=== PATIENT | female | born 1955 | race Caucasian/White ===

== ENCOUNTER 2023-07-03 07:17 | Outpatient (OUT) | payer MEDICARE, SELFPAY ==
--- NOTE | 2023-07-03 07:19 | MM_ITS ---
Patient: FIGUEROA VILLANUEVA Exam Date: 07/03/2023 : 1955 Gender:F Ordering : DR Mariana Mayfield M.D. Admission #: [id number] Family : Order #: [id number] CLICK HERE TO VIEW EXAM RADIOLOGY REPORT PROCEDURE: MM TOMOSYNTHESIS SCREENING BI COMPARISON: MG MAMM SCREEN 3D SAVANNAH CAD, 07/02/2022. MG MAMM SCREEN 3D SAVANNAH CAD, 06/26/2021. MG MAMM SCREEN SAVANNAH W CAD, 06/23/2020. MG MAMM SAVANNAH SCRN W CAD DIG, 09/23/2013. INDICATIONS: Screening Calculator Name NCI Breast Cancer Risk Assessment Tool 5 Year Breast Cancer Risk 1.50% Lifetime Breast Cancer Risk 5.00% Personal Breast Cancer No Personal Ovarian Cancer No Treatments None Family Cancers Mother with skin cancer at age 79. LOCATION: [facility] BREAST COMPOSITION: Scattered areas fibroglandular density. FINDINGS: DIAGNOSTIC CATEGORY 2--BENIGN FINDING: RIGHT BREAST: No significant suspicious finding. No significant change has occurred. LEFT BREAST: No significant suspicious finding. Scattered benign-appearing nodules are present. No significant change has occurred. RECOMMENDATIONS: ROUTINE MAMMOGRAM AND CLINICAL EVALUATION IN 12 MONTHS. PLEASE NOTE: A NORMAL MAMMOGRAM DOES NOT EXCLUDE THE POSSIBILITY OF BREAST CANCER. A CLINICALLY SUSPICIOUS PALPABLE LUMP SHOULD BE BIOPSIED. Dictated by: Wil Garcia M.D. on 07/03/2023 at 14:57 Approved by: Wil Garcia M.D. on 07/03/2023 at 15:03
--- NOTE | 2023-07-03 07:30 | XR_ITS ---
The [address] [address] Patient Name: FIGUEROA VILLANUEVA MRN: [id number] date: 1955 Sex: F Assigned Patient Location: [facility] Current Patient Location: [facility] Accession/Order Number: [id number] Exam Date: 07/03/2023 07:41 Report Date: 07/03/2023 10:12 At the request of: MIKAELA ZAYAS Procedure: XR cervical spine 5V EXAMINATION: XR cervical spine 5V HISTORY: Paresthesia OF Skin R20.2 ; left arm and hand numbness for one month; no known injury COMPARISON: No relevant comparison available. FINDINGS: BONES: No significant spondylosis, scoliosis, fracture, or visible bony lesion. DISC SPACES: Mild narrowing C5-6. PARASPINOUS: Negative. No paraspinous abnormality is seen. OTHER: Negative. XR/XR cervical spine 5V IMPRESSION: 1. C5-6 mild disc space narrowing and small posterior disc-osteophyte complex. Consider MRI of cervical spine if symptoms persist. Electronically authenticated by: BANDAR STONE Date: 07/03/2023 10:12
[2023-07-03 08:19] LABS: Basophils Percent Auto 0.5 % (0.2-2.0); Eosinophils Absolute Auto 0.3 10^3/uL (0.0-0.7); Eosinophils Percent Auto 3.6 % (0.9-7.0); Hematocrit 44.7 % (36.0-48.0); Hemoglobin 14.5 g/dL (12.0-16.0); Immature Granulocytes Abs Auto 0.02 10^3/uL (0.00-0.03); Immature Granulocytes Pct Auto 0.3 % (0.0-0.5); Lymphocytes Absolute Auto 1.6 10^3/uL (1.2-3.8); Lymphocytes Percent Auto 21.8 % (20.5-60.0); Mean Corpuscular HGB Conc 32.4 g/dL (29.9-35.2); Mean Corpuscular Hemoglobin 30.1 pg (26.7-34.0); Mean Corpuscular Volume 92.9 fL (81.0-99.0); Mean Platelet Volume 10.6 fL (9.5-13.5); Monocytes Absolute Auto 0.6 10^3/uL (0.3-0.8); Monocytes Percent Auto 7.5 % (1.7-12.0); Neutrophils Absolute Auto 4.8 10^3/uL (1.4-6.5); Neutrophils Percent Auto 66.3 % (43.0-75.0); Platelet Count 259 10^3/uL (150-450); Red Blood Count 4.81 10^6/uL (4.20-5.40); Red Cell Distribution Width 13.2 % (11.0-15.0); White Blood Count 7.3 10^3/uL (4.0-11.0)
[2023-07-03 08:51] LABS: Alanine Aminotransferase 46 U/L (14-59); Albumin Globulin Ratio 1.3; Albumin Level 4.3 g/dL (3.4-5.0); Alkaline Phosphatase 55 U/L (46-116); Anion Gap 12.2; Aspartate Amino Transferase 26 U/L (15-37); BUN Creatinine Ratio 24.3; Bilirubin Total 0.6 mg/dL (0.2-1.0); Calcium 9.7 mg/dL (8.5-10.1); Carbon Dioxide 27.7 mmol/L (21.0-32.0); Chloride 103 mmol/L (98-107); Chol HDL Ratio 5.4; Cholesterol 271 mg/dL (<=200); Estimated GFR (African America >60 (>=60); Estimated GFR (Non-African Ame >60 (>=60); Globulin 3.4 g/dL; Glucose 96 mg/dL (74-106); HDL Cholesterol 50 mg/dL (40-60); Potassium 3.9 mmol/L (3.5-5.1); Sodium 139 mmol/L (136-145); Thyroid Stimulating Hormone 3.838 uIU/mL (0.358-3.740); Total Protein 7.7 g/dL (6.4-8.2); Triglycerides 276 mg/dL (<=150); VLDL CHOLESTEROL 55.2 mg/dL
[2023-07-03 09:03] LABS: Free T4 1.17 ng/dL (0.76-1.46)
== END 2023-07-03 07:18 | disposition home or self-care (01) ==
LOC: MAMMO 07:17
PROVIDERS: PCP Family Medicine; Visit Provider Family Medicine
DX: Z12.31 Encounter for screening mammogram for malignant neoplasm of breast (principal); R20.2 Paresthesia of skin; I10 Essential (primary) hypertension; E78.2 Mixed hyperlipidemia; E03.8 Other specified hypothyroidism
CPT/HCPCS: 36415; 72050; 77063; 77067; 80053; 80061; 84439; 84443; 85025

== ENCOUNTER 2023-08-20 09:44 | Outpatient (RCR) | payer MEDICARE, SELFPAY | END 2023-09-11 17:11 | disposition home or self-care (01) | LOC: PT 09:44 | PROVIDERS: PCP Family Medicine; Visit Provider Anesthesiology | DX: M54.2 Cervicalgia (principal) | CPT/HCPCS: 97014; 97110; 97161 ==

== ENCOUNTER 2023-10-16 12:51 | Outpatient (OUT) | payer MEDICARE, SELFPAY ==
--- NOTE | 2023-10-16 12:53 | VEIN_ITS ---
Patient Name: FIGUEROA VILLANUEVA MR#: [id number] : 1955 Exam Date: 10/16/2023 Ordering Doctor: DR MIKAELA ZAYAS M.D. RADIOLOGY REPORT PROCEDURE: VC EXT VENOUS REFLUX SAVANNAH LMTD COMPARISON: None. INDICATIONS: Phlebitis of superficial vein of bilateral lower extremity I TECHNIQUE: Duplex imaging of the lower extremity to assess the deep and superficial venous system for the presence of deep or superficial venous incompetence and to document the location and severity of disease. The study includes evaluation of the great saphenous vein (GSV), anterior accessory saphenous vein (AASV) and small saphenous vein (SSV). Patient scanned in reverse Trendelenburg and standing. FINDINGS: RIGHT LOWER EXTREMITY: Saphenofemoral Junction Reflux: Yes 10.5mm 2.8 sec GSV: Diam (mm) Reflux/ Time (sec) Proximal Thigh N/A Mid Thigh N/A Distal Thigh N/A Prox Calf N/A Mid Calf N/A Saphenopopliteal Junction Reflux: 1.5mm No SSV: Proximal Calf N/A Mid Calf N/A AASV: Proximal Thigh 7.6 Yes 2.0 Mid Thigh Distal Thigh Thrombi: No acute or chronic thrombus visualized Compressibility: Normal Flow: Normal Preforator: Dist/med calf 3.5mm with 0s reflux. Tech Note: GSV and SSV were previously treated. AASV is tortuous off of SFJ. Patent varicose vein mid/med calf 5.3mm with 1.8s reflux. Patent varicose vein medial knee 4.8mm with 2.1s reflux. Patent varicose vein mid/med thigh 8.0mm with 0.9s reflux. Patent varicose vein dist/med thigh 5.9mm with 2.0s reflux. Patent varicose vein prox/med thigh 6.4mm with 1.7s reflux. LEFT LOWER EXTREMITY: Saphenofemoral Junction Reflux: Yes 7.7 mm 2.3 sec GSV: Diam (mm) Reflux/Time (sec) Proximal Thigh 6.8 Yes 2.3 Mid Thigh 3.8 Yes 0.8 Distal Thigh 4.3 Yes 1.3 Prox Calf 4.7 Yes 1.0 Mid Calf 3.1 Yes 0.8 Saphenopopliteal Junction Relux: 4.2 mm Yes 1.0 SSV: Proximal Calf 3.2 No Mid Calf 3.4 No AASV: Proximal Thigh 5.1 Yes 0.9 Mid Thigh 4.2 Yes 1.0 Distal Thigh Thrombi: No acute or chronic thrombus visualized Compressibility: Normal Flow: Normal Gun Perforator: No patent perforators visualized Tech Note: Incompetent GSV. Patent varicose vein medial knee 5.8mm with 1.0s reflux. Patent varicose vein prox/post calf 4.7mm with 1.6s reflux. Patent varicose vein mid/med thigh 6.2mm with 1.1s reflux. CONCLUSION: 1. Moderate reflux proximal right anterior accessory saphenous vein with dilatation 2. Moderate venous insufficiency left great saphenous vein with dilatation and saphenofemoral junction reflux 3. Mild reflux with borderline dilatation left anterior accessory saphenous vein 4. Bilateral incompetent varicose veins Dictated by: Gutierrez Kirk MD on 10/16/2023 at 13:56 Approved by: Gutierrez Kirk MD on 10/16/2023 at 13:59
--- NOTE | 2023-10-16 12:54 | VEIN_ITS ---
Patient Name: FIGUEROA VILLANUEVA MR#: [id number] : 1955 Exam Date: 10/16/2023 Ordering Doctor: DR MIKAELA ZAYAS M.D. RADIOLOGY REPORT PROCEDURE: [facility] - OFFICE VISIT INITIAL COMPARISON: None. PROGRESS NOTES: 67-year-old female who presents with a 15 year history of lower extremity pain swelling and varicose veins. The patient's left is significantly worse than the right. The patient describes the pain as aching burning and dull rating the pain as a 4 on a scale of 1-10. The patient's symptoms are significantly exacerbated by prolonged sitting and standing and are partially relieved by rest, leg elevation, exercise, support stockings which she has worn for many years and over the counter Tylenol. The patient exercises 3 to 4 times a week which does give her some relief. The patient previously was treated by Dr. Janet wood with intravenous laser ablation and stab phlebectomy. The patient denies any signs and symptoms to suggest arterial ischemia. The patient describes a family history significant for hypertension and diabetes in her father. Heart problems and hypertension in her mother. Varicose veins in a maternal grandmother and mother. . Five grandchildren. The patient does not drink alcohol. No illicit drug use. The patient has never smoked. Past medical history significant for hypothyroidism, hypertension, hyperlipidemia, hypercholesterolemia. No history of deep venous thrombus or pulmonary embolus. See separate history and physical for medication list. Nursing notes were reviewed. After history and physical exam I discussed at length the pathophysiology of venous hypertension and possible treatments, therapies and strategies available. We discussed at length the importance of elevating the lower extremities above the level of the heart, increased physical activity and compression stocking use. We discussed surgical interventions including ligation and stripping and phlebectomy. We discussed at length intravenous laser ablation, micro foam chemical ablation and injection sclerotherapy. Risks benefits and alternatives were discussed. Ultrasound venous reflux study performed the same day was discussed at length with the patient. The report demonstrates mild to moderate bilateral anterior accessory saphenous vein venous insufficiency. Moderate left great saphenous vein venous insufficiency with saphenofemoral junction reflux. Bilateral incompetent varicose veins. PHYSICAL EXAM: The right leg demonstrates moderate diffuse varicose reticular and spider veins. No active ulceration. Mild subcutaneous edema distally. No skin discoloration. The left leg demonstrates moderate diffuse varicose reticular and spider veins. No active ulceration. Mild subcutaneous edema distally. No skin discoloration. Both thighs, legs and feet were symmetrically warm to the touch. Good posterior tibial and dorsalis pedis pulses were present bilaterally. VEIN/VC Facility EST Comprehensive IMPRESSION: 1. Bilateral anterior accessory saphenous vein and left great saphenous vein venous insufficiency with dilatation and saphenofemoral junction reflux 2. Moderate bilateral lower extremity incompetent varicose veins 3. Mild bilateral lower extremity subcutaneous edema 4. No definite flow significant arterial disease 5. CEAP: C3, Ep, As, Pr PLAN: 1. Endovenous laser ablation left great saphenous vein followed by left anterior accessory saphenous vein 2. Micro foam chemical ablation right anterior accessory saphenous vein and bilateral incompetent varicose veins 3. Injection sclerotherapy of reticular and spider veins 4. Long-term use of 20-30 mm thigh or knee high compression stockings 5. Leg elevation and increased physical activity for symptomatic relief Nurse notes, history and physical were reviewed and confirmed, see attached forms. The nurse was present throughout the physical exam and consultation Dictated by: Gutierrez Kirk MD on 10/16/2023 at 15:11 Approved by: Gutierrez Kirk MD on 10/16/2023 at 15:42
--- OUTSIDE RECORDS SUMMARY | 2023-10-16 12:54 | XMS_ITS | CCD ---
Author Name Unknown Address [facility] [address] [place] [address] Organization [facility] Care Team Providers Care Household Chores Name Role Phone DR MARIANA MAYFIELD Admitting Unavailable CHANA, DR MARIANA Glover Primary Care Unavailable CHANA, DR MARIANA Glover Attending Unavailable CHASE, DR WIL Edmondson Consulting Unavailable CHANA, DR MARIANA Glover Consulting Unavailable Mariana Mayfield Unavailable MD Mariana Mayfield Attending Provider [phone] Lima Villatoro Unavailable SESAR Villatoro Attending Provider [phone] Lima Villatoro Admitting Unavailable Lima Villatoro Attending Unavailable Mariana Mayfield Primary Care Unavailable Mariana Mayfield Attending Unavailable Mariana Mayfield Admitting Unavailable Lukasz Quispe Unavailable Allergies Allergy Classification Reported Allergen(s) Allergy Type Date of Onset Reaction(s) Facility (1 source) Codeine Drug Allergy [facility] [place] [facility] Repository (2 sources) Codeine Drug Allergy Unknown [employer] Other (6 sources) Codeine Drug Allergy Unknown [employer] Other (6 sources) Anesthesia S/I-40A Drug allergy Comment:Patient had a reaction to the anesthetic her last surgery and had to have a spinal [employer] Other (6 sources) Medicinal cephalosporin and acting as antibacterial agent (FN) Drug allergy Unknown [employer] Other Medications Current Medications Medication Drug Class(es) Dates Sig (Normalized) Sig (Original) ALPRAZolam 0.25 mg oral tablet (6 sources) Benzodiazepine Start: 06-27-2023 take 1 tablet by mouth every twelve hours ALPRAZolam 0.25 MG 1 tablet Orally Twice a day for 30 days Jun, Active Start: 06-19-2023 take 1 tablet by charlotte th every twelve hours ALPRAZolam 0.25 MG 1 tablet Orally Twice a day Jun, Active amLODIPine 10 mg oral tablet (8 sources) Dihydropyridine Calcium Channel Tammy amLODIPine Besylate 10 MG 2 tablets at HS Active take 1 tablet by mouth once khadra y amLODIPine Besylate 10 MG 1 tablet Orally Once a day for 90 days Active amLODIPine Besyl ate Active amoxicillin 875 mg / clavulanate 125 mg oral tablet (3 sources) Penicillin-class Antibacterial Start: 01-08-2023 take 1 tablet by mouth every twelve hours Amoxicillin-Pot Clavulanate 875-125 MG 1 tablet Orally every 12 hrs for 7 Dec, Active ascorbic acid 1000 mg oral tablet (1 source) Vitamin C take 1 tablet by mouth every twenty-fou r hours Vitamin C 1000 MG 1 tablet Orally Once a day Active ascorbic acid 113 mg / copper gluconate 0.4 mg / docosahexaenoic acid 87.5 mg / eicosapentaenoic acid 163 mg / lutein 2.5 mg / tocopherol acetate 100 unt / zeaxanthin 0.5 mg / zinc oxide 17.4 mg oral capsule (8 sources) Vitamin C take 1 tablet by mouth twice daily PreserVision AREDS 2 - 1 tab Orally twice a day Active Aspir-81 81 MG (8 sources) take 1 tablet by mouth once daily Aspir-81 81 MG 1 tablet Orally Once a day Active betamethasone 0.5 mg/ml / clotrimazole 10 mg/ml topical cream (8 sources) Azole Antifungal, Corticosteroid Start: 12-25-2022 Clotrimazole-Betame thasone 1-0.05 % 1 application Externally Twice a day for 7 days Dec, Active calcium carbonate 1500 mg oral tablet (8 sources) take 1 tablet by mouth every twelve hours Calcium 600 MG 1 tablet with meals Orally Twice a day Active take 1 tablet by mouth every twe lve hours Calcium 600 MG 1 tablet with meals Orally Twice a day Active carvedilol 6.25 mg oral tablet (1 source) alpha-Adrenergic Tammy, beta-Adrenergic Tammy Start: 09-24-2023 take 1 tablet by mouth every twelve hours Carvedilol 6.25 MG 1 tablet with food Orally Twice a day for 30 day(s) Sep, Active erythromycin 0.02 mg/mg topical gel (6 sources) Macrolide, Macrolide Antimicrobial Start: 01-08-2023 Erythromycin 2 % 1 application Externally Twice a day for 14 days Dec, Active Famotidine (8 sources) Histamine-2 Receptor Antagonist Famotidine Active ferrous sulfate 325 mg oral tablet (8 sources) take 1 tablet by mouth every twenty-four hours Iron 325 (65 Fe) MG 1 tablet Orally Once a day Active Fish Oils (8 sources) take 1 capsule by mouth once daily Fish Oil 1000 MG 1 capsule Orally Once a day Active folic acid 0.8 mg oral tablet (8 sources) take 1 tablet by mouth every twenty-four hours Folic Acid 800 MCG 1 tablet Orally Once a day Active take 1 tablet by charlotte th every twenty-four hours Folic Acid 800 MCG 1 tablet Orally Once a day Active hydroCHLOROthiazide 25 mg oral tablet (8 sources) Thiazide Diuretic take 1 tablet by mouth once daily hydroCHLOROthiazide 25 MG Take 1 tablet by mouth once daily Active hydroCHLOROthiaz amina Active levothyroxine sodium 0.075 mg oral tablet (8 sources) l-Thyroxine take 1 tablet by mouth once daily in the morning Levothyroxine Sodium 75 MCG 1 tablet in the morning on an empty stomach Orally Once a day for 90 days Active take 1 tablet by charlotte th once daily in the morning Levothyroxine Sodium 75 MCG 1 tablet in the morning on an empty stomach Orally Once a day for 90 days Active take 1 tablet by mouth once khadra y Levothyroxine Sodium 50 MCG Take 1 tablet by mouth once daily for 90 Active lisinopril 40 mg oral tablet (8 sources) Angiotensin Converting Enzyme Inhibitor take 1 tablet by mouth once daily Lisinopril 40 MG Take 1 tablet by mouth once daily Active Magnesium (1 source) Magnesium Active One Daily For Women 50+ Adv - (8 sources) One Daily For Wo men 50+ Adv - Orally Active Potassium (8 sources) Potassium 1 tab Oral Active rosuvastatin calcium 20 mg oral tablet (4 sources) HMG-CoA Reductase Inhibitor take 1 tablet by mouth every twenty-four hours Rosuvastatin Calcium 20 MG 1 tablet Orally Once a day for 90 days Active turmeric extract 500 mg oral capsule (8 sources) take 1 tablet by mouth twice daily Turmeric 500 MG 1 tab Orally twice a day Active Vitamin C 1000 MG (7 sources) take 1 tablet by mouth once daily Vitamin C 1000 MG 1 tablet Orally Once a day Active Vitamin D3 2000 UNIT (8 sources) take 1 capsule by mouth once daily Vitamin D3 2000 UNIT 1 capsule Orally Once a day Active vitamin e 450 mg oral capsule (1 source) Vitamin E 1000 U NIT Orally Active Vitamin E 1000 UNIT (7 sources) Vitamin E 1000 U NIT Orally Active Zinc (1 source) take 1 tablet by mouth once daily Zinc 50 MG 1 tablet Orally Once a day Active zinc gluconate 50 mg oral tablet (7 sources) take 1 tablet by mouth every twenty-four hours Zinc 50 MG 1 tablet Orally Once a day Active Completed/Discontinued Medications Medication Drug Class(es) Dates Sig (Normalized) Sig (Original) nitrofurantoin, macrocrystals 25 mg / nitrofurantoin, monohydrate 75 mg oral capsule (4 sources) Nitrofuran Antibacterial Start: 07-28-2023 take 1 capsule by mouth every twelve hours Macrobid 100 MG 1 cap(s) Orally bid for 5 day(s) Jul, Not-Taking/PRN phenazopyridine hydrochloride 200 mg oral tablet (4 sources) Start: 07-28-2023 take 1 tablet by mouth every eight hours Pyridium 200 MG 1 tablet after meals Orally Three times a day for 2 day(s) Jul, Not-Taking/PRN Problems Problem Classification Problem Date Documented Da te Episodic/Chronic Abdominal pain (8 sources) Epigastric discomfort; Translations: [Epigastric pain] Episodic Administrative/social admission (1 source) Other specified counseling Episodic Anxiety disorders (8 sources) Anxiety; Translations: [Other specified anxiety disorders] Chronic Disorders of lipid metabolism (8 sources) Hyperlipidemia, unspecified; Translations: [Mixed hyperlipidemia] Onset: 07-03-2022 Chronic Diverticulosis and diverticulitis (8 sources) Diverticular disease of colon; Translations: [Diverticulosis of intestine, part unspecified, without perforation or abscess without bleeding] Chronic Essential hypertension (8 sources) Essential hypertension; Translations: [Essential (primary) hypertension] Chronic Genitourinary symptoms and ill-defined conditions (3 sources) Dysuria; Translations: [Dysuria] Onset: 07-28-2023 Episodic Other connective tissue disease (1 source) Pain in right leg Episodic Other gastrointestinal disorders (8 sources) Abnormal feces; Translations: [Other fecal abnormalities] Episodic Other liver diseases (8 sources) Large liver; Translations: [Hepatomegaly, not elsewhere classified] Episodic Other nervous system disorders (2 sources) Chronic pain; Translations: [Other chronic pain] Chronic Other nervous system disorders (1 source) Other chronic pain Chronic Other nervous system disorders (6 sources) Paresthesia of left upper limb; Translations: [Paresthesia of skin] Episodic Other nervous system disorders (1 source) Paresthesia of skin Episodic Other screening for suspected conditions (not mental disorders or infectious disease) (5 sources) Encounter for screening mammogram for malignant neoplasm of breast; Translations: [ENC SCR MAMMO MALIG NEOPLASM BREAST] Onset: 07-02-2022 Episodic Residual codes; unclassified (1 source) Family history of malignant neoplasm of other organs or systems; Translations: [FAM HX MALIG NEOPLASM OTH ORGN/SYS] Onset: 07-03-2022 Episodic Skin and subcutaneous tissue infections (3 sources) Erythrasma Episodic Spondylosis; intervertebral disc disorders; other back problems (1 source) Radiculopathy, cervical region Episodic Thyroid disorders (8 sources) Hypothyroidism, unspecified; Translations: [Hypothyroidism] Onset: 07-03-2022 Chronic Unclassified (1 source) Encounter for screening for malignant neoplasm of cervix; Translations: [Encounter for screening for malignant neoplasm of cervix] Onset: 06-19-2023 Urinary tract infections (2 sources) Acute cystitis with hematuria Episodic Varicose veins of lower extremity (18 sources) Pain due to varicose veins of lower extremity; Translations: [Varicose veins of right lower extremity with pain] Episodic Results Test Name Value Interpretation Reference Range Facility Urinalysis - AUTOMATED Appearance (U) cloudy [employer] Other Bilirubin Ql (U) Negative [employer] Other Color (U) dark yellow [employer] Other Glucose Ql (U) Negative [employer] Other Hemoglobin Ql (U) large [employer] Other Ketones Ql (U) Negative [employer] Other Leukocyte esterase Test strip Ql (U) moderate [employer] Other Nitrite Ql (U) Negative [employer] Other pH (U) 5.5 [pH] [employer] Other Protein Ql (U) 30 [employer] Other Specific gravity (U) [Rel density] 1.025 [employer] Other Urobilinogen (U) [Mass/Vol] 0.2 mg/dL [employer] Other Urinalysis - AUTOMATED No rt [employer] Other Urine Cultureon 07-28-2023 Urine Culture 20,000 [employer] Other Urine Culture <16 Susceptible [employer] Other Urine Culture >16/8 Resistant [employer] Other Urine Culture >16 Resistant [employer] Other Urine Culture <4 Susceptible [employer] Other Urine Culture 4 Susceptible [employer] Other Urine Culture <2 Susceptible [employer] Other Urine Culture <1 Susceptible [employer] Other Urine Culture 8 Susceptible [employer] Other Urine Culture <0.25 Susceptible [employer] Other Urine Culture <0.5 Susceptible [employer] Other Urine Culture <32 Susceptible [employer] Other Urine Culture <0.5/9.5 Susceptible [employer] Other Bacteria identified Cx Nom (U) Reason for Exam Dysuria Urine Reason for Exam: Dysuria : Urine ORGANISM: Escherichia coli (O:ESCCOL) [place] Count 20,000 Aerobic ANNA Charge ([id number]) ----- SUSCEPTIBILITY ---- ORGANISM: O:ESCCOL ANTIBIOTIC INTERPRETATION ANNA Amikacin S <16 Amoxacillin/K Clavulanate R >16 Ampicillin R >16 Ampicillin/Sulbactam S 88/4 Aztreonam S <4 Cefazolin S 4 Cefepime S <2 Ceftazidime S <1 Ceftazidime/Avibacta m S <4 Ceftolozane/Tazobact am S <2 Ceftriaxone S <1 Cefuroxime S 8 Ciprofloxacin S <0.25 Ertapenem S <0.5 Gentamicin S <2 Levofloxacin S <0.5 Meropenem S <1 Meropenem/Vaborbacta m S <2 Nitrofurantoin S <32 Piperacillin/Tazobac cook S <8 Tetracycline S <4 Tigecycline S <2 Tobramycin S <2 Trimethoprim/Sulfame thoxazole S <0.5 S = SUSCEPTIBLE I = INTERMEDIATE R = RESISTANT BLANK = DATA NOT AVAILABLE, OR DRUG NOT ADVISABLE OR TESTED R* = RESISTANCE DUE TO EXTENDED SPECTRUM BETA-LACTAMASES ESBL = EXTENDED SPECTRUM BETA-LACTAMASE TFG = THYMIDINE-DEPENDENT STRAIN ROBERTO = BETA-LACTAMASE POSITIVE IB = INDUCIBLE BETA-LACTAMASE. APPEARS IN PLACE OF 'S' WITH SPECIES KNOWN TO POSSESS INDUCIBLE BETA-LACTAMASES. POTENTIALLY THEY MAY BECOME RESISTANT TO ALL B-LACTAM DRUGS. PERFORMED BY: [place] [address] PATHOLOGIST MANAGER VOICE TRAVIS RADFORD M.D. Normal [facility] Comment on above: Performed By: #### C UU #### [address] Human papilloma virus 16+18+ 31+33+35+39+45+51+52+56+58+59+66+68 DNA [Presence] in CerOrdered By: Mariana Mayfield on 06-19-2023 HPV 16+18+31+33+35+39+45+5 1+52+56+58+59+66+68 DNA Probe+sig amp Ql (Cvx) Negative Negative [facility] Comment on above: This nucleic acid am plification test detects fourteen high- risk HPV types (16,18,31,33,35,39,45,51,52,56,58,59,66,68)without differentiation.Performed at: [address] [id number] Director: Jackelyn Ayala MD, Phone: [phone] at: =[address] [id number] Director: Jackelyn Ayala MD, Phone: [phone] IGP, Aptima HPV, rfx 16/18,4 5on 06-19-2023 PAP HPV Aptima Negative Normal Negative [facility] Comment on above: Result Comment: This nucleic acid amplification test detects fourteen high- risk HPV types (16,18,31,33,35,39,45,51,52,56,58,59,66,68) without differentiation. Performed at: [address] [id number] Seismic Observer: Jackelyn Ayala MD, Phone: [phone] Performed at: =[address] [id number] Seismic Observer: Jackelny Ayala MD, Phone: [phone] PERFORMED BY: [address] [place] [address] PATHOLOGIST MANAGER VOICE TRAVIS RADFORD M.D. Performed By: #### P AP [id number] #### [facility] , Pap Image Guided Note Normal . [facility] Comment on above: Result Comment: TEST S RESULT FLAG UNITS REF RANGE LAB Clinician Provided Cytology Information No. of containers..01 ThinPrep Vial DIAGNOSIS: 01 NEGATIVE FOR INTRAEPITHELIAL LESION OR MALIGNANCY. CELLULAR CHANGES ASSOCIATED WITH ATROPHY ARE PRESENT. Specimen adequacy: 01 Satisfactory for evaluation. Endocervical component may not be distinguished in cases of atrophy. Performed by: 01 Kwan Lundberg, Sales Training Coordinator ([facility]) . 01 Note: Note 01 The Pap smear is a screening test designed to aid in the detection of premalignant and malignant conditions of the uterine cervix. It is not a diagnostic procedure and should not be used as the sole means of detecting cervical cancer. Both false-positive and false-negative reports do occur. Test Methodology: Note 01 This liquid based ThinPrep(R) pap test was screened with the use of an image guided system. HPV Genotype Reflex Note 01 Criteria not met, HPV Genotype not performed. FLAG LEGEND: L-Low Normal,H-High Normal,LL-Alert Low,HH-Alert High <-Panic Low,>-Panic High,A-Abnormal,AA-Critical Abnormal Performed at: 01 [address] [facility] [address] [id number] Jackelyn Ayala MD, Performed By: #### P AP [id number] #### [facility] , No Panel InformationOrdered By: Mariana Mayfield on 06-19-2023 IG Pap w/Ct-Ng & HPV Rflx (Off-Site Note . [facility] Comment on above: TESTS RESULT FLAG UN ITS REF RANGE LAB Clinician Provided Cytology Information No. of containers..01 ThinPrep VialDIAGNOSIS: 01 NEGATIVE FOR INTRAEPITHELIAL LESION OR MALIGNANCY. CELLULAR CHANGES ASSOCIATED WITH ATROPHY ARE PRESENT.Specimen adequacy: 01 Satisfactory for evaluation. Endocervical component may not be distinguished in cases of atrophy.Performed by: 01 Kwan Lundberg, Sales Training Coordinator ([facility]). 01Note: Note 01 The Pap smear is a screening test designed to aid in the detection of premalignant and malignant conditions of the uterine cervix. It is not a diagnostic procedure and should not be used as the sole means of detecting cervical cancer. Both false-positive and false-negative reports do occur.Test Methodology: Note 01 This liquid based ThinPrep(R) pap test was screened with the use of an image guided system.HPV Genotype Reflex Note 01 Criteria not met, HPV Genotype not performed. ------- FLAG LEGEND: L-Low Normal,H-High Normal,LL-Alert Low,HH-Alert High <-Panic Low,>-Panic High,A-Abnormal,AA-Critical Abnormal -----Performed at:01 [address] [facility] [address] [address] Jackelyn Ayala MD, FREE T4on 07-02-2022 Free T4 [Mass/Vol] 1.15 ng/dL Normal 0.76-1.46 [facility] Comment on above: Performed By: #### F T4 #### [facility] [place] [facility] [address] [place] [address] Dr. Gilma Rojas LIPID PROFILEon 07-02-2022 CHOL-HDL RATIO NORM SEE BELOW Normal [facility] Comment on above: Result Comment: 3.3 - 4.4 LOW RISK 4.4 - 7.1 AVERAGE RISK 7.1 - 11.0 MODERATE RISK >11.0 HIGH RISK Performed By: #### C MP, TSH, LIPID #### [facility] [place] [facility] [address] [address] [address] Gilma Rojas Cholesterol [Mass/Vol] 191 mg/dL Normal <=200 [facility] Comment on above: Performed By: #### C MP, TSH, LIPID #### [facility] [place] [facility] [address] [address] [address] Gilma Rojas Cholesterol in HDL [Mass/Vol] 59 mg/dL Normal 40-60 [facility] Comment on above: Performed By: #### C MP, TSH, LIPID #### [facility] [place] [facility] [address] [address] [address] Gilma Rojas Cholesterol in LDL [Mass/Vol] 112.4 mg/dL Normal [facility] Comment on above: Performed By: #### C MP, TSH, LIPID #### [facility] [place] [facility] [address] [address] [address] Gilma Rojas Cholesterol.total/Chol esterol in HDL [Mass ratio] 3.2 {ratio} Normal [facility] Comment on above: Performed By: #### C MP, TSH, LIPID #### [facility] [place] [facility] [address] [address] [address] Gilma Rojas HDL NORMAL > or = 60 mg/dl - LOW CARDIOVASCULAR RISK <40 mg/dl - HIGH CARDIOVASCULAR RISK Normal [facility] Comment on above: Performed By: #### C MP, TSH, LIPID #### [facility] [place] [facility] [address] [address] [address] Gilma Rojas LDL CALC NORMAL SEE BELOW Normal [facility] Comment on above: Result Comment: <100 mg/dl OPTIMAL 100 - 129 mg/dl NEAR OR ABOVE OPTIMAL 130 - 159 mg/dl BORDERLINE HIGH 160 - 189 mg/dl HIGH >190 mg/dl VERY HIGH Performed By: #### C MP, TSH, LIPID #### [facility] [place] [facility] [address] [address] [address] Gilma Rojas Triglyceride [Mass/Vol] 98 mg/dL Normal <=150 [facility] Comment on above: Performed By: #### C MP, TSH, LIPID #### [facility] [place] [facility] [address] [address] [address] Gilma Rojas VLDL CALC 19.6 mg/dL Normal [facility] Comment on above: Performed By: #### C MP, TSH, LIPID #### [facility] [place] [facility] [address] [address] [address] Gilma Rojas MG MAMM SCREEN 3D SAVANNAH CADon 07-02-2022 MG MAMM SCREEN 3D SAVANNAH CAD Patient: GABBY VILLANUEVA Exam Date: 07/02/2022 : 1955 Gender:F Ordering : DR MARIANA MAYFIELD M.D. Admission #: [id number] Family : Order #: [id number] CLICK HERE TO VIEW EXAM RADIOLOGY REPORT PROCEDURE: MAMMOGRAM SCREENING 3D BILATERAL CAD COMPARISON: MG MAMM SCREEN 3D SAVANNAH CAD, 06/26/2021. MG MAMM SCREEN SAVANNAH W CAD, 06/23/2020. INDICATIONS: Screening mammography Calculator Name NCI Breast Cancer Risk Assessment Tool 5 Year Breast Cancer Risk 1.50% Lifetime Breast Cancer Risk 5.20% Personal Breast Cancer No Personal Ovarian Cancer No Treatments None Family Cancers Mother with skin cancer at age 79. LOCATION: [facility] [place] [facility] BREAST COMPOSITION: Scattered areas fibroglandular density. FINDINGS: DIAGNOSTIC CATEGORY 2--BENIGN FINDING: RIGHT BREAST: No significant suspicious finding. No significant change has occurred. LEFT BREAST: No significant suspicious finding. Scattered benign-appearing nodules are present. No significant change has occurred. RECOMMENDATIONS: ROUTINE MAMMOGRAM AND CLINICAL EVALUATION IN 12 MONTHS. PLEASE NOTE: A NORMAL MAMMOGRAM DOES NOT EXCLUDE THE POSSIBILITY OF BREAST CANCER. A CLINICALLY SUSPICIOUS PALPABLE LUMP SHOULD BE BIOPSIED. Dictated by: Wil Garcia M.D. on 07/02/2022 at 12:26 Approved by: Wil Garcia M.D. on 07/02/2022 at 12:31 Normal [facility] [place] [facility] PROF 14(COMP METB)on 022 Albumin [Mass/Vol] 4.3 g/dL Normal 3.4-5.0 [facility] Comment on above: Performed By: #### C MP, TSH, LIPID #### [facility] [place] [facility] [address] [place], [place] [address] Dr. Gilma Rojas Albumin/Globulin [Mass ratio] 1.4 {ratio} Normal [facility] Comment on above: Performed By: #### C MP, TSH, LIPID #### [facility] [place] [facility] [address] [address] [address] Gilma Rojas ALP [Catalytic activity/Vol] 44 U/L Critically low 46-116 [facility] Comment on above: Performed By: #### C MP, TSH, LIPID #### [facility] [place] [facility] [address] [address] [address] Gilma Rojas ALT [Catalytic activity/Vol] 36 U/L Normal 14-59 [facility] Comment on above: Performed By: #### C MP, TSH, LIPID #### [facility] [place] [facility] [address] [address] [address] Gilma Rojas Anion gap [Moles/Vol] 10.4 mmol/L Normal [facility] Comment on above: Performed By: #### C MP, TSH, LIPID #### [facility] [place] [facility] [address] [address] [address] Gilma Rojas AST [Catalytic activity/Vol] 25 U/L Normal 15-37 [facility] Comment on above: Performed By: #### C MP, TSH, LIPID #### [facility] [place] [facility] [address] [address] [address] Gilma Rojas Bilirubin [Mass/Vol] 0.6 mg/dL Normal 0.2-1.0 [facility] Comment on above: Performed By: #### C MP, TSH, LIPID #### [facility] [place] [facility] [address] [address] [address] Gilma Rojas Calcium [Mass/Vol] 9.6 mg/dL Normal 8.5-10.1 [facility] Comment on above: Performed By: #### C MP, TSH, LIPID #### [facility] [place] [facility] [address] [address] [address] Gilma Rojas Chloride [Moles/Vol] 106 mmol/L Normal 98-107 [facility] Comment on above: Performed By: #### C MP, TSH, LIPID #### [facility] [place] [facility] [address] [address] [address] Gilma Rojas CO2 [Moles/Vol] 30.1 mmol/L Normal 21.0-32.0 [facility] Comment on above: Performed By: #### C MP, TSH, LIPID #### [facility] [place] [facility] [address] [address] [address] Gilma Rojas Creatinine [Mass/Vol] 0.78 mg/dL Normal 0.55-1.02 [facility] Comment on above: Performed By: #### C MP, TSH, LIPID #### [facility] [place] [facility] [address] [address] [address] Gilma Rojas EGFR-AF IRISH >60 Normal >=60 [facility] Comment on above: Performed By: #### C MP, TSH, LIPID #### [facility] [place] [facility] [address] [place] [address] Dr. Gilma Rojas EGFR-NON AF IRISH >60 Normal >=60 [facility] Comment on above: Performed By: #### C MP, TSH, LIPID #### [facility] [place] [facility] [address] [address] [address] Gilma Rojas Globulin (S) [Mass/Vol] 3.1 g/dL Normal [facility] Comment on above: Performed By: #### C MP, TSH, LIPID #### [facility] [place] [facility] [address] [place] [address] Dr. Gilma Rojas Glucose [Mass/Vol] 99 mg/dL Normal 74-106 [facility] Comment on above: Performed By: #### C MP, TSH, LIPID #### [facility] [place] [facility] [address] [address] [address] Gilma Rojas Potassium [Moles/Vol] 3.5 mmol/L Normal 3.5-5.1 [facility] Comment on above: Performed By: #### C MP, TSH, LIPID #### [facility] [place] [facility] [address] [address] [address] Gilma Rojas Protein [Mass/Vol] 7.4 g/dL Normal 6.4-8.2 [facility] Comment on above: Performed By: #### C MP, TSH, LIPID #### [facility] [place] [facility] [address] [place] [address] Dr. Gilma Rojas Sodium [Moles/Vol] 143 mmol/L Normal 136-145 [facility] Comment on above: Performed By: #### C MP, TSH, LIPID #### [facility] [place] [facility] [address] [place] [address] Dr. Gilma Rojas Urea nitrogen [Mass/Vol] 18.0 mg/dL Normal 7.0-18.0 [facility] Comment on above: Performed By: #### C MP, TSH, LIPID #### [facility] [place] [facility] Laboratory [address] [address] [address] Gilma Rojas Urea nitrogen/Creatinine [Mass ratio] 23.1 mg/mg Normal [facility] Comment on above: Performed By: #### C MP, TSH, LIPID #### [facility] [address] [place] [address] Dr. Gilma Rojas TSHon 07-02-2022 TSH 3.135 uIU/mL Normal 0.358-3.740 [facility] Comment on above: Performed By: #### C MP, TSH, LIPID #### [facility] [address] [place] [address] Dr. Gilma Rojas Vital Signs Date Time Vital Sign Value Performing Clinician Facility 09-24-2023 09:00-0500 Body height 153.67 cm Mariana Mayfield Other [facility] Other 09-24-2023 09:00-0500 Body mass index (BMI) [Ratio] 33.61 kg/m2 Mariana Mayfield Other [facility] Other 09-24-2023 09:00-0500 Body weight 79.38 kg Mariana Mayfield Other [facility] Other 09-24-2023 09:00-0500 Diastolic blood pressure 80 mm[Hg] Mariana Mayfield Other [facility] Other 09-24-2023 09:00-0500 Systolic blood pressure 126 mm[Hg] Mariana Mayfield Other [facility] Other 08-13-2023 09:30-0400 Body height 153.67 cm Lukasz Quispe Other [facility] Other 08-13-2023 09:30-0400 Body mass index (BMI) [Ratio] 33.42 kg/m2 Lukasz Quispe Other [facility] Other 08-13-2023 09:30-0400 Body weight 78.93 kg Lukasz Quispe Other [facility] Other 08-13-2023 09:30-0400 SaO2% (BldA) [Mass fraction] 96 % Lukasz Quispe Other [facility] Other 07-28-2023 09:25-0400 Body height 153.67 cm Lima Sanchezmond Other [facility] Other 07-28-2023 09:25-0400 Body mass index (BMI) [Ratio] 32.84 kg/m2 Lima Sanchezmond Other [facility] Other 07-28-2023 09:25-0400 Body temperature 98.3 [degF] Lima Shauna Other [facility] Other 07-28-2023 09:25-0400 Body weight 77.57 kg Lima Sanchezmond Other [facility] Other 07-28-2023 09:25-0400 Diastolic blood pressure 82 mm[Hg] Lima Shauna Other [facility] Other 07-28-2023 09:25-0400 Respiratory rate 16 /min Lima Shauna Other [facility] Other 07-28-2023 09:25-0400 SaO2% (BldA) [Mass fraction] 98 % Lima Villatoro Other [facility] Other 07-28-2023 09:25-0400 Systolic blood pressure 144 mm[Hg] Lima Sanchezmond Other [facility] Other 06-19-2023 09:30-0400 Body height 153.67 cm Mariana Mayfield Other [facility] Other 06-19-2023 09:30-0400 Body mass index (BMI) [Ratio] 32.8 kg/m2 Mariana Mayfield Other [facility] Other 06-19-2023 09:30-0400 Body weight 77.47 kg Mariana Mayfield Other [facility] Other 06-19-2023 09:30-0400 Diastolic blood pressure 77 mm[Hg] Mariana Mayfield Other [facility] Other 06-19-2023 09:30-0400 Respiratory rate 12 /min Mariana Mayfield Other [facility] Other 06-19-2023 09:30-0400 Systolic blood pressure 160 mm[Hg] Mariana Mayfield Other [facility] Other 12-25-2022 15:45-0400 Body height 153.67 cm Mariana Mayfield Other [facility] Other 12-25-2022 15:45-0400 Body mass index (BMI) [Ratio] 34.57 kg/m2 Mariana Mayfield Other [facility] Other 12-25-2022 15:45-0400 Body weight 81.65 kg Mariana Mayfield Other [facility] Other 12-25-2022 15:45-0400 Diastolic blood pressure 72 mm[Hg] Mariana Mayfield Other [facility] Other 12-25-2022 15:45-0400 SaO2% (BldA) [Mass fraction] 97 % Mariana Mayfield Other [facility] Other 12-25-2022 15:45-0400 Systolic blood pressure 132 mm[Hg] Mariana Mayfield Other [facility] Other Encounters Encounter Date Encounter Type Care Provider Facility Start: 09-24-2023 End: 09-24-2023 ambulatory Mariana Mayfield Other [facility] Other Start: 09-24-2023 Office outpatient vi sit 15 minutes Mariana Mayfield [facility] Start: 08-13-2023 End: 08-13-2023 ambulatory Lukasz Quispe Other [facility] Other Start: 08-13-2023 Office outpatient vi sit 25 minutes Lukasz Quispe [facility] Start: 07-28-2023 Office outpatient vi sit 15 minutes Lima Villatoro [facility] Start: 07-28-2023 End: 07-28-2023 ambulatory Lima Villatoro [facility] Other Start: 07-28-2023 End: 07-28-2023 Departed Referred MD Mariana Mayfield Work Phone: [facility] [place] Work Phone: Start: 06-26-2023 End: 06-26-2023 ambulatory Mariana Mayfield Other [facility] Other Start: 06-26-2023 Telephone encounter Mariana Mayfield [facility] Start: 06-19-2023 Patient encounter procedure Mariana Mayfield [facility] Start: 06-19-2023 End: 06-19-2023 ambulatory Mariana Mayfield [facility] Work Phone: Start: 06-19-2023 End: 06-19-2023 Departed Referred MD Mariana Mayfield Work Phone: [facility] [place] Work Phone: Start: 01-08-2023 End: 01-08-2023 ambulatory Mariana Mayfield Other [facility] Other Start: 01-08-2023 Telephone encounter Mariana Mayfield [facility] Start: 12-25-2022 End: 12-25-2022 ambulatory Mariana Mayfield Other [facility] Other Start: 12-25-2022 Office outpatient vi sit 15 minutes Mariana Mayfield [facility] Start: 07-02-2022 End: 07-03-[address] MARIANA MAYFIELD Facility:[facility]1 Procedures Date Procedure Procedure Detail Performing Clinician Start: 07-28-2023 Piperacillin/tazobactam Lima Villatoro Other Plan of Treatment Date Care Activity Detail Author Start: 07-28-2023 Bacteria identified in Urine by Culture [facility] Start: 06-19-2023 [facility] Human papilloma viru s 16+18+31+33+35+39+45+51+52+56+58 +59+66+68 DNA [Presence] in Cervix by Probe with signal amplification [facility] Immunizations Immunization Date Immunization Notes Care Provider Fa devendra 07-29-2022 COVID-19 Pfizer (Pediatric) Mariana Mayfield Other [facility] Other 07-29-2022 influenza virus vaccine, split virus (incl. purified surface antigen) Mariana Mayfield Other [facility] Other 06-12-2022 Prevnar 20 Mariana Mayfield Other [facility] Other 01-19-2022 COVID-19 Vaccine Moderna - Documentation Purposes Only Mariana Mayfield Other [facility] Other 09-13-2015 influenza virus vaccine, split virus (incl. purified surface antigen) Mariana Mayfield Other [facility] Other 07-29-2013 tetanus and diphther ia toxoids, adsorbed, preservative free, for adult use (5 Lf of tetanus toxoid and 2 Lf of diphtheria toxoid) Mariana Mayfield Other [facility] Other Payers Date Payer Category Payer Medicare [id number] 2023 Self-pay [id number] 1960 Unknown [id number] 1955 Unknown [id number] Unknown [id number] Unknown [id number] Social History Date Type Detail Facility Unknown if ever smoked [facility] Other Sex Assigned At Sex Assigned At Bir th [facility] Other Start: 1955 Sex Assigned At Female F [facility] Evaluation note 09-24-2023 Note Date & Type Note Facility 09-24-2023 Evaluation note Encounter Date Diagnosis Assessment Notes Sep, Essential (primary) hypertension (ICD-10 - I10) add carvediolol - home bps 138-155/74-83 Call if symptoms of hypotension occur. Sep, Symptomatic varicose veins, right (ICD-10 - I83.891) Pt previously saw Dr. Cantor and would like to see an office closer to her home. Sep, Erythrasma (ICD-10 - L08.1) chronic problem in groin area - requests refill. [facility] Other Evaluation note 08-13-2023 Note Date & Type Note Facility 08-13-2023 Evaluation note Encounter Date Diagnosis Assessment Notes Jul, Cervical radiculopathy (ICD-10 - M54.12) 67 year old female presents with complaints of numbness and tingling down the left arm to the fingertips. She denies neck pain. She notes symptoms have been present for approximately 4 months, she cannot recall any inciting trauma to the neck. She feels this can negatively impact her daily activities. She also voices complaints of pain in the right calf. She notes this pain started after a vein stripping procedure many years ago. She wears a compression sock for relief. She feels this pain negatively impacts her daily activities and sleeping pattern. Prior to examining the patient, I reviewed progress notes from her referring provider Mariana Mayfield. I also independently reviewed recent imaging of the cervical spine which is suggestive of narrowing at the C5-6 level. Different treatment options were discussed in detail with the patient, and I will refer her to physical therpay at this time for ROM exercises. Jul, Chronic pain (ICD-10 - G89.29) Follow up after physical therapy Jul, Lower extremity pain, right (ICD-10 - M79.604) I recommend she follow up with vascular regarding her calf pain Jul, Other Medical decision making shows a new problem to me with further workup planned or suggested with the potential for extensive treatment options that were considered with the most applicable given this patient's situation as noted above. Treatment options considered include a combination of physical therapy approaches, pharmacologic management, and interventional procedures. Those most applicable to the patient were discussed at this time. Risk of complications and/or morbidity and mortality is high given that acute and chronic pain poses a threat to life and bodily function if undertreated, poorly treated or with failure to maintain adequate treatment and timely followup. Given the serious and fluctuating nature of pain with extensive consideration for whenever pain changes, there always remains the possibility of prolonged functional impairment requiring constant patient reassessment and high-level medical decision making. The amount and complexity of data reviewed is high given that patient labs, radiology reports, and other test were obtained, reviewed and summarized as applicable from the physician portal and/or outside medical records. Pertinent positive and negative findings were considered in medical decision-making. [facility] Other Evaluation note 07-28-2023 Note Date & Type Note Facility 07-28-2023 Evaluation note Encounter Date Diagnosis Assessment Notes Jul, Dysuria (ICD-10 - R30.0) Jul, Acute cystitis with hematuria (ICD-10 - N30.01) Drink plenty fluids, get plenty of rest. Take the Macrobid and Pyridium as prescribed until gone. Take Tylenol or Motrin as needed for aches pains or fevers. Follow-up with your family physician if no improvement in 2 to 3 days [facility] Other Evaluation note 06-26-2023 Note Date & Type Note Facility 06-26-2023 Evaluation note Encounter Date Diagnosis Assessment Notes Jun, Situational anxiety (ICD-10 - F41.8) [facility] Other Evaluation note 06-19-2023 Note Date & Type Note Facility 06-19-2023 Evaluation note Encounter Date Diagnosis Assessment Notes Jun, Medicare annual wellness visit, subsequent (ICD-10 - Z00.00) Personalized health advice was given to the beneficiary including a written plan for screenings discussed and provided. Advanced care planning reviewed and/or information given as requested. Additional counseling was provided here today in regards to, [ ]. The above visit was performed by [ ], under direct supervision of [ ]. Document reviewed and amended by provider signed below. Jun, Essential (primary) hypertension (ICD-10 - I10) Blood pressure remains well controlled at this time. Denies cardiac symptoms. Shows no signs or symptoms or poor control. Patient to continue with above medication and we will continue to monitor. Advised to pay attention to body and symptoms. Any developing patterns. Stay well hydrated. Jun, Situational anxiety (ICD-10 - F41.8) Uses very sparingly. Has used 30 tabs in 10 years. Requests refill. OARRS reviewed. Jun, Mixed hyperlipidemia (ICD-10 - E78.2) Patient to continue to watch diet and increase exercise routine. Remain active as tolerated and we will continue to monitor with routine blood work. Patient is to continue with above medication as directed. Jun, Other specified hypothyroidism (ICD-10 - E03.8) Asymptomatic at this time, Denies any unexplained weight change, hair loss or fatigue. Patient to continue with above medication and we will continue to monitor through routine blood work Jun, Screening mammogram for breast cancer (ICD-10 - Z12.31) Jun, Arm paresthesia, left (ICD-10 - R20.2) Agrees to cervical xray for paresthesias. Jun, Other Clinical impressions discussed. Monthly SBE advised along with yearly mammograms. Colon and osteoporosis screening reviewed and ordered if indicated (see preventative tab below). I will contact pt. with the results of her pap testing and arrange follow up based on the results. All questions answered to her satisfaction and patient sent home stable [facility] Other Evaluation note 01-08-2023 Note Date & Type Note Facility 01-08-2023 Evaluation note Encounter Date Diagnosis Assessment Notes Dec, Erythrasma (ICD-10 - L08.1) [facility] Other Evaluation note 12-25-2022 Note Date & Type Note Facility 12-25-2022 Evaluation note Encounter Date Diagnosis Assessment Notes Dec, Erythrasma (ICD-10 - L08.1) Rx sent, use as directed. Practice good hygiene, wash area with mild cleanser and warm water. Pat or blow dry (cool setting) effectively. Instructed patient to keep affected areas clean and dry. Use absorbent material or clothing such as cotton. F/u in 1 week or sooner if s/s persists or worsens. Patient verbalized understanding and agreement of tx plan. Dec, Grief counseling (ICD-10 - Z71.89) Discussed at length. Gabby has a good support system and appears that she is doing well. >15 min discussion [facility] Other Evaluation note Note Date & Type Note Facility Evaluation note No assessment information availa ble [facility] Work Phone: History general Narrative - Reported Note Date & Type Note Facility History general Narrative - Reported Type Medical History HTN Medical History VV's Medical History Hypercholesterolemia Surgical History bladder suspension Surgical History cardiac catheterization 2007 Surgical History EVLT/Microphlebectomy Right LE- -12 Stabs 05/2011 Surgical History Microphlebectomy Left LE--18 St abs 06/2011 Surgical History Sclerotherapy Bilat LE 08/2011 Surgical History Sclerotherapy Bilat LE 09/2011 Surgical History Sclerotherapy Left LE 03/2012 Surgical History Sclerotherapy Right LE 09/2012 Surgical History Sclerotherapy Bilat LE 10/2012 Surgical History C SECTION X2 Surgical History TUBAL LIGATION [facility] Other History general Narrative - Reported Note Date & Type Note Facility History general Narrative - Reported Type Medical History HTN Medical History VV's Medical History Hypercholesterolemia Surgical History bladder suspension Surgical History cardiac catheterization 2007 Surgical History EVLT/Microphlebectom y Right LE--12 Stabs 05/2011 Surgical History Microphlebectomy Left LE--18 St abs 06/2011 Surgical History Sclerotherapy Bilat LE 08/2011 Surgical History Sclerotherapy Bilat LE 09/2011 Surgical History Sclerotherapy Left LE 03/2012 Surgical History Sclerotherapy Right LE 09/2012 Surgical History Sclerotherapy Bilat LE 10/2012 Surgical History C SECTION X2 Surgical History TUBAL LIGATION Hospitalization History SEE SURGICAL HX [facility] Other Summary Purpose Family History No Family History Records FoundNo Family History Records Found Advance Directives Advance Directive Response Recorded Date/ Time Advance Directives No June 3:08pm Chief Complaint and Reason for Visit Chief Complaint Z12.4 Reason for Referral Reason [facility] [place] Diagnosis 1 Symptomatic varicose veins, right (I83.891) Referral Organization [facility] giovanna Referring Provider First Name Mariana Referring Provider Last Name Chana Referring Provider Specialty Family [facility] Referred Organization [facility] Referred Address [address], [place],[address] Referred Provider Specialty Vascular and Interventional Radiology Referral Priority Routine Additional Source Comments INFORMATION SOURCE (unrecogn ized section and content) DATE CREATED AUTHOR 07/14/2022 [facility] DATE CREATED AUTHOR AUTHOR'S ORGANIZ ATION 07/31/2023 [facility] REASON FOR VISIT (unrecogniz ed section and content) rash in groin and stomachRas h-Not [employer]/Possible PAP ExamrefillPOSSIBLE UTIPOSSIBLE UTIREFF BY ALINA HOPKINS FOR NECK PAINhigh BP Care Teams (unrecognized sec tion and content) Team Status: Inactive Member Role Status Dates SESAR Elizabeth Attending Provider Active Team Status: Inactive Member Role Status Dates Mariana Mayfield MD Attending Provider Active Goals (unrecognized section and content) Goals may be documented in a n alternate section FOR RECORDS PERTAINING TO PATIENTS WHO ARE OR HAVE BEEN ENROLLED IN A CHEMICAL DEPENDENCY/SUBSTANCEABUSE PROGRAM, SOME INFORMATION MAY BE OMITTED. This clinical summary was aggregated from multiple sources. Caution should be exercised in using it in the provision of clinical care. This summary normalizes information from multiple sources, and as a consequence, information in this document may materially change the coding, format and clinical context of patient data. In addition, data may be omitted in some cases. CLINICAL DECISIONS SHOULD BE BASED ON THE PRIMARY CLINICAL RECORDS. [employer] provides no warranty or guarantee of the accuracy or completeness of information in this document.
== END 2023-10-16 12:52 | disposition home or self-care (01) ==
PROVIDERS: PCP Family Medicine; Visit Provider Family Medicine
DX: I83.891 Varicose veins of right lower extremity with other complications (principal)
CPT/HCPCS: 93970; G0463

== ENCOUNTER 2023-11-11 10:20 | Outpatient (OUT) | payer MEDICARE, SELFPAY ==
[2023-11-11] MEDS: 0.9 % SODIUM CHLORIDE 500 ML, LIDOCAINE HCL 20 ML, SODIUM BICARBONATE 10 MEQ INJ (10:19)
[2023-11-11] MEDS: LIDOCAINE HCL 1% 100 MG/10 ML MDV INJ (10:19)
--- NOTE | 2023-11-11 10:21 | VEIN_ITS ---
[address] [address] Patient Name: FIGUEROA VILLANUEVA MRN: [id number] date: 1955 Sex: F Assigned Patient Location: Current Patient Location: Accession/Order Number: [id number] Exam Date: 11/11/2023 10:22 Report Date: 11/11/2023 11:51 At the request of: NUSRAT ONEIL Procedure: VC Endovenous Ablation 1VeinLT EXAMINATION: VC Endovenous Ablation 1Vein, left great saphenous vein HISTORY: Pain due to varicose veins of bilateral legs I83.813 COMPARISON: No relevant comparison available. TECHNIQUE: The risks and benefits of the procedure had been previously discussed, and were rediscussed at length. Informed written consent was obtained. iKm Smith and Oniel Wilson assisted. Time out procedure was performed. The left lower extremity was prepared and draped in the usual sterile fashion to allow knee flexion in the sterile field. Duplex ultrasound probe was draped in a sterile cover, sterile transmission gel was used. Venous mapping was performed with the areas of dilation and large tributaries marked. The total length was 53 cm from the entry 6 cm above the medial malleolus to 3 cm below the saphenofemoral junction. The diameter of the greater saphenous vein ranged from 5-7 mm. A 30 gauge needle and 1% buffered lidocaine was used to anesthetize the entry site. A 4 mm incision was made with a scalpel and the saphenous vein was entered percutaneously under direct ultrasound guidance with a micropuncture set, a single stick was successful in gaining access. A micro-guide wire was inserted and the needle removed. A micro-set including a dilator was inserted over the microwire and the needle and dilator were removed. A 0.018 guide wire was inserted through the micro-set and threaded through the saphenous vein to the saphenofemoral junction. The dilator was removed and an introducer sheath was inserted over the wire until the end of the sheath entered the saphenofemoral junction. The dilator and wire were removed and the 600 micron fiber was introduced and placed and positioned so that it extended beyond the sheath and was 3 cm peripheral to the saphenofemoral femoral junction. Final position of the fiber was determined by ultrasound guidance and duplex imaging. Tumescent anesthetic was delivered by ultrasound guidance. 325 cc of fluid was delivered along the entire course of the saphenous vein. The solution consisted of 1000 cc of normal saline with 40 mL of 1% lidocaine and 20 mL of sodium bicarbonate. A final positioning check was made. The energy source was turned on by means of the foot pedal and the fiber and sheath were withdrawn. The total number of Joules delivered was 2586. The laser was active for 323 seconds under continuous pulse, average laser use of 8 J. Laser start time 11:27 AM 11/11/23 . Laser stop time 11:33 AM 11/11/23 . A duplex ultrasound revealed compressibility and flow at the saphenofemoral junction immediately after the procedure. Hemostasis at the access site was achieved. The skin incision of the saphenous vein was closed with a 4 x 4. A compression stocking was applied. Postop instructions were given. A follow up appointment was recommended and scheduled. The patient tolerated the procedure well and was discharged in good condition . VEIN/VC Endovenous Ablation 1VeinLT IMPRESSION: Technically successful endovenous laser ablation of the left great saphenous vein Electronically authenticated by: NUSRAT ONEIL Date: 11/11/2023 11:51
--- OUTSIDE RECORDS SUMMARY | 2023-11-11 10:22 | XMS_ITS | CCD ---
Author Name Unknown Address [facility] [address] [place] [address] Organization [facility] Care Team Providers Care Application Consultant Name Role Phone DR MARIANA MAYFIELD Admitting Unavailable CHANA, DR MARIANA Glover Primary Care Unavailable CHANA, DR MARIANA Glover Attending Unavailable CHASE, DR WIL Edmondson Consulting Unavailable CHANA, DR MARIANA Glover Consulting Unavailable Mariana Mayfield Unavailable MD Mariana Mayfield Attending Provider Lima Villatoro Unavailable SESAR Villatoro Attending Provider Lima Villatoro Admitting Unavailable Lima Villatoro Attending Unavailable Mariana Mayfield Primary Care Unavailable Mariana Mayfield Attending Unavailable Mariana Mayfield Admitting Unavailable Lukasz Quispe Unavailable Allergies Allergy Classification Reported Allergen(s) Allergy Type Date of Onset Reaction(s) Facility (1 source) Codeine Drug Allergy [facility] Repository (2 sources) Codeine Drug Allergy Unknown [facility] Other (6 sources) Codeine Drug Allergy Unknown [facility] Other (6 sources) Anesthesia S/I-40A Drug allergy Comment:Patient had a reaction to the anesthetic her last surgery and had to have a spinal [facility] Other (6 sources) Medicinal cephalosporin and acting as antibacterial agent (FN) Drug allergy Unknown [facility] Other Medications Current Medications Medication Drug Class(es) [...] Facility Urinalysis - AUTOMATED Appearance (U) cloudy [facility] Other Bilirubin Ql (U) Negative [employer] Other Color (U) dark yellow [facility] Other Glucose Ql (U) Negative [facility] Other Hemoglobin Ql (U) large [employer] Other Ketones Ql (U) Negative [facility] Other Leukocyte esterase Test strip Ql (U) moderate [facility] Other Nitrite Ql (U) Negative [facility] Other pH (U) 5.5 [pH] [facility] Other Protein Ql (U) 30 [facility] Other Specific gravity (U) [Rel density] 1.025 [facility] Other Urobilinogen (U) [Mass/Vol] 0.2 mg/dL [facility] Other Urinalysis - AUTOMATED No rt [employer] Other Urine Cultureon 07-28-2023 Urine Culture 20,000 [facility] Other Urine Culture <16 Susceptible [facility] Other Urine Culture >16/8 Resistant [facility] Other Urine Culture >16 Resistant [facility] Other Urine Culture <4 Susceptible [facility] Other Urine Culture 4 Susceptible [facility] Other Urine Culture <2 Susceptible [facility] Other Urine Culture <1 Susceptible [facility] Other Urine Culture 8 Susceptible [facility] Other Urine Culture <0.25 Susceptible [facility] Other Urine Culture <0.5 Susceptible [facility] Other Urine Culture <32 Susceptible [facility] Other Urine Culture <0.5/9.5 Susceptible [facility] Other Bacteria identified Cx Nom (U) Reason for Exam Dysuria Urine Reason for Exam: Dysuria : Urine ORGANISM: Escherichia coli (O:ESCCOL) [place] Count 20,000 Aerobic ANNA Charge ([id number]) ----- [...] RESISTANT TO ALL B-LACTAM DRUGS. PERFORMED BY: [place] [address] PATHOLOGIST HORSE RANCHER TRAVIS RADFORD M.D. Normal [facility] Comment on above: Performed By: #### C UU #### [address] Human papilloma virus 16+18+ 31+33+35+39+45+51+52+56+58+59+66+68 DNA [Presence] in CerOrdered By: Mariana Mayfield on 06-19-2023 HPV 16+18+31+33+35+39+45+5 1+52+56+58+59+66+68 DNA Probe+sig amp Ql (Cvx) Negative Negative [facility] Comment on above: This nucleic acid am plification test detects fourteen high- risk HPV types (16,18,31,33,35,39,45,51,52,56,58,59,66,68)without differentiation.Performed at: [address] [id number] Director: Jackelyn Ayala MD, Phone: [phone] at: =[address] [id number] Director: Jackelyn Ayala MD, Phone: [phone] IGP, Aptima HPV, rfx 16/18,4 5on 06-19-2023 PAP HPV Aptima Negative Normal Negative [facility] Comment on above: Result Comment: This nucleic acid amplification test detects fourteen high- risk HPV types (16,18,31,33,35,39,45,51,52,56,58,59,66,68) without differentiation. Performed at: [address] [id number] Lift Electrician: Jackelyn Ayala MD, Phone: [phone] Performed at: =[address] [id number] L[employer] Electrician: Jackelyn Ayala MD, Phone: [phone] PERFORMED BY: [address] [id number] PATHOLOGIST HORSE RANCHER TRAVIS RADFORD M.D. Performed By: #### P AP [id number] #### [facility] , Pap Image Guided Note Normal . [facility] Comment on above: Result Comment: TEST S RESULT FLAG UNITS REF RANGE LAB Clinician Provided Cytology Information No. of containers..01 ThinPrep Vial DIAGNOSIS: 01 NEGATIVE FOR INTRAEPITHELIAL LESION OR MALIGNANCY. CELLULAR CHANGES ASSOCIATED WITH ATROPHY ARE PRESENT. Specimen adequacy: 01 Satisfactory for evaluation. Endocervical component may not be distinguished in cases of atrophy. Performed by: 01 Kwan Lundberg, Edge [employer] ([facility]) . 01 Note: Note 01 The Pap [...] High,A-Abnormal,AA-Critical Abnormal Performed at: 01 WB [facility] [address] [address] Jackelyn Ayala MD, Performed By: #### P AP [id number] #### [facility] , No Panel InformationOrdered By: Mariana Mayfield on 06-19-2023 IG Pap w/Ct-Ng & HPV Rflx (Off-Site Note . [facility] Comment on above: TESTS RESULT FLAG UN ITS REF RANGE LAB Clinician Provided Cytology Information No. of containers..01 ThinPrep VialDIAGNOSIS: 01 NEGATIVE FOR INTRAEPITHELIAL LESION OR MALIGNANCY. CELLULAR CHANGES ASSOCIATED WITH ATROPHY ARE PRESENT.Specimen adequacy: 01 Satisfactory for evaluation. Endocervical component may not be distinguished in cases of atrophy.Performed by: 01 Kwan Lundberg, [employer] ([facility]). 01Note: Note 01 The Pap smear is [...] Low,>-Panic High,A-Abnormal,AA-Critical Abnormal -----Performed at:01 WB [facility] [address] [address] Jackelyn Ayala MD, FREE T4on 07-02-2022 Free T4 [Mass/Vol] 1.15 ng/dL Normal 0.76-1.46 [facility] Comment on above: Performed By: #### F T4 #### [facility] [address] [place] [address] Dr. Gilma Rojas LIPID PROFILEon 07-02-2022 CHOL-HDL RATIO NORM SEE BELOW Normal [facility] Comment on above: Result Comment: 3.3 - 4.4 LOW RISK 4.4 - 7.1 AVERAGE RISK 7.1 - 11.0 MODERATE RISK >11.0 HIGH RISK Performed By: #### C MP, TSH, LIPID #### [facility] [address] [address] [address] Gilma Rojas Cholesterol [Mass/Vol] 191 mg/dL Normal <=200 [facility] Comment on above: Performed By: #### C MP, TSH, LIPID #### [facility] [address] [address] [address] Gilma Rojas Cholesterol in HDL [Mass/Vol] 59 mg/dL Normal 40-60 [facility] Comment on above: Performed By: #### C MP, TSH, LIPID #### [facility] [address] [address] [address] Gilma Rojas Cholesterol in LDL [Mass/Vol] 112.4 mg/dL Normal [facility] Comment on above: Performed By: #### C MP, TSH, LIPID #### [facility] [address] [address] [address] Gilma Rojas Cholesterol.total/Chol esterol in HDL [Mass ratio] 3.2 {ratio} Normal [facility] Comment on above: Performed By: #### C MP, TSH, LIPID #### [facility] [address] [address] [address] Gilma Rojas HDL NORMAL > or = 60 mg/dl - LOW CARDIOVASCULAR RISK <40 mg/dl - HIGH CARDIOVASCULAR RISK Normal [facility] Comment on above: Performed By: #### C MP, TSH, LIPID #### [facility] [address] [address] [address] Gilma Rojas LDL CALC NORMAL SEE BELOW Normal [facility] Comment on above: Result Comment: <100 mg/dl OPTIMAL 100 - 129 mg/dl NEAR OR ABOVE OPTIMAL 130 - 159 mg/dl BORDERLINE HIGH 160 - 189 mg/dl HIGH >190 mg/dl VERY HIGH Performed By: #### C MP, TSH, LIPID #### [facility] [address] [address] [address] Gilma Rojas Triglyceride [Mass/Vol] 98 mg/dL Normal <=150 [facility] Comment on above: Performed By: #### C MP, TSH, LIPID #### [facility] [address] [address] [address] Gilma Rojas VLDL CALC 19.6 mg/dL Normal [facility] Comment on above: Performed By: #### C MP, TSH, LIPID #### [facility] [address] [address] [address] Glima Rojas MG MAMM SCREEN 3D SAVANNAH CADon 07-02-2022 MG MAMM SCREEN 3D SAVANNAH CAD Patient: GABBY VILLANUEVA Exam Date: 07/02/2022 : 1955 Gender:F Ordering : DR MARIANA MAYFIELD M.D. Admission #: [id number] Family : Order #: [id number] CLICK HERE TO VIEW EXAM RADIOLOGY REPORT [...] skin cancer at age 78. LOCATION: [facility] BREAST COMPOSITION: Scattered areas fibroglandular density. FINDINGS: [...] M.D. on 07/02/2022 at 12:31 Normal [facility] PROF 14(COMP METB)on 022 Albumin [Mass/Vol] 4.3 g/dL Normal 3.4-5.0 [facility] Comment on above: Performed By: #### C MP, TSH, LIPID #### [facility] [address] [address] [address] Gilma Rojas Albumin/Globulin [Mass ratio] 1.4 {ratio} Normal [facility] Comment on above: Performed By: #### C MP, TSH, LIPID #### [facility] [address] [address] [address] Gilma Rojas ALP [Catalytic activity/Vol] 44 U/L Critically low 46-116 [facility] Comment on above: Performed By: #### C MP, TSH, LIPID #### [facility] [address] [address] [address] Gilma Rojas ALT [Catalytic activity/Vol] 36 U/L Normal 14-59 [facility] Comment on above: Performed By: #### C MP, TSH, LIPID #### [facility] [address] [address] [address] Gilma Rojas Anion gap [Moles/Vol] 10.4 mmol/L Normal [facility] Comment on above: Performed By: #### C MP, TSH, LIPID #### [facility] [address] [address] [address] Gilma Rojas AST [Catalytic activity/Vol] 25 U/L Normal 15-37 [facility] Comment on above: Performed By: #### C MP, TSH, LIPID #### [facility] [address] [address] [address] Gilma Rojas Bilirubin [Mass/Vol] 0.6 mg/dL Normal 0.2-1.0 [facility] Comment on above: Performed By: #### C MP, TSH, LIPID #### [facility] [address] [address] [address] Gilma Rojas Calcium [Mass/Vol] 9.6 mg/dL Normal 8.5-10.1 [facility] Comment on above: Performed By: #### C MP, TSH, LIPID #### [facility] [address] [address] [address] Gilma Rojas Chloride [Moles/Vol] 106 mmol/L Normal 98-107 [facility] Comment on above: Performed By: #### C MP, TSH, LIPID #### [facility] [address] [address] [address] Gilma Rojas CO2 [Moles/Vol] 30.1 mmol/L Normal 21.0-32.0 [facility] Comment on above: Performed By: #### C MP, TSH, LIPID #### [facility] [address] [place] [address] Dr. Gilma Rojas Creatinine [Mass/Vol] 0.78 mg/dL Normal 0.55-1.02 [facility] Comment on above: Performed By: #### C MP, TSH, LIPID #### [facility] [address] [address] [address] Gilma Rojas EGFR-AF BAHAMIAN >60 Normal >=60 [facility] Comment on above: Performed By: #### C MP, TSH, LIPID #### [facility] [address] [place] [address] Dr. Gilma Rojas EGFR-NON AF BAHAMIAN >60 Normal >=60 [facility] Comment on above: Performed By: #### C MP, TSH, LIPID #### [facility] [address] [place] [address] Dr. Gilma Rojas Globulin (S) [Mass/Vol] 3.1 g/dL Normal [facility] Comment on above: Performed By: #### C MP, TSH, LIPID #### [facility] [address] [place] [address] Dr. Gilma Rojas Glucose [Mass/Vol] 99 mg/dL Normal 74-106 [facility] Comment on above: Performed By: #### C MP, TSH, LIPID #### [facility] [address] [place] [address] Dr. Gilma Rojas Potassium [Moles/Vol] 3.5 mmol/L Normal 3.5-5.1 [facility] Comment on above: Performed By: #### C MP, TSH, LIPID #### [facility] [address] [place] [address] Dr. Gimla Rojas Protein [Mass/Vol] 7.4 g/dL Normal 6.4-8.2 [facility] Comment on above: Performed By: #### C MP, TSH, LIPID #### [facility] [address] [place] [address] Dr. Gilma Rojas Sodium [Moles/Vol] 143 mmol/L Normal 136-145 [facility] Comment on above: Performed By: #### C MP, TSH, LIPID #### [facility] [address] [place] [address] Dr. Gilma Rojas Urea nitrogen [Mass/Vol] 18.0 mg/dL Normal 7.0-18.0 [facility] Comment on above: Performed By: #### C MP, TSH, LIPID #### [facility] [address] [address] [address] Gilma Rojas Urea nitrogen/Creatinine [Mass ratio] 23.1 mg/mg Normal [facility] Comment on above: Performed By: #### C MP, TSH, LIPID #### [facility] [address] [place] [address] Dr. Gilma Rojas TSHon 07-02-2022 TSH 3.135 uIU/mL Normal 0.358-3.740 [facility] Comment on above: Performed By: #### C MP, TSH, LIPID #### [facility] [address] [place] [address] Dr. Gilma Rojas Vital Signs Date Time Vital Sign Value Performing Clinician Facility 09-24-2023 09:00-0500 Body height 153.67 cm Mariana Mayfield Other [facility] Other 09-24-2023 09:00-0500 Body mass index (BMI) [Ratio] 33.61 kg/m2 Mariana Mayfield Other [facility] Other 09-24-2023 09:00-0500 Body weight 79.38 kg Mariana Mayfield Other [facility] Other 09-24-2023 09:00-0500 Diastolic blood pressure 80 mm[Hg] Mariana Mayfield Other [facility] Other 09-24-2023 09:00-0500 Systolic blood pressure 126 mm[Hg] Mariana Mayfield Other [facility] Other 08-13-2023 09:30-0400 Body height 153.67 cm Lukasz Quispe Other [facility] Other 08-13-2023 09:30-0400 Body mass index (BMI) [Ratio] 33.42 kg/m2 Lukasz Quispe Other [facility] Other 08-13-2023 09:30-0400 Body weight 78.93 kg Lukazs Quispe Other [facility] Other 08-13-2023 09:30-0400 SaO2% (BldA) [Mass fraction] 96 % Lukasz Quispe Other [facility] Other 07-28-2023 09:25-0400 Body height 153.67 cm Lima Sanchezmond Other [facility] Other 07-28-2023 09:25-0400 Body mass index (BMI) [Ratio] 32.84 kg/m2 Lima Shauna Other [facility] Other 07-28-2023 09:25-0400 Body temperature 98.3 [degF] Lima Shauna Other [facility] Other 07-28-2023 09:25-0400 Body weight 77.57 kg Lima Sanchezmond Other [facility] Other 07-28-2023 09:25-0400 Diastolic blood pressure 82 mm[Hg] Lima Shauna Other [facility] Other 07-28-2023 09:25-0400 Respiratory rate 16 /min Lima Shauna Other [facility] Other 07-28-2023 09:25-0400 SaO2% (BldA) [Mass fraction] 98 % Lima Villatoro Other [facility] Other 07-28-2023 09:25-0400 Systolic blood pressure 144 mm[Hg] Lima Sanchezmond Other [facility] Other 06-19-2023 09:30-0400 Body height 153.67 cm Mariana Mayfield Other [facility] Other 06-19-2023 09:30-0400 Body mass index (BMI) [Ratio] 32.8 kg/m2 Mariana Mayfield Other [facility] Other 06-19-2023 09:30-0400 Body weight 77.47 kg Mariana Mayfield Other [facility] Other 06-19-2023 09:30-0400 Diastolic blood pressure 77 mm[Hg] Mariana Mayfield Other [facility] Other 06-19-2023 09:30-0400 Respiratory rate 12 /min Mariana Mayfield Other [facility] Other 06-19-2023 09:30-0400 Systolic blood pressure 160 mm[Hg] Mariana Mayfield Other [facility] Other 12-25-2022 15:45-0400 Body height 153.67 cm Mariana Mayfield Other [facility] Other 12-25-2022 15:45-0400 Body mass index (BMI) [Ratio] 34.57 kg/m2 Mariana Mayfield Other [facility] Other 12-25-2022 15:45-0400 Body weight 81.65 kg Mariana Mayfield Other [facility] Other 12-25-2022 15:45-0400 Diastolic blood pressure 72 mm[Hg] Mariana Mayfield Other [facility] Other 12-25-2022 15:45-0400 SaO2% (BldA) [Mass fraction] 97 % Mariana Mayfield Other [facility] Other 12-25-2022 15:45-0400 Systolic blood pressure 132 mm[Hg] Mariana Mayfield Other [facility] Other Encounters Encounter Date Encounter Type Care Provider Facility Start: 09-24-2023 End: 09-24-2023 ambulatory Mariana Mayfield Other [facility] Other Start: 09-24-2023 Office outpatient vi sit 15 minutes Mariana Mayfield [facility] Start: 08-13-2023 End: 08-13-2023 ambulatory Lukasz Quispe Other [facility] Other Start: 08-13-2023 Office outpatient vi sit 25 minutes Lukasz Quispe [facility] Start: 07-28-2023 Office outpatient vi sit 15 minutes Lima Villatoro [facility] Start: 07-28-2023 End: 07-28-2023 ambulatory Lima Villatoro [facility] Other Start: 07-28-2023 End: 07-28-2023 Departed Referred MD Mariana Mayfield Work Phone: [facility] [place] Work Phone: Start: 06-26-2023 End: 06-26-2023 ambulatory Mariana Mayfield Other [facility] Other Start: 06-26-2023 Telephone encounter Mariana Mayfield [facility] Start: 06-19-2023 Patient encounter procedure Mariana Mayfield [facility] Start: 06-19-2023 End: 06-19-2023 ambulatory Mariana Mayfield [facility] Work Phone: Start: 06-19-2023 End: 06-19-2023 Departed Referred MD Mariana Mayfield Work Phone: [facility] [place] Work Phone: Start: 01-08-2023 End: 01-08-2023 ambulatory Mariana Mayfield Other [facility] Other Start: 01-08-2023 Telephone encounter Mariana Mayfield [facility] Start: 12-25-2022 End: 12-25-2022 ambulatory Mariana Mayfield Other [facility] Other Start: 12-25-2022 Office outpatient vi sit 15 minutes Mariana Mayfield [facility] Start: 07-02-2022 End: 07-03-[address] MARIANA MAYFIELD Facility:[facility]1 Procedures Date Procedure Procedure Detail Performing Clinician Start: 07-28-2023 Piperacillin/tazobactam Lima Villatoro Other Plan of Treatment Date Care Activity Detail Author Start: 07-28-2023 Bacteria identified in Urine by Culture [facility] Start: 06-19-2023 [facility] Human papilloma viru s 16+18+31+33+35+39+45+51+52+56+58 +59+66+68 DNA [Presence] in Cervix by Probe with signal amplification [facility] Immunizations Immunization Date Immunization Notes Care Provider Fa cility 07-29-2022 COVID-19 Pfizer (Pediatric) Mariana Mayfield Other [facility] Other 07-29-2022 influenza virus vaccine, split virus (incl. purified surface antigen) Mariana Mayfield Other [facility] Other 06-12-2022 Prevnar 20 Mariana Mayfield Other [facility] Other 01-19-2022 COVID-19 Vaccine Moderna - Documentation Purposes Only Mariana Mayfield Other [facility] Other 09-13-2015 influenza virus vaccine, split virus (incl. purified surface antigen) Mariana Mayfield Other [facility] Other 07-29-2013 tetanus and diphther ia toxoids, adsorbed, preservative free, for adult use (5 Lf of tetanus toxoid and 2 Lf of diphtheria toxoid) Mariana Mayfield Other [facility] Other Payers Date Payer Category Payer Medicare [id number] 2.1 [id number] 2023 Self-pay [id number] 1960 Unknown [id number] 1955 Unknown [id number] Unknown [id number] [id number] [id number] Unknown [id number] [id number] [id number] Social History Date Type Detail Facility Unknown if ever smoked [facility] Other Sex Assigned At Sex Assigned At Bir th [facility] Other Start: 1955 Sex Assigned At Female F [facility] Evaluation note 09-24-2023 Note Date & [...] problem in groin area - requests refill. [facility] Other Evaluation note 08-13-2023 Note Date & [...] negative findings were considered in medical decision-making. 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 >15 min discussion [facility] Other Evaluation note Note Date & Type Note Facility Evaluation note No assessment information availa ble [facility] Work Phone: History general Narrative [...] C SECTION X2 Surgical History TUBAL LIGATION [facility] Other History general Narrative - Reported Note [...] TUBAL LIGATION Hospitalization History SEE SURGICAL HX [facility] Other Summary Purpose Family History No Family History Records FoundNo Family History Records Found Advance Directives Advance Directive Response Recorded Date/ Time Advance Directives No June 3:08pm Chief Complaint and Reason for Visit Chief Complaint Z12.4 Reason for Referral Reason [facility] Diagnosis 1 Symptomatic varicose veins, right (I83.891) Referral Organization [facility] giovanna Referring Provider First Name Mariana Referring Provider Last Name Chana Referring Provider Specialty [facility] Referred Organization [facility] Referred Address [address] [place], [place] Referred Provider Specialty Vascular and Interventional Radiology Referral Priority Routine Additional Source Comments INFORMATION SOURCE (unrecogn ized section and content) DATE CREATED AUTHOR 07/14/2022 [facility] DATE CREATED AUTHOR AUTHOR'S ORGANIZ ATION 07/31/2023 [facility] REASON FOR VISIT (unrecogniz ed section and [...] BE BASED ON THE PRIMARY CLINICAL RECORDS. [employer] provides no warranty or guarantee of the accuracy or completeness of information in this document.
== END 2023-11-11 10:21 | disposition home or self-care (01) ==
LOC: VC 10:20
PROVIDERS: PCP Radiology Diagnostic Radiology; Visit Provider Radiology Diagnostic Radiology
DX: I83.813 Varicose veins of bilateral lower extremities with pain (principal)
CPT/HCPCS: 36478

== ENCOUNTER 2023-11-18 10:20 | Outpatient (OUT) | payer MEDICARE, SELFPAY ==
--- NOTE | 2023-11-18 10:20 | VEIN_ITS ---
Patient Name: FIGUEROA VILLANUEVA MR#: [id number] : 1955 Exam Date: 11/18/2023 Ordering Doctor: DR GUTIERREZ KIRK M.D. RADIOLOGY REPORT PROCEDURE: FACILITY EST [facility] - OFFICE VISIT FOLLOW UP COMPARISON: None. PROGRESS NOTES: The patient reports no significant problems following intravenous laser ablation of the left great saphenous vein. The patient has worn a compression stocking. The patient has tried exercise Physical exam demonstrates 2 areas of bruising along the left mid medial and left distal medial thigh likely related to tumescence injection. The thrombosed left great saphenous vein can be partially palpated. No active ulceration. No erythema or warmth to suggest cellulitis or thrombophlebitis Review of the ultrasound performed the same day demonstrates occlusive thrombus extending throughout the treated left great saphenous vein with heat induced thrombus 2.6 cm from the saphenofemoral junction. No deep vein thrombus. The patient expressed a desire to proceed with treatment of incompetent left anterior accessory saphenous vein with intravenous laser ablation. VEIN/ Facility EST LMTD IMPRESSION: 1. Successful ablation of the left great saphenous vein 2. 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 PLAN: Intravenous laser ablation left anterior accessory saphenous vein Nurse notes, history and physical were reviewed and confirmed, see attached forms. The nurse was present throughout the physical exam and consultation Dictated by: Gutierrez Kirk MD on 11/18/2023 at 11:27 Approved by: Gutierrez Kirk MD on 11/18/2023 at 11:30
--- NOTE | 2023-11-18 10:20 | VEIN_ITS ---
Patient Name: FIGUEROA VILLANUEVA MR#: [id number] : 1955 Exam Date: 11/18/2023 Ordering Doctor: DR GUTIERREZ KIRK M.D. RADIOLOGY REPORT PROCEDURE: VC EXT VENOUS LT LIMITED COMPARISON: None. INDICATIONS: I80.02 Phlebitis of superficial veins of left lower extremity TECHNIQUE: Lower extremity pavon scale and Duplex Doppler evaluation of the deep venous system from the inguinal ligament through the calf veins. FINDINGS: REGION: Left lower extremity. THROMBI: Negative for DVT. Heat induced thrombus in left GSV 2.6 cm from SFJ and extends to distal lower leg. 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 COMPRESSIBILITY: Non-compressible segments corresponding to thrombus FLOW: Areas of no flow corresponding to thrombus CONCLUSION: Post ablation occlusion of the left great saphenous vein with heat induced thrombus 2.6 cm from the saphenofemoral junction Dictated by: Gutierrez Kirk MD on 11/18/2023 at 10:49 Approved by: Gutierrez Kirk MD on 11/18/2023 at 10:51
--- OUTSIDE RECORDS SUMMARY | 2023-11-18 10:23 | XMS_ITS | CCD ---
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 Name Role Phone DR MARIANA MAYFIELD Admitting Unavailable CHANA, DR MARIANA Glover Primary Care Unavailable CHANA, DR MARIANA Glover Attending Unavailable CHASE, DR WIL Edmondson Consulting Unavailable CHANA, DR MARIANA Glover Consulting Unavailable Mariana Mayfield Unavailable MD Mariana Mayfield Attending Provider Lima Villatoro Unavailable SESAR Villatoro Attending Provider [phone] Lima Villatoro Admitting Unavailable Lima Villatoro Attending Unavailable Mariana Mayfield Primary Care Unavailable Mariana Mayfield Attending Unavailable Mariana Mayfield Admitting Unavailable Lukasz Quispe Unavailable Allergies Allergy Classification Reported Allergen(s) Allergy Type Date of Onset Reaction(s) Facility (1 source) Codeine Drug Allergy [facility] Repository (2 sources) Codeine Drug Allergy Unknown [facility] Other (6 sources) Codeine Drug Allergy Unknown [facility] Other (6 sources) Anesthesia S/I-40A Drug allergy Comment:Patient had a reaction to the anesthetic her last surgery and had to have a spinal [facility] Other (6 sources) Medicinal cephalosporin and acting as antibacterial agent (FN) Drug allergy Unknown [facility] Other Medications Current Medications Medication Drug Class(es) [...] Facility Urinalysis - AUTOMATED Appearance (U) cloudy [facility] Other Bilirubin Ql (U) Negative [email or web address] Other Color (U) dark yellow [facility] Other Glucose Ql (U) Negative [facility] Other Hemoglobin Ql (U) large [employer] Other Ketones Ql (U) Negative [facility] Other Leukocyte esterase Test strip Ql (U) moderate [facility] Other Nitrite Ql (U) Negative [facility] Other pH (U) 5.5 [pH] [facility] Other Protein Ql (U) 30 [facility] Other Specific gravity (U) [Rel density] 1.025 [facility] Other Urobilinogen (U) [Mass/Vol] 0.2 mg/dL [facility] Other Urinalysis - AUTOMATED No rt [employer] Other Urine Cultureon 07-28-2023 Urine Culture 20,000 [facility] Other Urine Culture <16 Susceptible [facility] Other Urine Culture >16/8 Resistant [facility] Other Urine Culture >16 Resistant [facility] Other Urine Culture <4 Susceptible [facility] Other Urine Culture 4 Susceptible [facility] Other Urine Culture <2 Susceptible [facility] Other Urine Culture <1 Susceptible [facility] Other Urine Culture 8 Susceptible [facility] Other Urine Culture <0.25 Susceptible [facility] Other Urine Culture <0.5 Susceptible [facility] Other Urine Culture <32 Susceptible [facility] Other Urine Culture <0.5/9.5 Susceptible [facility] Other Bacteria identified Cx Nom (U) Reason for Exam Dysuria Urine Reason for Exam: Dysuria : Urine ORGANISM: Escherichia coli (O:ESCCOL) [facility] Count 20,000 Aerobic ANNA Charge ([id number]) ----- [...] RESISTANT TO ALL B-LACTAM DRUGS. PERFORMED BY: [place] [address] PATHOLOGIST OUTCOMES ANALYST TRAVIS RADFORD M.D. Normal [facility] Comment on above: Performed By: #### C UU #### [address] Human papilloma virus 16+18+ 31+33+35+39+45+51+52+56+58+59+66+68 DNA [Presence] in CerOrdered By: Mariana Mayfield on 06-19-2023 HPV 16+18+31+33+35+39+45+5 1+52+56+58+59+66+68 DNA Probe+sig amp Ql (Cvx) Negative Negative [facility] Comment on above: This nucleic acid am plification test detects fourteen high- risk HPV types (16,18,31,33,35,39,45,51,52,56,58,59,66,68)without differentiation.Performed at: [address] [id number] Director: Jackelyn Ayala MD, Phone: [phone] at: =[address] [id number] Director: Jackelyn Ayala MD, Phone: [phone] IGP, Aptima HPV, rfx 16/18,4 5on 06-19-2023 PAP HPV Aptima Negative Normal Negative [facility] Comment on above: Result Comment: This nucleic acid amplification test detects fourteen high- risk HPV types (16,18,31,33,35,39,45,51,52,56,58,59,66,68) without differentiation. Performed at: [address] [id number] Brand Protection Manager: Jackelyn Ayala MD, Phone: [phone] Performed at: =[address] [id number] Brand Protection Manager: Jackelyn Ayala MD, Phone: [phone] PERFORMED BY: [address] [id number] PATHOLOGIST OUTCOMES ANALYST TRAVIS RADFORD M.D. Performed By: #### P AP [id number] #### [facility] , Pap Image Guided Note Normal . [facility] Comment on above: Result Comment: TEST S RESULT FLAG UNITS REF RANGE LAB Clinician Provided Cytology Information No. of containers..01 ThinPrep Vial DIAGNOSIS: 01 NEGATIVE FOR INTRAEPITHELIAL LESION OR MALIGNANCY. CELLULAR CHANGES ASSOCIATED WITH ATROPHY ARE PRESENT. Specimen adequacy: 01 Satisfactory for evaluation. Endocervical component may not be distinguished in cases of atrophy. Performed by: 01 Kwan Lundberg, Signal Timer ([facility]) . 01 Note: Note 01 The [...] High,A-Abnormal,AA-Critical Abnormal Performed at: 01 WB [facility] [address] [address] Jackelyn Ayala MD, Performed By: #### P AP [id number] #### [facility] , No Panel InformationOrdered By: Mariana Mayfield on 06-19-2023 IG Pap w/Ct-Ng & HPV Rflx (Off-Site Note . [facility] Comment on above: TESTS RESULT FLAG UN ITS REF RANGE LAB Clinician Provided Cytology Information No. of containers..01 ThinPrep VialDIAGNOSIS: 01 NEGATIVE FOR INTRAEPITHELIAL LESION OR MALIGNANCY. CELLULAR CHANGES ASSOCIATED WITH ATROPHY ARE PRESENT.Specimen adequacy: 01 Satisfactory for evaluation. Endocervical component may not be distinguished in cases of atrophy.Performed by: 01 Kwan Lundberg, Signal Timer ([facility]). 01Note: Note 01 The Pap smear [...] Low,>-Panic High,A-Abnormal,AA-Critical Abnormal -----Performed at:01 WB [facility] [address] [address] Jackelyn Ayala MD, FREE T4on 07-02-2022 Free T4 [Mass/Vol] 1.15 ng/dL Normal 0.76-1.46 [facility] Comment on above: Performed By: #### F T4 #### [facility] [address] [place] [address] Dr. Gilma Rojas LIPID PROFILEon 07-02-2022 CHOL-HDL RATIO NORM SEE BELOW Normal [facility] Comment on above: Result Comment: 3.3 - 4.4 LOW RISK 4.4 - 7.1 AVERAGE RISK 7.1 - 11.0 MODERATE RISK >11.0 HIGH RISK Performed By: #### C MP, TSH, LIPID #### [facility] [address] [address] [address] Gilma Rojas Cholesterol [Mass/Vol] 191 mg/dL Normal <=200 [facility] Comment on above: Performed By: #### C MP, TSH, LIPID #### [facility] [address] [address] [address] Gilma Rojas Cholesterol in HDL [Mass/Vol] 59 mg/dL Normal 40-60 [facility] Comment on above: Performed By: #### C MP, TSH, LIPID #### [facility] [address] [address] [address] Gilma Rojas Cholesterol in LDL [Mass/Vol] 112.4 mg/dL Normal [facility] Comment on above: Performed By: #### C MP, TSH, LIPID #### [facility] [address] [address] [address] Gilma Rojas Cholesterol.total/Chol esterol in HDL [Mass ratio] 3.2 {ratio} Normal [facility] Comment on above: Performed By: #### C MP, TSH, LIPID #### [facility] [address] [address] [address] Gilma Rojas HDL NORMAL > or = 60 mg/dl - LOW CARDIOVASCULAR RISK <40 mg/dl - HIGH CARDIOVASCULAR RISK Normal [facility] Comment on above: Performed By: #### C MP, TSH, LIPID #### [facility] [address] [address] [address] Gilma Rojas LDL CALC NORMAL SEE BELOW Normal [facility] Comment on above: Result Comment: <100 mg/dl OPTIMAL 100 - 129 mg/dl NEAR OR ABOVE OPTIMAL 130 - 159 mg/dl BORDERLINE HIGH 160 - 189 mg/dl HIGH >190 mg/dl VERY HIGH Performed By: #### C MP, TSH, LIPID #### [facility] [address] [address] [address] Gilma Rojas Triglyceride [Mass/Vol] 98 mg/dL Normal <=150 [facility] Comment on above: Performed By: #### C MP, TSH, LIPID #### [facility] [address] [address] [address] Gilma Rojas VLDL CALC 19.6 mg/dL Normal [facility] Comment on above: Performed By: #### C MP, TSH, LIPID #### [facility] [address] [address] [address] Gilma Rojas MG MAMM SCREEN 3D SAVANNAH CADon 07-02-2022 MG MAMM SCREEN 3D SAVANNAH CAD Patient: GABBY VILLANUEVA Exam Date: 07/02/2022 : 1955 Gender:F Ordering : DR MARIANA MAYFIELD M.D. Admission #: [id number] Family : Order #: [id number] CLICK HERE TO VIEW EXAM RADIOLOGY REPORT [...] at age 78. LOCATION: [facility] BREAST COMPOSITION: Scattered areas fibroglandular density. FINDINGS: [...] 07/02/2022 at 12:31 Normal [facility] PROF 14(COMP METB)on 022 Albumin [Mass/Vol] 4.3 g/dL Normal 3.4-5.0 [facility] Comment on above: Performed By: #### C MP, TSH, LIPID #### [facility] [address] [address] [address] Gilma Rojas Albumin/Globulin [Mass ratio] 1.4 {ratio} Normal [facility] Comment on above: Performed By: #### C MP, TSH, LIPID #### [facility] [address] [address] [address] Gilma Rojas ALP [Catalytic activity/Vol] 44 U/L Critically low 46-116 [facility] Comment on above: Performed By: #### C MP, TSH, LIPID #### [facility] [address] [address] [address] Gilma Rojas ALT [Catalytic activity/Vol] 36 U/L Normal 14-59 [facility] Comment on above: Performed By: #### C MP, TSH, LIPID #### [facility] [address] [address] [address] Gilma Rojas Anion gap [Moles/Vol] 10.4 mmol/L Normal [facility] Comment on above: Performed By: #### C MP, TSH, LIPID #### [facility] [address] [address] [address] Gilma Rojas AST [Catalytic activity/Vol] 25 U/L Normal 15-37 [facility] Comment on above: Performed By: #### C MP, TSH, LIPID #### [facility] [address] [address] [address] Gilma Rojas Bilirubin [Mass/Vol] 0.6 mg/dL Normal 0.2-1.0 [facility] Comment on above: Performed By: #### C MP, TSH, LIPID #### [facility] [address] [address] [address] Gilma Rojas Calcium [Mass/Vol] 9.6 mg/dL Normal 8.5-10.1 [facility] Comment on above: Performed By: #### C MP, TSH, LIPID #### [facility] [address] [address] [address] Gilma Rojas Chloride [Moles/Vol] 106 mmol/L Normal 98-107 [facility] Comment on above: Performed By: #### C MP, TSH, LIPID #### [facility] [address] [address] [address] Gilma Rojas CO2 [Moles/Vol] 30.1 mmol/L Normal 21.0-32.0 [facility] Comment on above: Performed By: #### C MP, TSH, LIPID #### [facility] [address] [place] [address] Dr. Gilma Rojas Creatinine [Mass/Vol] 0.78 mg/dL Normal 0.55-1.02 [facility] Comment on above: Performed By: #### C MP, TSH, LIPID #### [facility] [address] [address] [address] Gilma Rojas EGFR-AF GEORGIAN >60 Normal >=60 [facility] Comment on above: Performed By: #### C MP, TSH, LIPID #### [facility] [address] [place] [address] Dr. Gilma Rojas EGFR-NON AF GEORGIAN >60 Normal >=60 [facility] Comment on above: Performed By: #### C MP, TSH, LIPID #### [facility] [address] [place] [address] Dr. Gilma Rojas Globulin (S) [Mass/Vol] 3.1 g/dL Normal [facility] Comment on above: Performed By: #### C MP, TSH, LIPID #### [facility] [address] [place] [address] Dr. Gilma Rojas Glucose [Mass/Vol] 99 mg/dL Normal 74-106 [facility] Comment on above: Performed By: #### C MP, TSH, LIPID #### [facility] [address] [place] [address] Dr. Gilma Rojas Potassium [Moles/Vol] 3.5 mmol/L Normal 3.5-5.1 [facility] Comment on above: Performed By: #### C MP, TSH, LIPID #### [facility] [address] [place] [address] Dr. Gilma Rojas Protein [Mass/Vol] 7.4 g/dL Normal 6.4-8.2 [facility] Comment on above: Performed By: #### C MP, TSH, LIPID #### [facility] [address] [place] [address] Dr. Gilma Rojas Sodium [Moles/Vol] 143 mmol/L Normal 136-145 [facility] Comment on above: Performed By: #### C MP, TSH, LIPID #### [facility] [address] [place] [address] Dr. Gilma Rojas Urea nitrogen [Mass/Vol] 18.0 mg/dL Normal 7.0-18.0 [facility] Comment on above: Performed By: #### C MP, TSH, LIPID #### [facility] [address] [address] [address] Gilma Rojas Urea nitrogen/Creatinine [Mass ratio] 23.1 mg/mg Normal [facility] Comment on above: Performed By: #### C MP, TSH, LIPID #### [facility] [address] [place] [address] Dr. Gilma Rojas TSHon 07-02-2022 TSH 3.135 uIU/mL Normal 0.358-3.740 [facility] Comment on above: Performed By: #### C MP, TSH, LIPID #### [facility] [address] [place] [address] Dr. Gilma Rojas Vital Signs Date Time Vital Sign Value Performing Clinician Facility 09-24-2023 09:00-0500 Body height 153.67 cm Mariana Mayfield Other [facility] Other 09-24-2023 09:00-0500 Body mass index (BMI) [Ratio] 33.61 kg/m2 Mariana Mayfield Other [facility] Other 09-24-2023 09:00-0500 Body weight 79.38 kg Mariana Mayfield Other [facility] Other 09-24-2023 09:00-0500 Diastolic blood pressure 80 mm[Hg] Mariana Mayfield Other [facility] Other 09-24-2023 09:00-0500 Systolic blood pressure 126 mm[Hg] Mariana Mayfield Other [facility] Other 08-13-2023 09:30-0400 Body height 153.67 cm Lukasz Quispe Other [facility] Other 08-13-2023 09:30-0400 Body mass index (BMI) [Ratio] 33.42 kg/m2 Lukasz Quispe Other [facility] Other 08-13-2023 09:30-0400 Body weight 78.93 kg Lukasz Quispe Other [facility] Other 08-13-2023 09:30-0400 SaO2% (BldA) [Mass fraction] 96 % Lukasz Quispe Other [facility] Other 07-28-2023 09:25-0400 Body height 153.67 cm Lima Sanchezmond Other [facility] Other 07-28-2023 09:25-0400 Body mass index (BMI) [Ratio] 32.84 kg/m2 Lima Shauna Other [facility] Other 07-28-2023 09:25-0400 Body temperature 98.3 [degF] Lima Shauna Other [facility] Other 07-28-2023 09:25-0400 Body weight 77.57 kg Lima Sanchezmond Other [facility] Other 07-28-2023 09:25-0400 Diastolic blood pressure 82 mm[Hg] Lima Shauna Other [facility] Other 07-28-2023 09:25-0400 Respiratory rate 16 /min Lima Shauna Other [facility] Other 07-28-2023 09:25-0400 SaO2% (BldA) [Mass fraction] 98 % Lima Villatoro Other [facility] Other 07-28-2023 09:25-0400 Systolic blood pressure 144 mm[Hg] Lima Sanchezmond Other [facility] Other 06-19-2023 09:30-0400 Body height 153.67 cm Mariana Mayfield Other [facility] Other 06-19-2023 09:30-0400 Body mass index (BMI) [Ratio] 32.8 kg/m2 Mariana Mayfield Other [facility] Other 06-19-2023 09:30-0400 Body weight 77.47 kg Mariana Mayfield Other [facility] Other 06-19-2023 09:30-0400 Diastolic blood pressure 77 mm[Hg] Mariana Mayfield Other [facility] Other 06-19-2023 09:30-0400 Respiratory rate 12 /min Mariana Mayfield Other [facility] Other 06-19-2023 09:30-0400 Systolic blood pressure 160 mm[Hg] Mariana Mayfield Other [facility] Other 12-25-2022 15:45-0400 Body height 153.67 cm Mariana Mayfield Other [facility] Other 12-25-2022 15:45-0400 Body mass index (BMI) [Ratio] 34.57 kg/m2 Mariana Mayfield Other [facility] Other 12-25-2022 15:45-0400 Body weight 81.65 kg Mariana Mayfield Other [facility] Other 12-25-2022 15:45-0400 Diastolic blood pressure 72 mm[Hg] Mariana Mayfield Other [facility] Other 12-25-2022 15:45-0400 SaO2% (BldA) [Mass fraction] 97 % Mariana Mayfield Other [facility] Other 12-25-2022 15:45-0400 Systolic blood pressure 132 mm[Hg] Mariana Mayfield Other [facility] Other Encounters Encounter Date Encounter Type Care Provider Facility Start: 09-24-2023 End: 09-24-2023 ambulatory Mariana Mayfield Other [facility] Other Start: 09-24-2023 Office outpatient vi sit 15 minutes Mariana Mayfield [facility] Start: 08-13-2023 End: 08-13-2023 ambulatory Lukasz Quispe Other [facility] Other Start: 08-13-2023 Office outpatient vi sit 25 minutes Lukasz Quispe [facility] Start: 07-28-2023 Office outpatient vi sit 15 minutes Lima Villatoro [facility] Start: 07-28-2023 End: 07-28-2023 ambulatory Lima Villatoro [facility] [employer] Other Start: 07-28-2023 End: 07-28-2023 Departed Referred MD Mariana Mayfield Work Phone: [facility] [place] Work Phone: Start: 06-26-2023 End: 06-26-2023 ambulatory Mariana Mayfield Other [facility] Other Start: 06-26-2023 Telephone encounter Mariana Mayfield [facility] Start: 06-19-2023 Patient encounter procedure aMriana Mayfield [facility] Start: 06-19-2023 End: 06-19-2023 ambulatory Mariana Mayfield [facility] Work Phone: Start: 06-19-2023 End: 06-19-2023 Departed Referred MD Mariana Mayfield Work Phone: [facility] [place] Work Phone: Start: 01-08-2023 End: 01-08-2023 ambulatory Mariana Mayfield Other [facility] Other Start: 01-08-2023 Telephone encounter Mariana Mayfield [facility] Start: 12-25-2022 End: 12-25-2022 ambulatory Mariana Mayfield Other [facility] Other Start: 12-25-2022 Office outpatient vi sit 15 minutes Mariana Mayfield [facility] Start: 07-02-2022 End: 07-03-[address] MARIANA MAYFIELD Facility:[facility]1 Procedures Date Procedure Procedure Detail Performing Clinician Start: 07-28-2023 Piperacillin/tazobactam Lima Villatoro Other Plan of Treatment Date Care Activity Detail Author Start: 07-28-2023 Bacteria identified in Urine by Culture [facility] Start: 06-19-2023 [facility] Human papilloma viru s 16+18+31+33+35+39+45+51+52+56+58 +59+66+68 DNA [Presence] in Cervix by Probe with signal amplification [facility] Immunizations Immunization Date Immunization Notes Care Provider Fa cility 07-29-2022 COVID-19 Pfizer (Pediatric) Mariana Mayfield Other [facility] Other 07-29-2022 influenza virus vaccine, split virus (incl. purified surface antigen) Mariana Mayfield Other [facility] Other 06-12-2022 Prevnar 20 Mariana Mayfield Other [facility] Other 01-19-2022 COVID-19 Vaccine Moderna - Documentation Purposes Only Mariana Mayfield Other [facility] Other 09-13-2015 influenza virus vaccine, split virus (incl. purified surface antigen) Mariana Mayfield Other [facility] Other 07-29-2013 tetanus and diphther ia toxoids, adsorbed, preservative free, for adult use (5 Lf of tetanus toxoid and 2 Lf of diphtheria toxoid) Mariana Mayfield Other [facility] Other Payers Date Payer Category Payer Medicare [id number] 2.1 [id number] 2023 Self-pay [id number] 1960 Unknown [id number] 1955 Unknown [id number] Unknown [id number] Unknown [id number] Social History Date Type Detail Facility Unknown if ever smoked [facility] Other Sex Assigned At Sex Assigned At Bir th [facility] Other Start: 1955 Sex Assigned At Female [facility] Evaluation note 09-24-2023 Note Date & [...] problem in groin area - requests refill. [facility] Other Evaluation note 08-13-2023 Note Date & [...] negative findings were considered in medical decision-making. [facility] Other Evaluation note 07-28-2023 Note Date & [...] no improvement in 2 to 3 days [facility] Other Evaluation note 06-26-2023 Note Date & Type Note Facility 06-26-2023 Evaluation note Encounter Date Diagnosis Assessment Notes Jun, Situational anxiety (ICD-10 - F41.8) [facility] Other Evaluation note 06-19-2023 Note Date & [...] her satisfaction and patient sent home stable [facility] Other Evaluation note 01-08-2023 Note Date & Type Note Facility 01-08-2023 Evaluation note Encounter Date Diagnosis Assessment Notes Dec, Erythrasma (ICD-10 - L08.1) [facility] Other Evaluation note 12-25-2022 Note Date & [...] she is doing well. >15 min discussion [facility] Other Evaluation note Note Date & Type Note Facility Evaluation note No assessment information availa ble [facility] Work Phone: History general Narrative [...] C SECTION X2 Surgical History TUBAL LIGATION [facility] Other History general Narrative - Reported Note [...] TUBAL LIGATION Hospitalization History SEE SURGICAL HX [facility] Other Summary Purpose Family History No Family History Records FoundNo Family History Records Found Advance Directives Advance Directive Response Recorded Date/ Time Advance Directives No June 3:08pm Chief Complaint and Reason for Visit Chief Complaint Z12.4 Reason for Referral Reason [facility] [place] Diagnosis 1 Symptomatic varicose veins, right (I83.891) Referral Organization [facility] giovanna Referring Provider First Name Mariana Referring Provider Last Name Chana Referring Provider Specialty [facility] Referred Organization [facility] Referred Address [address], [place],[address] Referred Provider Specialty Vascular and Interventional Radiology Referral Priority Routine Additional Source Comments INFORMATION SOURCE (unrecogn ized section and content) DATE CREATED AUTHOR 07/14/2022 [facility] pitin DATE CREATED AUTHOR AUTHOR'S ORGANIZ ATION 07/31/2023 [facility] REASON FOR VISIT (unrecogniz ed section and [...] BE BASED ON THE PRIMARY CLINICAL RECORDS. [employer] provides no warranty or guarantee of the accuracy or completeness of information in this document.
== END 2023-11-18 10:21 | disposition home or self-care (01) ==
LOC: VC 10:20
PROVIDERS: PCP Radiology Diagnostic Radiology; Visit Provider Radiology Diagnostic Radiology
DX: I80.02 Phlebitis and thrombophlebitis of superficial vessels of left lower extremity (principal)
CPT/HCPCS: 93971; G0463

== ENCOUNTER 2023-11-27 07:48 | Outpatient (OUT) | payer MEDICARE, SELFPAY ==
--- NOTE | 2023-11-27 | VEIN_ITS ---
[address] [address] Patient Name: FIGUEROA VILLANUEVA MRN: [id number] date: 1955 Sex: F Assigned Patient Location: Current Patient Location: Accession/Order Number: [id number] Exam Date: 11/27/2023 07:55 Report Date: 11/27/2023 08:58 At the request of: NUSRAT ONEIL Procedure: VC Endovenous Ablation 1VeinLT EXAMINATION: VC Endovenous Ablation 1VeinLT HISTORY: I83.813 Bilateral painful varicose veins The risks and benefits of the procedure had been previously discussed, and were rediscussed at length. Informed written consent was obtained. Oniel Wilson RN and Kim Suh RDMS assisted. Time out procedure was performed. The left lower extremity was prepared and draped in the usual sterile fashion to allow knee flexion in the sterile field. Duplex ultrasound probe was draped in a sterile cover, sterile transmission gel was used. Venous mapping was performed with the areas of dilation and large tributaries marked. The total length was 9 cm from the entry upper thigh to 3 cm below the Saphenofemoral junction. The diameter of the left great saphenous vein ranged from 5.1 mm. A 30 gauge needle and 1% buffered lidocaine was used to anesthetize the entry site. A 4 mm incision was made with a scalpel and the saphenous vein was entered percutaneously under direct ultrasound guidance with a micropuncture set, a single stick was successful in gaining access. A micro-guide wire was inserted and the needle removed. A micro-set including a dilator was inserted over the microwire and the needle and dilator were removed. A guide wire was inserted through the micro-set and guided through the saphenous vein to the saphenofemoral junction. The dilator was removed and an introducer sheath was inserted over the wire until the end of the sheath entered the saphenofemoral junction. The dilator and wire were removed and the 600 micron fiber was introduced and placed and positioned so that it extended beyond the sheath and was 3 cm distal to the saphenofemoral or saphenopopliteal junction. Final position of the fiber was determined by ultrasound guidance and duplex imaging. Tumescent anesthetic was delivered by ultrasound guidance. 100 cc of fluid was delivered along the entire course of the saphenous vein. The solution consisted of 1000 cc of normal saline with 40 mL of 1% lidocaine and 20 mL of sodium bicarbonate. A final positioning check was made. The energy source was turned on by means of the foot pedal and the fiber and sheath were withdrawn. The total number of Joules delivered was 389. The laser was active for 49 seconds under continuous pulse, average laser use of 8 J. Laser start time 8:52 AM, 11/27/2023. Laser stop time 8:53 AM, 11/27/2023. A duplex ultrasound revealed compressibility and flow at the saphenofemoral junction immediately after the procedure. Hemostasis at the access site was achieved. The skin incision of the saphenous vein was closed with a 4 x 4. A compression stocking was applied. Postop instructions were given. A follow up appointment was recommended and scheduled. The patient tolerated the procedure well. Electronically authenticated by: BANDAR STONE Date: 11/27/2023 08:58
[2023-11-27] MEDS: LIDOCAINE HCL 1% 100 MG/10 ML MDV INJ (07:50)
[2023-11-27] MEDS: 0.9 % SODIUM CHLORIDE 500 ML, LIDOCAINE HCL 20 ML, SODIUM BICARBONATE 10 MEQ INJ (07:50)
--- OUTSIDE RECORDS SUMMARY | 2023-11-27 07:51 | XMS_ITS | CCD ---
Author Name Unknown Address Formerly [facility] [id number] [place] [address] Organization [facility] Care Team Providers Care Nurse Case Management Name Role Phone DR MARIANA MAYFIELD Admitting [...] Facility (1 source) Codeine Drug Allergy [facility] Repository (2 sources) Codeine Drug Allergy Unknown [facility] Other (6 sources) Codeine Drug Allergy Unknown [facility] Other (6 sources) Anesthesia S/I-40A Drug allergy Comment:Patient had a reaction to the anesthetic her last surgery and had to have a spinal [facility] Other (6 sources) Medicinal cephalosporin and acting as antibacterial agent (FN) Drug allergy Unknown [facility] Other Medications Current Medications Medication Drug Class(es) [...] Facility Urinalysis - AUTOMATED Appearance (U) cloudy [email or web address] Other Bilirubin Ql (U) Negative [employer] Other Color (U) dark yellow [facility] Other Glucose Ql (U) Negative [email or web address] Other Hemoglobin Ql (U) large [employer] Other Ketones Ql (U) Negative [email or web address] Other Leukocyte esterase Test strip Ql (U) moderate [facility] Other Nitrite Ql (U) Negative [email or web address] Other pH (U) 5.5 [pH] [facility] Other Protein Ql (U) 30 [email or web address] Other Specific gravity (U) [Rel density] 1.025 [facility] Other Urobilinogen (U) [Mass/Vol] 0.2 mg/dL [facility] Other Urinalysis - AUTOMATED No rt Aceris 3D [employer] Other Urine Cultureon 07-28-2023 Urine Culture 20,000 [facility] Other Urine Culture <16 Susceptible [email or web address] Other Urine Culture >16/8 Resistant [facility] Other Urine Culture >16 Resistant [facility] Other Urine Culture <4 Susceptible [email or web address] Other Urine Culture 4 Susceptible [email or web address] Other Urine Culture <2 Susceptible [email or web address] Other Urine Culture <1 Susceptible [email or web address] Other Urine Culture 8 Susceptible [email or web address] Other Urine Culture <0.25 Susceptible [email or web address] Other Urine Culture <0.5 Susceptible [email or web address] Other Urine Culture <32 Susceptible [email or web address] Other Urine Culture <0.5/9.5 Susceptible [email or web address] Other Bacteria identified Cx Nom (U) Reason for Exam Dysuria Urine Reason for Exam: Dysuria : Urine ORGANISM: Escherichia coli (O:ESCCOL) [place] Count 20,000 Aerobic ANNA Charge ([id number]) ----- [...] RESISTANT TO ALL B-LACTAM DRUGS. PERFORMED BY: [place] [address] PATHOLOGIST LAY BROTHER TRAVIS RADFORD M.D. Normal [facility] Comment on above: Performed By: #### C UU #### [address] Human papilloma virus 16+18+ 31+33+35+39+45+51+52+56+58+59+66+68 DNA [Presence] in CerOrdered By: Mariana Mayfield on 06-19-2023 HPV 16+18+31+33+35+39+45+5 1+52+56+58+59+66+68 DNA Probe+sig amp Ql (Cvx) Negative Negative [facility] Comment on above: This nucleic acid am plification test detects fourteen high- risk HPV types (16,18,31,33,35,39,45,51,52,56,58,59,66,68)without differentiation.Performed at: [address] [id number] Director: Jackelyn Ayala MD, Phone: [phone] at: =[address] [id number] Director: Jackelyn Ayala MD, Phone: [phone] IGP, Aptima HPV, rfx 16/18,4 5on 06-19-2023 PAP HPV Aptima Negative Normal Negative [facility] Comment on above: Result Comment: This nucleic acid amplification test detects fourteen high- risk HPV types (16,18,31,33,35,39,45,51,52,56,58,59,66,68) without differentiation. Performed at: [address] [id number] Public Policy Manager: Jackelyn Ayala MD, Phone: [phone] Performed at: =[address] [id number] Public Policy Manager: Jackelyn Ayala MD, Phone: [phone] PERFORMED BY: [address] [address] PATHOLOGIST LAY BROTHER TRAVIS RADFORD M.D. Performed By: #### P AP [id number] #### [facility] , Pap Image Guided Note Normal . [facility] Comment on above: Result Comment: TEST S RESULT FLAG UNITS REF RANGE LAB Clinician Provided Cytology Information No. of containers..01 ThinPrep Vial DIAGNOSIS: 01 NEGATIVE FOR INTRAEPITHELIAL LESION OR MALIGNANCY. CELLULAR CHANGES ASSOCIATED WITH ATROPHY ARE PRESENT. Specimen adequacy: 01 Satisfactory for evaluation. Endocervical component may not be distinguished in cases of atrophy. Performed by: 01 Kwan Lundberg, Manager Office Services ([facility]) . 01 Note: Note 01 The [...] High,A-Abnormal,AA-Critical Abnormal Performed at: 01 [facility] [address] [address] Jackelyn Ayala MD, Performed By: #### P AP [id number] #### [facility] , No Panel InformationOrdered By: Mariana Mayfield on 06-19-2023 IG Pap w/Ct-Ng & HPV Rflx (Off-Site Note . [facility] Comment on above: TESTS RESULT FLAG UN ITS REF RANGE LAB Clinician Provided Cytology Information No. of containers..01 ThinPrep VialDIAGNOSIS: 01 NEGATIVE FOR INTRAEPITHELIAL LESION OR MALIGNANCY. CELLULAR CHANGES ASSOCIATED WITH ATROPHY ARE PRESENT.Specimen adequacy: 01 Satisfactory for evaluation. Endocervical component may not be distinguished in cases of atrophy.Performed by: 01 Kwan Lundberg, Manager Office Services ([facility]). 01Note: Note 01 The Pap smear [...] Low,>-Panic High,A-Abnormal,AA-Critical Abnormal -----Performed at:01 [facility] [address] [address] Jackelyn Ayala MD, FREE T4on 07-02-2022 Free T4 [Mass/Vol] 1.15 ng/dL Normal 0.76-1.46 [facility] Comment on above: Performed By: #### F T4 #### [facility] [address] [place] [address] Dr. Gilma Rojas LIPID PROFILEon 07-02-2022 CHOL-HDL RATIO NORM SEE BELOW Normal [facility] Comment on above: Result Comment: 3.3 - 4.4 LOW RISK 4.4 - 7.1 AVERAGE RISK 7.1 - 11.0 MODERATE RISK >11.0 HIGH RISK Performed By: #### C MP, TSH, LIPID #### [facility] [address] [address] [address] Gilma Rojas Cholesterol [Mass/Vol] 191 mg/dL Normal <=200 [facility] Comment on above: Performed By: #### C MP, TSH, LIPID #### [facility] [address] [address] [address] Gilma Rojas Cholesterol in HDL [Mass/Vol] 59 mg/dL Normal 40-60 [facility] Comment on above: Performed By: #### C MP, TSH, LIPID #### [facility] [address] [address] [address] Gilma Rojas Cholesterol in LDL [Mass/Vol] 112.4 mg/dL Normal [facility] Comment on above: Performed By: #### C MP, TSH, LIPID #### [facility] [address] [address] [address] Gilma Rojas Cholesterol.total/Chol esterol in HDL [Mass ratio] 3.2 {ratio} Normal [facility] Comment on above: Performed By: #### C MP, TSH, LIPID #### [facility] [address] [address] [address] Gilma Rojas HDL NORMAL > or = 60 mg/dl - LOW CARDIOVASCULAR RISK <40 mg/dl - HIGH CARDIOVASCULAR RISK Normal [facility] Comment on above: Performed By: #### C MP, TSH, LIPID #### [facility] [address] [address] [address] Gilma Rojas LDL CALC NORMAL SEE BELOW Normal [facility] Comment on above: Result Comment: <100 mg/dl OPTIMAL 100 - 129 mg/dl NEAR OR ABOVE OPTIMAL 130 - 159 mg/dl BORDERLINE HIGH 160 - 189 mg/dl HIGH >190 mg/dl VERY HIGH Performed By: #### C MP, TSH, LIPID #### [facility] [address] [address] [address] Gilma Rojas Triglyceride [Mass/Vol] 98 mg/dL Normal <=150 [facility] Comment on above: Performed By: #### C MP, TSH, LIPID #### [facility] [address] [address] [address] Gilma Rojas VLDL CALC 19.6 mg/dL Normal [facility] Comment on above: Performed By: #### C MP, TSH, LIPID #### [facility] [address] [address] [address] Gilma Rojas MG MAMM SCREEN 3D SAVANNAH CADon 07-02-2022 MG MAMM SCREEN 3D SAVANNAH CAD Patient: GABBY VILLANUEVA Exam Date: 07/02/2022 : 1955 Gender:F Ordering : DR MARIANA MAYFIELD M.D. Admission #: [id number] Family : Order #: [id number] CLICK HERE TO VIEW EXAM RADIOLOGY REPORT [...] skin cancer at age 78. LOCATION: [facility] BREAST COMPOSITION: Scattered areas fibroglandular density. [...] M.D. on 07/02/2022 at 12:31 Normal [facility] PROF 14(COMP METB)on 022 Albumin [Mass/Vol] 4.3 g/dL Normal 3.4-5.0 [facility] Comment on above: Performed By: #### C MP, TSH, LIPID #### [facility] [address] [address] [address] Gilma Rojas Albumin/Globulin [Mass ratio] 1.4 {ratio} Normal [facility] Comment on above: Performed By: #### C MP, TSH, LIPID #### [facility] [address] [address] [address] Gilma Rojas ALP [Catalytic activity/Vol] 44 U/L Critically low 46-116 [facility] Comment on above: Performed By: #### C MP, TSH, LIPID #### [facility] [address] [address] [address] Gilma Rojas ALT [Catalytic activity/Vol] 36 U/L Normal 14-59 [facility] Comment on above: Performed By: #### C MP, TSH, LIPID #### [facility] [address] [address] [address] Gilma Rojas Anion gap [Moles/Vol] 10.4 mmol/L Normal [facility] Comment on above: Performed By: #### C MP, TSH, LIPID #### [facility] [address] [address] [address] Gilma Rojas AST [Catalytic activity/Vol] 25 U/L Normal 15-37 [facility] Comment on above: Performed By: #### C MP, TSH, LIPID #### [facility] [address] [address] [address] Gilma Rojas Bilirubin [Mass/Vol] 0.6 mg/dL Normal 0.2-1.0 [facility] Comment on above: Performed By: #### C MP, TSH, LIPID #### [facility] [address] [address] [address] Gilma Rojas Calcium [Mass/Vol] 9.6 mg/dL Normal 8.5-10.1 [facility] Comment on above: Performed By: #### C MP, TSH, LIPID #### [facility] [address] [address] [address] Gilma Rojas Chloride [Moles/Vol] 106 mmol/L Normal 98-107 [facility] Comment on above: Performed By: #### C MP, TSH, LIPID #### [facility] [address] [address] [address] Gilma Rojas CO2 [Moles/Vol] 30.1 mmol/L Normal 21.0-32.0 [facility] Comment on above: Performed By: #### C MP, TSH, LIPID #### [facility] [address] [place] [address] Dr. Gilma Rojas Creatinine [Mass/Vol] 0.78 mg/dL Normal 0.55-1.02 [facility] Comment on above: Performed By: #### C MP, TSH, LIPID #### [facility] [address] [address] [address] Gilma Rojas EGFR-AF ESTONIAN >60 Normal >=60 [facility] Comment on above: Performed By: #### C MP, TSH, LIPID #### [facility] [address] [place] [address] Dr. Gilma Rojas EGFR-NON AF ESTONIAN >60 Normal >=60 [facility] Comment on above: Performed By: #### C MP, TSH, LIPID #### [facility] [address] [place] [address] Dr. Gilma Rojas Globulin (S) [Mass/Vol] 3.1 g/dL Normal [facility] Comment on above: Performed By: #### C MP, TSH, LIPID #### [facility] [address] [place] [address] Dr. Gilma Rojas Glucose [Mass/Vol] 99 mg/dL Normal 74-106 [facility] Comment on above: Performed By: #### C MP, TSH, LIPID #### [facility] [address] [place] [address] Dr. Gilma Rojas Potassium [Moles/Vol] 3.5 mmol/L Normal 3.5-5.1 [facility] Comment on above: Performed By: #### C MP, TSH, LIPID #### [facility] [address] [place] [address] Dr. Gilma Rojas Protein [Mass/Vol] 7.4 g/dL Normal 6.4-8.2 [facility] Comment on above: Performed By: #### C MP, TSH, LIPID #### [facility] [address] [place] [address] Dr. Gilma Rojas Sodium [Moles/Vol] 143 mmol/L Normal 136-145 [facility] Comment on above: Performed By: #### C MP, TSH, LIPID #### [facility] [address] [place] [address] Dr. Gilma Rojas Urea nitrogen [Mass/Vol] 18.0 mg/dL Normal 7.0-18.0 [facility] Comment on above: Performed By: #### C MP, TSH, LIPID #### [facility] [address] [address] [address] Gilma Rojas Urea nitrogen/Creatinine [Mass ratio] 23.1 mg/mg Normal [facility] Comment on above: Performed By: #### C MP, TSH, LIPID #### [facility] [address] [place] [address] Dr. Gilma Rojas TSHon 07-02-2022 TSH 3.135 uIU/mL Normal 0.358-3.740 [facility] Comment on above: Performed By: #### C MP, TSH, LIPID #### [facility] [address] [place] [address] Dr. Gilma Rojas Vital Signs Date Time Vital Sign Value Performing Clinician Facility 09-24-2023 09:00-0500 Body height 153.67 cm Mariana Mayfield Other [facility] Other 09-24-2023 09:00-0500 Body mass index (BMI) [Ratio] 33.61 kg/m2 Mariana Mayfield Other [facility] Other 09-24-2023 09:00-0500 Body weight 79.38 kg Mariana Mayfield Other [facility] Other 09-24-2023 09:00-0500 Diastolic blood pressure 80 mm[Hg] Mariana Mayfield Other [facility] Other 09-24-2023 09:00-0500 Systolic blood pressure 126 mm[Hg] Mariana Mayfield Other [facility] Other 08-13-2023 09:30-0400 Body height 153.67 cm Lukasz Quispe Other [facility] Other 08-13-2023 09:30-0400 Body mass index (BMI) [Ratio] 33.42 kg/m2 Lukasz Quispe Other [facility] Other 08-13-2023 09:30-0400 Body weight 78.93 kg Lukasz Quispe Other [facility] Other 08-13-2023 09:30-0400 SaO2% (BldA) [Mass fraction] 96 % Lukasz Quispe Other [facility] Other 07-28-2023 09:25-0400 Body height 153.67 cm Lima Sanchezmond Other [facility] Other 07-28-2023 09:25-0400 Body mass index (BMI) [Ratio] 32.84 kg/m2 Lima Shauna Other [facility] Other 07-28-2023 09:25-0400 Body temperature 98.3 [degF] Lima Shauna Other [facility] Other 07-28-2023 09:25-0400 Body weight 77.57 kg Lima Sanchezmond Other [facility] Other 07-28-2023 09:25-0400 Diastolic blood pressure 82 mm[Hg] Lima Shauna Other [facility] Other 07-28-2023 09:25-0400 Respiratory rate 16 /min Lima Shauna Other [facility] Other 07-28-2023 09:25-0400 SaO2% (BldA) [Mass fraction] 98 % Lima Villatoro Other [facility] Other 07-28-2023 09:25-0400 Systolic blood pressure 144 mm[Hg] Lima Sanchezmond Other [facility] Other 06-19-2023 09:30-0400 Body height 153.67 cm Mariana Mayfield Other [facility] Other 06-19-2023 09:30-0400 Body mass index (BMI) [Ratio] 32.8 kg/m2 Mariana Mayfield Other [facility] Other 06-19-2023 09:30-0400 Body weight 77.47 kg Mariana Mayfield Other [facility] Other 06-19-2023 09:30-0400 Diastolic blood pressure 77 mm[Hg] Mariana Mayfield Other [facility] Other 06-19-2023 09:30-0400 Respiratory rate 12 /min Mariana Mayfield Other [facility] Other 06-19-2023 09:30-0400 Systolic blood pressure 160 mm[Hg] Mariana Mayfield Other [facility] Other 12-25-2022 15:45-0400 Body height 153.67 cm Mariana Mayfield Other [facility] Other 12-25-2022 15:45-0400 Body mass index (BMI) [Ratio] 34.57 kg/m2 Mariana Mayfield Other [facility] Other 12-25-2022 15:45-0400 Body weight 81.65 kg Mariana Mayfield Other [facility] Other 12-25-2022 15:45-0400 Diastolic blood pressure 72 mm[Hg] Mariana Mayfield Other [facility] Other 12-25-2022 15:45-0400 SaO2% (BldA) [Mass fraction] 97 % Mariana Mayfield Other [facility] Other 12-25-2022 15:45-0400 Systolic blood pressure 132 mm[Hg] Mariana Mayfield Other [facility] Other Encounters Encounter Date Encounter Type Care Provider Facility Start: 09-24-2023 End: 09-24-2023 ambulatory Mariana Mayfield Other [facility] Other Start: 09-24-2023 Office outpatient vi sit 15 minutes Mariana Mayfield [facility] Start: 08-13-2023 End: 08-13-2023 ambulatory Lukasz Quispe Other [facility] Other Start: 08-13-2023 Office outpatient vi sit 25 minutes Lukasz Quispe [facility] Start: 07-28-2023 Office outpatient vi sit 15 minutes Lima Villatoro [facility] Start: 07-28-2023 End: 07-28-2023 ambulatory Lima Villatoro [facility] [employer] Other Start: 07-28-2023 End: 07-28-2023 Departed Referred MD Mariana Mayfield Work Phone: [facility] Work Phone: Start: 06-26-2023 End: 06-26-2023 ambulatory Mariana Mayfield Other [facility] Other Start: 06-26-2023 Telephone encounter Mariana Mayfield [facility] Start: 06-19-2023 Patient encounter procedure Mariana Mayfield [facility] Start: 06-19-2023 End: 06-19-2023 ambulatory Mariana Mayfield [facility] Work Phone: Start: 06-19-2023 End: 06-19-2023 Departed Referred MD Mariana Mayfield Work Phone: [facility] Work Phone: Start: 01-08-2023 End: 01-08-2023 ambulatory Mariana Mayfield Other [facility] Other Start: 01-08-2023 Telephone encounter Mariana Mayfield [facility] Start: 12-25-2022 End: 12-25-2022 ambulatory Mariana Mayfield Other [facility] Other Start: 12-25-2022 Office outpatient vi sit 15 minutes Mariana Mayfield [facility] Start: 07-02-2022 End: 07-03-[address] MARIANA MAYFIELD Facility:[facility]1 Procedures Date Procedure Procedure Detail Performing Clinician Start: 07-28-2023 Piperacillin/tazobactam Lima Villatoro Other Plan of Treatment Date Care Activity Detail Author Start: 07-28-2023 Bacteria identified in Urine by Culture [facility] Start: 06-19-2023 [facility] Human papilloma viru s 16+18+31+33+35+39+45+51+52+56+58 +59+66+68 DNA [Presence] in Cervix by Probe with signal amplification [facility] Immunizations Immunization Date Immunization Notes Care Provider Fa cility 07-29-2022 COVID-19 Pfizer (Pediatric) Mariana Mayfield Other [facility] Other 07-29-2022 influenza virus vaccine, split virus (incl. purified surface antigen) Mariana Mayfield Other [facility] Other 06-12-2022 Prevnar 20 Mariana Mayfield Other [facility] Other 01-19-2022 COVID-19 Vaccine Moderna - Documentation Purposes Only Mariana Mayfield Other [facility] Other 09-13-2015 influenza virus vaccine, split virus (incl. purified surface antigen) Mariana Mayfield Other [facility] Other 07-29-2013 tetanus and diphther ia toxoids, adsorbed, preservative free, for adult use (5 Lf of tetanus toxoid and 2 Lf of diphtheria toxoid) Mariana Mayfield Other [facility] Other Payers Date Payer Category Payer Medicare [id number] 2.1 [id number] 2023 Self-pay [id number] 1960 Unknown [id number] 1955 Unknown [id number] Unknown [id number] Unknown [id number] Social History Date Type Detail Facility Unknown if ever smoked [facility] Other Sex Assigned At Sex Assigned At Bir th [facility] Other Start: 1955 Sex Assigned At Female F [facility] Evaluation note 09-24-2023 Note Date & [...] problem in groin area - requests refill. [facility] Other Evaluation note 08-13-2023 Note Date & [...] negative findings were considered in medical decision-making. [facility] Other Evaluation note 07-28-2023 Note Date & [...] no improvement in 2 to 3 days [facility] Other Evaluation note 06-26-2023 Note Date & Type Note Facility 06-26-2023 Evaluation note Encounter Date Diagnosis Assessment Notes Jun, Situational anxiety (ICD-10 - F41.8) [facility] Other Evaluation note 06-19-2023 Note Date & [...] her satisfaction and patient sent home stable [facility] Other Evaluation note 01-08-2023 Note Date & Type Note Facility 01-08-2023 Evaluation note Encounter Date Diagnosis Assessment Notes Dec, Erythrasma (ICD-10 - L08.1) [facility] Other Evaluation note 12-25-2022 Note Date & [...] she is doing well. >15 min discussion [facility] Other Evaluation note Note Date & Type Note Facility Evaluation note No assessment information availa ble [facility] Work Phone: History general [...] C SECTION X2 Surgical History TUBAL LIGATION [facility] Other History general Narrative - Reported Note [...] TUBAL LIGATION Hospitalization History SEE SURGICAL HX [facility] Other Summary Purpose Family History No Family History Records FoundNo Family History Records Found Advance Directives Advance Directive Response Recorded Date/ Time Advance Directives No June 3:08pm Chief Complaint and Reason for Visit Chief Complaint Z12.4 Reason for Referral Reason [facility] Diagnosis 1 Symptomatic varicose veins, right (I83.891) Referral Organization [facility] giovanna Referring Provider First Name Mariana Referring Provider Last Name Chana Referring Provider Specialty Family [facility] Referred Organization [facility] Referred Address [address] [place], [place] Referred Provider Specialty Vascular and Interventional Radiology Referral Priority Routine Additional Source Comments INFORMATION SOURCE (unrecogn ized section and content) DATE CREATED AUTHOR 07/14/2022 [facility] pitwv DATE CREATED AUTHOR AUTHOR'S ORGANIZ ATION 07/31/2023 [facility] REASON FOR VISIT (unrecogniz ed section [...] BE BASED ON THE PRIMARY CLINICAL RECORDS. [employer] provides no warranty or guarantee of the accuracy or completeness of information in this document.
== END 2023-11-27 07:49 | disposition home or self-care (01) ==
LOC: VC 07:48
PROVIDERS: PCP Radiology Diagnostic Radiology; Visit Provider Radiology Diagnostic Radiology
DX: I83.813 Varicose veins of bilateral lower extremities with pain (principal)
CPT/HCPCS: 36478

== ENCOUNTER 2023-12-03 07:50 | Outpatient (OUT) | payer MEDICARE, SELFPAY ==
--- OUTSIDE RECORDS SUMMARY | 2023-12-03 07:54 | XMS_ITS | CCD ---
Author Name Unknown Address [facility] [address] [place] [address] Organization [facility] Care Team Providers Care [place] Tour Guide Name Role Phone DR MARIANA MAYFIELD Admitting [...] Facility (1 source) Codeine Drug Allergy [facility] Repository (2 sources) Codeine Drug Allergy Unknown [facility] Other (6 sources) Codeine Drug Allergy Unknown [facility] Other (6 sources) Anesthesia S/I-40A Drug allergy Comment:Patient had a reaction to the anesthetic her last surgery and had to have a spinal [facility] Other (6 sources) Medicinal cephalosporin and acting as antibacterial agent (FN) Drug allergy Unknown [facility] Other Medications Current Medications Medication Drug Class(es) [...] Facility Urinalysis - AUTOMATED Appearance (U) cloudy [employer] Other Bilirubin Ql (U) Negative [employer] Other Color (U) dark yellow [facility] Other Glucose Ql (U) Negative [employer] Other Hemoglobin Ql (U) large [employer] Other Ketones Ql (U) Negative [employer] Other Leukocyte esterase Test strip Ql (U) moderate [facility] Other Nitrite Ql (U) Negative [employer] Other pH (U) 5.5 [pH] [facility] Other Protein Ql (U) 30 [employer] Other Specific gravity (U) [Rel density] 1.025 [facility] Other Urobilinogen (U) [Mass/Vol] 0.2 mg/dL [facility] Other Urinalysis - AUTOMATED No rt [employer] Other Urine Cultureon 07-28-2023 Urine Culture 20,000 [facility] Other Urine Culture <16 Susceptible [employer] Other Urine Culture >16/8 Resistant [facility] Other Urine Culture >16 Resistant [facility] Other Urine Culture <4 Susceptible [employer] Other Urine Culture 4 Susceptible [employer] Other Urine Culture <2 Susceptible [employer] Other Urine Culture <1 Susceptible [employer] Other Urine Culture 8 Susceptible [employer] Other Urine Culture <0.25 Susceptible [employer] Other Urine Culture <0.5 Susceptible [employer] Other Urine Culture <32 Susceptible [employer] Other Urine Culture <0.5/9.5 Susceptible [employer] Other Bacteria identified Cx Nom (U) Reason for Exam Dysuria Urine Reason for Exam: Dysuria : Urine ORGANISM: Escherichia coli (O:ESCCOL) [place] Count 20,000 Aerobic ANNA Charge ([id number]) ----- [...] EXTENDED SPECTRUM BETA-LACTAMASE TFG = THYMIDINE-DEPENDENT STRAIN ROBETRO = BETA-LACTAMASE POSITIVE IB = INDUCIBLE BETA-LACTAMASE. APPEARS IN PLACE OF 'S' WITH SPECIES KNOWN TO POSSESS INDUCIBLE BETA-LACTAMASES. POTENTIALLY THEY MAY BECOME RESISTANT TO ALL B-LACTAM DRUGS. PERFORMED BY: [place] [address] PATHOLOGIST PLASTIC FIXTURE BUILDER TRAVIS RADFORD M.D. Normal [facility] Comment on above: Performed By: #### C UU #### [address] Human papilloma virus 16+18+ 31+33+35+39+45+51+52+56+58+59+66+68 DNA [Presence] in CerOrdered By: Mariana Mayfield on 06-19-2023 HPV 16+18+31+33+35+39+45+5 1+52+56+58+59+66+68 DNA Probe+sig amp Ql (Cvx) Negative Negative [facility] Comment on above: This nucleic acid am plification test detects fourteen high- risk HPV types (16,18,31,33,35,39,45,51,52,56,58,59,66,68)without differentiation.Performed at: [address] [id number] Director: Jackelyn Ayala MD, Phone: [phone] at: =[address] [id number] Director: Jackelyn Ayala MD, Phone: [phone] IGP, Aptima HPV, rfx 16/18,4 5on 06-19-2023 PAP HPV Aptima Negative Normal Negative [facility] Comment on above: Result Comment: This nucleic acid amplification test detects fourteen high- risk HPV types (16,18,31,33,35,39,45,51,52,56,58,59,66,68) without differentiation. Performed at: [address] [id number] [facility] Nurse: Jackelyn Ayala MD, Phone: [phone] Performed at: =[address] [id number] [facility] Nurse: Jackelyn Ayala MD, Phone: [phone] PERFORMED BY: [address] [id number] PATHOLOGIST PLASTIC FIXTURE BUILDER TRAVIS RADFORD M.D. Performed By: #### P AP [id number] #### [facility] , Pap Image Guided Note Normal . [facility] Comment on above: Result Comment: TEST S RESULT FLAG UNITS REF RANGE LAB Clinician Provided Cytology Information No. of containers..01 ThinPrep Vial DIAGNOSIS: 01 NEGATIVE FOR INTRAEPITHELIAL LESION OR MALIGNANCY. CELLULAR CHANGES ASSOCIATED WITH ATROPHY ARE PRESENT. Specimen adequacy: 01 Satisfactory for evaluation. Endocervical component may not be distinguished in cases of atrophy. Performed by: 01 Kwan Lundberg, Street Superintendent ([facility]) . 01 Note: Note 01 [...] High,A-Abnormal,AA-Critical Abnormal Performed at: 01 [address] [facility] [address] [address] Jackelyn Ayala MD, Performed By: #### P AP [id number] #### [facility] , No Panel InformationOrdered By: Mariana Mayfield on 06-19-2023 IG Pap w/Ct-Ng & HPV Rflx (Off-Site Note . [facility] Comment on above: TESTS RESULT FLAG UN ITS REF RANGE LAB Clinician Provided Cytology Information No. of containers..01 ThinPrep VialDIAGNOSIS: 01 NEGATIVE FOR INTRAEPITHELIAL LESION OR MALIGNANCY. CELLULAR CHANGES ASSOCIATED WITH ATROPHY ARE PRESENT.Specimen adequacy: 01 Satisfactory for evaluation. Endocervical component may not be distinguished in cases of atrophy.Performed by: 01 Kwan Lundberg, Street Superintendent ([facility]). 01Note: Note 01 The Pap [...] Low,>-Panic High,A-Abnormal,AA-Critical Abnormal -----Performed at:01 WB [facility] [address] [address] Jackelyn Ayala MD, FREE T4on 07-02-2022 Free T4 [Mass/Vol] 1.15 ng/dL Normal 0.76-1.46 [facility] Comment on above: Performed By: #### F T4 #### [facility] [address] [place] [address] Dr. Gilma Rojas LIPID PROFILEon 07-02-2022 CHOL-HDL RATIO NORM SEE BELOW Normal [facility] Comment on above: Result Comment: 3.3 - 4.4 LOW RISK 4.4 - 7.1 AVERAGE RISK 7.1 - 11.0 MODERATE RISK >11.0 HIGH RISK Performed By: #### C MP, TSH, LIPID #### [facility] [address] [address] [address] Gilma Rojas Cholesterol [Mass/Vol] 191 mg/dL Normal <=200 [facility] Comment on above: Performed By: #### C MP, TSH, LIPID #### [facility] [address] [address] [address] Gilma Rojas Cholesterol in HDL [Mass/Vol] 59 mg/dL Normal 40-60 [facility] Comment on above: Performed By: #### C MP, TSH, LIPID #### [facility] [address] [address] [address] Gilma Rojas Cholesterol in LDL [Mass/Vol] 112.4 mg/dL Normal [facility] Comment on above: Performed By: #### C MP, TSH, LIPID #### [facility] [address] [address] [address] Gilma Rojas Cholesterol.total/Chol esterol in HDL [Mass ratio] 3.2 {ratio} Normal [facility] Comment on above: Performed By: #### C MP, TSH, LIPID #### [facility] [address] [address] [address] Gilma Rojas HDL NORMAL > or = 60 mg/dl - LOW CARDIOVASCULAR RISK <40 mg/dl - HIGH CARDIOVASCULAR RISK Normal [facility] Comment on above: Performed By: #### C MP, TSH, LIPID #### [facility] [address] [address] [address] Gilma Rojas LDL CALC NORMAL SEE BELOW Normal [facility] Comment on above: Result Comment: <100 mg/dl OPTIMAL 100 - 129 mg/dl NEAR OR ABOVE OPTIMAL 130 - 159 mg/dl BORDERLINE HIGH 160 - 189 mg/dl HIGH >190 mg/dl VERY HIGH Performed By: #### C MP, TSH, LIPID #### [facility] [address] [address] [address] Gilma Rojas Triglyceride [Mass/Vol] 98 mg/dL Normal <=150 [facility] Comment on above: Performed By: #### C MP, TSH, LIPID #### [facility] [address] [address] [address] Gilma Rojas VLDL CALC 19.6 mg/dL Normal [facility] Comment on above: Performed By: #### C MP, TSH, LIPID #### [facility] [address] [address] [address] Gilma Rojas MG MAMM SCREEN 3D SAVANNAH CADon 07-02-2022 MG MAMM SCREEN 3D SAVANNAH CAD Patient: GABBY VILLANUEVA Exam Date: 07/02/2022 : 1955 Gender:F Ordering : DR MARIANA MAYFIELD M.D. Admission #: [id number] Family : Order #: [id number] CLICK HERE TO VIEW EXAM RADIOLOGY REPORT [...] skin cancer at age 78. LOCATION: [facility] BREAST COMPOSITION: Scattered areas fibroglandular [...] M.D. on 07/02/2022 at 12:31 Normal [facility] PROF 14(COMP METB)on 022 Albumin [Mass/Vol] 4.3 g/dL Normal 3.4-5.0 [facility] Comment on above: Performed By: #### C MP, TSH, LIPID #### [facility] [address] [address] [address] Gilma Rojas Albumin/Globulin [Mass ratio] 1.4 {ratio} Normal [facility] Comment on above: Performed By: #### C MP, TSH, LIPID #### [facility] [address] [address] [address] Gilma Rojas ALP [Catalytic activity/Vol] 44 U/L Critically low 46-116 [facility] Comment on above: Performed By: #### C MP, TSH, LIPID #### [facility] [address] [address] [address] Gilma Rojas ALT [Catalytic activity/Vol] 36 U/L Normal 14-59 [facility] Comment on above: Performed By: #### C MP, TSH, LIPID #### [facility] [address] [address] [address] Gilma Rojas Anion gap [Moles/Vol] 10.4 mmol/L Normal [facility] Comment on above: Performed By: #### C MP, TSH, LIPID #### [facility] [address] [address] [address] Gilma Rojas AST [Catalytic activity/Vol] 25 U/L Normal 15-37 [facility] Comment on above: Performed By: #### C MP, TSH, LIPID #### [facility] [address] [address] [address] Gilma Rojas Bilirubin [Mass/Vol] 0.6 mg/dL Normal 0.2-1.0 [facility] Comment on above: Performed By: #### C MP, TSH, LIPID #### [facility] [address] [address] [address] Gilma Rojas Calcium [Mass/Vol] 9.6 mg/dL Normal 8.5-10.1 [facility] Comment on above: Performed By: #### C MP, TSH, LIPID #### [facility] [address] [address] [address] Gilma Rojas Chloride [Moles/Vol] 106 mmol/L Normal 98-107 [facility] Comment on above: Performed By: #### C MP, TSH, LIPID #### [facility] [address] [address] [address] Gilma Rojas CO2 [Moles/Vol] 30.1 mmol/L Normal 21.0-32.0 [facility] Comment on above: Performed By: #### C MP, TSH, LIPID #### [facility] [address] [place] [address] Dr. Gilma Rojas Creatinine [Mass/Vol] 0.78 mg/dL Normal 0.55-1.02 [facility] Comment on above: Performed By: #### C MP, TSH, LIPID #### [facility] [address] [address] [address] Gilma Rojas EGFR-AF CAMBODIAN >60 Normal >=60 [facility] Comment on above: Performed By: #### C MP, TSH, LIPID #### [facility] [address] [place] [address] Dr. Gilma Rojas EGFR-NON AF CAMBODIAN >60 Normal >=60 [facility] Comment on above: Performed By: #### C MP, TSH, LIPID #### [facility] [address] [place] [address] Dr. Gilma Rojas Globulin (S) [Mass/Vol] 3.1 g/dL Normal [facility] Comment on above: Performed By: #### C MP, TSH, LIPID #### [facility] [address] [place] [address] Dr. Gilma Rojas Glucose [Mass/Vol] 99 mg/dL Normal 74-106 [facility] Comment on above: Performed By: #### C MP, TSH, LIPID #### [facility] [address] [place] [address] Dr. Gilma Rojas Potassium [Moles/Vol] 3.5 mmol/L Normal 3.5-5.1 [facility] Comment on above: Performed By: #### C MP, TSH, LIPID #### [facility] [address] [place] [address] Dr. Gilma Rojas Protein [Mass/Vol] 7.4 g/dL Normal 6.4-8.2 [facility] Comment on above: Performed By: #### C MP, TSH, LIPID #### [facility] [address] [place] [address] Dr. Gilma Rojas Sodium [Moles/Vol] 143 mmol/L Normal 136-145 [facility] Comment on above: Performed By: #### C MP, TSH, LIPID #### [facility] [address] [place] [address] Dr. Gilma Rojas Urea nitrogen [Mass/Vol] 18.0 mg/dL Normal 7.0-18.0 [facility] Comment on above: Performed By: #### C MP, TSH, LIPID #### [facility] [address] [address] [address] Gilma Rojas Urea nitrogen/Creatinine [Mass ratio] 23.1 mg/mg Normal [facility] Comment on above: Performed By: #### C MP, TSH, LIPID #### [facility] [address] [place] [address] Dr. Gilma Rojas TSHon 07-02-2022 TSH 3.135 uIU/mL Normal 0.358-3.740 [facility] Comment on above: Performed By: #### C MP, TSH, LIPID #### [facility] [address] [place] [address] Dr. Gilma Rojas Vital Signs Date Time Vital Sign Value Performing Clinician Facility 09-24-2023 09:00-0500 Body height 153.67 cm Mariana Mayfield Other [facility] Other 09-24-2023 09:00-0500 Body mass index (BMI) [Ratio] 33.61 kg/m2 Mariana Mayfield Other [facility] Other 09-24-2023 09:00-0500 Body weight 79.38 kg Mariana Mayfield Other [facility] Other 09-24-2023 09:00-0500 Diastolic blood pressure 80 mm[Hg] Mariana Mayfield Other [facility] Other 09-24-2023 09:00-0500 Systolic blood pressure 126 mm[Hg] Mariana Mayfield Other [facility] Other 08-13-2023 09:30-0400 Body height 153.67 cm Lukasz Quispe Other [facility] Other 08-13-2023 09:30-0400 Body mass index (BMI) [Ratio] 33.42 kg/m2 Lukasz Quispe Other [facility] Other 08-13-2023 09:30-0400 Body weight 78.93 kg Lukasz Quispe Other [facility] Other 08-13-2023 09:30-0400 SaO2% (BldA) [Mass fraction] 96 % Lukasz Quispe Other [facility] Other 07-28-2023 09:25-0400 Body height 153.67 cm Lima Sanchezmond Other [facility] Other 07-28-2023 09:25-0400 Body mass index (BMI) [Ratio] 32.84 kg/m2 Lima Shauna Other [facility] Other 07-28-2023 09:25-0400 Body temperature 98.3 [degF] Lima Shauna Other [facility] Other 07-28-2023 09:25-0400 Body weight 77.57 kg Lima Sanchezmond Other [facility] Other 07-28-2023 09:25-0400 Diastolic blood pressure 82 mm[Hg] Lima Shauna Other [facility] Other 07-28-2023 09:25-0400 Respiratory rate 16 /min Lima Shauna Other [facility] Other 07-28-2023 09:25-0400 SaO2% (BldA) [Mass fraction] 98 % Lima Villatoro Other [facility] Other 07-28-2023 09:25-0400 Systolic blood pressure 144 mm[Hg] Lima Sanchezmond Other [facility] Other 06-19-2023 09:30-0400 Body height 153.67 cm Mariana Mayfield Other [facility] Other 06-19-2023 09:30-0400 Body mass index (BMI) [Ratio] 32.8 kg/m2 Mariana Mayfield Other [facility] Other 06-19-2023 09:30-0400 Body weight 77.47 kg Mariana Mayfield Other [facility] Other 06-19-2023 09:30-0400 Diastolic blood pressure 77 mm[Hg] Mariana Mayfield Other [facility] Other 06-19-2023 09:30-0400 Respiratory rate 12 /min Mariana Mayfield Other [facility] Other 06-19-2023 09:30-0400 Systolic blood pressure 160 mm[Hg] Mariana Mayfield Other [facility] Other 12-25-2022 15:45-0400 Body height 153.67 cm Mariana Mayfield Other [facility] Other 12-25-2022 15:45-0400 Body mass index (BMI) [Ratio] 34.57 kg/m2 Mariana Mayfield Other [facility] Other 12-25-2022 15:45-0400 Body weight 81.65 kg Mariana Mayfield Other [facility] Other 12-25-2022 15:45-0400 Diastolic blood pressure 72 mm[Hg] Mariana Mayfield Other [facility] Other 12-25-2022 15:45-0400 SaO2% (BldA) [Mass fraction] 97 % Mariana Mayfield Other [facility] Other 12-25-2022 15:45-0400 Systolic blood pressure 132 mm[Hg] Mariana Mayfield Other [facility] Other Encounters Encounter Date Encounter Type Care Provider Facility Start: 09-24-2023 End: 09-24-2023 ambulatory Mariana Mayfield Other [facility] Other Start: 09-24-2023 Office outpatient vi sit 15 minutes Mariana Mayfield [facility] Start: 08-13-2023 End: 08-13-2023 ambulatory Lukasz Qiuspe Other [facility] Other Start: 08-13-2023 Office outpatient vi sit 25 minutes Lukasz Quispe [facility] Start: 07-28-2023 Office outpatient vi sit 15 minutes Lima Villatoro [facility] Start: 07-28-2023 End: 07-28-2023 ambulatory Lima Villatoro [facility] Other Start: 07-28-2023 End: 07-28-2023 Departed Referred MD Mariana Mayfield Work Phone: [facility] [place] Work Phone: Start: 06-26-2023 End: 06-26-2023 ambulatory Mariana Mayfield Other [facility] Other Start: 06-26-2023 Telephone encounter Mariana Mayfield [facility] Start: 06-19-2023 Patient encounter procedure Mariana Mayfield [facility] Start: 06-19-2023 End: 06-19-2023 ambulatory Mariana Mayfield [facility] Work Phone: Start: 06-19-2023 End: 06-19-2023 Departed Referred MD Mariana Mayfield Work Phone: [facility] [place] Work Phone: Start: 01-08-2023 End: 01-08-2023 ambulatory Mariana Mayfield Other [facility] Other Start: 01-08-2023 Telephone encounter Mariana Mayfield [facility] Start: 12-25-2022 End: 12-25-2022 ambulatory Mariana Mayfield Other [facility] Other Start: 12-25-2022 Office outpatient vi sit 15 minutes Mariana Mayfield [facility] Start: 07-02-2022 End: 07-03-[address] MARIANA MAYFIELD Facility:[facility]1 Procedures Date Procedure Procedure Detail Performing Clinician Start: 07-28-2023 Piperacillin/tazobactam Lima Villatoro Other Plan of Treatment Date Care Activity Detail Author Start: 07-28-2023 Bacteria identified in Urine by Culture [facility] Start: 06-19-2023 [facility] Human papilloma viru s 16+18+31+33+35+39+45+51+52+56+58 +59+66+68 DNA [Presence] in Cervix by Probe with signal amplification [facility] Immunizations Immunization Date Immunization Notes Care Provider Fa cility 07-29-2022 COVID-19 Pfizer (Pediatric) Mariana Mayfield Other [facility] Other 07-29-2022 influenza virus vaccine, split virus (incl. purified surface antigen) Mariana Mayfield Other [facility] Other 06-12-2022 Prevnar 20 Mariana Mayfield Other [facility] Other 01-19-2022 COVID-19 Vaccine Moderna - Documentation Purposes Only Mariana Mayfield Other [facility] Other 09-13-2015 influenza virus vaccine, split virus (incl. purified surface antigen) Mariana Mayfield Other [facility] Other 07-29-2013 tetanus and diphther ia toxoids, adsorbed, preservative free, for adult use (5 Lf of tetanus toxoid and 2 Lf of diphtheria toxoid) Mariana Mayfield Other [facility] Other Payers Date Payer Category Payer Medicare [id number] 2.1 [id number] 2023 Self-pay [id number] 1960 Unknown [id number] 1955 Unknown [id number] Unknown [id number] Unknown [id number] [id number] Social History Date Type Detail Facility Unknown if ever smoked [facility] Other Sex Assigned At Sex Assigned At Bir th [facility] Other Start: 1955 Sex Assigned At Female F [facility] Evaluation note 09-24-2023 Note Date & Type [...] problem in groin area - requests refill. [facility] Other Evaluation note 08-13-2023 Note Date & [...] negative findings were considered in medical decision-making. 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 >15 min discussion [facility] Other Evaluation note Note Date & Type Note Facility Evaluation note No assessment information availa ble [facility] Work Phone: History general Narrative [...] C SECTION X2 Surgical History TUBAL LIGATION [facility] Other History general Narrative - Reported Note [...] TUBAL LIGATION Hospitalization History SEE SURGICAL HX [facility] Other Summary Purpose Family History No Family History Records FoundNo Family History Records Found Advance Directives Advance Directive Response Recorded Date/ Time Advance Directives No June 3:08pm Chief Complaint and Reason for Visit Chief Complaint Z12.4 Reason for Referral Reason [facility] Diagnosis 1 Symptomatic varicose veins, right (I83.891) Referral Organization [facility] Referring Provider First Name Mariana Referring Provider Last Name Chana Referring Provider Specialty Family [facility] Referred Organization [facility] Referred Address [address] [place], [place],[address] Referred Provider Specialty Vascular and Interventional Radiology Referral Priority Routine Additional Source Comments INFORMATION SOURCE (unrecogn ized section and content) DATE CREATED AUTHOR 07/14/2022 [facility] DATE CREATED AUTHOR AUTHOR'S ORGANIZ ATION 07/31/2023 [facility] REASON FOR VISIT (unrecogniz ed section [...] BE BASED ON THE PRIMARY CLINICAL RECORDS. [employer] provides no warranty or guarantee of the accuracy or completeness of information in this document.
--- NOTE | 2023-12-03 07:58 | VEIN_ITS ---
Patient Name: FIGUEROA VILLANUEVA MR#: [id number] : 1955 Exam Date: 12/03/2023 Ordering Doctor: DR NUSRAT ONEIL M.D. RADIOLOGY REPORT PROCEDURE: VC EXT VENOUS LT LIMITED COMPARISON: VC EXT VENOUS LT LIMITED, 11/18/2023. INDICATIONS: Phlebitis of superficial vein of lt lower extremity I80.02 TECHNIQUE: Lower extremity pavon scale and Duplex Doppler evaluation of the deep venous system from the inguinal ligament through the calf veins. FINDINGS: REGION: Left lower extremity. THROMBI: Negative for DVT. Heat induced thrombus visualized 2.1cm from the SFJ. The heat induced thrombus extends from groin to mid thigh. COMPRESSIBILITY: Non-compressible segments corresponding to thrombus FLOW: Areas of no flow corresponding to thrombus OTHER: CONCLUSION: 1. Successful post ablation occlusion of left anterior accessory saphenous vein. Dictated by: Wil Garcia M.D. on 12/03/2023 at 08:43 Approved by: Wil Garcia M.D. on 12/03/2023 at 08:43
--- NOTE | 2023-12-03 07:59 | VEIN_ITS ---
Patient Name: FIGUEROA VILLANUEVA MR#: [id number] : 1955 Exam Date: 12/03/2023 Ordering Doctor: DR NUSRAT ONEIL M.D. RADIOLOGY REPORT PROCEDURE: [facility] - OFFICE VISIT FOLLOW UP [facility] PROGRESS NOTES: The patient reports improvement in leg symptoms. There has been interval reduction in varicosities. The patient has followed our recommendations to walk 20-30 minutes once or twice per day since the procedure. Physical exam demonstrates decrease in varicosities of the leg. Persistent varicosities are identified along the legs bilaterally. Review of the ultrasound performed the same day demonstrates occlusive thrombus extending throughout the treated vein(s), see separate report, consistent with a successful ablation. No thrombus extending into or beyond the saphenofemoral junction. The patient expressed a desire to proceed with treatment of remaining incompetent varicosities. The patient was informed that treatment was a process and would require several procedures/sessions. VEIN/[facility] EST LMTD IMPRESSION: 1. Successful ablation of the left anterior accessory saphenous vein(s). 2. Persistent varicose veins and lower extremity symptoms. PLAN: Microfoam chemical ablation of bilateral lower extremity branch saphenous varicosities, beginning with right leg. Nurse notes, history and physical were reviewed and confirmed, see attached forms. The nurse was present throughout the physical exam and consultation Dictated by: Wil Garcia M.D. on 12/03/2023 at 08:44 Approved by: Wil Gracia M.D. on 12/03/2023 at 08:44
== END 2023-12-03 07:51 | disposition home or self-care (01) ==
LOC: VC 07:50
PROVIDERS: PCP Radiology Diagnostic Radiology; Visit Provider Radiology Diagnostic Radiology
DX: I80.02 Phlebitis and thrombophlebitis of superficial vessels of left lower extremity (principal)
CPT/HCPCS: 93971; G0463

== ENCOUNTER 2023-12-06 09:18 | Outpatient (OUT) | payer MEDICARE, SELFPAY ==
--- NOTE | 2023-12-06 09:22 | VEIN_ITS ---
The [address] [address] Patient Name: FIGUEROA VILLANUEVA MRN: [id number] date: 1955 Sex: F Assigned Patient Location: Current Patient Location: Accession/Order Number: [id number] Exam Date: 12/06/2023 09:22 Report Date: 12/06/2023 10:43 At the request of: NUSRAT ONEIL Procedure: VC INJ Foam Sclerosant [employer] PROCEDURE: VC INJ Foam Sclerosant [employer] HISTORY: Pain due to varicose veins of bilateral legs I83.813 Pre-operative Diagnosis: CEAP class C3 venous insufficiency with pain, tenderness, edema and incompetent branch saphenous vein(s), chronic venous insufficiency right leg secondary to venous incompetence Post-operative Diagnosis: CEAP class C3 venous insufficiency with pain, tenderness, edema and incompetent branch saphenous vein(s), chronic venous insufficiency right leg secondary to venous incompetence Procedure Performed: 1. Ultrasound-guided microfoam chemical ablation with Varithenaregistered 2. Intraoperative ultrasound guidance Physician: Bandar Garcia M.D. Anesthesia: None Indications for Procedure: 68 year old female. Symptoms including lower extremity throbbing, swelling, dilated bulging veins for many years despite conservative medical therapy including medical compression stockings, exercise and analgesics. Prior procedures include endovenous laser ablation. Multiple incompetent varicosities of the right leg. Duplex scan showed reflux and enlarged diameters up to 5 mm. The patient underwent informed consent including management options where the complications of infection, bleeding, pain, and skin injury were discussed. Particular attention was spent discussing thrombus extension and deep vein thrombosis as well as the possibility of pulmonary embolus and treatment with oral or injectable blood thinners. Procedure: The patient walked to the procedure room. All applicable staff donned appropriate apparel. A procedure timeout was performed to confirm correct patient, correct extremity, correct procedure, and correct room set-up including presence of all applicable supplies, devices, and drugs. A duplex ultrasound, performed by myself confirmed the location and incompetence of branch saphenous varicosities and their course was marked on the skin together with the dilated tributaries. The extent of treatment of the vein and the associated varicosities was determined through ultrasound mapping. The skin was prepped and then punctured with a butterfly needle and advanced under ultrasound guidance. The Varithenaregistered canister was activated and the canister was primed and purged as required in the instructions for use. Varithenaregistered was drawn into a sterile syringe. Varithenaregistered was slowly administered at 0.5-1.0 cc/second with close observation by ultrasound of its course in the vessels. Total volume utilized was: 15 mL (5 mL into a 4 mm varicosity distal anterior lower leg; 10 mL into a 5 mm varicosity mid anterior lower right leg). Following administration of Varithenaregistered the leg was elevated and the patient was asked to repeatedly dorsiflex the ankle to limit flow of Varithenaregistered into perforating veins. Once appropriate spasm had been confirmed in the treated veins, the vascular catheter was removed from the leg and light pressure was applied over the puncture site for hemostasis. The common femoral and deep superficial veins were then evaluated for flow and compressibility prior to dressing placement. The lower extremity was kept elevated at 45 degrees above the horizontal and cording material was applied over the saphenous segments and tributaries to allow for eccentric compression over the target vessels including the targeted saphenous vein(s). A multilayer dressing was applied consisting of foam pads, coban and thigh-high 20-30 mm Hg compression elastic support hose were placed on the patient. The leg was lowered only after compression had been applied and the patient was immediately ambulatory. The patient ambulated 10 minutes under supervision and was without apparent concerns at time of release. Post-care instructions include advising patient to keep post-treatment bandages in place and dry for 48 hours, avoid extended periods of inactivity, avoid heavy exercise for one week, wear compression stockings on the treated leg continuously for two weeks, to walk daily for 10 minutes over the next month. The patient was instructed to take an anti-inflammatory medicine as needed and to follow up for color duplex scan of the Saphenous veins, the treated branch saphenous varicosities, the adjacent deep veins, and additional treatment within 7 days. PERSONNEL: Oniel Wilson RN Electronically authenticated by: BANDAR GARCIA Date: 12/06/2023 10:43
--- OUTSIDE RECORDS SUMMARY | 2023-12-06 09:22 | XMS_ITS | CCD ---
Author Name Unknown Address [facility] [id number] [place] [address] Organization [facility] Care Team Providers Care Box Attacher Name Role Phone DR MARIANA MAYFIELD Admitting Unavailable CHANA, DR MARIANA Glover Primary Care Unavailable CHANA, DR MARIANA Glover Attending Unavailable CHASE, DR WIL Edmondson Consulting Unavailable CHANA, DR MARIANA Glover Consulting Unavailable Mariana Mayfield Unavailable MD Mariana Mayfield Attending Provider [phone] Lima Villatoro Unavailable SESAR Villatoro Attending Provider [phone] Lima Villatoro Admitting Unavailable Lima Villatoro Attending Unavailable Mariana Mayfield Primary Care Unavailable Mariana Mayfield Attending Unavailable Mariana Mayfield Admitting Unavailable Lukasz Quispe Unavailable Allergies Allergy Classification Reported Allergen(s) Allergy Type Date of Onset Reaction(s) Facility (1 source) Codeine Drug Allergy [facility] Repository (2 sources) Codeine Drug Allergy Unknown [facility] Other (6 sources) Codeine Drug Allergy Unknown [facility] Other (6 sources) Anesthesia S/I-40A Drug allergy Comment:Patient had a reaction to the anesthetic her last surgery and had to have a spinal [facility] Other (6 sources) Medicinal cephalosporin and acting as antibacterial agent (FN) Drug allergy Unknown [facility] Other Medications Current Medications Medication Drug Class(es) [...] Facility Urinalysis - AUTOMATED Appearance (U) cloudy [facility] Other Bilirubin Ql (U) Negative Red Lambda Other Color (U) dark yellow [facility] Other Glucose Ql (U) Negative [facility] Other Hemoglobin Ql (U) large [employer] Other Ketones Ql (U) Negative [facility] Other Leukocyte esterase Test strip Ql (U) moderate [facility] Other Nitrite Ql (U) Negative [facility] Other pH (U) 5.5 [pH] [facility] Other Protein Ql (U) 30 [facility] Other Specific gravity (U) [Rel density] 1.025 [facility] Other Urobilinogen (U) [Mass/Vol] 0.2 mg/dL [facility] Other Urinalysis - AUTOMATED No rt [employer] Other Urine Cultureon 07-28-2023 Urine Culture 20,000 [facility] Other Urine Culture <16 Susceptible [facility] Other Urine Culture >16/8 Resistant [facility] Other Urine Culture >16 Resistant [facility] Other Urine Culture <4 Susceptible [facility] Other Urine Culture 4 Susceptible [facility] Other Urine Culture <2 Susceptible [facility] Other Urine Culture <1 Susceptible [facility] Other Urine Culture 8 Susceptible [facility] Other Urine Culture <0.25 Susceptible [facility] Other Urine Culture <0.5 Susceptible [facility] Other Urine Culture <32 Susceptible [facility] Other Urine Culture <0.5/9.5 Susceptible [facility] Other Bacteria identified Cx Nom (U) Reason for Exam Dysuria Urine Reason for Exam: Dysuria : Urine ORGANISM: Escherichia coli (O:ESCCOL) [place] Count 20,000 Aerobic ANNA Charge ([id number]) ----- [...] RESISTANT TO ALL B-LACTAM DRUGS. PERFORMED BY: [place] [address] PATHOLOGIST NATURAL RESOURCE SPECIALIST TRAVIS RADFORD M.D. Normal [facility] Comment on above: Performed By: #### C UU #### [address] Human papilloma virus 16+18+ 31+33+35+39+45+51+52+56+58+59+66+68 DNA [Presence] in CerOrdered By: Mariana Mayfield on 06-19-2023 HPV 16+18+31+33+35+39+45+5 1+52+56+58+59+66+68 DNA Probe+sig amp Ql (Cvx) Negative Negative [facility] Comment on above: This nucleic acid am plification test detects fourteen high- risk HPV types (16,18,31,33,35,39,45,51,52,56,58,59,66,68)without differentiation.Performed at: [address] [id number] Director: Jackelyn Ayala MD, Phone: [phone] at: =[address] [id number] Director: Jackelyn Ayala MD, Phone: [phone] IGP, Aptima HPV, rfx 16/18,4 5on 06-19-2023 PAP HPV Aptima Negative Normal Negative [facility] Comment on above: Result Comment: This nucleic acid amplification test detects fourteen high- risk HPV types (16,18,31,33,35,39,45,51,52,56,58,59,66,68) without differentiation. Performed at: [address] [id number] Quality Assurance Coach: Jackelyn Ayala MD, Phone: [phone] Performed at: =[address] [id number] Quality Assurance Coach: Jackelyn Ayala MD, Phone: [phone] PERFORMED BY: [address] [address] PATHOLOGIST NATURAL RESOURCE SPECIALIST TRAVIS RADFORD M.D. Performed By: #### P AP [id number] #### [facility] , Pap Image Guided Note Normal . [facility] Comment on above: Result Comment: TEST S RESULT FLAG UNITS REF RANGE LAB Clinician Provided Cytology Information No. of containers..01 ThinPrep Vial DIAGNOSIS: 01 NEGATIVE FOR INTRAEPITHELIAL LESION OR MALIGNANCY. CELLULAR CHANGES ASSOCIATED WITH ATROPHY ARE PRESENT. Specimen adequacy: 01 Satisfactory for evaluation. Endocervical component may not be distinguished in cases of atrophy. Performed by: 01 Kwan Lundberg, [employer] Senior Specialist ([facility]) . 01 Note: Note 01 The Pap [...] High,A-Abnormal,AA-Critical Abnormal Performed at: 01 [address] [facility] [address] [address] Jackelyn Ayala MD, Performed By: #### P AP [id number] #### [facility] , No Panel InformationOrdered By: Mariana Mayfield on 06-19-2023 IG Pap w/Ct-Ng & HPV Rflx (Off-Site Note . [facility] Comment on above: TESTS RESULT FLAG UN ITS REF RANGE LAB Clinician Provided Cytology Information No. of containers..01 ThinPrep VialDIAGNOSIS: 01 NEGATIVE FOR INTRAEPITHELIAL LESION OR MALIGNANCY. CELLULAR CHANGES ASSOCIATED WITH ATROPHY ARE PRESENT.Specimen adequacy: 01 Satisfactory for evaluation. Endocervical component may not be distinguished in cases of atrophy.Performed by: 01 Kwan Lundberg, Lean [employer] Senior Specialist ([facility]). 01Note: Note 01 The Pap smear is [...] Low,>-Panic High,A-Abnormal,AA-Critical Abnormal -----Performed at:01 [address] [facility] [address] [address] Jackelyn Ayala MD, FREE T4on 07-02-2022 Free T4 [Mass/Vol] 1.15 ng/dL Normal 0.76-1.46 [facility] Comment on above: Performed By: #### F T4 #### [facility] [address] [place] [address] Dr. Gilma Rojas LIPID PROFILEon 07-02-2022 CHOL-HDL RATIO NORM SEE BELOW Normal [facility] Comment on above: Result Comment: 3.3 - 4.4 LOW RISK 4.4 - 7.1 AVERAGE RISK 7.1 - 11.0 MODERATE RISK >11.0 HIGH RISK Performed By: #### C MP, TSH, LIPID #### [facility] [address] [address] [address] Gilma Rojas Cholesterol [Mass/Vol] 191 mg/dL Normal <=200 [facility] Comment on above: Performed By: #### C MP, TSH, LIPID #### [facility] [address] [address] [address] Gilma Rojas Cholesterol in HDL [Mass/Vol] 59 mg/dL Normal 40-60 [facility] Comment on above: Performed By: #### C MP, TSH, LIPID #### [facility] [address] [address] [address] Gilma Rojas Cholesterol in LDL [Mass/Vol] 112.4 mg/dL Normal [facility] Comment on above: Performed By: #### C MP, TSH, LIPID #### [facility] [address] [address] [address] Gilma Rojas Cholesterol.total/Chol esterol in HDL [Mass ratio] 3.2 {ratio} Normal [facility] Comment on above: Performed By: #### C MP, TSH, LIPID #### [facility] [address] [address] [address] Gilma Rojas HDL NORMAL > or = 60 mg/dl - LOW CARDIOVASCULAR RISK <40 mg/dl - HIGH CARDIOVASCULAR RISK Normal [facility] Comment on above: Performed By: #### C MP, TSH, LIPID #### [facility] [address] [address] [address] Gilma Rojas LDL CALC NORMAL SEE BELOW Normal [facility] Comment on above: Result Comment: <100 mg/dl OPTIMAL 100 - 129 mg/dl NEAR OR ABOVE OPTIMAL 130 - 159 mg/dl BORDERLINE HIGH 160 - 189 mg/dl HIGH >190 mg/dl VERY HIGH Performed By: #### C MP, TSH, LIPID #### [facility] [address] [address] [address] Gilma Rojas Triglyceride [Mass/Vol] 98 mg/dL Normal <=150 [facility] Comment on above: Performed By: #### C MP, TSH, LIPID #### [facility] [address] [address] [address] Gilma Rojas VLDL CALC 19.6 mg/dL Normal [facility] Comment on above: Performed By: #### C MP, TSH, LIPID #### [facility] [address] [address] [address] Gilma Rojas MG MAMM SCREEN 3D SAVANNAH CADon 07-02-2022 MG MAMM SCREEN 3D SAVANNAH CAD Patient: GABBY VILLANUEVA Exam Date: 07/02/2022 : 1955 Gender:F Ordering : DR MARIANA MAYFIELD M.D. Admission #: [id number] Family : Order #: [id number] CLICK HERE TO VIEW EXAM RADIOLOGY REPORT [...] skin cancer at age 78. LOCATION: [facility] BREAST COMPOSITION: Scattered areas fibroglandular density. [...] M.D. on 07/02/2022 at 12:31 Normal [facility] PROF 14(COMP METB)on 022 Albumin [Mass/Vol] 4.3 g/dL Normal 3.4-5.0 [facility] Comment on above: Performed By: #### C MP, TSH, LIPID #### [facility] [address] [address] [address] Gilma Rojas Albumin/Globulin [Mass ratio] 1.4 {ratio} Normal [facility] Comment on above: Performed By: #### C MP, TSH, LIPID #### [facility] [address] [address] [address] Gilma Rojas ALP [Catalytic activity/Vol] 44 U/L Critically low 46-116 [facility] Comment on above: Performed By: #### C MP, TSH, LIPID #### [facility] [address] [address] [address] Gilma Rojas ALT [Catalytic activity/Vol] 36 U/L Normal 14-59 [facility] Comment on above: Performed By: #### C MP, TSH, LIPID #### [facility] [address] [address] [address] Gilma Rojas Anion gap [Moles/Vol] 10.4 mmol/L Normal [facility] Comment on above: Performed By: #### C MP, TSH, LIPID #### [facility] [address] [address] [address] Gilma Rojas AST [Catalytic activity/Vol] 25 U/L Normal 15-37 [facility] Comment on above: Performed By: #### C MP, TSH, LIPID #### [facility] [address] [address] [address] Gilma Rojas Bilirubin [Mass/Vol] 0.6 mg/dL Normal 0.2-1.0 [facility] Comment on above: Performed By: #### C MP, TSH, LIPID #### [facility] [address] [address] [address] Gilma Rojas Calcium [Mass/Vol] 9.6 mg/dL Normal 8.5-10.1 [facility] Comment on above: Performed By: #### C MP, TSH, LIPID #### [facility] [address] [address] [address] Gilma Rojas Chloride [Moles/Vol] 106 mmol/L Normal 98-107 [facility] Comment on above: Performed By: #### C MP, TSH, LIPID #### [facility] [address] [address] [address] Gilma Rojas CO2 [Moles/Vol] 30.1 mmol/L Normal 21.0-32.0 [facility] Comment on above: Performed By: #### C MP, TSH, LIPID #### [facility] [address] [place] [address] Dr. Gilma Rojas Creatinine [Mass/Vol] 0.78 mg/dL Normal 0.55-1.02 [facility] Comment on above: Performed By: #### C MP, TSH, LIPID #### [facility] [address] [address] [address] Gilma Rojas EGFR-AF TURKISH >60 Normal >=60 [facility] Comment on above: Performed By: #### C MP, TSH, LIPID #### [facility] [address] [place] [address] Dr. Gilma Rojas EGFR-NON AF TURKISH >60 Normal >=60 [facility] Comment on above: Performed By: #### C MP, TSH, LIPID #### [facility] [address] [place] [address] Dr. Gilma Rojas Globulin (S) [Mass/Vol] 3.1 g/dL Normal [facility] Comment on above: Performed By: #### C MP, TSH, LIPID #### [facility] [address] [place] [address] Dr. Gilma Rojas Glucose [Mass/Vol] 99 mg/dL Normal 74-106 [facility] Comment on above: Performed By: #### C MP, TSH, LIPID #### [facility] [address] [place] [address] Dr. Gilma Rojas Potassium [Moles/Vol] 3.5 mmol/L Normal 3.5-5.1 [facility] Comment on above: Performed By: #### C MP, TSH, LIPID #### [facility] [address] [place] [address] Dr. Gilma Rojas Protein [Mass/Vol] 7.4 g/dL Normal 6.4-8.2 [facility] Comment on above: Performed By: #### C MP, TSH, LIPID #### [facility] [address] [place] [address] Dr. Gilma Rojas Sodium [Moles/Vol] 143 mmol/L Normal 136-145 [facility] Comment on above: Performed By: #### C MP, TSH, LIPID #### [facility] [address] [place] [address] Dr. Gilma Rojas Urea nitrogen [Mass/Vol] 18.0 mg/dL Normal 7.0-18.0 [facility] Comment on above: Performed By: #### C MP, TSH, LIPID #### [facility] [address] [address] [address] Gilma Rojas Urea nitrogen/Creatinine [Mass ratio] 23.1 mg/mg Normal [facility] Comment on above: Performed By: #### C MP, TSH, LIPID #### [facility] [address] [place] [address] Dr. Gilma Rojas TSHon 07-02-2022 TSH 3.135 uIU/mL Normal 0.358-3.740 [facility] Comment on above: Performed By: #### C MP, TSH, LIPID #### [facility] [address] [place] [address] Dr. Gilma Rojas Vital Signs Date Time Vital Sign Value Performing Clinician Facility 09-24-2023 09:00-0500 Body height 153.67 cm Mariana Mayfield Other [facility] Other 09-24-2023 09:00-0500 Body mass index (BMI) [Ratio] 33.61 kg/m2 Mariana Mayfield Other [facility] Other 09-24-2023 09:00-0500 Body weight 79.38 kg Mariana Mayfield Other [facility] Other 09-24-2023 09:00-0500 Diastolic blood pressure 80 mm[Hg] Mariana Mayfield Other [facility] Other 09-24-2023 09:00-0500 Systolic blood pressure 126 mm[Hg] Mariana Mayfield Other [facility] Other 08-13-2023 09:30-0400 Body height 153.67 cm Lukasz Quispe Other [facility] Other 08-13-2023 09:30-0400 Body mass index (BMI) [Ratio] 33.42 kg/m2 Lukasz Quispe Other [facility] Other 08-13-2023 09:30-0400 Body weight 78.93 kg Lukasz Quispe Other [facility] Other 08-13-2023 09:30-0400 SaO2% (BldA) [Mass fraction] 96 % Lukasz Quispe Other [facility] Other 07-28-2023 09:25-0400 Body height 153.67 cm Lima Sanchezmond Other [facility] Other 07-28-2023 09:25-0400 Body mass index (BMI) [Ratio] 32.84 kg/m2 Lima Shauna Other [facility] Other 07-28-2023 09:25-0400 Body temperature 98.3 [degF] Lima Shauna Other [facility] Other 07-28-2023 09:25-0400 Body weight 77.57 kg Lima Sanchezmond Other [facility] Other 07-28-2023 09:25-0400 Diastolic blood pressure 82 mm[Hg] Lima Shauna Other [facility] Other 07-28-2023 09:25-0400 Respiratory rate 16 /min Lima Shauna Other [facility] Other 07-28-2023 09:25-0400 SaO2% (BldA) [Mass fraction] 98 % Lima Villatoro Other [facility] Other 07-28-2023 09:25-0400 Systolic blood pressure 144 mm[Hg] Lima Sanchezmond Other [facility] Other 06-19-2023 09:30-0400 Body height 153.67 cm Mariana Mayfield Other [facility] Other 06-19-2023 09:30-0400 Body mass index (BMI) [Ratio] 32.8 kg/m2 Mariana Mayfield Other [facility] Other 06-19-2023 09:30-0400 Body weight 77.47 kg Mariana Mayfield Other [facility] Other 06-19-2023 09:30-0400 Diastolic blood pressure 77 mm[Hg] Mariana Mayfield Other [facility] Other 06-19-2023 09:30-0400 Respiratory rate 12 /min Mariana Mayfield Other [facility] Other 06-19-2023 09:30-0400 Systolic blood pressure 160 mm[Hg] Mariana Mayfield Other [facility] Other 12-25-2022 15:45-0400 Body height 153.67 cm Mariana Mayfield Other [facility] Other 12-25-2022 15:45-0400 Body mass index (BMI) [Ratio] 34.57 kg/m2 Mariana Mayfield Other [facility] Other 12-25-2022 15:45-0400 Body weight 81.65 kg Mariana Mayfield Other [facility] Other 12-25-2022 15:45-0400 Diastolic blood pressure 72 mm[Hg] Mariana Mayfield Other [facility] Other 12-25-2022 15:45-0400 SaO2% (BldA) [Mass fraction] 97 % Mariana Mayfield Other [facility] Other 12-25-2022 15:45-0400 Systolic blood pressure 132 mm[Hg] Mariana Mayfield Other [facility] Other Encounters Encounter Date Encounter Type Care Provider Facility Start: 09-24-2023 End: 09-24-2023 ambulatory Mariana Mayfield Other [facility] Other Start: 09-24-2023 Office outpatient vi sit 15 minutes Mariana Mayfield [facility] Start: 08-13-2023 End: 08-13-2023 ambulatory Lukasz Quispe Other [facility] Other Start: 08-13-2023 Office outpatient vi sit 25 minutes Lukasz Quispe [facility] Start: 07-28-2023 Office outpatient vi sit 15 minutes Lima Villatoro [facility] Start: 07-28-2023 End: 07-28-2023 ambulatory Lima Villatoro [facility] Other Start: 07-28-2023 End: 07-28-2023 Departed Referred MD Mariana Mayfield Work Phone: [facility] [place] Work Phone: Start: 06-26-2023 End: 06-26-2023 ambulatory Mariana Mayfield Other [facility] Other Start: 06-26-2023 Telephone encounter Mariana Mayfield [facility] Start: 06-19-2023 Patient encounter procedure Mariana Mayfield [facility] Start: 06-19-2023 End: 06-19-2023 ambulatory Mariana Mayfield [facility] Work Phone: Start: 06-19-2023 End: 06-19-2023 Departed Referred MD Mariana Mayfield Work Phone: [facility] [place] Work Phone: Start: 01-08-2023 End: 01-08-2023 ambulatory Mariana Mayfield Other [facility] Other Start: 01-08-2023 Telephone encounter Mariana Mayfield [facility] Start: 12-25-2022 End: 12-25-2022 ambulatory Mariana Mayfield Other [facility] Other Start: 12-25-2022 Office outpatient vi sit 15 minutes Mariana Mayfield [facility] Start: 07-02-2022 End: 07-03-[address] MARIANA MAYFIELD Facility:[facility]1 Procedures Date Procedure Procedure Detail Performing Clinician Start: 07-28-2023 Piperacillin/tazobactam Lima Villatoro Other Plan of Treatment Date Care Activity Detail Author Start: 07-28-2023 Bacteria identified in Urine by Culture [facility] Start: 06-19-2023 [facility] Human papilloma viru s 16+18+31+33+35+39+45+51+52+56+58 +59+66+68 DNA [Presence] in Cervix by Probe with signal amplification [facility] Immunizations Immunization Date Immunization Notes Care Provider Fa cility 07-29-2022 COVID-19 Pfizer (Pediatric) Mariana Mayfield Other [facility] Other 07-29-2022 influenza virus vaccine, split virus (incl. purified surface antigen) Mariana Mayfield Other [facility] Other 06-12-2022 Prevnar 20 Mariana Mayfield Other [facility] Other 01-19-2022 COVID-19 Vaccine Moderna - Documentation Purposes Only Mariana Mayfield Other [facility] Other 09-13-2015 influenza virus vaccine, split virus (incl. purified surface antigen) Mariana Mayfield Other [facility] Other 07-29-2013 tetanus and diphther ia toxoids, adsorbed, preservative free, for adult use (5 Lf of tetanus toxoid and 2 Lf of diphtheria toxoid) Mariana Mayfield Other [facility] Other Payers Date Payer Category Payer Medicare [id number] 2.1 [id number] 2023 Self-pay [id number] 1960 Unknown [id number] 1955 Unknown [id number] Unknown [id number] Unknown [id number] Social History Date Type Detail Facility Unknown if ever smoked [facility] Other Sex Assigned At Sex Assigned At Bir th [facility] Other Start: 1955 Sex Assigned At Female F [facility] Evaluation note 09-24-2023 Note Date & [...] problem in groin area - requests refill. [facility] Other Evaluation note 08-13-2023 Note Date & [...] negative findings were considered in medical decision-making. [facility] Other Evaluation note 07-28-2023 Note Date & [...] no improvement in 2 to 3 days [facility] Other Evaluation note 06-26-2023 Note Date & Type Note Facility 06-26-2023 Evaluation note Encounter Date Diagnosis Assessment Notes Jun, Situational anxiety (ICD-10 - F41.8) [facility] Other Evaluation note 06-19-2023 Note Date & [...] her satisfaction and patient sent home stable [facility] Other Evaluation note 01-08-2023 Note Date & Type Note Facility 01-08-2023 Evaluation note Encounter Date Diagnosis Assessment Notes Dec, Erythrasma (ICD-10 - 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 >15 min discussion [facility] Other Evaluation note Note Date & Type Note Facility Evaluation note No assessment information availa ble [facility] Work Phone: History general Narrative - [...] C SECTION X2 Surgical History TUBAL LIGATION [facility] Other History general Narrative - Reported Note [...] TUBAL LIGATION Hospitalization History SEE SURGICAL HX [facility] Other Summary Purpose Family History No Family History Records FoundNo Family History Records Found Advance Directives Advance Directive Response Recorded Date/ Time Advance Directives No June 3:08pm Chief Complaint and Reason for Visit Chief Complaint Z12.4 Reason for Referral Reason [facility] Diagnosis 1 Symptomatic varicose veins, right (I83.891) Referral Organization [facility] giovanna Referring Provider First Name Mariana Referring Provider Last Name Chana Referring Provider Specialty Family [facility] Referred Organization [facility] Referred Address [address], [place],[address] Referred Provider Specialty Vascular and Interventional Radiology Referral Priority Routine Additional Source Comments INFORMATION SOURCE (unrecogn ized section and content) DATE CREATED AUTHOR 07/14/2022 [facility] pitde DATE CREATED AUTHOR AUTHOR'S ORGANIZ ATION 07/31/2023 [facility] REASON FOR VISIT (unrecogniz ed [...] BE BASED ON THE PRIMARY CLINICAL RECORDS. [employer] provides no warranty or guarantee of the accuracy or completeness of information in this document.
== END 2023-12-06 09:19 | disposition home or self-care (01) ==
LOC: VC 09:18
PROVIDERS: PCP Radiology Diagnostic Radiology; Visit Provider Radiology Diagnostic Radiology
DX: I83.813 Varicose veins of bilateral lower extremities with pain (principal)
CPT/HCPCS: 36466

== ENCOUNTER 2023-12-12 09:46 | Outpatient (OUT) | payer MEDICARE, SELFPAY ==
--- NOTE | 2023-12-12 09:49 | VEIN_ITS ---
Patient Name: FIGUEROA VILLANUEVA MR#: [id number] : 1955 Exam Date: 12/12/2023 Ordering Doctor: DR GUTIERREZ KIRK M.D. RADIOLOGY REPORT PROCEDURE: [facility] - OFFICE VISIT FOLLOW UP COMPARISON: [facility], 12/03/2023. [facility], 11/18/2023. PROGRESS NOTES: The patient reports no significant problems following micro foam chemical ablation of right leg incompetent varicose veins. The patient does complain the compression stockings hurt at the ankle and requested to move to knee high compression stockings. She was informed that she would where thigh-high compression stockings for minimum of 72 hours following micro foam chemical ablation after each injection . Physical exam demonstrates multiple areas of bruising on the right lower leg. Thrombosed varicose veins are observed. Multiple patent bilateral varicose veins. No erythema or warmth to suggest cellulitis or thrombophlebitis. No active ulceration Review of the ultrasound performed the same day demonstrates occlusive thrombus extending throughout the treated right leg varicose veins. No deep vein thrombus. Residual bilateral incompetent varicose veins measuring up to 4.8 mm on the right. The patient expressed a desire to proceed with treatment of incompetent left leg varicose veins. VEIN/[facility] IMPRESSION: 1. Successful ablation of treated incompetent right leg varicose veins 2. Persistent bilateral incompetent varicose veins. PLAN: Micro foam chemical ablation incompetent left leg varicose veins Nurse notes, history and physical were reviewed and confirmed, see attached forms. The nurse was present throughout the physical exam and consultation Dictated by: Gutierrez Kirk MD on 12/12/2023 at 10:24 Approved by: Gutierrez Kirk MD on 12/12/2023 at 10:27
--- NOTE | 2023-12-12 09:50 | VEIN_ITS ---
Patient Name: FIGUEROA VILLANUEVA MR#: [id number] : 1955 Exam Date: 12/12/2023 Ordering Doctor: DR GUTIERREZ KIRK M.D. RADIOLOGY REPORT PROCEDURE: VC EXT VENOUS RT LMTD COMPARISON: None. INDICATIONS: Phlebitis of superficial veins of rt lower extremity I80.01 TECHNIQUE: Lower extremity pavon scale and Duplex Doppler evaluation of the deep venous system from the inguinal ligament through the calf veins. FINDINGS: REGION: Right lower extremity. THROMBI: Negative for DVT. Varithena induced thrombus visualized at mid/med calf and prox/med calf. COMPRESSIBILITY: Non-compressible segments corresponding to thrombus FLOW: Areas of no flow corresponding to thrombus OTHER: Multiple varicose veins remain. Largest measures 4.8mm with 0.6s reflux. CONCLUSION: Post ablation occlusion of treated right leg varicose veins with residual incompetent varicose veins measuring up to 4.8 mm. No deep vein thrombus Dictated by: Gutierrez Kirk MD on 12/12/2023 at 10:19 Approved by: Gutierrez Kirk MD on 12/12/2023 at 10:20
== END 2023-12-12 09:47 | disposition home or self-care (01) ==
LOC: VC 09:46
PROVIDERS: PCP Radiology Diagnostic Radiology; Visit Provider Radiology Diagnostic Radiology
DX: I80.01 Phlebitis and thrombophlebitis of superficial vessels of right lower extremity (principal)
CPT/HCPCS: 93971; G0463

== ENCOUNTER 2023-12-18 10:43 | Outpatient (OUT) | payer MEDICARE, SELFPAY ==
--- NOTE | 2023-12-18 10:46 | VEIN_ITS ---
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 HISTORY: Pain due to varicose veins of bilateral legs I83.813 Pre-operative Diagnosis: CEAP class C3 venous insufficiency with pain, tenderness, edema and incompetent left saphenous and varicose vein(s), chronic venous insufficiency left leg secondary to venous incompetence Post-operative Diagnosis: CEAP class C3 venous insufficiency with pain, tenderness, edema and incompetent left saphenous and varicose vein(s), chronic venous insufficiency left leg secondary to venous incompetence Procedure Performed: 1. Ultrasound-guided microfoam chemical ablation with Varithenaregistered 2. Intraoperative ultrasound guidance Anesthesia: None Indications for Procedure: 68 year old . Symptoms including pain and swelling for many years despite conservative medical therapy including medical compression stockings, exercise and analgesics. Prior procedures include a venous laser ablation. Multiple incompetent varicosities of the left leg. Duplex scan showed reflux and enlarged diameters up to 4 mm. The patient underwent informed consent including management options where the complications of infection, bleeding, pain, and skin injury were discussed. Particular attention was spent discussing thrombus extension and deep vein thrombosis as well as the possibility of pulmonary embolus and treatment with oral or injectable blood thinners. Procedure: The patient walked to the procedure room. All applicable staff donned appropriate apparel. A procedure timeout was performed to confirm correct patient, correct extremity, correct procedure, and correct room set-up including presence of all applicable supplies, devices, and drugs. A duplex ultrasound, performed by myself confirmed the location and incompetence of branch saphenous varicosities and their course was marked on the skin together with the dilated tributaries. The extent of treatment of the vein and the associated varicosities was determined through ultrasound mapping. The skin was prepped and then punctured with a butterfly needle and advanced under ultrasound guidance. The Varithenaregistered canister was activated and the canister was primed and purged as required in the instructions for use. Varithenaregistered was drawn into a sterile syringe. The following injections were made: 4 cc injected into a 4 mm varicose vein distal left lower medial leg 4 cc injected into a 4 mm varicose vein proximal left medial lower leg 4 cc injected into a 4 mm varicose vein distal left medial thigh 1 cc injected into the thecal varicose vein anterior left mid carranza Varithenaregistered was slowly administered at 0.5-1.0 cc/second with close observation by ultrasound of its course in the vessels. Total volume utilized was: 15cc. Following administration of Varithenaregistered the leg was elevated and the patient was asked to repeatedly dorsiflex the ankle to limit flow of Varithenaregistered into perforating veins. Once appropriate spasm had been confirmed in the treated veins, the vascular catheter was removed from the leg and light pressure was applied over the puncture site for hemostasis. The common femoral and deep superficial veins were then evaluated for flow and compressibility prior to dressing placement. The lower extremity was kept elevated at 45 degrees above the horizontal and cording material was applied over the saphenous segments and tributaries to allow for eccentric compression over the target vessels including the targeted saphenous vein(s). A multilayer dressing was applied consisting of foam pads, coban and thigh-high 20-30 mm Hg compression elastic support hose were placed on the patient. The leg was lowered only after compression had been applied and the patient was immediately ambulatory. The patient ambulated 10 minutes under supervision and was without apparent concerns at time of release. Post-care instructions include advising patient to keep post-treatment bandages in place and dry for 48 hours, avoid extended periods of inactivity, avoid heavy exercise for one week, wear compression stockings on the treated leg continuously for two weeks, to walk daily for 10 minutes over the next month. The patient was instructed to take an anti-inflammatory medicine as needed and to follow up for color duplex scan of the Saphenous veins, the treated branch saphenous varicosities, the adjacent deep veins, and additional treatment within 7 days. PERSONNEL: Oniel Wilson RN Electronically authenticated by: NUSRAT ONEIL Date: 12/18/2023 12:03
--- OUTSIDE RECORDS SUMMARY | 2023-12-18 10:46 | XMS_ITS | CCD ---
Author Name Unknown Address [facility] [address] [place] [address] Organization [facility] Care Team Providers Care Spray Applicator Name Role Phone DR MARIANA MAYFIELD Admitting [...] Facility (1 source) Codeine Drug Allergy [facility] Repository (2 sources) Codeine Drug Allergy Unknown [facility] Other (6 sources) Codeine Drug Allergy Unknown [facility] Other (6 sources) Anesthesia S/I-40A Drug allergy Comment:Patient had a reaction to the anesthetic her last surgery and had to have a spinal [facility] Other (6 sources) Medicinal cephalosporin and acting as antibacterial agent (FN) Drug allergy Unknown [facility] Other Medications Current Medications Medication Drug Class(es) [...] Facility Urinalysis - AUTOMATED Appearance (U) cloudy [facility] Other Bilirubin Ql (U) Negative sambaash Other Color (U) dark yellow [facility] Other Glucose Ql (U) Negative [facility] Other Hemoglobin Ql (U) large [employer] Other Ketones Ql (U) Negative [facility] Other Leukocyte esterase Test strip Ql (U) moderate [facility] Other Nitrite Ql (U) Negative [facility] Other pH (U) 5.5 [pH] [facility] Other Protein Ql (U) 30 [facility] Other Specific gravity (U) [Rel density] 1.025 [facility] Other Urobilinogen (U) [Mass/Vol] 0.2 mg/dL [facility] Other Urinalysis - AUTOMATED No rt [email or web address] Other Urine Cultureon 07-28-2023 Urine Culture 20,000 [facility] Other Urine Culture <16 Susceptible [facility] Other Urine Culture >16/8 Resistant [facility] Other Urine Culture >16 Resistant [facility] Other Urine Culture <4 Susceptible [facility] Other Urine Culture 4 Susceptible [facility] Other Urine Culture <2 Susceptible [facility] Other Urine Culture <1 Susceptible [facility] Other Urine Culture 8 Susceptible [facility] Other Urine Culture <0.25 Susceptible [facility] Other Urine Culture <0.5 Susceptible [facility] Other Urine Culture <32 Susceptible [facility] Other Urine Culture <0.5/9.5 Susceptible [facility] Other Bacteria identified Cx Nom (U) Reason for Exam Dysuria Urine Reason for Exam: Dysuria : Urine ORGANISM: Escherichia coli (O:ESCCOL) [place] Count 20,000 Aerobic ANNA Charge ([id number]) ----- [...] RESISTANT TO ALL B-LACTAM DRUGS. PERFORMED BY: [place] [address] PATHOLOGIST DIGITAL PRODUCTION ARTIST TRAVIS RADFORD M.D. Normal [facility] Comment on above: Performed By: #### C UU #### [address] Human papilloma virus 16+18+ 31+33+35+39+45+51+52+56+58+59+66+68 DNA [Presence] in CerOrdered By: Mariana Mayfield on 06-19-2023 HPV 16+18+31+33+35+39+45+5 1+52+56+58+59+66+68 DNA Probe+sig amp Ql (Cvx) Negative Negative [facility] Comment on above: This nucleic acid am plification test detects fourteen high- risk HPV types (16,18,31,33,35,39,45,51,52,56,58,59,66,68)without differentiation.Performed at: [address] [id number] Director: Jackelyn Ayala MD, Phone: [phone] at: =[address] [id number] Director: Jackelyn Ayala MD, Phone: [phone] IGP, Aptima HPV, rfx 16/18,4 5on 06-19-2023 PAP HPV Aptima Negative Normal Negative [facility] Comment on above: Result Comment: This nucleic acid amplification test detects fourteen high- risk HPV types (16,18,31,33,35,39,45,51,52,56,58,59,66,68) without differentiation. Performed at: [address] [id number] Liquid Sugar Melter: Jackelyn Ayala MD, Phone: [phone] Performed at: =[address] [id number] Liquid [employer] Melter: Jackelyn Ayala MD, Phone: [phone] PERFORMED BY: [address] [id number] PATHOLOGIST DIGITAL PRODUCTION ARTIST TRAVIS RADFORD M.D. Performed By: #### P AP [id number] #### [facility] , Pap Image Guided Note Normal . [facility] Comment on above: Result Comment: TEST S RESULT FLAG UNITS REF RANGE LAB Clinician Provided Cytology Information No. of containers..01 ThinPrep Vial DIAGNOSIS: 01 NEGATIVE FOR INTRAEPITHELIAL LESION OR MALIGNANCY. CELLULAR CHANGES ASSOCIATED WITH ATROPHY ARE PRESENT. Specimen adequacy: 01 Satisfactory for evaluation. Endocervical component may not be distinguished in cases of atrophy. Performed by: 01 Kwan Lundberg, Peanut Sheller ([facility] . 01 Note: Note 01 The Pap [...] High,A-Abnormal,AA-Critical Abnormal Performed at: 01 WB [facility] [address] [address] Jackelyn Ayala MD, Performed By: #### P AP [id number] #### [facility] , No Panel InformationOrdered By: Mariana Mayfield on 06-19-2023 IG Pap w/Ct-Ng & HPV Rflx (Off-Site Note . [facility] Comment on above: TESTS RESULT FLAG UN ITS REF RANGE LAB Clinician Provided Cytology Information No. of containers..01 ThinPrep VialDIAGNOSIS: 01 NEGATIVE FOR INTRAEPITHELIAL LESION OR MALIGNANCY. CELLULAR CHANGES ASSOCIATED WITH ATROPHY ARE PRESENT.Specimen adequacy: 01 Satisfactory for evaluation. Endocervical component may not be distinguished in cases of atrophy.Performed by: 01 Kwan Lundberg, Peanut Sheller ([facility]). 01Note: Note 01 The Pap smear is [...] Low,>-Panic High,A-Abnormal,AA-Critical Abnormal -----Performed at:01 WB [facility] [address] [address] Jackelyn Ayala MD, FREE T4on 07-02-2022 Free T4 [Mass/Vol] 1.15 ng/dL Normal 0.76-1.46 [facility] Comment on above: Performed By: #### F T4 #### [facility] [address] [place] [address] Dr. Gilma Rojas LIPID PROFILEon 07-02-2022 CHOL-HDL RATIO NORM SEE BELOW Normal [facility] Comment on above: Result Comment: 3.3 - 4.4 LOW RISK 4.4 - 7.1 AVERAGE RISK 7.1 - 11.0 MODERATE RISK >11.0 HIGH RISK Performed By: #### C MP, TSH, LIPID #### [facility] [address] [address] [address] Gilma Rojas Cholesterol [Mass/Vol] 191 mg/dL Normal <=200 [facility] Comment on above: Performed By: #### C MP, TSH, LIPID #### [facility] [address] [address] [address] Gilma Rojas Cholesterol in HDL [Mass/Vol] 59 mg/dL Normal 40-60 [facility] Comment on above: Performed By: #### C MP, TSH, LIPID #### [facility] [address] [address] [address] Gilma Rojas Cholesterol in LDL [Mass/Vol] 112.4 mg/dL Normal [facility] Comment on above: Performed By: #### C MP, TSH, LIPID #### [facility] [address] [address] [address] Gilma Rojas Cholesterol.total/Chol esterol in HDL [Mass ratio] 3.2 {ratio} Normal [facility] Comment on above: Performed By: #### C MP, TSH, LIPID #### [facility] [address] [address] [address] Gilma Rojas HDL NORMAL > or = 60 mg/dl - LOW CARDIOVASCULAR RISK <40 mg/dl - HIGH CARDIOVASCULAR RISK Normal [facility] Comment on above: Performed By: #### C MP, TSH, LIPID #### [facility] [address] [address] [address] Gilma Rojas LDL CALC NORMAL SEE BELOW Normal [facility] Comment on above: Result Comment: <100 mg/dl OPTIMAL 100 - 129 mg/dl NEAR OR ABOVE OPTIMAL 130 - 159 mg/dl BORDERLINE HIGH 160 - 189 mg/dl HIGH >190 mg/dl VERY HIGH Performed By: #### C MP, TSH, LIPID #### [facility] [address] [address] [address] Gilma Rojas Triglyceride [Mass/Vol] 98 mg/dL Normal <=150 [facility] Comment on above: Performed By: #### C MP, TSH, LIPID #### [facility] [address] [address] [address] Gilma Rojas VLDL CALC 19.6 mg/dL Normal [facility] Comment on above: Performed By: #### C MP, TSH, LIPID #### [facility] [address] [address] [address] Gilma Rojas MG MAMM SCREEN 3D SAVANNAH CADon 07-02-2022 MG MAMM SCREEN 3D SAVANNAH CAD Patient: GABBY VILLANUEVA Exam Date: 07/02/2022 : 1955 Gender:F Ordering : DR MARIANA MAYFIELD M.D. Admission #: [id number] Family : Order #: [id number] CLICK HERE TO VIEW EXAM RADIOLOGY REPORT [...] skin cancer at age 78. LOCATION: [facility] BREAST COMPOSITION: Scattered areas fibroglandular density. [...] M.D. on 07/02/2022 at 12:31 Normal [facility] PROF 14(COMP METB)on 022 Albumin [Mass/Vol] 4.3 g/dL Normal 3.4-5.0 [facility] Comment on above: Performed By: #### C MP, TSH, LIPID #### [facility] [address] [address] [address] Gilma Rojas Albumin/Globulin [Mass ratio] 1.4 {ratio} Normal [facility] Comment on above: Performed By: #### C MP, TSH, LIPID #### [facility] [address] [address] [address] Gilma Rojas ALP [Catalytic activity/Vol] 44 U/L Critically low 46-116 [facility] Comment on above: Performed By: #### C MP, TSH, LIPID #### [facility] [address] [address] [address] Gilma Rojas ALT [Catalytic activity/Vol] 36 U/L Normal 14-59 [facility] Comment on above: Performed By: #### C MP, TSH, LIPID #### [facility] [address] [address] [address] Gilma Rojas Anion gap [Moles/Vol] 10.4 mmol/L Normal [facility] Comment on above: Performed By: #### C MP, TSH, LIPID #### [facility] [address] [address] [address] Gilma Rojas AST [Catalytic activity/Vol] 25 U/L Normal 15-37 [facility] Comment on above: Performed By: #### C MP, TSH, LIPID #### [facility] [address] [address] [address] Gilma Rojas Bilirubin [Mass/Vol] 0.6 mg/dL Normal 0.2-1.0 [facility] Comment on above: Performed By: #### C MP, TSH, LIPID #### [facility] [address] [address] [address] Gilma Rojas Calcium [Mass/Vol] 9.6 mg/dL Normal 8.5-10.1 [facility] Comment on above: Performed By: #### C MP, TSH, LIPID #### [facility] [address] [address] [address] Gimla Rojas Chloride [Moles/Vol] 106 mmol/L Normal 98-107 [facility] Comment on above: Performed By: #### C MP, TSH, LIPID #### [facility] [address] [address] [address] Gilma Rojas CO2 [Moles/Vol] 30.1 mmol/L Normal 21.0-32.0 [facility] Comment on above: Performed By: #### C MP, TSH, LIPID #### [facility] [address] [place] [address] Dr. Gilma Rojas Creatinine [Mass/Vol] 0.78 mg/dL Normal 0.55-1.02 [facility] Comment on above: Performed By: #### C MP, TSH, LIPID #### [facility] [address] [address] [address] Gilma Rojas EGFR-AF ALBANIAN >60 Normal >=60 [facility] Comment on above: Performed By: #### C MP, TSH, LIPID #### [facility] [address] [place] [address] Dr. Gilma Rojas EGFR-NON AF ALBANIAN >60 Normal >=60 [facility] Comment on above: Performed By: #### C MP, TSH, LIPID #### [facility] [address] [place] [address] Dr. Gilma Rojas Globulin (S) [Mass/Vol] 3.1 g/dL Normal [facility] Comment on above: Performed By: #### C MP, TSH, LIPID #### [facility] [address] [place] [address] Dr. Gilma Rojas Glucose [Mass/Vol] 99 mg/dL Normal 74-106 [facility] Comment on above: Performed By: #### C MP, TSH, LIPID #### [facility] [address] [place] [address] Dr. Gilma Rojas Potassium [Moles/Vol] 3.5 mmol/L Normal 3.5-5.1 [facility] Comment on above: Performed By: #### C MP, TSH, LIPID #### [facility] [address] [place] [address] Dr. Gilma Rojas Protein [Mass/Vol] 7.4 g/dL Normal 6.4-8.2 [facility] Comment on above: Performed By: #### C MP, TSH, LIPID #### [facility] [address] [place] [address] Dr. Gilma Rojas Sodium [Moles/Vol] 143 mmol/L Normal 136-145 [facility] Comment on above: Performed By: #### C MP, TSH, LIPID #### [facility] [address] [place] [address] Dr. Gilma Rojas Urea nitrogen [Mass/Vol] 18.0 mg/dL Normal 7.0-18.0 [facility] Comment on above: Performed By: #### C MP, TSH, LIPID #### [facility] [address] [address] [address] Gilma Rojas Urea nitrogen/Creatinine [Mass ratio] 23.1 mg/mg Normal [facility] Comment on above: Performed By: #### C MP, TSH, LIPID #### [facility] [address] [place] [address] Dr. Gilma Rojas TSHon 07-02-2022 TSH 3.135 uIU/mL Normal 0.358-3.740 [facility] Comment on above: Performed By: #### C MP, TSH, LIPID #### [facility] [address] [place] [address] Dr. Gilma Rojas Vital Signs Date Time Vital Sign Value Performing Clinician Facility 09-24-2023 09:00-0500 Body height 153.67 cm Mariana Mayfield Other [facility] Other 09-24-2023 09:00-0500 Body mass index (BMI) [Ratio] 33.61 kg/m2 Mariana Mayfield Other [facility] Other 09-24-2023 09:00-0500 Body weight 79.38 kg Mariana Mayfield Other [facility] Other 09-24-2023 09:00-0500 Diastolic blood pressure 80 mm[Hg] Mariana Mayfield Other [facility] Other 09-24-2023 09:00-0500 Systolic blood pressure 126 mm[Hg] Mariana Mayfield Other [facility] Other 08-13-2023 09:30-0400 Body height 153.67 cm Lukasz Quispe Other [facility] Other 08-13-2023 09:30-0400 Body mass index (BMI) [Ratio] 33.42 kg/m2 Lukasz Quispe Other [facility] Other 08-13-2023 09:30-0400 Body weight 78.93 kg Lukasz Quispe Other [facility] Other 08-13-2023 09:30-0400 SaO2% (BldA) [Mass fraction] 96 % Lukasz Quispe Other [facility] Other 07-28-2023 09:25-0400 Body height 153.67 cm Lima Sanchezmond Other [facility] Other 07-28-2023 09:25-0400 Body mass index (BMI) [Ratio] 32.84 kg/m2 Lima Shauna Other [facility] Other 07-28-2023 09:25-0400 Body temperature 98.3 [degF] Lima Shauna Other [facility] Other 07-28-2023 09:25-0400 Body weight 77.57 kg Lima Sanchezmond Other [facility] Other 07-28-2023 09:25-0400 Diastolic blood pressure 82 mm[Hg] Lima Shauna Other [facility] Other 07-28-2023 09:25-0400 Respiratory rate 16 /min Lima Shauna Other [facility] Other 07-28-2023 09:25-0400 SaO2% (BldA) [Mass fraction] 98 % Lima Villatoro Other [facility] Other 07-28-2023 09:25-0400 Systolic blood pressure 144 mm[Hg] Lima Sanchezmond Other [facility] Other 06-19-2023 09:30-0400 Body height 153.67 cm Mariana Mayfield Other [facility] Other 06-19-2023 09:30-0400 Body mass index (BMI) [Ratio] 32.8 kg/m2 Mariana Mayfield Other [facility] Other 06-19-2023 09:30-0400 Body weight 77.47 kg Mariana Mayfield Other [facility] Other 06-19-2023 09:30-0400 Diastolic blood pressure 77 mm[Hg] Mariana Mayfield Other [facility] Other 06-19-2023 09:30-0400 Respiratory rate 12 /min Mariana Mayfield Other [facility] Other 06-19-2023 09:30-0400 Systolic blood pressure 160 mm[Hg] Mariana Mayfield Other [facility] Other 12-25-2022 15:45-0400 Body height 153.67 cm Mariana Mayfield Other [facility] Other 12-25-2022 15:45-0400 Body mass index (BMI) [Ratio] 34.57 kg/m2 Mariana Mayfield Other [facility] Other 12-25-2022 15:45-0400 Body weight 81.65 kg Mariana Mayfield Other [facility] Other 12-25-2022 15:45-0400 Diastolic blood pressure 72 mm[Hg] Mariana Mayfield Other [facility] Other 12-25-2022 15:45-0400 SaO2% (BldA) [Mass fraction] 97 % Mariana Mayfield Other [facility] Other 12-25-2022 15:45-0400 Systolic blood pressure 132 mm[Hg] Mariana Mayfield Other [facility] Other Encounters Encounter Date Encounter Type Care Provider Facility Start: 09-24-2023 End: 09-24-2023 ambulatory Mariana Mayfield Other [facility] Other Start: 09-24-2023 Office outpatient vi sit 15 minutes Mariana Mayfield [facility] Start: 08-13-2023 End: 08-13-2023 ambulatory Lukasz Quispe Other [facility] Other Start: 08-13-2023 Office outpatient vi sit 25 minutes Lukasz Quispe [facility] Start: 07-28-2023 Office outpatient vi sit 15 minutes Lima Villatoro [facility] Start: 07-28-2023 End: 07-28-2023 ambulatory Lima Villatoro [facility] [employer] Other Start: 07-28-2023 End: 07-28-2023 Departed Referred MD Mariana Mayfield Work Phone: [facility] [place] Work Phone: Start: 06-26-2023 End: 06-26-2023 ambulatory Mariana Mayfield Other [facility] Other Start: 06-26-2023 Telephone encounter Mariana Mayfield [facility] Start: 06-19-2023 Patient encounter procedure Mariana Mayfield [facility] Start: 06-19-2023 End: 06-19-2023 ambulatory Mariana Mayfield [facility] Work Phone: Start: 06-19-2023 End: 06-19-2023 Departed Referred MD Mariana Mayfield Work Phone: [facility] [place] Work Phone: Start: 01-08-2023 End: 01-08-2023 ambulatory Mariana Mayfield Other [facility] Other Start: 01-08-2023 Telephone encounter Mariana Mayfield [facility] Start: 12-25-2022 End: 12-25-2022 ambulatory Mariana Mayfield Other [facility] Other Start: 12-25-2022 Office outpatient vi sit 15 minutes Mariana Mayfield [facility] Start: 07-02-2022 End: 07-03-[address] MARIANA MAYFIELD Facility:[facility]1 Procedures Date Procedure Procedure Detail Performing Clinician Start: 07-28-2023 Piperacillin/tazobactam Lima Villatoro Other Plan of Treatment Date Care Activity Detail Author Start: 07-28-2023 Bacteria identified in Urine by Culture [facility] Start: 06-19-2023 [facility] Human papilloma viru s 16+18+31+33+35+39+45+51+52+56+58 +59+66+68 DNA [Presence] in Cervix by Probe with signal amplification [facility] Immunizations Immunization Date Immunization Notes Care Provider Fa cility 07-29-2022 COVID-19 Pfizer (Pediatric) Mariana Mayfield Other [facility] Other 07-29-2022 influenza virus vaccine, split virus (incl. purified surface antigen) Mariana Mayfield Other [facility] Other 06-12-2022 Prevnar 20 Mariana Mayfield Other [facility] Other 01-19-2022 COVID-19 Vaccine Moderna - Documentation Purposes Only Mariana Mayfield Other [facility] Other 09-13-2015 influenza virus vaccine, split virus (incl. purified surface antigen) Mariana Mayfield Other [facility] Other 07-29-2013 tetanus and diphther ia toxoids, adsorbed, preservative free, for adult use (5 Lf of tetanus toxoid and 2 Lf of diphtheria toxoid) Mariana Mayfield Other [facility] Other Payers Date Payer Category Payer Medicare [id number] 2.1 [id number] 2023 Self-pay [id number] 1960 Unknown [id number] 1955 Unknown [id number] Unknown [id number] Unknown [id number] Social History Date Type Detail Facility Unknown if ever smoked [facility] Other Sex Assigned At Sex Assigned At Bir th [facility] Other Start: 1955 Sex Assigned At Female F [facility] Evaluation note 09-24-2023 Note Date & Type [...] problem in groin area - requests refill. [facility] Other Evaluation note 08-13-2023 Note Date & [...] negative findings were considered in medical decision-making. 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 >15 min discussion [facility] Other Evaluation note Note Date & Type Note Facility Evaluation note No assessment information availa ble [facility] Work Phone: History general Narrative [...] C SECTION X2 Surgical History TUBAL LIGATION [facility] Other History general Narrative - Reported Note [...] TUBAL LIGATION Hospitalization History SEE SURGICAL HX [facility] Other Summary Purpose Family History No Family History Records FoundNo Family History Records Found Advance Directives Advance Directive Response Recorded Date/ Time Advance Directives No June 3:08pm Chief Complaint and Reason for Visit Chief Complaint Z12.4 Reason for Referral Reason [facility] [place] Diagnosis 1 Symptomatic varicose veins, right (I83.891) Referral Organization [facility] Medical C giovanna Referring Provider First Name Mariana Referring Provider Last Name Chana Referring Provider Specialty Family [facility] Referred Organization [facility] Referred Address [address] [place], [place] Referred Provider Specialty Vascular and Interventional Radiology Referral Priority Routine Additional Source Comments INFORMATION SOURCE (unrecogn ized section and content) DATE CREATED AUTHOR 07/14/2022 [facility] pitla DATE CREATED AUTHOR AUTHOR'S ORGANIZ ATION 07/31/2023 [facility] REASON FOR VISIT (unrecogniz ed section [...] BE BASED ON THE PRIMARY CLINICAL RECORDS. [employer] provides no warranty or guarantee of the accuracy or completeness of information in this document.
== END 2023-12-18 10:44 | disposition home or self-care (01) ==
LOC: VC 10:43
PROVIDERS: PCP Radiology Diagnostic Radiology; Visit Provider Radiology Diagnostic Radiology
DX: I83.813 Varicose veins of bilateral lower extremities with pain (principal)
CPT/HCPCS: 36466

== ENCOUNTER 2023-12-25 10:16 | Outpatient (OUT) | payer MEDICARE, SELFPAY ==
--- NOTE | 2023-12-25 10:17 | VEIN_ITS ---
Patient Name: FIGUEROA VILLANUEVA MR#: [id number] : 1955 Exam Date: 12/25/2023 Ordering Doctor: DR NUSRAT ONEIL M.D. RADIOLOGY REPORT PROCEDURE: VC EXT VENOUS LT LIMITED COMPARISON: VC EXT VENOUS LT LIMITED, 12/03/2023. INDICATIONS: Phlebitis of superficial vein of left lower extremity I80.02 TECHNIQUE: Lower extremity pavon scale and Duplex Doppler evaluation of the deep venous system from the inguinal ligament through the calf veins. FINDINGS: REGION: Left lower extremity. THROMBI: Negative for DVT. 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 COMPRESSIBILITY: Non-compressible segments corresponding to thrombus FLOW: Areas of no flow corresponding to thrombus OTHER: Only a 2.3 mm patent varicose vein remains in proximal medial lower leg. CONCLUSION: 1. Successful post ablation occlusion of left leg treated branch saphenous varicosities. Dictated by: Wil Garcia M.D. on 12/25/2023 at 14:11 Approved by: Wil Garcia M.D. on 12/25/2023 at 14:12
--- NOTE | 2023-12-25 10:17 | VEIN_ITS ---
Patient Name: FIGUEROA VILLANUEVA MR#: [id number] : 1955 Exam Date: 12/25/2023 Ordering Doctor: DR NUSRAT ONEIL M.D. RADIOLOGY REPORT PROCEDURE: [facility] FACILITY EST LMTD VEIN CENTER - OFFICE VISIT FOLLOW UP COMPARISON: VC EXT VENOUS LT LIMITED, 12/25/2023. VC EXT VENOUS RT LMTD, 12/12/2023. [facility] FACILITY EST LMTD, 12/12/2023. PROGRESS NOTES: The patient reports improvement in leg symptoms. There has been interval reduction in varicosities. The patient has followed our recommendations to walk 20-30 minutes once or twice per day since the procedure. Physical exam demonstrates decrease in varicosities of the leg. Persistent varicosities are identified along the right leg. Review of the ultrasound performed the same day demonstrates occlusive thrombus extending throughout the treated vein(s), see separate report, consistent with a successful ablation. No thrombus extending into or beyond the saphenofemoral junction. The patient expressed a desire to proceed with treatment of remaining incompetent varicosities. The patient was informed that treatment was a process and would require several procedures/sessions. VEIN/ Facility EST LMTD IMPRESSION: 1. Successful ablation of the left leg treated branch saphenous vein(s). 2. Persistent right lower extremity veins and lower extremity symptoms. PLAN: 1. Microfoam chemical ablation of right leg incompetent branch saphenous varicosities. Nurse notes, history and physical were reviewed and confirmed, see attached forms. The nurse was present throughout the physical exam and consultation Dictated by: Wil Garcia M.D. on 12/25/2023 at 14:13 Approved by: Wil Garcia M.D. on 12/25/2023 at 14:14
--- OUTSIDE RECORDS SUMMARY | 2023-12-25 10:24 | XMS_ITS | CCD ---
Author Name Unknown Address Formerly [facility] [address] [place] [address] Organization [facility] Care Team Providers Care Rate Quoting Operator Name Role Phone DR MARIANA MAYFIELD Admitting [...] Facility (1 source) Codeine Drug Allergy [facility] Repository (2 sources) Codeine Drug Allergy Unknown [facility] Other (6 sources) Codeine Drug Allergy Unknown [facility] Other (6 sources) Anesthesia S/I-40A Drug allergy Comment:Patient had a reaction to the anesthetic her last surgery and had to have a spinal [facility] Other (6 sources) Medicinal cephalosporin and acting as antibacterial agent (FN) Drug allergy Unknown [facility] Other Medications Current Medications Medication Drug Class(es) [...] Facility Urinalysis - AUTOMATED Appearance (U) cloudy [employer] Other Bilirubin Ql (U) Negative [employer] Other Color (U) dark yellow [facility] Other Glucose Ql (U) Negative [employer] Other Hemoglobin Ql (U) large [employer] Other Ketones Ql (U) Negative [employer] Other Leukocyte esterase Test strip Ql (U) moderate [facility] Other Nitrite Ql (U) Negative [employer] Other pH (U) 5.5 [pH] [facility] Other Protein Ql (U) 30 [employer] Other Specific gravity (U) [Rel density] 1.025 [facility] Other Urobilinogen (U) [Mass/Vol] 0.2 mg/dL [facility] Other Urinalysis - AUTOMATED No rt [employer] Other Urine Cultureon 07-28-2023 Urine Culture 20,000 [facility] Other Urine Culture <16 Susceptible [employer] Other Urine Culture >16/8 Resistant [facility] Other Urine Culture >16 Resistant [facility] Other Urine Culture <4 Susceptible [employer] Other Urine Culture 4 Susceptible [employer] Other Urine Culture <2 Susceptible [employer] Other Urine Culture <1 Susceptible [employer] Other Urine Culture 8 Susceptible [employer] Other Urine Culture <0.25 Susceptible [employer] Other Urine Culture <0.5 Susceptible [employer] Other Urine Culture <32 Susceptible [employer] Other Urine Culture <0.5/9.5 Susceptible [employer] Other Bacteria identified Cx Nom (U) Reason for Exam Dysuria Urine Reason for Exam: Dysuria : Urine ORGANISM: Escherichia coli (O:ESCCOL) Fields Count 20,000 Aerobic ANNA Charge (NMIC56) ----- [...] RESISTANT TO ALL B-LACTAM DRUGS. PERFORMED BY: [place] [address] PATHOLOGIST MANAGER OF IT TRAVIS RADFORD M.D. Normal [facility] Comment on above: Performed By: #### C UU #### [address] Human papilloma virus 16+18+ 31+33+35+39+45+51+52+56+58+59+66+68 DNA [Presence] in CerOrdered By: Mariana Mayfield on 06-19-2023 HPV 16+18+31+33+35+39+45+5 1+52+56+58+59+66+68 DNA Probe+sig amp Ql (Cvx) Negative Negative [facility] Comment on above: This nucleic acid am plification test detects fourteen high- risk HPV types (16,18,31,33,35,39,45,51,52,56,58,59,66,68)without differentiation.Performed at: [address] [id number] Director: Jackelyn Ayala MD, Phone: [phone] at: =[address] [id number] Director: Jackelyn Ayala MD, Phone: [phone] IGP, Aptima HPV, rfx 16/18,4 5on 06-19-2023 PAP HPV Aptima Negative Normal Negative [facility] Comment on above: Result Comment: This nucleic acid amplification test detects fourteen high- risk HPV types (16,18,31,33,35,39,45,51,52,56,58,59,66,68) without differentiation. Performed at: [address] [id number] Payroll Consultant: Jackelyn Ayala MD, Phone: [phone] Performed at: =[address] [id number] Payroll Consultant: Jackelyn Ayala MD, Phone: [phone] PERFORMED BY: [address] [address] PATHOLOGIST MANAGER OF IT TRAVIS RADFORD M.D. Performed By: #### P AP [id number] #### [facility] , Pap Image Guided Note Normal . [facility] Comment on above: Result Comment: TEST S RESULT FLAG UNITS REF RANGE LAB Clinician Provided Cytology Information No. of containers..01 ThinPrep Vial DIAGNOSIS: 01 NEGATIVE FOR INTRAEPITHELIAL LESION OR MALIGNANCY. CELLULAR CHANGES ASSOCIATED WITH ATROPHY ARE PRESENT. Specimen adequacy: 01 Satisfactory for evaluation. Endocervical component may not be distinguished in cases of atrophy. Performed by: 01 Kwan Lundberg, Surgical Services Asst ([facility]) . 01 Note: Note 01 The [...] High,A-Abnormal,AA-Critical Abnormal Performed at: 01 WB [facility] [address] [address] Jackelyn Ayala MD, Performed By: #### P AP [id number] #### [facility] , No Panel InformationOrdered By: Mariana Mayfield on 06-19-2023 IG Pap w/Ct-Ng & HPV Rflx (Off-Site Note . [facility] Comment on above: TESTS RESULT FLAG UN ITS REF RANGE LAB Clinician Provided Cytology Information No. of containers..01 ThinPrep VialDIAGNOSIS: 01 NEGATIVE FOR INTRAEPITHELIAL LESION OR MALIGNANCY. CELLULAR CHANGES ASSOCIATED WITH ATROPHY ARE PRESENT.Specimen adequacy: 01 Satisfactory for evaluation. Endocervical component may not be distinguished in cases of atrophy.Performed by: 01 Kwan Lundberg, Surgical Services Asst ([facility]). 01Note: Note 01 The Pap smear [...] Low,>-Panic High,A-Abnormal,AA-Critical Abnormal -----Performed at:01 WB [facility] [address] [address] Jackelyn Ayala MD, FREE T4on 07-02-2022 Free T4 [Mass/Vol] 1.15 ng/dL Normal 0.76-1.46 [facility] Comment on above: Performed By: #### F T4 #### [facility] [address] [place] [address] Dr. Gilma Rojas LIPID PROFILEon 07-02-2022 CHOL-HDL RATIO NORM SEE BELOW Normal [facility] Comment on above: Result Comment: 3.3 - 4.4 LOW RISK 4.4 - 7.1 AVERAGE RISK 7.1 - 11.0 MODERATE RISK >11.0 HIGH RISK Performed By: #### C MP, TSH, LIPID #### [facility] [address] [address] [address] Gilma Rojas Cholesterol [Mass/Vol] 191 mg/dL Normal <=200 [facility] Comment on above: Performed By: #### C MP, TSH, LIPID #### [facility] [address] [address] [address] Gilma Rojas Cholesterol in HDL [Mass/Vol] 59 mg/dL Normal 40-60 [facility] Comment on above: Performed By: #### C MP, TSH, LIPID #### [facility] [address] [address] [address] Gilma Rojas Cholesterol in LDL [Mass/Vol] 112.4 mg/dL Normal [facility] Comment on above: Performed By: #### C MP, TSH, LIPID #### [facility] [address] [address] [address] Gilma Rojas Cholesterol.total/Chol esterol in HDL [Mass ratio] 3.2 {ratio} Normal [facility] Comment on above: Performed By: #### C MP, TSH, LIPID #### [facility] [address] [address] [address] Gilma Rojas HDL NORMAL > or = 60 mg/dl - LOW CARDIOVASCULAR RISK <40 mg/dl - HIGH CARDIOVASCULAR RISK Normal [facility] Comment on above: Performed By: #### C MP, TSH, LIPID #### [facility] [address] [address] [address] Gilma Rojas LDL CALC NORMAL SEE BELOW Normal [facility] Comment on above: Result Comment: <100 mg/dl OPTIMAL 100 - 129 mg/dl NEAR OR ABOVE OPTIMAL 130 - 159 mg/dl BORDERLINE HIGH 160 - 189 mg/dl HIGH >190 mg/dl VERY HIGH Performed By: #### C MP, TSH, LIPID #### [facility] [address] [address] [address] Gilma Rojas Triglyceride [Mass/Vol] 98 mg/dL Normal <=150 [facility] Comment on above: Performed By: #### C MP, TSH, LIPID #### [facility] [address] [address] [address] Gilma Rojas VLDL CALC 19.6 mg/dL Normal [facility] Comment on above: Performed By: #### C MP, TSH, LIPID #### [facility] [address] [address] [address] Gilma Rojas MG MAMM SCREEN 3D SAVANNAH CADon 07-02-2022 MG MAMM SCREEN 3D SAVANNAH CAD Patient: GABBY VILLANUEVA Exam Date: 07/02/2022 : 1955 Gender:F Ordering : DR MARIANA MAYFIELD M.D. Admission #: [id number] Family : Order #: [id number] CLICK HERE TO VIEW EXAM RADIOLOGY REPORT [...] skin cancer at age 78. LOCATION: [facility] BREAST COMPOSITION: Scattered areas fibroglandular density. [...] M.D. on 07/02/2022 at 12:31 Normal [facility] PROF 14(COMP METB)on 022 Albumin [Mass/Vol] 4.3 g/dL Normal 3.4-5.0 [facility] Comment on above: Performed By: #### C MP, TSH, LIPID #### [facility] [address] [address] [address] Gilma Rojas Albumin/Globulin [Mass ratio] 1.4 {ratio} Normal [facility] Comment on above: Performed By: #### C MP, TSH, LIPID #### [facility] [address] [address] [address] Gilma Rojas ALP [Catalytic activity/Vol] 44 U/L Critically low 46-116 [facility] Comment on above: Performed By: #### C MP, TSH, LIPID #### [facility] [address] [address] [address] Gilma Rojas ALT [Catalytic activity/Vol] 36 U/L Normal 14-59 [facility] Comment on above: Performed By: #### C MP, TSH, LIPID #### [facility] [address] [address] [address] Gilma Rojas Anion gap [Moles/Vol] 10.4 mmol/L Normal [facility] Comment on above: Performed By: #### C MP, TSH, LIPID #### [facility] [address] [address] [address] Gilma Rojas AST [Catalytic activity/Vol] 25 U/L Normal 15-37 [facility] Comment on above: Performed By: #### C MP, TSH, LIPID #### [facility] [address] [address] [address] Gilma Rojas Bilirubin [Mass/Vol] 0.6 mg/dL Normal 0.2-1.0 [facility] Comment on above: Performed By: #### C MP, TSH, LIPID #### [facility] [address] [address] [address] Gilma Rojas Calcium [Mass/Vol] 9.6 mg/dL Normal 8.5-10.1 [facility] Comment on above: Performed By: #### C MP, TSH, LIPID #### [facility] [address] [address] [address] Gilma Rojas Chloride [Moles/Vol] 106 mmol/L Normal 98-107 [facility] Comment on above: Performed By: #### C MP, TSH, LIPID #### [facility] [address] [address] [address] Gilma Rojas CO2 [Moles/Vol] 30.1 mmol/L Normal 21.0-32.0 [facility] Comment on above: Performed By: #### C MP, TSH, LIPID #### [facility] [address] [place] [address] Dr. Gilma Rojas Creatinine [Mass/Vol] 0.78 mg/dL Normal 0.55-1.02 [facility] Comment on above: Performed By: #### C MP, TSH, LIPID #### [facility] [address] [address] [address] Gilma Rojas EGFR-AF VINCENTIAN >60 Normal >=60 [facility] Comment on above: Performed By: #### C MP, TSH, LIPID #### [facility] [address] [place] [address] Dr. Gilma Rojas EGFR-NON AF VINCENTIAN >60 Normal >=60 [facility] Comment on above: Performed By: #### C MP, TSH, LIPID #### [facility] [address] [place] [address] Dr. Gilma Rojas Globulin (S) [Mass/Vol] 3.1 g/dL Normal [facility] Comment on above: Performed By: #### C MP, TSH, LIPID #### [facility] [address] [place] [address] Dr. Gilma Rojas Glucose [Mass/Vol] 99 mg/dL Normal 74-106 [facility] Comment on above: Performed By: #### C MP, TSH, LIPID #### [facility] [address] [place] [address] Dr. Gilma Rojas Potassium [Moles/Vol] 3.5 mmol/L Normal 3.5-5.1 [facility] Comment on above: Performed By: #### C MP, TSH, LIPID #### [facility] [address] [place] [address] Dr. Gilma Rojas Protein [Mass/Vol] 7.4 g/dL Normal 6.4-8.2 [facility] Comment on above: Performed By: #### C MP, TSH, LIPID #### [facility] [address] [place] [address] Dr. Gilma Rojas Sodium [Moles/Vol] 143 mmol/L Normal 136-145 [facility] Comment on above: Performed By: #### C MP, TSH, LIPID #### [facility] [address] [place] [address] Dr. Gilma Rojas Urea nitrogen [Mass/Vol] 18.0 mg/dL Normal 7.0-18.0 [facility] Comment on above: Performed By: #### C MP, TSH, LIPID #### [facility] [address] [address] [address] Gilma Rojas Urea nitrogen/Creatinine [Mass ratio] 23.1 mg/mg Normal [facility] Comment on above: Performed By: #### C MP, TSH, LIPID #### [facility] [address] [place] [address] Dr. Gilma Rojas TSHon 07-02-2022 TSH 3.135 uIU/mL Normal 0.358-3.740 [facility] Comment on above: Performed By: #### C MP, TSH, LIPID #### [facility] [address] [place] [address] Dr. Gilma Rojas Vital Signs Date Time Vital Sign Value Performing Clinician Facility 09-24-2023 09:00-0500 Body height 153.67 cm Mariana Mayfield Other [facility] Other 09-24-2023 09:00-0500 Body mass index (BMI) [Ratio] 33.61 kg/m2 Mariana Mayfield Other [facility] Other 09-24-2023 09:00-0500 Body weight 79.38 kg Mariana Mayfield Other [facility] Other 09-24-2023 09:00-0500 Diastolic blood pressure 80 mm[Hg] Mariana Mayfield Other [facility] Other 09-24-2023 09:00-0500 Systolic blood pressure 126 mm[Hg] Mariana Mayfield Other [facility] Other 08-13-2023 09:30-0400 Body height 153.67 cm Lukasz Quispe Other [facility] Other 08-13-2023 09:30-0400 Body mass index (BMI) [Ratio] 33.42 kg/m2 Lukasz Quispe Other [facility] Other 08-13-2023 09:30-0400 Body weight 78.93 kg Lukasz Quispe Other [facility] Other 08-13-2023 09:30-0400 SaO2% (BldA) [Mass fraction] 96 % Lukasz Quispe Other [facility] Other 07-28-2023 09:25-0400 Body height 153.67 cm Lima Sanchezmond Other [facility] Other 07-28-2023 09:25-0400 Body mass index (BMI) [Ratio] 32.84 kg/m2 Lima Shauna Other [facility] Other 07-28-2023 09:25-0400 Body temperature 98.3 [degF] Lima Shauna Other [facility] Other 07-28-2023 09:25-0400 Body weight 77.57 kg Lima Sanchezmond Other [facility] Other 07-28-2023 09:25-0400 Diastolic blood pressure 82 mm[Hg] Lima Shauna Other [facility] Other 07-28-2023 09:25-0400 Respiratory rate 16 /min Lima Shauna Other [facility] Other 07-28-2023 09:25-0400 SaO2% (BldA) [Mass fraction] 98 % Lima Villatoro Other [facility] Other 07-28-2023 09:25-0400 Systolic blood pressure 144 mm[Hg] Lima Sanchezmond Other [facility] Other 06-19-2023 09:30-0400 Body height 153.67 cm Mariana Mayfield Other [facility] Other 06-19-2023 09:30-0400 Body mass index (BMI) [Ratio] 32.8 kg/m2 Mariana Mayfield Other [facility] Other 06-19-2023 09:30-0400 Body weight 77.47 kg Mariana Mayfield Other [facility] Other 06-19-2023 09:30-0400 Diastolic blood pressure 77 mm[Hg] Mariana Mayfield Other [facility] Other 06-19-2023 09:30-0400 Respiratory rate 12 /min Mariana Mayfield Other [facility] Other 06-19-2023 09:30-0400 Systolic blood pressure 160 mm[Hg] Mariana Mayfield Other [facility] Other 12-25-2022 15:45-0400 Body height 153.67 cm Mariana Mayfield Other [facility] Other 12-25-2022 15:45-0400 Body mass index (BMI) [Ratio] 34.57 kg/m2 Mariana Mayfield Other [facility] Other 12-25-2022 15:45-0400 Body weight 81.65 kg Mariana Mayfield Other [facility] Other 12-25-2022 15:45-0400 Diastolic blood pressure 72 mm[Hg] Mariana Mayfield Other [facility] Other 12-25-2022 15:45-0400 SaO2% (BldA) [Mass fraction] 97 % Mariana Mayfield Other [facility] Other 12-25-2022 15:45-0400 Systolic blood pressure 132 mm[Hg] Mariana Mayfield Other [facility] Other Encounters Encounter Date Encounter Type Care Provider Facility Start: 09-24-2023 End: 09-24-2023 ambulatory Mariana Mayfield Other [facility] Other Start: 09-24-2023 Office outpatient vi sit 15 minutes Mariana Mayfield [facility] Start: 08-13-2023 End: 08-13-2023 ambulatory Lukasz Quispe Other [facility] Other Start: 08-13-2023 Office outpatient vi sit 25 minutes Lukasz Qiuspe [facility] Start: 07-28-2023 Office outpatient vi sit 15 minutes Lima Villatoro [facility] Start: 07-28-2023 End: 07-28-[address] [facility] Other Start: 07-28-2023 End: 07-28-2023 Departed Referred MD Mariana Mayfield Work Phone: [facility] [place] Work Phone: Start: 06-26-2023 End: 06-26-2023 ambulatory Mariana Mayfield Other [facility] Other Start: 06-26-2023 Telephone encounter Mariana Mayfield [facility] Start: 06-19-2023 Patient encounter procedure Mariana Mayfield [facility] Start: 06-19-2023 End: 06-19-2023 ambulatory Mariana Mayfield [facility] Work Phone: Start: 06-19-2023 End: 06-19-2023 Departed Referred MD Mariana Mayfield Work Phone: [facility] [place] Work Phone: Start: 01-08-2023 End: 01-08-2023 ambulatory Mariana Mayfield Other [facility] Other Start: 01-08-2023 Telephone encounter Mariana Mayfield [facility] Start: 12-25-2022 End: 12-25-2022 ambulatory Mariana Mayfield Other [facility] Other Start: 12-25-2022 Office outpatient vi sit 15 minutes Mariana Mayfield [facility] Start: 07-02-2022 End: 07-03-[address] MARIANA MAYFIELD Facility:[facility]1 Procedures Date Procedure Procedure Detail Performing Clinician Start: 07-28-2023 Piperacillin/tazobactam Lima Villatoro Other Plan of Treatment Date Care Activity Detail Author Start: 07-28-2023 Bacteria identified in Urine by Culture [facility] Start: 06-19-2023 [facility] Human papilloma viru s 16+18+31+33+35+39+45+51+52+56+58 +59+66+68 DNA [Presence] in Cervix by Probe with signal amplification [facility] Immunizations Immunization Date Immunization Notes Care Provider Fa cility 07-29-2022 COVID-19 Pfizer (Pediatric) Mariana Mayfield Other [facility] Other 07-29-2022 influenza virus vaccine, split virus (incl. purified surface antigen) Mariana Mayfield Other [facility] Other 06-12-2022 Prevnar 20 Mariana Mayfield Other [facility] Other 01-19-2022 COVID-19 Vaccine Moderna - Documentation Purposes Only Mariana Mayfield Other [facility] Other 09-13-2015 influenza virus vaccine, split virus (incl. purified surface antigen) Mariana Mayfield Other [facility] Other 07-29-2013 tetanus and diphther ia toxoids, adsorbed, preservative free, for adult use (5 Lf of tetanus toxoid and 2 Lf of diphtheria toxoid) Mariana Mayfield Other [facility] Other Payers Date Payer Category Payer Medicare [id number] 2.1 [id number] 2023 Self-pay [id number] 1960 Unknown [id number] 1955 Unknown [id number] Unknown [id number] Unknown [id number] [id number] Social History Date Type Detail Facility Unknown if ever smoked [facility] Other Sex Assigned At Sex Assigned At Bir th [facility] Other Start: 1955 Sex Assigned At Female F [facility] Evaluation note 09-24-2023 Note Date [...] problem in groin area - requests refill. [facility] Other Evaluation note 08-13-2023 Note Date & [...] negative findings were considered in medical decision-making. [facility] Other Evaluation note 07-28-2023 Note Date & [...] no improvement in 2 to 3 days [facility] Other Evaluation note 06-26-2023 Note Date & Type Note Facility 06-26-2023 Evaluation note Encounter Date Diagnosis Assessment Notes Jun, Situational anxiety (ICD-10 - F41.8) [facility] Other Evaluation note 06-19-2023 Note Date & [...] her satisfaction and patient sent home stable [facility] Other Evaluation note 01-08-2023 Note Date & Type Note Facility 01-08-2023 Evaluation note Encounter Date Diagnosis Assessment Notes Dec, Erythrasma (ICD-10 - L08.1) [facility] Other Evaluation note 12-25-2022 Note Date & [...] she is doing well. >15 min discussion [facility] Other Evaluation note Note Date & Type Note Facility Evaluation note No assessment information availa ble [facility] Work Phone: History general [...] C SECTION X2 Surgical History TUBAL LIGATION [facility] Other History general Narrative - Reported Note [...] TUBAL LIGATION Hospitalization History SEE SURGICAL HX [facility] Other Summary Purpose Family History No Family History Records FoundNo Family History Records Found Advance Directives Advance Directive Response Recorded Date/ Time Advance Directives No June 3:08pm Chief Complaint and Reason for Visit Chief Complaint Z12.4 Reason for Referral Reason [facility] [place] Diagnosis 1 Symptomatic varicose veins, right (I83.891) Referral Organization [facility] giovanna Referring Provider First Name Mariana Referring Provider Last Name Chana Referring Provider Specialty Family [facility] Referred Organization [facility] Referred Address [address], [place] Referred Provider Specialty Vascular and Interventional Radiology Referral Priority Routine Additional Source Comments INFORMATION SOURCE (unrecogn ized section and content) DATE CREATED AUTHOR 07/14/2022 [facility] DATE CREATED AUTHOR AUTHOR'S ORGANIZ ATION 07/31/2023 [facility] REASON FOR VISIT (unrecogniz ed [...] BE BASED ON THE PRIMARY CLINICAL RECORDS. [employer] provides no warranty or guarantee of the accuracy or completeness of information in this document.
== END 2023-12-25 10:17 | disposition home or self-care (01) ==
LOC: VC 10:16
PROVIDERS: PCP Radiology Diagnostic Radiology; Visit Provider Radiology Diagnostic Radiology
DX: I80.02 Phlebitis and thrombophlebitis of superficial vessels of left lower extremity (principal)
CPT/HCPCS: 93971; G0463

== ENCOUNTER 2023-12-31 07:49 | Outpatient (OUT) | payer MEDICARE, SELFPAY ==
--- OUTSIDE RECORDS SUMMARY | 2023-12-31 07:51 | XMS_ITS | CCD ---
Author Organization [facility] Care Team Providers Care Strategic Accounts Manager Name Role Phone DR MARIANA MAYFIELD Admitting Unavailable CHANA, DR MARIANA Glover Primary Care Unavailable CHANA, DR MARIANA Glover Attending Unavailable CHASE, DR WIL Edmondson Consulting Unavailable CHANA, DR MARIANA Glover Consulting Unavailable Mariana Mayfield Unavailable MD Mariana Mayfield Attending Provider Lima Villatoro Unavailable SESAR Villatoro Attending Provider Lima Villatoro Admitting Unavailable iLma Villatoro Attending Unavailable Mariana Mayfield Primary Care Unavailable Mariana Mayfield Attending Unavailable Mariana Mayfield Admitting Unavailable Lukasz Quispe Unavailable Allergies Allergy Classification Reported Allergen(s) Allergy Type Date of Onset Reaction(s) Facility (1 source) Codeine Drug Allergy [facility] Repository (2 sources) Codeine Drug Allergy Unknown [facility] Other (6 sources) Codeine Drug Allergy Unknown [facility] Other (6 sources) Anesthesia S/I-40A Drug allergy Comment:Patient had a reaction to the anesthetic her last surgery and had to have a spinal [facility] Other (6 sources) Medicinal cephalosporin and acting as antibacterial agent (FN) Drug allergy Unknown [facility] Other Medications Current Medications Medication Drug Class(es) [...] Facility Urinalysis - AUTOMATED Appearance (U) cloudy [email or web address] Other Bilirubin Ql (U) Negative [employer] Other Color (U) dark yellow [facility] Other Glucose Ql (U) Negative [email or web address] Other Hemoglobin Ql (U) large [employer] Other Ketones Ql (U) Negative [email or web address] Other Leukocyte esterase Test strip Ql (U) moderate [facility] Other Nitrite Ql (U) Negative [email or web address] Other pH (U) 5.5 [pH] [facility] Other Protein Ql (U) 30 [email or web address] Other Specific gravity (U) [Rel density] 1.025 [facility] [employer] Other Urobilinogen (U) [Mass/Vol] 0.2 mg/dL [facility] [employer] Other Urinalysis - AUTOMATED No rt [employer] Other Urine Cultureon 07-28-2023 Urine Culture 20,000 [facility] Other Urine Culture <16 Susceptible [email or web address] Other Urine Culture >16/8 Resistant [facility] Other Urine Culture >16 Resistant [facility] Other Urine Culture <4 Susceptible [email or web address] Other Urine Culture 4 Susceptible [email or web address] Other Urine Culture <2 Susceptible [email or web address] Other Urine Culture <1 Susceptible [email or web address] Other Urine Culture 8 Susceptible [email or web address] Other Urine Culture <0.25 Susceptible [email or web address] Other Urine Culture <0.5 Susceptible [email or web address] Other Urine Culture <32 Susceptible [email or web address] Other Urine Culture <0.5/9.5 Susceptible [email or web address] Other Bacteria identified Cx Nom (U) Reason for Exam Dysuria Urine Reason for Exam: Dysuria : Urine ORGANISM: Escherichia coli (O:ESCCOL) Wellman Count 20,000 Aerobic ANNA Charge (NMIC56) ----- [...] RESISTANT TO ALL B-LACTAM DRUGS. PERFORMED BY: [place] [id number] PATHOLOGIST USER SUPPORT SPECIALIST TRAVIS RADFORD M.D. [facility] Comment on above: Performed By: #### C UU #### [address] Human papilloma virus 16+18+ 31+33+35+39+45+51+52+56+58+59+66+68 DNA [Presence] in CerOrdered By: Mariana Mayfield on 06-19-2023 HPV 16+18+31+33+35+39+45+5 1+52+56+58+59+66+68 DNA Probe+sig amp Ql (Cvx) Negative Negative [facility] Comment on above: This nucleic acid am plification test detects fourteen high- risk HPV types (16,18,31,33,35,39,45,51,52,56,58,59,66,68)without differentiation.Performed at: [address] [id number] Director: Jackelyn Ayala MD, Phone: [phone] at: =[address] [id number] Director: Jackelyn Ayala MD, Phone: [phone] IGP, Aptima HPV, rfx 16/18,4 5on 06-19-2023 PAP HPV Aptima Negative Normal Negative [facility] Comment on above: Result Comment: This nucleic acid amplification test detects fourteen high- risk HPV types (16,18,31,33,35,39,45,51,52,56,58,59,66,68) without differentiation. Performed at: [address] [id number] Oil Well Pumper: Jackelyn Ayala MD, Phone: [phone] Performed at: =[address] [id number] Oil Well Pumper: Jackelyn Ayala MD, Phone: [phone] PERFORMED BY: [address] [place] [address] PATHOLOGIST USER SUPPORT SPECIALIST TRAVIS RADFORD M.D. Performed By: #### P AP [id number] #### [facility] , Pap Image Guided Note Normal . [facility] Comment on above: Result Comment: TEST S RESULT FLAG UNITS REF RANGE LAB Clinician Provided Cytology Information No. of containers..01 ThinPrep Vial DIAGNOSIS: 01 NEGATIVE FOR INTRAEPITHELIAL LESION OR MALIGNANCY. CELLULAR CHANGES ASSOCIATED WITH ATROPHY ARE PRESENT. Specimen adequacy: 01 Satisfactory for evaluation. Endocervical component may not be distinguished in cases of atrophy. Performed by: Marvin Lundberg, Spinner Operator (ASCP) . 01 Note: Note 01 The Pap [...] Low,>-Panic High,A-Abnormal,AA-Critical Abnormal Performed at: [address] [phone] Jackelyn Ayala MD, Performed By: #### P AP [id number] #### [facility] , No Panel InformationOrdered By: Mariana Mayfield on 06-19-2023 IG Pap w/Ct-Ng & HPV Rflx (Off-Site Note . [facility] Comment on above: TESTS RESULT FLAG UN ITS REF RANGE LAB Clinician Provided Cytology Information No. of containers..01 ThinPrep VialDIAGNOSIS: 01 NEGATIVE FOR INTRAEPITHELIAL LESION OR MALIGNANCY. CELLULAR CHANGES ASSOCIATED WITH ATROPHY ARE PRESENT.Specimen adequacy: 01 Satisfactory for evaluation. Endocervical component may not be distinguished in cases of atrophy.Performed by: 01 Kwan Lundberg, Spinner Operator (ASCP). 01Note: Note 01 The Pap smear is [...] High <-Panic Low,>-Panic High,A-Abnormal,AA-Critical Abnormal -----Performed at:[address] [phone] Jackelyn Ayala MD, FREE T4on 07-02-2022 Free T4 [Mass/Vol] 1.15 ng/dL Normal 0.76-1.46 [facility] Comment on above: Performed By: #### F T4 #### [facility] [address] [place], [place] [address] Dr. Gilma Rojas LIPID PROFILEon 07-02-2022 CHOL-HDL RATIO NORM SEE BELOW Normal [facility] Comment on above: Result Comment: 3.3 - 4.4 LOW RISK 4.4 - 7.1 AVERAGE RISK 7.1 - 11.0 MODERATE RISK >11.0 HIGH RISK Performed By: #### C MP, TSH, LIPID #### [facility] [address] [address] [address] Gilma Rojas Cholesterol [Mass/Vol] 191 mg/dL Normal <=200 [facility] Comment on above: Performed By: #### C MP, TSH, LIPID #### [facility] [address] [place] [address] [address] Gilma Rojas Cholesterol in HDL [Mass/Vol] 59 mg/dL Normal 40-60 [facility] Comment on above: Performed By: #### C MP, TSH, LIPID #### [facility] [address] [place] [address] [address] Gilma Rojas Cholesterol in LDL [Mass/Vol] 112.4 mg/dL Normal [facility] Comment on above: Performed By: #### C MP, TSH, LIPID #### [facility] [address] [place] [address] [address] Gilma Rojas Cholesterol.total/Chol esterol in HDL [Mass ratio] 3.2 {ratio} Normal [facility] Comment on above: Performed By: #### C MP, TSH, LIPID #### [facility] [address] [place] [address] [address] Gilma Rojas HDL NORMAL > or = 60 mg/dl - LOW CARDIOVASCULAR RISK <40 mg/dl - HIGH CARDIOVASCULAR RISK Normal [facility] Comment on above: Performed By: #### C MP, TSH, LIPID #### [facility] [address] [place] [address] [address] Gilma Rojas LDL CALC NORMAL SEE BELOW Normal [facility] Comment on above: Result Comment: <100 mg/dl OPTIMAL 100 - 129 mg/dl NEAR OR ABOVE OPTIMAL 130 - 159 mg/dl BORDERLINE HIGH 160 - 189 mg/dl HIGH >190 mg/dl VERY HIGH Performed By: #### C MP, TSH, LIPID #### [facility] [address] [place] [address] [address] Gilma Rojas Triglyceride [Mass/Vol] 98 mg/dL Normal <=150 [facility] Comment on above: Performed By: #### C MP, TSH, LIPID #### [facility] [address] [place] [address] [address] Gilma Rojas VLDL CALC 19.6 mg/dL Normal [facility] Comment on above: Performed By: #### C MP, TSH, LIPID #### [facility] [address] [place], [place] [address] Dr. Gilma Rojas MG MAMM SCREEN 3D SAVANNAH CADon 07-02-2022 MG MAMM SCREEN 3D SAVANNAH CAD Patient: GABBY VILLANUEVA Exam Date: 07/02/2022 : 1955 Gender:F Ordering : DR MARIANA MAYFIELD M.D. Admission #: [id number] Family : Order #: [id number] CLICK HERE TO VIEW EXAM RADIOLOGY REPORT [...] skin cancer at age 78. LOCATION: [facility] BREAST COMPOSITION: Scattered areas fibroglandular density. FINDINGS: [...] Garcia M.D. on 07/02/2022 at 12:31 Normal [facility] PROF 14(COMP METB)on 022 Albumin [Mass/Vol] 4.3 g/dL Normal 3.4-5.0 [facility] Comment on above: Performed By: #### C MP, TSH, LIPID #### [facility] [address] [place], [place] [address] Dr. Gilma Rojas Albumin/Globulin [Mass ratio] 1.4 {ratio} Normal [facility] Comment on above: Performed By: #### C MP, TSH, LIPID #### [facility] [address] [place] [address] [address] Gilma Rojas ALP [Catalytic activity/Vol] 44 U/L Critically low 46-116 [facility] Comment on above: Performed By: #### C MP, TSH, LIPID #### [facility] [address] [place] [address] [address] Gilma Rojas ALT [Catalytic activity/Vol] 36 U/L Normal 14-59 [facility] Comment on above: Performed By: #### C MP, TSH, LIPID #### [facility] [address] [place] [address] [address] Gilma Rojas Anion gap [Moles/Vol] 10.4 mmol/L Normal [facility] Comment on above: Performed By: #### C MP, TSH, LIPID #### [facility] [address] [place] [address] [address] Gilma Rojas AST [Catalytic activity/Vol] 25 U/L Normal 15-37 [facility] Comment on above: Performed By: #### C MP, TSH, LIPID #### [facility] [address] [place] [address] [address] Gilma Rojas Bilirubin [Mass/Vol] 0.6 mg/dL Normal 0.2-1.0 [facility] Comment on above: Performed By: #### C MP, TSH, LIPID #### [facility] [address] [place] [address] [address] Gilma Rojas Calcium [Mass/Vol] 9.6 mg/dL Normal 8.5-10.1 [facility] Comment on above: Performed By: #### C MP, TSH, LIPID #### [facility] [address] [place] [address] [address] Gilma Rojas Chloride [Moles/Vol] 106 mmol/L Normal 98-107 [facility] Comment on above: Performed By: #### C MP, TSH, LIPID #### [facility] [address] [place] [address] [address] Gilma Rojas CO2 [Moles/Vol] 30.1 mmol/L Normal 21.0-32.0 [facility] Comment on above: Performed By: #### C MP, TSH, LIPID #### [facility] [address] [place] [address] [address] Gilma Rojas Creatinine [Mass/Vol] 0.78 mg/dL Normal 0.55-1.02 [facility] Comment on above: Performed By: #### C MP, TSH, LIPID #### [facility] [address] [place] [address] [address] Gilma Rojas EGFR-AF MALDIVIAN >60 Normal >=60 [facility] Comment on above: Performed By: #### C MP, TSH, LIPID #### [facility] [address] [place] [address] [address] Gilma Rojas EGFR-NON AF MALDIVIAN >60 Normal >=60 [facility] Comment on above: Performed By: #### C MP, TSH, LIPID #### [facility] [address] [place] [address] [address] Gilma Rojas Globulin (S) [Mass/Vol] 3.1 g/dL Normal [facility] Comment on above: Performed By: #### C MP, TSH, LIPID #### [facility] [address] [place] [address] [address] Gilma Rojas Glucose [Mass/Vol] 99 mg/dL Normal 74-106 [facility] Comment on above: Performed By: #### C MP, TSH, LIPID #### [facility] [address] [place] [address] [address] Gilma Rojas Potassium [Moles/Vol] 3.5 mmol/L Normal 3.5-5.1 [facility] Comment on above: Performed By: #### C MP, TSH, LIPID #### [facility] [address] [place] [address] [address] Gilma Rojas Protein [Mass/Vol] 7.4 g/dL Normal 6.4-8.2 [facility] Comment on above: Performed By: #### C MP, TSH, LIPID #### [facility] [address] [place] [address] [address] Gilma Rojas Sodium [Moles/Vol] 143 mmol/L Normal 136-145 [facility] Comment on above: Performed By: #### C MP, TSH, LIPID #### [facility] [address] [place] [address] [address] Gilma Rojas Urea nitrogen [Mass/Vol] 18.0 mg/dL Normal 7.0-18.0 [facility] Comment on above: Performed By: #### C MP, TSH, LIPID #### [facility] [address] [place] [address] [address] Gilma Rojas Urea nitrogen/Creatinine [Mass ratio] 23.1 mg/mg Normal [facility] Comment on above: Performed By: #### C MP, TSH, LIPID #### [facility] [address] [place] [address] [address] Gilma Rojas TSHon 07-02-2022 TSH 3.135 uIU/mL Normal 0.358-3.740 [facility] Comment on above: Performed By: #### C MP, TSH, LIPID #### [facility] [address] [place] [address] [address] Gilma Rojas Vital Signs Date Time Vital Sign Value Performing Clinician Facility 09-24-2023 09:00-0500 Body height 153.67 cm Mariana Mayfield Other [facility] Other 09-24-2023 09:00-0500 Body mass index (BMI) [Ratio] 33.61 kg/m2 Mariana Mayfield Other [facility] Other 09-24-2023 09:00-0500 Body weight 79.38 kg Mariana Mayfield Other [facility] Other 09-24-2023 09:00-0500 Diastolic blood pressure 80 mm[Hg] Mariana Mayfield Other [facility] Other 09-24-2023 09:00-0500 Systolic blood pressure 126 mm[Hg] Mariana Mayfield Other [facility] Other 08-13-2023 09:30-0400 Body height 153.67 cm Lukasz Quispe Other [facility] Other 08-13-2023 09:30-0400 Body mass index (BMI) [Ratio] 33.42 kg/m2 Lukasz Quispe Other [facility] Other 08-13-2023 09:30-0400 Body weight 78.93 kg Lukasz Quispe Other [facility] Other 08-13-2023 09:30-0400 SaO2% (BldA) [Mass fraction] 96 % Lukasz Quispe Other [facility] Other 07-28-2023 09:25-0400 Body height 153.67 cm Lima Villatoro Other [facility] Other 07-28-2023 09:25-0400 Body mass index (BMI) [Ratio] 32.84 kg/m2 Lima Sanchezmond Other [facility] Other 07-28-2023 09:25-0400 Body temperature 98.3 [degF] Lima Sanchezmond Other [facility] Other 07-28-2023 09:25-0400 Body weight 77.57 kg Lima Sanchezmond Other [facility] Other 07-28-2023 09:25-0400 Diastolic blood pressure 82 mm[Hg] Lima Sanchezmond Other [facility] Other 07-28-2023 09:25-0400 Respiratory rate 16 /min Lima Shauna Other [facility] Other 07-28-2023 09:25-0400 SaO2% (BldA) [Mass fraction] 98 % Lima Villatoro Other [facility] Other 07-28-2023 09:25-0400 Systolic blood pressure 144 mm[Hg] Lima Villatoro Other [facility] Other 06-19-2023 09:30-0400 Body height 153.67 cm Mariana Mayfield Other [facility] Other 06-19-2023 09:30-0400 Body mass index (BMI) [Ratio] 32.8 kg/m2 Mariana Mayfield Other [facility] Other 06-19-2023 09:30-0400 Body weight 77.47 kg Mariana Mayfield Other [facility] Other 06-19-2023 09:30-0400 Diastolic blood pressure 77 mm[Hg] Mariana Mayfield Other [facility] Other 06-19-2023 09:30-0400 Respiratory rate 12 /min Mariana Mayfield Other [facility] Other 06-19-2023 09:30-0400 Systolic blood pressure 160 mm[Hg] Mariana Mayfield Other [facility] Other 12-25-2022 15:45-0400 Body height 153.67 cm Mariana Mayfield Other [facility] Other 12-25-2022 15:45-0400 Body mass index (BMI) [Ratio] 34.57 kg/m2 Mariana Mayfield Other [facility] Other 12-25-2022 15:45-0400 Body weight 81.65 kg Mariana Mendieta [facility] Other 12-25-2022 15:45-0400 Diastolic blood pressure 72 mm[Hg] Mariana Mayfield Other [facility] Other 12-25-2022 15:45-0400 SaO2% (BldA) [Mass fraction] 97 % Mariana Mayfield Other [facility] Other 12-25-2022 15:45-0400 Systolic blood pressure 132 mm[Hg] Mariana Mayfield Other [facility] Other Encounters Encounter Date Encounter Type Care Provider Facility Start: 09-24-2023 End: 09-24-2023 ambulatory Mariana Mayfield Other [facility] Other Start: 09-24-2023 Office outpatient vi sit 15 minutes Mariana Mayfield [facility] Start: 08-13-2023 End: 08-13-2023 ambulatory Lukasz Quispe Other [facility] Other Start: 08-13-2023 Office outpatient vi sit 25 minutes Lukasz Quispe [facility] Start: 07-28-2023 Office outpatient vi sit 15 minutes Lima Vilaltoro [facility] Juli[facility] Start: 07-28-2023 End: 07-28-2023 ambulatory Lima Shauna [facility] [employer] Other Start: 07-28-2023 End: 07-28-2023 Departed Referred MD Mariana Mayfield Work Phone: [facility] [place] Work Phone: Start: 06-26-2023 End: 06-26-2023 ambulatory Mariana Mayfield Other [facility] Other Start: 06-26-2023 Telephone encounter Mariana Mayfield [facility] Start: 06-19-2023 Patient encounter procedure Mariana Mayfield [facility] Start: 06-19-2023 End: 06-19-2023 ambulatory Mariana Mayfield [facility] Work Phone: Start: 06-19-2023 End: 06-19-2023 Departed Referred MD Mariana Mayfield Work Phone: [facility] [place] Work Phone: Start: 01-08-2023 End: 01-08-2023 ambulatory Mariana Mayfield Other [facility] Other Start: 01-08-2023 Telephone encounter Mariana Mayfield [facility] Start: 12-25-2022 End: 12-25-2022 ambulatory Mariana Mayfield Other [facility] Other Start: 12-25-2022 Office outpatient vi sit 15 minutes Mariana Mayfield [facility] Start: 07-02-2022 End: 07-03-[address] MARIANA MAYFIELD Facility: Procedures Date Procedure Procedure Detail Performing Clinician Start: 07-28-2023 Piperacillin/tazobactam Lima Villatoro Other Plan of Treatment Date Care Activity Detail Author Start: 07-28-2023 Bacteria identified in Urine by Culture [facility] Start: 06-19-2023 [facility] Human papilloma viru s 16+18+31+33+35+39+45+51+52+56+58 +59+66+68 DNA [Presence] in Cervix by Probe with signal amplification [facility] Immunizations Immunization Date Immunization Notes Care Provider Fa cility 07-29-2022 COVID-19 Pfizer (Pediatric) Mariana Mayfield Other [facility] Other 07-29-2022 influenza virus vaccine, split virus (incl. purified surface antigen) Mariana Mayfield Other [facility] Other 06-12-2022 Prevnar 20 Mariana Mayfield Other [facility] Other 01-19-2022 COVID-19 Vaccine Moderna - Documentation Purposes Only Mariana Mayfield Other [facility] Other 09-13-2015 influenza virus vaccine, split virus (incl. purified surface antigen) Mariana Mayfield Other [facility] Other 07-29-2013 tetanus and diphther ia toxoids, adsorbed, preservative free, for adult use (5 Lf of tetanus toxoid and 2 Lf of diphtheria toxoid) Mariana Mayfield Other [facility] Other Payers Date Payer Category Payer Medicare [id number] 2.1 [id number] 2023 Self-pay [id number] 1960 Unknown [id number] 1955 Unknown [id number] Unknown [id number] [id number] [id number] Unknown [id number] [id number] [id number] Social History Date Type Detail Facility Unknown if ever smoked [facility] Other Sex Assigned At Sex Assigned At Bir th [facility] Other Start: 1955 Sex Assigned At Female [facility] Evaluation note 09-24-2023 Note Date [...] problem in groin area - requests refill. [facility] Other Evaluation note 08-13-2023 Note Date & [...] negative findings were considered in medical decision-making. [facility] Other Evaluation note 07-28-2023 Note Date & [...] no improvement in 2 to 3 days [facility] Other Evaluation note 06-26-2023 Note Date & Type Note Facility 06-26-2023 Evaluation note Encounter Date Diagnosis Assessment Notes Jun, Situational anxiety (ICD-10 - F41.8) [facility] Other Evaluation note 06-19-2023 Note Date & [...] her satisfaction and patient sent home stable [facility] Other Evaluation note 01-08-2023 Note Date & Type Note Facility 01-08-2023 Evaluation note Encounter Date Diagnosis Assessment Notes Dec, Erythrasma (ICD-10 - L08.1) [facility] Other Evaluation note 12-25-2022 Note Date & [...] she is doing well. >15 min discussion [facility] Other Evaluation note Note Date & Type Note Facility Evaluation note No assessment information availa [facility] Work Phone: History general Narrative - [...] C SECTION X2 Surgical History TUBAL LIGATION [facility] Other History general Narrative - Reported Note [...] TUBAL LIGATION Hospitalization History SEE SURGICAL HX [facility] Other Summary Purpose Family History No Family History Records FoundNo Family History Records Found Advance Directives Advance Directive Response Recorded Date/ Time Advance Directives No June 3:08pm Chief Complaint and Reason for Visit Chief Complaint Z12.4 Reason for Referral Reason [facility] [place] Diagnosis 1 Symptomatic varicose veins, right (I83.891) [facility]erral [facility] Referring Provider First Name Mariana Referring Provider Last Name Chana Referring Provider Specialty Family [facility] Referred Organization [facility] Referred Address [address] [place], [place],[address] Referred Provider Specialty Vascular and Interventional Radiology Referral Priority Routine Additional Source Comments INFORMATION SOURCE (unrecogn ized section and content) DATE CREATED AUTHOR 07/14/2022 [facility] DATE CREATED AUTHOR AUTHOR'S ORGANIZ ATION 07/31/2023 [facility] REASON FOR VISIT (unrecogniz ed section and content) rash in groin and stomachRas h-Not [employer]/Possible PAP ExamrefillPOSSIBLE UTIPOSSIBLE UTIREFF BY BRENT HOPKINSSU FOR NECK PAINhigh BP Care Teams (unrecognized sec tion and content) Team Status: Inactive Member Role Status Dates Lima Villatoro NP-C Attending Provider Active Team Status: Inactive Member [...] BE BASED ON THE PRIMARY CLINICAL RECORDS. [facility]. provides no warranty or guarantee of the accuracy or completeness of information in this document.
--- NOTE | 2023-12-31 07:52 | VEIN_ITS ---
The [address] [address] Patient Name: FIGUEROA VILLANUEVA MRN: [id number] date: 1955 Sex: F Assigned Patient Location: Current Patient Location: Accession/Order Number: [id number] Exam Date: 12/31/2023 08:00 Report Date: 12/31/2023 10:04 At the request of: NUSRAT ONEIL Procedure: VC INJ Foam Sclerosant WUS AUTOMATION TECHNICIAN PROCEDURE: VC INJ Foam Sclerosant WUS AUTOMATION TECHNICIAN, right leg COMPARISON: None. HISTORY: I83.813 Bilateral painful varicose veins Pre-operative Diagnosis: CEAP class C3 venous insufficiency with pain, tenderness, edema and incompetent right great saphenous and varicose vein(s), chronic venous insufficiency right leg secondary to venous incompetence Post-operative Diagnosis: CEAP class C3 venous insufficiency with pain, tenderness, edema and incompetent right great saphenous and varicose vein(s), chronic venous insufficiency right leg secondary to venous incompetence Procedure Performed: 1. Ultrasound-guided microfoam chemical ablation with Varithenaregistered 2. Intraoperative ultrasound guidance Anesthesia: None Indications for Procedure: 68-year-old female who presents with a long history of lower extremity pain and swelling. The patient failed conservative medical therapy including medical compression stockings, exercise and analgesics. Prior procedures include intravenous laser ablation and Microfoam chemical ablation. Multiple incompetent varicosities of the right leg. Duplex scan showed reflux and enlarged diameters up to 6 mm. The patient underwent informed consent including management options where the complications of infection, bleeding, pain, and skin injury were discussed. Particular attention was spent discussing thrombus extension and deep vein thrombosis as well as the possibility of pulmonary embolus and treatment with oral or injectable blood thinners. Procedure: The patient walked to the procedure room. All applicable staff donned appropriate apparel. A procedure timeout was performed to confirm correct patient, correct extremity, correct procedure, and correct room set-up including presence of all applicable supplies, devices, and drugs. A duplex ultrasound, performed by myself confirmed the location and incompetence of branch saphenous varicosities and their course was marked on the skin together with the dilated tributaries. The extent of treatment of the vein and the associated varicosities was determined through ultrasound mapping. The skin was prepped and then punctured with a butterfly needle and advanced under ultrasound guidance. The Varithenaregistered canister was activated and the canister was primed and purged as required in the instructions for use. Varithenaregistered was drawn into a sterile syringe. The following injections were made: 5 cc injected into a 6 mm varicose vein right distal medial lower leg 4 cc injected into 5 mm varicose vein right mid medial thigh 6 cc injected into a 6 mm varicose vein right proximal medial lower leg Varithenaregistered was slowly administered at 0.5-1.0 cc/second with close observation by ultrasound of its course in the vessels. Total volume utilized was: 15cc. Following administration of Varithenaregistered the leg was elevated and the patient was asked to repeatedly dorsiflex the ankle to limit flow of Varithenaregistered into perforating veins. Once appropriate spasm had been confirmed in the treated veins, the vascular catheter was removed from the leg and light pressure was applied over the puncture site for hemostasis. The common femoral and deep superficial veins were then evaluated for flow and compressibility prior to dressing placement. The lower extremity was kept elevated at 45 degrees above the horizontal and cording material was applied over the saphenous segments and tributaries to allow for eccentric compression over the target vessels including the targeted saphenous vein(s). A multilayer dressing was applied consisting of foam pads, coban and thigh-high 20-30 mm Hg compression elastic support hose were placed on the patient. The leg was lowered only after compression had been applied and the patient was immediately ambulatory. The patient ambulated 10 minutes under supervision and was without apparent concerns at time of release. Post-care instructions include advising patient to keep post-treatment bandages in place and dry for 48 hours, avoid extended periods of inactivity, avoid heavy exercise for one week, wear compression stockings on the treated leg continuously for two weeks, to walk daily for 10 minutes over the next month. The patient was instructed to take an anti-inflammatory medicine as needed and to follow up for color duplex scan of the Saphenous veins, the treated branch saphenous varicosities, the adjacent deep veins, and additional treatment within 7 days. PERSONNEL: Jennifer Pringle RN Electronically authenticated by: NUSRAT ONEIL Date: 12/31/2023 10:04
== END 2023-12-31 07:50 | disposition home or self-care (01) ==
LOC: VC 07:49
PROVIDERS: PCP Radiology Diagnostic Radiology; Visit Provider Radiology Diagnostic Radiology
DX: I83.813 Varicose veins of bilateral lower extremities with pain (principal)
CPT/HCPCS: 36466

== ENCOUNTER 2024-01-06 08:15 | Outpatient (OUT) | payer MEDICARE, SELFPAY ==
--- OUTSIDE RECORDS SUMMARY | 2024-01-06 08:16 | XMS_ITS | CCD ---
Author Organization [facility] Care Team Providers Care Taxi Proprietor Name Role Phone DR MARIANA MAYFIELD Admitting Unavailable CHANA, DR MARIANA Glover Primary Care Unavailable CHANA, DR MARIANA Glover Attending Unavailable CHASE, DR WIL Edmondson Consulting Unavailable CHANA, DR MARIANA Glover Consulting Unavailable Mariana Mayfield Unavailable MD Mariana Mayfield Attending Provider Lima Villatoro Unavailable SESAR Villatoro Attending Provider [phone] Lima Villatoro Admitting Unavailable Lima Villatoro Attending Unavailable Mariana Mayfield Primary Care Unavailable Mariana Mayfield Attending Unavailable Mariana Mayfield Admitting Unavailable Lukasz Quispe Unavailable Allergies Allergy Classification Reported Allergen(s) Allergy Type Date of Onset Reaction(s) Facility (1 source) Codeine Drug Allergy [facility] Repository (2 sources) Codeine Drug Allergy Unknown [facility] Other (6 sources) Codeine Drug Allergy Unknown [facility] Other (6 sources) Anesthesia S/I-40A Drug allergy Comment:Patient had a reaction to the anesthetic her last surgery and had to have a spinal [facility] Other (6 sources) Medicinal cephalosporin and acting as antibacterial agent (FN) Drug allergy Unknown [facility] Other Medications Current Medications Medication Drug Class(es) [...] Facility Urinalysis - AUTOMATED Appearance (U) cloudy [employer] Other Bilirubin Ql (U) Negative [employer] Other Color (U) dark yellow [facility] Other Glucose Ql (U) Negative [employer] Other Hemoglobin Ql (U) large [employer] Other Ketones Ql (U) Negative [employer] Other Leukocyte esterase Test strip Ql (U) moderate [facility] Other Nitrite Ql (U) Negative [employer] Other pH (U) 5.5 [pH] [facility] Other Protein Ql (U) 30 [employer] Other Specific gravity (U) [Rel density] 1.025 [employer] Other Urobilinogen (U) [Mass/Vol] 0.2 mg/dL [employer] Other Urinalysis - AUTOMATED No rt [employer] Other Urine Cultureon 07-28-2023 Urine Culture 20,000 [facility] Other Urine Culture <16 Susceptible [employer] Other Urine Culture >16/8 Resistant [facility] Other Urine Culture >16 Resistant [facility] Other Urine Culture <4 Susceptible [employer] Other Urine Culture 4 Susceptible [employer] Other Urine Culture <2 Susceptible [employer] Other Urine Culture <1 Susceptible [employer] Other Urine Culture 8 Susceptible [employer] Other Urine Culture <0.25 Susceptible [employer] Other Urine Culture <0.5 Susceptible [employer] Other Urine Culture <32 Susceptible [employer] Other Urine Culture <0.5/9.5 Susceptible [employer] Other Bacteria identified Cx Nom (U) Reason for Exam Dysuria Urine Reason for Exam: Dysuria : Urine ORGANISM: Escherichia coli (O:ESCCOL) [place] Count 20,000 Aerobic ANNA Charge ([id number]) ----- [...] RESISTANT TO ALL B-LACTAM DRUGS. PERFORMED BY: [place] [address] PATHOLOGIST SANFORIZER TRAVIS RADFORD M.D. [facility] Comment on above: Performed By: #### C UU #### [address] Human papilloma virus 16+18+ 31+33+35+39+45+51+52+56+58+59+66+68 DNA [Presence] in CerOrdered By: Mariana Mayfield on 06-19-2023 HPV 16+18+31+33+35+39+45+5 1+52+56+58+59+66+68 DNA Probe+sig amp Ql (Cvx) Negative Negative [facility] Comment on above: This nucleic acid am plification test detects fourteen high- risk HPV types (16,18,31,33,35,39,45,51,52,56,58,59,66,68)without differentiation.Performed at: [address] [id number] Director: Jackelyn Ayala MD, Phone: [phone] at: =[address] [id number] Director: Jackelyn Ayala MD, Phone: [phone] IGP, Aptima HPV, rfx 16/18,4 5on 06-19-2023 PAP HPV Aptima Negative Normal Negative [facility] Comment on above: Result Comment: This nucleic acid amplification test detects fourteen high- risk HPV types (16,18,31,33,35,39,45,51,52,56,58,59,66,68) without differentiation. Performed at: [address] [id number] [employer] Waistband Setter: Jackelyn Ayala MD, Phone: [phone] Performed at: =[address] [id number] Lock[employer] Waistband Setter: Jackelyn Ayala MD, Phone: [phone] PERFORMED BY: [address] [place] [address] PATHOLOGIST SANFORIZER TRAVIS RADFORD M.D. Performed By: #### P AP [id number] #### [facility] , Pap Image Guided Note [...] cases of atrophy. Performed by: Marvin Lundberg, Electric Screw Driver Operator (ASCP) . 01 Note: Note 01 [...] Low,>-Panic High,A-Abnormal,AA-Critical Abnormal Performed at: [address] [address] Jackelyn Ayala MD, Performed By: #### P AP [id number] #### [facility] , No Panel InformationOrdered By: Mariana Mayfield on 06-19-2023 IG Pap w/Ct-Ng & HPV Rflx (Off-Site Note . [facility] Comment on above: TESTS RESULT FLAG UN ITS REF RANGE LAB Clinician Provided Cytology Information No. of containers..01 ThinPrep VialDIAGNOSIS: 01 NEGATIVE FOR INTRAEPITHELIAL LESION OR MALIGNANCY. CELLULAR CHANGES ASSOCIATED WITH ATROPHY ARE PRESENT.Specimen adequacy: 01 Satisfactory for evaluation. Endocervical component may not be distinguished in cases of atrophy.Performed by: 01 Kwan Lundberg, Electric Screw Driver Operator (ASCP). 01Note: Note 01 The Pap [...] High <-Panic Low,>-Panic High,A-Abnormal,AA-Critical Abnormal -----Performed at:[address] [address] Jackelyn Ayala MD, FREE T4on 07-02-2022 Free T4 [Mass/Vol] 1.15 ng/dL Normal 0.76-1.46 [facility] Comment on above: Performed By: #### F T4 #### [facility] [address] [place], [place] [address] Dr. Gilma Rojas LIPID PROFILEon 07-02-2022 CHOL-HDL RATIO NORM SEE BELOW Normal [facility] Comment on above: Result Comment: 3.3 - 4.4 LOW RISK 4.4 - 7.1 AVERAGE RISK 7.1 - 11.0 MODERATE RISK >11.0 HIGH RISK Performed By: #### C MP, TSH, LIPID #### [facility] [address] [place] [address] [address] Gilma Rojas Cholesterol [Mass/Vol] 191 mg/dL Normal <=200 [facility] Comment on above: Performed By: #### C MP, TSH, LIPID #### [facility] [address] [address] [address] Gilma Rojas Cholesterol in HDL [Mass/Vol] 59 mg/dL Normal 40-60 [facility] Comment on above: Performed By: #### C MP, TSH, LIPID #### [facility] [address] [address] [address] Gilma Rojas Cholesterol in LDL [Mass/Vol] 112.4 mg/dL Normal [facility] Comment on above: Performed By: #### C MP, TSH, LIPID #### [facility] [address] [address] [address] Gilma Rojas Cholesterol.total/Chol esterol in HDL [Mass ratio] 3.2 {ratio} Normal [facility] Comment on above: Performed By: #### C MP, TSH, LIPID #### [facility] [address] [address] [address] Gilma Rojas HDL NORMAL > or = 60 mg/dl - LOW CARDIOVASCULAR RISK <40 mg/dl - HIGH CARDIOVASCULAR RISK Normal [facility] Comment on above: Performed By: #### C MP, TSH, LIPID #### [facility] [address] [place] [address] [address] Gilma Rojas LDL CALC NORMAL SEE BELOW Normal [facility] Comment on above: Result Comment: <100 mg/dl OPTIMAL 100 - 129 mg/dl NEAR OR ABOVE OPTIMAL 130 - 159 mg/dl BORDERLINE HIGH 160 - 189 mg/dl HIGH >190 mg/dl VERY HIGH Performed By: #### C MP, TSH, LIPID #### [facility] [address] [address] [address] Gilma Rojas Triglyceride [Mass/Vol] 98 mg/dL Normal <=150 [facility] Comment on above: Performed By: #### C MP, TSH, LIPID #### [facility] [address] [address] [address] Gilma Rojas VLDL CALC 19.6 mg/dL Normal [facility] Comment on above: Performed By: #### C MP, TSH, LIPID #### [facility] [address] [place], [place] [address] Dr. Gilma Rojas MG MAMM SCREEN 3D SAVANNAH CADon 07-02-2022 MG MAMM SCREEN 3D SAVANNAH CAD Patient: GABBY VILLANUEVA Exam Date: 07/02/2022 : 1955 Gender:F Ordering : DR MARIANA MAYFIELD M.D. Admission #: [id number] Family : Order #: [id number] CLICK HERE TO VIEW EXAM RADIOLOGY REPORT [...] Garcia M.D. on 07/02/2022 at 12:31 Normal [facility] PROF 14(COMP METB)on 022 Albumin [Mass/Vol] 4.3 g/dL Normal 3.4-5.0 [facility] Comment on above: Performed By: #### C MP, TSH, LIPID #### [facility] [address] [place], [place] [address] Dr. Gilma Rojas Albumin/Globulin [Mass ratio] 1.4 {ratio} Normal [facility] Comment on above: Performed By: #### C MP, TSH, LIPID #### [facility] [address] [place] [address] [address] Gilma Rojas ALP [Catalytic activity/Vol] 44 U/L Critically low 46-116 [facility] Comment on above: Performed By: #### C MP, TSH, LIPID #### [facility] [address] [place] [address] [address] Gilma Rojas ALT [Catalytic activity/Vol] 36 U/L Normal 14-59 [facility] Comment on above: Performed By: #### C MP, TSH, LIPID #### [facility] [address] [place] [address] [address] Gilma Rojas Anion gap [Moles/Vol] 10.4 mmol/L Normal [facility] Comment on above: Performed By: #### C MP, TSH, LIPID #### [facility] [address] [place] [address] [address] Gilma Rojas AST [Catalytic activity/Vol] 25 U/L Normal 15-37 [facility] Comment on above: Performed By: #### C MP, TSH, LIPID #### [facility] [address] [place] [address] [address] Gilma Rojas Bilirubin [Mass/Vol] 0.6 mg/dL Normal 0.2-1.0 [facility] Comment on above: Performed By: #### C MP, TSH, LIPID #### [facility] [address] [place] [address] [address] Gilma Rojas Calcium [Mass/Vol] 9.6 mg/dL Normal 8.5-10.1 [facility] Comment on above: Performed By: #### C MP, TSH, LIPID #### [facility] [address] [place] [address] [address] Gilma Rojas Chloride [Moles/Vol] 106 mmol/L Normal 98-107 [facility] Comment on above: Performed By: #### C MP, TSH, LIPID #### [facility] [address] [place] [address] [address] Gilma Rojas CO2 [Moles/Vol] 30.1 mmol/L Normal 21.0-32.0 [facility] Comment on above: Performed By: #### C MP, TSH, LIPID #### [facility] [address] [place] [address] [address] Gilma Rojas Creatinine [Mass/Vol] 0.78 mg/dL Normal 0.55-1.02 [facility] Comment on above: Performed By: #### C MP, TSH, LIPID #### [facility] [address] [place] [address] [address] Gilma Rojas EGFR-AF MONGOLIAN >60 Normal >=60 [facility] Comment on above: Performed By: #### C MP, TSH, LIPID #### [facility] [address] [place] [address] [address] Gilma Rojas EGFR-NON AF MONGOLIAN >60 Normal >=60 [facility] Comment on above: Performed By: #### C MP, TSH, LIPID #### [facility] [address] [place] [address] [address] Gilma Rojas Globulin (S) [Mass/Vol] 3.1 g/dL Normal [facility] Comment on above: Performed By: #### C MP, TSH, LIPID #### [facility] [address] [place] [address] [address] Gilma Rojas Glucose [Mass/Vol] 99 mg/dL Normal 74-106 [facility] Comment on above: Performed By: #### C MP, TSH, LIPID #### [facility] [address] [place] [address] [address] Gilma Rojas Potassium [Moles/Vol] 3.5 mmol/L Normal 3.5-5.1 [facility] Comment on above: Performed By: #### C MP, TSH, LIPID #### [facility] [address] [place] [address] [address] Gilma Rojas Protein [Mass/Vol] 7.4 g/dL Normal 6.4-8.2 [facility] Comment on above: Performed By: #### C MP, TSH, LIPID #### [facility] [address] [place] [address] [address] Gilma Rojas Sodium [Moles/Vol] 143 mmol/L Normal 136-145 [facility] Comment on above: Performed By: #### C MP, TSH, LIPID #### [facility] [address] [place] [address] [address] Gilma Rojas Urea nitrogen [Mass/Vol] 18.0 mg/dL Normal 7.0-18.0 [facility] Comment on above: Performed By: #### C MP, TSH, LIPID #### [facility] [address] [place] [address] [address] Gilma Rojas Urea nitrogen/Creatinine [Mass ratio] 23.1 mg/mg Normal [facility] Comment on above: Performed By: #### C MP, TSH, LIPID #### [facility] [address] [place] [address] [address] Gilma Rojas TSHon 07-02-2022 TSH 3.135 uIU/mL Normal 0.358-3.740 [facility] Comment on above: Performed By: #### C MP, TSH, LIPID #### [facility] [address] [address] [address] Gilma Rojas Vital Signs Date Time Vital Sign Value Performing Clinician Facility 09-24-2023 09:00-0500 Body height 153.67 cm Mariana Mayfield Other [facility] Other 09-24-2023 09:00-0500 Body mass index (BMI) [Ratio] 33.61 kg/m2 Mariana Mayfield Other [facility] Other 09-24-2023 09:00-0500 Body weight 79.38 kg Mariana Mayfield Other [facility] Other 09-24-2023 09:00-0500 Diastolic blood pressure 80 mm[Hg] Mariana Mayfield Other [facility] Other 09-24-2023 09:00-0500 Systolic blood pressure 126 mm[Hg] Mariana Mayfield Other [facility] Other 08-13-2023 09:30-0400 Body height 153.67 cm Lukasz Quispe Other [facility] Other 08-13-2023 09:30-0400 Body mass index (BMI) [Ratio] 33.42 kg/m2 Lukasz Quispe Other [facility] Other 08-13-2023 09:30-0400 Body weight 78.93 kg Lukasz Quispe Other [facility] Other 08-13-2023 09:30-0400 SaO2% (BldA) [Mass fraction] 96 % Lukasz Quispe Other [facility] Other 07-28-2023 09:25-0400 Body height 153.67 cm Lima Villatoro Other [facility] Other 07-28-2023 09:25-0400 Body mass index (BMI) [Ratio] 32.84 kg/m2 Lima Sancehzmond Other [facility] Other 07-28-2023 09:25-0400 Body temperature 98.3 [degF] Lima Sanchezmond Other [facility] Other 07-28-2023 09:25-0400 Body weight 77.57 kg Lima Sanchezmond Other [facility] Other 07-28-2023 09:25-0400 Diastolic blood pressure 82 mm[Hg] Lima Sanchezmond Other [facility] Other 07-28-2023 09:25-0400 Respiratory rate 16 /min Lima Shauna Other [facility] Other 07-28-2023 09:25-0400 SaO2% (BldA) [Mass fraction] 98 % Lima Villatoro Other [facility] Other 07-28-2023 09:25-0400 Systolic blood pressure 144 mm[Hg] Lima Villatoro Other [facility] Other 06-19-2023 09:30-0400 Body height 153.67 cm Mariana Mayfield Other [facility] Other 06-19-2023 09:30-0400 Body mass index (BMI) [Ratio] 32.8 kg/m2 Mariana aMyfield Other [facility] Other 06-19-2023 09:30-0400 Body weight 77.47 kg Mariana Mayfield Other [facility] Other 06-19-2023 09:30-0400 Diastolic blood pressure 77 mm[Hg] Mariana Mayfield Other [facility] Other 06-19-2023 09:30-0400 Respiratory rate 12 /min Mariana Mayfield Other [facility] Other 06-19-2023 09:30-0400 Systolic blood pressure 160 mm[Hg] Mariana Mayfield Other [facility] Other 12-25-2022 15:45-0400 Body height 153.67 cm Mariana Mayfield Other [facility] Other 12-25-2022 15:45-0400 Body mass index (BMI) [Ratio] 34.57 kg/m2 Mariana Mayfield Other [facility] Other 12-25-2022 15:45-0400 Body weight 81.65 kg Mariana Mendieta [facility] Other 12-25-2022 15:45-0400 Diastolic blood pressure 72 mm[Hg] Mariana Mayfield Other [facility] Other 12-25-2022 15:45-0400 SaO2% (BldA) [Mass fraction] 97 % Mariana Mayfield Other [facility] Other 12-25-2022 15:45-0400 Systolic blood pressure 132 mm[Hg] Mariana Mayfield Other [facility] Other Encounters Encounter Date Encounter Type Care Provider Facility Start: 09-24-2023 End: 09-24-2023 ambulatory Mariana Mayfield Other [facility] Other Start: 09-24-2023 Office outpatient vi sit 15 minutes Mariana Mayfield [facility] Start: 08-13-2023 End: 08-13-2023 ambulatory Lukasz Quispe Other [facility] Other Start: 08-13-2023 Office outpatient vi sit 25 minutes Lukasz Quispe [facility] Start: 07-28-2023 Office outpatient vi sit 15 minutes Lima Villatoro [facility] Start: 07-28-2023 End: 07-28-2023 ambulatory Lima Shauna [facility] [employer] Other Start: 07-28-2023 End: 07-28-2023 Departed Referred MD Mariana Mayfield Work Phone: [facility] [place] Work Phone: Start: 06-26-2023 End: 06-26-2023 ambulatory Mariana Mayfield Other [facility] Other Start: 06-26-2023 Telephone encounter Mariana Mayfield [facility] Start: 06-19-2023 Patient encounter procedure Mariana Mayfield [facility] Start: 06-19-2023 End: 06-19-[address] [facility] Work Phone: Start: 06-19-2023 End: 06-19-2023 Departed Referred MD Mariana Mayfield Work Phone: [facility] [place] Work Phone: Start: 01-08-2023 End: 01-08-2023 ambulatory Mariana Mayfield Other [facility] Other Start: 01-08-2023 Telephone encounter Mariana Mayfield [facility] Start: 12-25-2022 End: 12-25-2022 ambulatory Mariana Mayfield Other [facility] Other Start: 12-25-2022 Office outpatient vi sit 15 minutes Mariana Mayfield [facility] Start: 07-02-2022 End: 07-03-[address] MARIANA MAYFIELD Facility: Procedures Date Procedure Procedure Detail Performing Clinician Start: 07-28-2023 Piperacillin/tazobactam Lima Villatoro Other Plan of Treatment Date Care Activity Detail Author Start: 07-28-2023 Bacteria identified in Urine by Culture [facility] Start: 06-19-2023 [facility] Human papilloma viru s 16+18+31+33+35+39+45+51+52+56+58 +59+66+68 DNA [Presence] in Cervix by Probe with signal amplification [facility] Immunizations Immunization Date Immunization Notes Care Provider Fa cility 07-29-2022 COVID-19 Pfizer (Pediatric) Mariana Mayfield Other [facility] Other 07-29-2022 influenza virus vaccine, split virus (incl. purified surface antigen) Mariana Mayfield Other [facility] Other 06-12-2022 Prevnar 20 Mariana Mayfield Other [facility] Other 01-19-2022 COVID-19 Vaccine Moderna - Documentation Purposes Only Mariana Mayfield Other [facility] Other 09-13-2015 influenza virus vaccine, split virus (incl. purified surface antigen) Mariana Mayfield Other [facility] Other 07-29-2013 tetanus and diphther ia toxoids, adsorbed, preservative free, for adult use (5 Lf of tetanus toxoid and 2 Lf of diphtheria toxoid) Mariana Mayfield Other [facility] Other Payers Date Payer Category Payer Medicare [id number] 2023 Self-pay [id number] 1960 Unknown [id number] 1955 Unknown [id number] Unknown [id number] Unknown [id number] Social History Date Type Detail Facility Unknown if ever smoked [facility] Other Sex Assigned At Sex Assigned At Bir th [facility] Other Start: 1955 Sex Assigned At Female F [facility] Evaluation note 09-24-2023 Note Date & [...] problem in groin area - requests refill. [facility] Other Evaluation note 08-13-2023 Note Date & [...] negative findings were considered in medical decision-making. [facility] Other Evaluation note 07-28-2023 Note Date & [...] no improvement in 2 to 3 days [facility] Other Evaluation note 06-26-2023 Note Date & Type Note Facility 06-26-2023 Evaluation note Encounter Date Diagnosis Assessment Notes Jun, Situational anxiety (ICD-10 - F41.8) [facility] Other Evaluation note 06-19-2023 Note Date & [...] her satisfaction and patient sent home stable [facility] Other Evaluation note 01-08-2023 Note Date & Type Note Facility 01-08-2023 Evaluation note Encounter Date Diagnosis Assessment Notes Dec, Erythrasma (ICD-10 - L08.1) [facility] Other Evaluation note 12-25-2022 Note Date & [...] she is doing well. >15 min discussion [facility] Other Evaluation note Note Date & Type Note Facility Evaluation note No assessment information availa [facility] Work Phone: History general Narrative - [...] C SECTION X2 Surgical History TUBAL LIGATION [facility] Other History general Narrative - Reported Note [...] TUBAL LIGATION Hospitalization History SEE SURGICAL HX [facility] Other Summary Purpose Family History No Family History Records FoundNo Family History Records Found Advance Directives Advance Directive Response Recorded Date/ Time Advance Directives No June 3:08pm Chief Complaint and Reason for Visit Chief Complaint Z12.4 Reason for Referral Reason [facility] Diagnosis 1 Symptomatic varicose veins, right (I83.891) Referral Organization [facility] giovanna Referring Provider First Name Mariana Referring Provider Last Name Chana Referring Provider Specialty Family [facility] Referred Organization [facility] Referred Address [address] [place], [place],[address] Referred Provider Specialty Vascular and Interventional Radiology Referral Priority Routine Additional Source Comments INFORMATION SOURCE (unrecogn ized section and content) DATE CREATED AUTHOR 07/14/2022 [facility] DATE CREATED AUTHOR AUTHOR'S ORGANIZ ATION 07/31/2023 [facility] REASON FOR VISIT (unrecogniz ed [...] BE BASED ON THE PRIMARY CLINICAL RECORDS. [facility] [employer] [facility]. provides no warranty or guarantee of the accuracy or completeness of information in this document.
--- NOTE | 2024-01-06 08:19 | VEIN_ITS ---
Patient Name: FIGUEROA VILLANUEVA MR#: [id number] : 1955 Exam Date: 01/06/2024 Ordering Doctor: DR GUTIERREZ KIRK M.D. RADIOLOGY REPORT PROCEDURE: VC EXT VENOUS RT LMTD COMPARISON: VC EXT VENOUS RT LMTD, 12/12/2023. INDICATIONS: Phlebitis of superficial veins of right lower extremity I80.01 TECHNIQUE: Lower extremity pavon scale and Duplex Doppler evaluation of the deep venous system from the inguinal ligament through the calf veins. FINDINGS: REGION: Right lower extremity. THROMBI: Negative for DVT. 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 COMPRESSIBILITY: Non-compressible segments corresponding to thrombus FLOW: Areas of no flow corresponding to thrombus OTHER: No significant varicose veins remain. CONCLUSION: Post ablation occlusion of treated right leg varicose veins. No residual incompetent varicose veins are observed Dictated by: Gutierrez Kirk MD on 01/06/2024 at 08:56 Approved by: Gutierrez Kirk MD on 01/06/2024 at 08:57
--- NOTE | 2024-01-06 08:19 | VEIN_ITS ---
Patient Name: FIGUEROA VILLANUEVA MR#: [id number] : 1955 Exam Date: 01/06/2024 Ordering Doctor: DR GUTIERREZ KIRK M.D. RADIOLOGY REPORT PROCEDURE: [facility] EST [facility] - OFFICE VISIT FOLLOW UP COMPARISON: [facility] EST [facility], 12/25/2023. [facility] EST [facility], 12/12/2023. PROGRESS NOTES: The patient reports no significant problems following micro foam chemical ablation of right leg incompetent varicose veins. Patient did wear her compression stockings. The patient did not require oral analgesics. The patient has tried exercise. Physical exam demonstrates multiple thrombosed right side varicose veins. No erythema or warmth to suggest cellulitis or thrombophlebitis. Bilateral incompetent varicose veins remain Review of the ultrasound performed the same day demonstrates occlusive thrombus extending throughout the treated right leg varicose veins. No deep vein thrombus. Residual varicose veins are observed. The patient expressed a desire to proceed with treatment of incompetent left leg varicose veins. VEIN/[facility] EST LMTD IMPRESSION: 1. Successful ablation of treated incompetent right leg varicose veins. 2. Persistent bilateral incompetent varicose veins. PLAN: Micro foam chemical ablation left leg incompetent varicose veins Nurse notes, history and physical were reviewed and confirmed, see attached forms. The nurse was present throughout the physical exam and consultation Dictated by: Gutierrez Kirk MD on 01/06/2024 at 10:38 Approved by: Gutierrez Kirk MD on 01/06/2024 at 10:40
== END 2024-01-06 08:16 | disposition home or self-care (01) ==
LOC: VC 08:15
PROVIDERS: PCP Radiology Diagnostic Radiology; Visit Provider Radiology Diagnostic Radiology
DX: I80.01 Phlebitis and thrombophlebitis of superficial vessels of right lower extremity (principal)
CPT/HCPCS: 93971; G0463

== ENCOUNTER 2024-06-29 07:38 | Outpatient (OUT) | payer MEDICARE, SELFPAY ==
--- OUTSIDE RECORDS SUMMARY | 2024-06-29 07:42 | XMS_ITS | CCD ---
Author Organization [facility] Care Team Providers Care Relations Liaison Name Role Phone DR MARIANA ZAYAS Admitting Unavailable CHANA, DR MARIANA Glover Primary Care Unavailable CHANA, DR MARIANA Glover Attending Unavailable CHASE, DR WIL Edmondson Consulting Unavailable CHANA, DR MARIANA Glover Consulting Unavailable Mariana Zayas Unavailable MD Mariana Zayas Attending Provider [phone] Lima Villatoro Unavailable SESAR Villatoro Attending Provider [phone] Lima Villatoro Admitting Unavailable Lima Villatoro Attending Unavailable Mariana Zayas Primary Care Unavailable Mariana Zayas Attending Unavailable Mariana Zayas Admitting Unavailable Lukasz Quispe Unavailable Allergies Allergy Classification Reported Allergen(s) Allergy Type Date of Onset Reaction(s) Facility (3 sources) Codeine Drug Allergy 03-17-20 [facility] Repository (2 sources) Codeine Drug Allergy Unknown [employer] Other (6 sources) Codeine Drug Allergy Unknown [employer] Other (8 sources) Anesthesia S/I-40A Drug allergy 09-24-20 23 Comment:Everardo leach had a reaction to the anesthetic her last surgery and had to have a spinal, Comment:Everardo leach had a reaction to the anesthetic her last... [facility] (6 sources) Medicinal cephalosporin and acting as antibacterial agent (FN) Drug allergy Unknown [facility] [employer] Other (2 sources) Cephalosporins (Antibiotic) Allergy to substance 03-17-20 [facility] Medications Current Medications Medication Drug Class(es) Dates Sig (Normalized) Sig (Original) amLODIPine 10 mg oral tablet (10 sources) Dihydropyridine Calcium Channel Tammy Start: 03-17-2024 take 2 tablets by mouth once daily at bedtime Amlodipine Active 10 MG PO Daily March 17, 2024 12:00am [employer] tablets at HS; Note: Source Status: Continue; Provider: Chana Peña ( ) amLODIPine Besyl ate 10 MG 2 tablets at HS Active [...] 1 tablet Orally every 12 hrs for Dec, Active Ascorbic Acid (3 sources) Vitamin C Start: 03-17-2024 take 1 tablet by mouth once daily Ascorbic Acid (Vitamin C) Active 1 TAB PO Daily March 17, 2024 12:00am [employer]Text[employer] tablet Orally Once a day; Note: Source Status: Taking; Provider: Chana Peña ( ) take 1 tablet by charlotte th every twenty-four hours Vitamin C 1000 MG 1 tablet [...] 1 tablet Orally Once a day Active aspirin 81 mg delayed release oral tablet (2 sources) Platelet Aggregation Inhibitor, Nonsteroidal Anti-inflammatory Drug Start: take 1 tablet by mouth once daily Aspirin Active 1 TAB PO Daily March 17, 2024 12:00am [employer] tablet Orally Once a day; Note: Source Status: Taking; Provider: Chana Peña ( ) Azithromycin (2 sources) Macrolide Antimicrobial Start: 06-04-2 024 Azithromycin Active 0 PO .COMPLEX 6 March 17, 2024 12:00am For 250 mg dose pack: take 500 mg today (day 1), then 250 mg for 4 days (days 2-5) PO calcium carbonate 1500 mg oral tablet (10 sources) Start: 024 take 1 tablet by mouth twice daily at mealtime Calcium Carbonate Active 1200 MG PO Twice daily March 17, 2024 12:00am [employer] tablet with meals Orally Twice a day; Note: Source Status: Taking; Provider: Chana Peña ( ) take 1 tablet by mouth every twe lve hours Calcium 600 MG 1 tablet with meals Orally Twice a day Active take 1 tablet by mouth every twe lve hours Calcium 600 MG 1 tablet with meals Orally Twice a day Active carvedilol 6.25 mg oral tablet (6 sources) alpha-Adrenergic Tammy, beta-Adrenergic Tammy Start: 03-17-2024 End: 06-23-2024 take 6.25 mg by mouth twice daily Carvedilol Active 6.25 MG PO Twice daily June 23, 2024 11:22am Start: 09-24-2023 take 1 tablet by charlotte th every twelve hours Carvedilol 6.25 MG 1 tablet with food Orally Twice a day for 30 day(s) Sep, Active cholecalciferol 0.05 mg oral capsule (2 sources) Vitamin D Start: 03-17-2024 take 1 capsule by mouth once daily Cholecalciferol (Vitamin D3) Active 1 CAP PO Daily March 17, 2024 12:00am [employer] capsule Orally Once a day; Note: Source Status: Taking; Provider: Chana Peña ( ) diclofenac potassium 25 mg oral tablet (2 sources) Nonsteroidal Anti-inflammatory Drug Start: 03-17-2024 take 25 mg by mouth twice daily Diclofenac Potassium Active 25 MG PO Twice daily March 17, 2024 12:00am erythromycin 0.02 mg/mg topical gel (6 sources) Macrolide, Macrolide Antimicrobial Start: 01-08-2023 Erythromycin 2 % 1 application Externally Twice a day for 14 days Dec, Active esomeprazole 20 mg delayed release oral capsule (2 sources) Proton Pump Inhibitor Start: 03-17-2024 take 20 mg by mouth once daily Esomeprazole Magnesium Active 20 MG PO Daily March 17, 2024 12:00am famotidine 10 mg oral tablet (10 sources) Histamine-2 Receptor Antagonist Start: 03-17-2024 take 10 mg by mouth once daily Famotidine Active 10 MG PO Daily March 17, 2024 12:00am Famotidine Activ e ferrous sulfate 325 mg oral tablet (10 sources) Start: 03-17-2024 take 1 tablet by mouth once daily Ferrous Sulfate Active 325 MG PO Daily March 17, 2024 12:00am FreeTextSi tablet Orally Once a day; Note: Source Status: Taking; Provider: Chana Peña ( ) take 1 tablet by charlotte th every twenty-four hours Iron 325 (65 Fe) MG 1 tablet Orally Once a day Active Fish Oils (8 sources) take 1 capsule by mouth once daily Fish Oil 1000 MG 1 capsule Orally Once a day Active folic acid 0.8 mg oral tablet (10 sources) Start: 03-17-2024 take 1 tablet by mouth once daily Folic Acid Active 1 TAB PO Daily March 17, 2024 12:00am FreeTextSi tablet Orally Once a day; Note: Source Status: Taking; Provider: Chana Peña ( ) take 1 tablet by charlotte th every twenty-four hours Folic Acid 800 MCG 1 tablet Orally Once a day Active take 1 tablet by charlotte th every twenty-four hours Folic Acid 800 MCG 1 tablet Orally Once a day Active hydroCHLOROthiazide 25 mg oral tablet (12 sources) Thiazide Diuretic Start: 12-02-2023 take 1 tablet by mouth once daily Hydrochlorothiazide Active 0 .ROUTE .COMPLEX December 02, 2023 1:07pm Take 1 tablet by mouth once daily Start: 11-28-2023 End: 12-02-2023 take 25 mg by mouth once daily Hydrochlorothiazide Discontinued 25 MG PO Daily November 28, 2023 1:00am December 02, 2023 1:07pm take 1 tablet by charlotte th once daily hydroCHLOROthiazide 25 MG Take 1 tablet by mouth once daily Active hydroCHLOROthiaz amina Active levothyroxine sodium 0.075 mg oral tablet (14 sources) l-Thyroxine Start: 05-11-2024 End: 06-23-2024 take 1 tablet by mouth once daily in the morning Levothyroxine Active 0 .ROUTE .COMPLEX June 23, 2024 11:22am TAKE 1 TABLET BY MOUTH ONCE DAILY IN THE MORNING ON AN EMPTY STOMACH Start: 02-10-2024 End: 05-11-2024 take 1 tablet by mouth once daily in the morning Levothyroxine Discontinued 0 .ROUTE .COMPLEX February 10, 2024 12:44pm May 11, 2024 2:21pm TAKE 1 TABLET BY MOUTH ONCE DAILY IN THE MORNING ON AN EMPTY STOMACH Start: 02-10-2024 take 1 tablet by charlotte th once daily in the morning Levothyroxine Active 0 .ROUTE .COMPLEX February 10, 2024 12:44pm TAKE 1 TABLET BY MOUTH ONCE DAILY IN THE MORNING ON AN EMPTY STOMACH Start: 02-10-2024 End: 02-10-2024 take 75 ug by mouth once daily Levothyroxine Discontin ued 75 MCG PO Daily February 10, 2024 12:00am February 10, 2024 12:44pm take 1 tablet by charlotte th once [...] 1 tablet by charlotte th once daily Levothyroxine Sodium 50 MCG Take 1 tablet by mouth once daily for 90 Active lisinopril 40 mg oral tablet (11 sources) Angiotensin Converting Enzyme Inhibitor Start: 03-17-2024 End: 06-23-2024 take 1 tablet by mouth once daily Lisinopril Active 40 MG PO Daily June 23, 2024 11:23am FreeTextSig: Take 1 tablet by mouth once daily; Note: Source Status: Continue; Provider: Chana Peña ( ) take 1 tablet by mouth once khadra y Lisinopril 40 MG Take 1 tablet by mouth once daily Active Magnesium (1 source) Magnesium Active Multivitamin With Minerals (One Daily Complete) tablet (2 sources) Start: take 1 tablet by mouth once daily, then take 1 tablet by mouth once daily Multivitamin With Minerals (One Daily Complete) tablet Active 1 TAB PO Daily March 17, 2024 12:00am nystatin [id number] unt/ml topical cream (1 source) Polyene Antifungal Start: 4 Nystatin Active 1 APPLIC TOPICAL Twice daily June 23, 2024 12:00am Exira 6-Zgw-Zvp-Fish Oil (Fish Oil) 100-160-1,000 mg capsule (2 sources) Start: 4 Exira 7-Rxr-Rjy-Fish Oil (Fish Oil) 100-160-1,000 mg capsule Active CAP PO March 17, 2024 12:00am One Daily For Women 50+ Adv - (8 sources) One Daily For Wo men 50+ Adv - Orally Active Potassium (8 sources) Potassium 1 tab Oral Active rosuvastatin calcium 20 mg oral tablet (6 sources) HMG-CoA Reductase Inhibitor Start: 4 take 1 tablet by mouth once daily Rosuvastatin Active 1 TAB PO Daily March 17, 2024 12:00am FreeTextSig: Take 1 tablet by mouth once daily; Note: Source Status: Start; Refills: 3; Qty: 90 Tablet; Provider: Chana Peña ( ) take 1 tablet by charlotte th every twenty-four hours Rosuvastatin Calcium 20 MG 1 tablet Oral ly Once a day for 90 days Active Turmeric extract (10 sources) Start: 03-17-2024 Turmeric Activ e MG PO March 17, 2024 12:00am take 1 tablet by mouth twice amaury ly Turmeric 500 MG 1 tab Orally twice a day Active Vitamin C 1000 MG (7 sources) take 1 tablet by charlotte th once daily Vitamin C 1000 MG 1 tablet Orally Once a day Active Vitamin D3 2000 UNIT (8 sources) take 1 capsule by mouth once daily Vitamin D3 2000 UNIT 1 capsule Orally Once a day Active vitamin e 450 mg oral capsule (3 sources) Start: 03-17-2024 Vitamin E (Dl, Acetate) Active MG PO March 17, 2024 12:00am FreeTextSig: Orally; Note: Source Status: Taking; Provider: Chana Peña ( ) Vitamin E 1000 U NIT Orally Active Vitamin E 1000 UNIT (7 sources) Vitamin E 1000 U NIT Orally Active Vitamins A,C,L-Yxlw-Gqdetd (Preservision Areds) 4,296 mcg-226 mg-90 mg capsule (2 sources) Start: 03-17-2024 take 1 capsule by mouth twice daily Vitamins A,C,J-Jnmd-Kdcuww (Preservision Areds) 4,296 mcg-226 mg-90 mg capsule Active 1 CAP PO Twice daily March 17, 2024 12:00am Zinc (1 source) take 1 tablet by mouth once daily Zinc 50 MG 1 tablet Orally Once a day Active zinc gluconate 50 mg oral tablet (9 sources) Start: 03-17-2024 take 1 tablet by mouth once daily Zinc Gluconate Active 1 TAB PO Daily March 17, 2024 12:00am FreeTextSi tablet Orally Once a day; Note: Source Status: Taking; Provider: Chana Peña ( ) take 1 tablet by charlotte th every twenty-four hours Zinc 50 MG 1 tablet Orally Once a day Active Completed/Discontinued Medications Medication Drug Class(es) Dates Sig (Normalized) Sig (Original) ALPRAZolam 0.25 mg oral tablet (8 sources) Benzodiazepine Start: 03-17-2024 End: 03-17-2024 take 1 tablet by mouth twice daily Alprazolam Discontinued 1 TAB PO Twice daily March 17, 2024 12:00am March 17, 2024 11:57am FreeText[employer] tablet Orally Twice a day; Note: Source Status: Taking; Refills: 0; Qty: 60 Tablet; Provider: Chana Glover Start: 06-27-2023 take 1 tablet by charlotte th every twelve hours ALPRAZolam 0.25 MG 1 tablet Orally Twice a day for 30 days Jun, Active Start: 06-19-2023 take 1 tablet by charlotte th every twelve hours ALPRAZolam 0.25 MG 1 tablet Orally Twice a day Jun, Active betamethasone 0.5 mg/ml / clotrimazole 10 mg/ml topical cream (12 sources) Azole Antifungal, Corticosteroid Start: 04-06-2024 End: 06-23-2024 Clotrimazole-Betamethasone Discontinued 0 .ROUTE .COMPLEX 45 May 07, 2024 11:39am June 23, 2024 11:29am APPLY CREAM TOPICALLY TWICE DAILY FOR 7 DAYS Start: 03-17-2024 End: 04-06-2024 Clotrimazole-Betamethasone D iscontinued 1 APPLIC TOPICAL Twice daily March 17, 2024 12:00am April 06, 2024 12:52pm FreeTextSi application Externally Twice a day; Note: Source Status: Refill; Refills: 1; Qty: 45 Gram; Provider: Chana Glover Start: 12-25-2022 Clotrimazole-B etamethasone 1-0.05 % 1 application Externally Twice a day for 7 days Dec, Active nitrofurantoin, macrocrystals 25 mg / nitrofurantoin, monohydrate [...] Date Documented Da te Episodic/Chronic Abdominal pain (10 sources) Epigastric discomfort; Translations: [Epigastric pain] 06-23-2024 Episodic Administrative/social admission (1 source) Other specified counseling Episodic Anxiety disorders (8 sources) Anxiety; Translations: [Other specified anxiety disorders] Chronic Disorders of lipid metabolism (10 sources) Hyperlipidemia, unspecified; Translations: [Mixed hyperlipidemia] Onset: 07-03-2022 Chronic Diverticulosis and diverticulitis (8 sources) Diverticular disease of colon; Translations: [Diverticulosis of intestine, part unspecified, without perforation or abscess without bleeding] Chronic Essential hypertension (10 sources) Essential hypertension; Translations: [Essential (primary) hypertension] Chronic Genitourinary symptoms and ill-defined conditions (3 sources) Dysuria; Translations: [Dysuria] Onset: 07-28-2023 Episodic Nutritional deficiencies (2 sources) Vitamin D deficiency; Translations: [Vitamin D deficiency, unspecified] 06-23-2024 Chronic Other connective tissue disease (1 source) Pain [...] conditions (not mental disorders or infectious disease) (7 sources) Encounter for screening mammogram for malignant neoplasm of breast; Translations: [Patient encounter status] Onset: 07-02-2022 Episodic Other upper respiratory infections (1 source) Acute maxillary sinusitis; Translations: [Acute maxillary sinusitis, unspecified] 03-29-2024 Episodic Residual codes; unclassified (1 source) Family history of malignant neoplasm of other organs or systems; Translations: [FAM HX MALIG NEOPLASM OTH ORGN/SYS] Onset: 07-03-2022 Episodic Skin and subcutaneous tissue infections (3 sources) Erythrasma Episodic Spondylosis; intervertebral disc disorders; other back problems (1 source) Radiculopathy, cervical region Episodic Thyroid disorders (10 sources) Hypothyroidism, unspecified; Translations: [Hypothyroidism] Onset: 07-03-2022 [...] Facility Urinalysis - AUTOMATED Appearance (U) cloudy [employer] Other Bilirubin Ql (U) Negative [employer] Other Color (U) dark yellow [employer] Other Glucose Ql (U) Negative [employer] Other Hemoglobin Ql (U) large [employer] Other Ketones Ql (U) Negative [employer] Other Leukocyte esterase Test strip Ql (U) moderate [employer] Other Nitrite Ql (U) Negative [employer] Other pH (U) 5.5 [pH] [employer] Other Protein Ql (U) 30 [employer] Other Specific gravity (U) [Rel density] 1.025 [employer] Other Urobilinogen (U) [Mass/Vol] 0.2 mg/dL [employer] Other Urinalysis - AUTOMATED No rt [employer] Other Urine Cultureon 07-28-2023 Urine Culture 20,000 [employer] Other Urine Culture <16 Susceptible [employer] Other Urine Culture >16/8 Resistant [employer] Other Urine Culture >16 Resistant [employer] Other Urine Culture <4 Susceptible [employer] Other Urine Culture 4 Susceptible [employer] Other Urine Culture <2 Susceptible [employer] Other Urine Culture <1 Susceptible [employer] Other Urine Culture 8 Susceptible [employer] Other Urine Culture <0.25 Susceptible [employer] Other Urine Culture <0.5 Susceptible [employer] Other Urine Culture <32 Susceptible [employer] Other Urine Culture <0.5/9.5 Susceptible [employer] Other Bacteria identified Cx Nom (U) Reason for Exam Dysuria Urine Reason for Exam: Dysuria : Urine ORGANISM: Escherichia coli (O:ESCCOL) [place] Count 20,000 Aerobic ANNA Charge ([id number]) ----- [...] RESISTANT TO ALL B-LACTAM DRUGS. PERFORMED BY: [place] [address] PATHOLOGIST INTAKE COUNSELOR TRAVIS RADFORD M.D. Normal [facility] Comment on above: Performed By: #### C UU #### [address] Human papilloma virus 16+18+ 31+33+35+39+45+51+52+56+58+59+66+68 DNA [Presence] in CerOrdered By: Mariana Zayas on 06-19-2023 HPV 16+18+31+33+35+39+45+5 1+52+56+58+59+66+68 DNA Probe+sig amp Ql (Cvx) Negative Negative [facility] Comment on above: This nucleic acid am plification test detects fourteen high- risk HPV types (16,18,31,33,35,39,45,51,52,56,58,59,66,68)without differentiation.Performed at: [address] [id number] Director: Jackelyn Ayala MD, Phone: [phone] at: =[address] [id number] Director: Jackelyn Ayala MD, Phone: [phone] IGP, Aptima HPV, rfx 16/18,4 5on 06-19-2023 PAP HPV Aptima Negative Normal Negative [facility] Comment on above: Result Comment: This nucleic acid amplification test detects fourteen high- risk HPV types (16,18,31,33,35,39,45,51,52,56,58,59,66,68) without differentiation. Performed at: [address] [id number] Player Development Manager: Jackelyn Ayala MD, Phone: [phone] Performed at: =[address] [id number] Player Development Manager: Jackelyn Ayala MD, Phone: [phone] PERFORMED BY: [address] [id number] PATHOLOGIST INTAKE COUNSELOR TRAVIS RADFORD M.D. Performed By: #### P AP [id number] #### [facility] , Pap Image Guided Note Normal . [facility] Comment on above: Result Comment: TEST S RESULT FLAG UNITS REF RANGE LAB Clinician Provided Cytology Information No. of containers..01 ThinPrep Vial DIAGNOSIS: 01 NEGATIVE FOR INTRAEPITHELIAL LESION OR MALIGNANCY. CELLULAR CHANGES ASSOCIATED WITH ATROPHY ARE PRESENT. Specimen adequacy: 01 Satisfactory for evaluation. Endocervical component may not be distinguished in cases of atrophy. Performed by: 01 Kwan Lundberg, Sliver Machine Operator (ASCP) . 01 Note: Note 01 [...] High,A-Abnormal,AA-Critical Abnormal Performed at: 01 [facility] [address] [address] Jackelyn Ayala MD, Performed By: #### P AP [id number] #### [facility] , No Panel InformationOrdered By: Mariana Zayas on 06-19-2023 IG Pap w/Ct-Ng & HPV Rflx (Off-Site Note . [facility] Comment on above: TESTS RESULT FLAG UN ITS REF RANGE LAB Clinician Provided Cytology Information No. of containers..01 ThinPrep VialDIAGNOSIS: 01 NEGATIVE FOR INTRAEPITHELIAL LESION OR MALIGNANCY. CELLULAR CHANGES ASSOCIATED WITH ATROPHY ARE PRESENT.Specimen adequacy: 01 Satisfactory for evaluation. Endocervical component may not be distinguished in cases of atrophy.Performed by: 01 Kwan Lundberg, Sliver Machine Operator ([facility]). 01Note: Note 01 The Pap smear is [...] High <-Panic Low,>-Panic High,A-Abnormal,AA-Critical Abnormal -----Performed at:[address] [id number] Jackelyn Ayala MD, FREE T4on 07-02-2022 Free T4 [Mass/Vol] 1.15 ng/dL Normal 0.76-1.46 [facility] Comment on above: Performed By: #### F T4 #### [facility] [address] [place], [place] [address] Dr. Gilma Rojas LIPID PROFILEon 07-02-2022 CHOL-HDL RATIO NORM SEE BELOW Normal [facility] Comment on above: Result Comment: 3.3 - 4.4 LOW RISK 4.4 - 7.1 AVERAGE RISK 7.1 - 11.0 MODERATE RISK >11.0 HIGH RISK Performed By: #### C MP, TSH, LIPID #### [facility] [address] [place] [address] [address] Gilma Rojas Cholesterol [Mass/Vol] 191 mg/dL Normal <=200 [facility] Comment on above: Performed By: #### C MP, TSH, LIPID #### [facility] [address] [address] [address] Gilma Rojas Cholesterol in HDL [Mass/Vol] 59 mg/dL Normal 40-60 [facility] Comment on above: Performed By: #### C MP, TSH, LIPID #### [facility] [address] [address] [address] Gilma Rojas Cholesterol in LDL [Mass/Vol] 112.4 mg/dL Normal [facility] Comment on above: Performed By: #### C MP, TSH, LIPID #### [facility] [address] [place] [address] Dr. Gilma Rojas Cholesterol.total/Chol esterol in HDL [Mass ratio] 3.2 {ratio} Normal [facility] Comment on above: Performed By: #### C MP, TSH, LIPID #### [facility] [address] [address] [address] Gilma Rojas HDL NORMAL > or = 60 mg/dl - LOW CARDIOVASCULAR RISK <40 mg/dl - HIGH CARDIOVASCULAR RISK Normal [facility] Comment on above: Performed By: #### C MP, TSH, LIPID #### [facility] [address] [address] [address] Gilma Rojas LDL CALC NORMAL SEE BELOW Normal [facility] Comment on above: Result Comment: <100 mg/dl OPTIMAL 100 - 129 mg/dl NEAR OR ABOVE OPTIMAL 130 - 159 mg/dl BORDERLINE HIGH 160 - 189 mg/dl HIGH >190 mg/dl VERY HIGH Performed By: #### C MP, TSH, LIPID #### [facility] [address] [address] [address] Gilma Rojas Triglyceride [Mass/Vol] 98 mg/dL Normal <=150 [facility] Comment on above: Performed By: #### C MP, TSH, LIPID #### [facility] [address] [address] [address] Gilma Rojas VLDL CALC 19.6 mg/dL Normal [facility] Comment on above: Performed By: #### C MP, TSH, LIPID #### [facility] [address] [place], [place] [address] Dr. Gilma Rojas MG MAMM SCREEN 3D SAVANNAH CADon 07-02-2022 MG MAMM SCREEN 3D SAVANNAH CAD Patient: GABBY VILLANUEVA Exam Date: 07/02/2022 : 1955 Gender:F Ordering : DR MARIANA ZAYAS M.D. Admission #: [id number] Family : Order #: [id number] CLICK HERE TO VIEW EXAM RADIOLOGY REPORT [...] at age 78. LOCATION: [facility] BREAST COMPOSITION: Scattered areas fibroglandular density. FINDINGS: [...] Garcia M.D. on 07/02/2022 at 12:31 Normal [facility] PROF 14(COMP METB)on 022 Albumin [Mass/Vol] 4.3 g/dL Normal 3.4-5.0 [facility] Comment on above: Performed By: #### C MP, TSH, LIPID #### [facility] [address] [place], [place] [address] Dr. Gilma Rojas Albumin/Globulin [Mass ratio] 1.4 {ratio} Normal [facility] Comment on above: Performed By: #### C MP, TSH, LIPID #### [facility] [address] [address] [address] Gilma Rojas ALP [Catalytic activity/Vol] 44 U/L Critically low 46-116 [facility] Comment on above: Performed By: #### C MP, TSH, LIPID #### [facility] [address] [place] [address] [address] Gilma Rojas ALT [Catalytic activity/Vol] 36 U/L Normal 14-59 [facility] Comment on above: Performed By: #### C MP, TSH, LIPID #### [facility] [address] [address] [address] Gilma Rojas Anion gap [Moles/Vol] 10.4 mmol/L Normal [facility] Comment on above: Performed By: #### C MP, TSH, LIPID #### [facility] [address] [address] [address] Gilma Rojas AST [Catalytic activity/Vol] 25 U/L Normal 15-37 [facility] Comment on above: Performed By: #### C MP, TSH, LIPID #### [facility] [address] [address] [address] Gilma Rojas Bilirubin [Mass/Vol] 0.6 mg/dL Normal 0.2-1.0 [facility] Comment on above: Performed By: #### C MP, TSH, LIPID #### [facility] [address] [address] [address] Gilma Rojas Calcium [Mass/Vol] 9.6 mg/dL Normal 8.5-10.1 [facility] Comment on above: Performed By: #### C MP, TSH, LIPID #### [facility] [address] [address] [address] Gilma Rojas Chloride [Moles/Vol] 106 mmol/L Normal 98-107 [facility] Comment on above: Performed By: #### C MP, TSH, LIPID #### [facility] [address] [address] [address] Gimla Rojas CO2 [Moles/Vol] 30.1 mmol/L Normal 21.0-32.0 [facility] Comment on above: Performed By: #### C MP, TSH, LIPID #### [facility] [address] [address] [address] Gilma Rojas Creatinine [Mass/Vol] 0.78 mg/dL Normal 0.55-1.02 [facility] Comment on above: Performed By: #### C MP, TSH, LIPID #### [facility] [address] [place] [address] [address] Gilma Rojas EGFR-AF FAROESE >60 Normal >=60 [facility] Comment on above: Performed By: #### C MP, TSH, LIPID #### [facility] [address] [address] [address] Gilma Rojas EGFR-NON AF FAROESE >60 Normal >=60 [facility] Comment on above: Performed By: #### C MP, TSH, LIPID #### [facility] [address] [address] [address] Gilma Rojas Globulin (S) [Mass/Vol] 3.1 g/dL Normal [facility] Comment on above: Performed By: #### C MP, TSH, LIPID #### [facility] [address] [address] [address] Gilma Rojas Glucose [Mass/Vol] 99 mg/dL Normal 74-106 [facility] Comment on above: Performed By: #### C MP, TSH, LIPID #### [facility] [address] [address] [address] Gilma Rojas Potassium [Moles/Vol] 3.5 mmol/L Normal 3.5-5.1 [facility] Comment on above: Performed By: #### C MP, TSH, LIPID #### [facility] [address] [address] [address] Gilma Rojas Protein [Mass/Vol] 7.4 g/dL Normal 6.4-8.2 [facility] Comment on above: Performed By: #### C MP, TSH, LIPID #### [facility] [address] [address] [address] Gilma Rojas Sodium [Moles/Vol] 143 mmol/L Normal 136-145 [facility] Comment on above: Performed By: #### C MP, TSH, LIPID #### [facility] [address] [address] [address] Gilma Rojas Urea nitrogen [Mass/Vol] 18.0 mg/dL Normal 7.0-18.0 [facility] Comment on above: Performed By: #### C MP, TSH, LIPID #### [facility] [address] [address] [address] Gilma Rojas Urea nitrogen/Creatinine [Mass ratio] 23.1 mg/mg Normal [facility] Comment on above: Performed By: #### C MP, TSH, LIPID #### [facility] [address] [address] [address] Gilma Rojas TSHon 07-02-2022 TSH 3.135 uIU/mL Normal 0.358-3.740 [facility] Comment on above: Performed By: #### C MP, TSH, LIPID #### [facility] [address] [place] [address] Dr. Gilma Rojas Vital Signs Date Time Vital Sign Value Performing Clinician Facility 06-23-2024 10:57-0400 Body height 153.67 cm [facility] 06-23-2024 10:57-0400 Body mass index (BMI) [Ratio] 34.9 kg/m2 [facility] 06-23-2024 10:57-0400 Body weight 82.55 kg [facility] 06-23-2024 10:57-0400 Diastolic blood pressure 74 mm[Hg] [facility] 06-23-2024 10:57-0400 Heart rate 64 /min [facility] 06-23-2024 10:57-0400 Systolic blood pressure 146 mm[Hg] [facility] 03-17-2024 11:270400 Body height 153.67 cm [facility] 03-17-2024 11:270400 Body mass index (BMI) [Ratio] 34.4 kg/m2 [facility] 03-17-2024 11:27-0400 Body temperature 98.1 [degF] [facility] 03-17-2024 11:27-0400 Body weight 81.19 kg [facility] 03-17-2024 11:27-0400 Diastolic blood pressure 73 mm[Hg] [facility] 03-17-2024 11:27-0400 Heart rate 79 /min [facility] 03-17-2024 11:27-0400 Systolic blood pressure 134 mm[Hg] [facility] 09-24-2023 09:00-0500 Body height 153.67 cm Mariana Zayas Other [facility] [employer] Other 09-24-2023 09:00-0500 Body mass index (BMI) [Ratio] 33.61 kg/m2 Mariana Zayas Other [employer] Other 09-24-2023 09:00-0500 Body weight 79.38 kg Mariana Zayas Other [employer] Other 09-24-2023 09:00-0500 Diastolic blood pressure 80 mm[Hg] Mariana Zayas Other [employer] Other 09-24-2023 09:00-0500 Systolic blood pressure 126 mm[Hg] Mariana Zayas Other [employer] Other 08-13-2023 09:30-0400 Body height 153.67 cm Lukasz Quispe Other [employer] Other 08-13-2023 09:30-0400 Body mass index (BMI) [Ratio] 33.42 kg/m2 Lukasz Quispe Other [employer] Other 08-13-2023 09:30-0400 Body weight 78.93 kg Lukasz Quispe Other [employer] Other 08-13-2023 09:30-0400 SaO2% (BldA) [Mass fraction] 96 % Lukasz Quispe Other [employer] Other 07-28-2023 09:25-0400 Body height 153.67 cm Lima Villatoro Other [employer] Other 07-28-2023 09:25-0400 Body mass index (BMI) [Ratio] 32.84 kg/m2 Lima Shauna Other [employer] Other 07-28-2023 09:25-0400 Body temperature 98.3 [degF] Lima Shauna Other [employer] Other 07-28-2023 09:25-0400 Body weight 77.57 kg Lima Shauna Other [employer] Other 07-28-2023 09:25-0400 Diastolic blood pressure 82 mm[Hg] Lima Shauna Other [employer] Other 07-28-2023 09:25-0400 Respiratory rate 16 /min Lima Shauna Other [employer] Other 07-28-2023 09:25-0400 SaO2% (BldA) [Mass fraction] 98 % Lima Shauna Other [employer] Other 07-28-2023 09:25-0400 Systolic blood pressure 144 mm[Hg] Lima Shauna Other [employer] Other 06-19-2023 09:30-0400 Body height 153.67 cm Mariana Zayas Other [employer] Other 06-19-2023 09:30-0400 Body mass index (BMI) [Ratio] 32.8 kg/m2 Mariana Zayas Other [employer] Other 06-19-2023 09:30-0400 Body weight 77.47 kg Mariana Zayas Other [employer] Other 06-19-2023 09:30-0400 Diastolic blood pressure 77 mm[Hg] Mariana Zayas Other [employer] Other 06-19-2023 09:30-0400 Respiratory rate 12 /min Mariana Zayas Other [employer] Other 06-19-2023 09:30-0400 Systolic blood pressure 160 mm[Hg] Mariana Zayas Other [employer] Other 12-25-2022 15:45-0400 Body height 153.67 cm Mariana Zayas Other [employer] Other 12-25-2022 15:45-0400 Body mass index (BMI) [Ratio] 34.57 kg/m2 Mariana Zayas Other [employer] Other 12-25-2022 15:45-0400 Body weight 81.65 kg Mariana Zayas Other [employer] Other 12-25-2022 15:45-0400 Diastolic blood pressure 72 mm[Hg] Mariana Zayas Other [employer] Other 12-25-2022 15:45-0400 SaO2% (BldA) [Mass fraction] 97 % Mariana Zayas Other [employer] Other 12-25-2022 15:45-0400 Systolic blood pressure 132 mm[Hg] Mariana Zayas Other [employer] Other Encounters Encounter Date Encounter Type Care Provider Facility Start: 06-23-2024 End: 06-23-2024 ambulatory [facility] Work Phone: Start: 06-23-2024 End: 06-23-2024 Patient encounter procedure [facility] [place] Work Phone: Start: 03-17-2024 End: 03-17-2024 ambulatory [facility] Work Phone: Start: 03-17-2024 End: 03-17-2024 Patient encounter procedure [facility] Work Phone: Start: 02-10-2024 Non-patient / Non-visit [facility] [employer] Work Phone: Start: 09-24-2023 End: 09-24-2023 ambulatory Mariana Zayas Other [employer] Other Start: 09-24-2023 Office outpatient vi sit 15 minutes Mariana Zayas [facility] Start: 08-13-2023 End: 08-13-2023 ambulatory Lukasz Quispe Other [employer] Other Start: 08-13-2023 Office outpatient vi sit 25 minutes Lukasz Quispe [facility] Start: 07-28-2023 Office outpatient vi sit 15 minutes Lima Villatoro [facility] Julián Start: 07-28-2023 End: 07-28-2023 ambulatory Limarenuka Villatoro [facility] [employer] Other Start: 07-28-2023 End: 07-28-2023 Departed Referred MD Mariana Zayas Work Phone: [facility] [place] Work Phone: Start: 06-26-2023 End: 06-26-2023 ambulatory Mariana Zayas Other [employer] Other Start: 06-26-2023 Telephone encounter Mariana Zayas [facility] Start: 06-19-2023 Patient encounter procedure Mariana Zayas [facility] Start: 06-19-2023 End: 06-19-2023 ambulatory Mariana Zayas [facility] Work Phone: Start: 06-19-2023 End: 06-19-2023 Departed Referred MD Mariana Zayas Work Phone: [facility] [place] Work Phone: Start: 01-08-2023 End: 01-08-2023 ambulatory Mariana Zayas Other [employer] Other Start: 01-08-2023 Telephone encounter Mariana Zayas [facility] Start: 12-25-2022 End: 12-25-2022 ambulatory Mariana Zayas Other [employer] Other Start: 12-25-2022 Office outpatient vi sit 15 minutes Mariana Zayas [facility] Start: 07-02-2022 End: 07-03-[address] MARIANA ZAYAS Facility:[facility]1 Procedures Date Procedure Procedure Detail Performing Clinician Start: 07-28-2023 Piperacillin/tazobactam Lima Villatoro Other Plan of Treatment Date Care Activity Detail Author Start: 07-28-2023 Bacteria identified in Urine by Culture [facility] Start: 06-19-2023 [facility] Comprehensive metabo lic 2000 panel - Serum or Plasma [facility] Human papilloma viru s 16+18+31+33+35+39+45+51+52+56+58 +59+66+68 DNA [Presence] in Cervix by Probe with signal amplification [facility] MG Breast - bilateral Screening [facility] US Gallbladder [facility] Immunizations Immunization Date Immunization Notes Care Provider Fa cility 07-29-2022 COVID-19 Pfizer (Pediatric) Mariana Zayas Other [facility] 07-29-2022 influenza virus vaccine, split virus (incl. purified surface antigen) Mariana Chana Other [facility] [employer] Other 07-29-2022 influenza virus vaccine, unspecified formulation [facility] 06-12-2022 Prevnar 20 Mariana Chana Other [facility] 01-19-2022 COVID-19 Vaccine Moderna - Documentation Purposes Only Mariana Zayas Other [facility] 09-13-2015 influenza virus vaccine, split virus (incl. purified surface antigen) Mariana Chana Other [facility] [employer] Other 09-13-2015 influenza virus vaccine, unspecified formulation [facility] 07-29-2013 tetanus and diphther ia toxoids, adsorbed, preservative free, for adult use (5 Lf of tetanus toxoid and 2 Lf of diphtheria toxoid) Mariana Zayas Other [facility] Payers Date Payer Category Payer Medicare [id number] 2023 Self-pay [id number] 1960 Unknown [id number] 1955 Unknown [id number] Unknown [id number] Unknown [id number] Social History Date Type Detail Facility Unknown if ever smoked [employer] Other Sex Assigned At Sex Assigned At Bir th [employer] Other Start: 1955 Sex Assigned At Female F [facility] Start: 09-24-2023 Tobacco smoking status NHIS Never smoked tobacco (finding) [facility] Clinical Notes 12-25-2022 to 09-24-2023 Note Date & Type Note Facility [...] problem in groin area - requests refill. [employer] Other [id number] Evaluation note* Encounter Date Diagnosis Assessment Notes Treatment Notes Treatment Clinical Notes Jul, Cervical radiculopathy (ICD-10 - M54.12) [...] progress notes from her referring provider Mariana Zayas. I also independently reviewed recent imaging of [...] regarding her calf pain Jul, Other Medical deci irina making shows a new problem to me [...] negative findings were considered in medical decision-making. [employer] Other 10-15-2023 Evaluation note* Encounter Date Diagnosis Assessment Notes Treatment Notes Treatment Clinical Notes Jul, Dysuria (ICD-10 - R30.0) Jul, Acute cystitis with hematuria (ICD-10 - N30.01) Drink plenty fluids, get plenty of rest. Take the Macrobid and Pyridium as prescribed until gone. Take Tylenol or Motrin as needed for aches pains or fevers. Follow-up with your family physician if no improvement in 2 to 3 days [employer] Other 09-13-2023 Evaluation note* Encounter Date Diagnosis Assessment Notes Treatment Notes Treatment Clinical Notes Jun, Situational anxiety (ICD-10 - F41.8) [employer] Other 09-06-2023 Evaluation note* Encounter Date Diagnosis Assessment Notes Treatment Notes Treatment Clinical Notes Jun, Medicare annual wellness visit, subsequent [...] cancer (ICD-10 - Z12.31) Jun, Arm paresthesia, lef t (ICD-10 - R20.2) Agrees to cervical xray [...] her satisfaction and patient sent home stable [employer] Other 03-28-2023 Evaluation note* Encounter Date Diagnosis Assessment Notes Treatment Notes Treatment Clinical Notes Dec, Erythrasma (ICD-10 - L08.1) [employer] Other 03-14-2023 Evaluation note* Encounter Date Diagnosis Assessment Notes Treatment Notes Treatment Clinical Notes Dec, Erythrasma (ICD-10 - L08.1) Rx [...] she is doing well. >15 min discussion [employer] Other Evaluation noteNo assessment information available [facility] Work Phone: Evaluation note* Diagnosis Onset Date Resolution Status Essential (primary) hypertension acute Hypothyroidism acute Mixed hyperlipidemia acute RUQ abdominal pain acute Screening mammogram for breast cancer acute Vitamin D deficiency acute [facility] Work Phone: History general Narrative - Reported* Type Description Date Medical History HTN Medical History VV's Medical [...] C SECTION X2 Surgical History TUBAL LIGATION [employer] Other History general Narrative - Reported* Type Description Date Medical History HTN Medical History VV's Medical [...] TUBAL LIGATION Hospitalization History SEE SURGICAL HX [employer] Other Summary Purpose Family History Relationship Condition Age at Onset Recorded Date/T tori brother Hypertension Unknown daughter Hypertension Unknown father Diabetes mellitus Unknown Hypertension Unknown History of stroke Unknown Unknown Not Specified Hypertension Unknown Heart disease Unknown natural son Hypertension Unknown Relationship Condition Age at Onset Recorded Date/T tori brother Hypertension Unknown daughter Hypertension Unknown father Diabetes mellitus Unknown Hypertension Unknown History of stroke Unknown Unknown mother Hypertension Unknown Heart disease Unknown son Hypertension Unknown Advance Directives Advance Directive Response Recorded Date/ Time Advance Directives No June 3:08pm Chief Complaint and Reason for Visit Chief Complaint Z12.4 Chief Complaint Amb Documentation Sore throat, ear pain Chief Complaint wellness Reason for Visit Essential (primary) hypertension Hypothyroidism Mixed hyperlipidemia RUQ abdominal pain Screening mammogram for breast cancer Vitamin D deficiency Reason for Referral Reason [facility] Diagnosis 1 Symptomatic varicose veins, right (I83.891) Referral Organization [facility] giovanna Referring Provider First Name Mariana Referring Provider Last Name Chana Referring Provider Specialty Family [facility] cine Referred Organization [facility] Referred Address [address], [place],[address] Referred Provider Specialty Vascular and Interventional Radiology Referral Priority Routine Additional Source Comments INFORMATION SOURCE (unrecogn ized section and content) DATE CREATED AUTHOR 07/14/2022 [facility] DATE CREATED AUTHOR AUTHOR'S ORGANIZ ATION 07/31/2023 [facility] REASON FOR VISIT (unrecogniz ed section and content) rash in groin and stomachRas h-Not BetterWellness/Possible PAP ExamrefillPOSSIBLE UTIPOSSIBLE UTIREFF BY MARIANA ZAYAS, COMSULT FOR NECK PAINhigh BP Care Teams (unrecognized sec tion and content) Team Status: Active Member Role Status Dates Mariana Zayas MD Primary Care Provider Active Team Status: Inactive Member Role Status Dates Mariana Zayas MD Primary Care Provide r, Attending Provider Active Start: June 23, 2024 End: June 23, 2024 Team Status: Inactive Member Role Status Dates SESAR Elizabeth Attending Provider Active Team Status: Inactive Member Role Status Dates Mariana Zayas MD Attending Provider Active Team Status: Active Member Role Status Dates Mariana Zayas MD Primary Care Provider Active Team Status: Active Member Role Status Dates Mariana Zayas MD Primary Care Provider Active Start: February 10, 2024 VIVEK Anna Attending Provider Active Start : February 10, 2024 Team Status: Inactive Member Role Status Dates Mariana Zayas MD Primary Care Provide r, Attending Provider Active Start: March 17, 2024 End: March 17, 2024 Team Status: Inactive Member Role Status Dates Mariana Zayas MD Primary Care Provide r, Attending Provider Active Start: June 23, 2024 End: June 23, 2024 Goals (unrecognized section and content) Goals may [...] BE BASED ON THE PRIMARY CLINICAL RECORDS. [facility] provides no warranty or guarantee of the accuracy or completeness of information in this document.
--- NOTE | 2024-06-29 07:54 | US_ITS ---
The [address] [address] Patient Name: FIGUEROA VILLANUEVA MRN: [id number] date: 1955 Sex: F Assigned Patient Location: US Current Patient Location: US Accession/Order Number: [id number] Exam Date: 06/29/2024 08:15 Report Date: 06/29/2024 09:05 At the request of: MIKAELA ZAYAS Procedure: US right upper quadrant EXAM: US right upper quadrant HISTORY: Right Upper Quadrant Pain COMPARISON: None. TECHNIQUE: A scale, color and Doppler FINDINGS: The liver measures 18.3 cm in length. Minimally nodular liver contour. Diffuse increase in hepatic echotexture. No focal hepatic mass. Hepatopedal flow in the main portal vein. The gallbladder is normal in size. The wall measures 2.2 mm. The common bile duct measures 2.7 mm. Negative sonographic Sexton sign. No cholelithiasis. Visualized pancreas is normal The right kidney is normal measuring 9.9 x 4.8 x 5.6 cm. No focal mass US/US right upper quadrant IMPRESSION: Echogenic liver with suspected nodular contour. Consider cirrhosis or hepatic steatosis Electronically authenticated by: NUSRAT ONEIL Date: 06/29/2024 09:05
[2024-06-29 08:00] LABS: Basophils Percent Auto 0.6 % (0.2-2.0); Eosinophils Absolute Auto 0.1 10^3/uL (0.0-0.7); Eosinophils Percent Auto 1.9 % (0.9-7.0); Hematocrit 43.5 % (36.0-48.0); Hemoglobin 14.5 g/dL (12.0-16.0); Immature Granulocytes Abs Auto 0.02 10^3/uL (0.00-0.03); Immature Granulocytes Pct Auto 0.3 % (0.0-0.5); Lymphocytes Absolute Auto 1.3 10^3/uL (1.2-3.8); Lymphocytes Percent Auto 18.4 % (20.5-60.0); Mean Corpuscular HGB Conc 33.3 g/dL (29.9-35.2); Mean Corpuscular Hemoglobin 30.2 pg (26.7-34.0); Mean Corpuscular Volume 90.6 fL (81.0-99.0); Mean Platelet Volume 10.4 fL (9.5-13.5); Monocytes Absolute Auto 0.5 10^3/uL (0.3-0.8); Monocytes Percent Auto 7.9 % (1.7-12.0); Neutrophils Absolute Auto 4.8 10^3/uL (1.4-6.5); Neutrophils Percent Auto 70.9 % (43.0-75.0); Platelet Count 256 10^3/uL (150-450); Red Cell Distribution Width 13.1 % (11.0-15.0); White Blood Count 6.8 10^3/uL (4.0-11.0)
[2024-06-29 09:12] LABS: Alanine Aminotransferase 51 U/L (14-59); Albumin Globulin Ratio 1.3; Albumin Level 4.2 g/dL (3.4-5.0); Alkaline Phosphatase 50 U/L (46-116); Anion Gap 11.6; Aspartate Amino Transferase 31 U/L (15-37); Bilirubin Total 0.7 mg/dL (0.2-1.0); Calcium 9.6 mg/dL (8.5-10.1); Chloride 104 mmol/L (98-107); Cholesterol 183 mg/dL (<=200); Estimated GFR (African America >60 (>=60); Estimated GFR (Non-African Ame >60 (>=60); Globulin 3.2 g/dL; Glucose 98 mg/dL (74-106); HDL Cholesterol 61 mg/dL (40-60); Potassium 3.6 mmol/L (3.5-5.1); Sodium 143 mmol/L (136-145); Thyroid Stimulating Hormone 2.509 uIU/mL (0.358-3.740); Total Protein 7.4 g/dL (6.4-8.2); Triglycerides 185 mg/dL (<=150)
[2024-06-29 09:43] LABS: Free T4 1.23 ng/dL (0.76-1.46)
== END 2024-06-29 07:39 | disposition home or self-care (01) ==
LOC: US 07:38
PROVIDERS: PCP Family Medicine; Visit Provider Family Medicine
DX: R10.11 Right upper quadrant pain (principal); I10 Essential (primary) hypertension; E78.2 Mixed hyperlipidemia; E03.9 Hypothyroidism, unspecified; E55.9 Vitamin D deficiency, unspecified
CPT/HCPCS: 36415; 76705; 80053; 80061; 82306; 84439; 84443; 85025

== ENCOUNTER 2024-07-06 07:39 | Outpatient (OUT) | payer MEDICARE, SELFPAY ==
--- NOTE | 2024-07-06 07:42 | MM_ITS ---
Patient Name: FIGUEROA VILLANUEVA MR#: [id number] : 1955 Exam Date: 07/06/2024 Ordering Doctor: DR Mariana Mayfield M.D. RADIOLOGY REPORT PROCEDURE: MM TOMOSYNTHESIS SCREENING BI COMPARISON: MG MAMM SCREEN 3D SAVANNAH CAD, 07/02/2022. MM TOMOSYNTHESIS SCREENING BI, 07/03/2023. INDICATIONS: Screening Calculator Name NCI Breast Cancer Risk Assessment Tool 5 Year Breast Cancer Risk 1.50% Lifetime Breast Cancer Risk 4.80% Personal Breast Cancer No Personal Ovarian Cancer No Treatments None Family Cancers Mother with skin cancer at age 79. LOCATION: [facility] BREAST COMPOSITION: There are scattered areas of fibroglandular density. FINDINGS: DIAGNOSTIC CATEGORY 2--BENIGN FINDING. NO CHANGE FROM COMPARISON. Scattered benign-appearing nodules are present. Scattered benign-appearing calcifications are present. Scattered benign-appearing lymph nodes are present. RIGHT BREAST: No significant suspicious finding. LEFT BREAST: No significant suspicious finding. RECOMMENDATIONS: ROUTINE MAMMOGRAM AND CLINICAL EVALUATION IN 12 MONTHS. PLEASE NOTE: A NORMAL MAMMOGRAM DOES NOT EXCLUDE THE POSSIBILITY OF BREAST CANCER. A CLINICALLY SUSPICIOUS PALPABLE LUMP SHOULD BE BIOPSIED. Dictated by: Gutierrez Kirk MD on 07/06/2024 at 12:39 Approved by: Gutierrez Kirk MD on 07/06/2024 at 12:40
--- OUTSIDE RECORDS SUMMARY | 2024-07-06 07:42 | XMS_ITS | CCD ---
Author Organization [facility] Care Team Providers Care Business Performance Analyst Name Role Phone DR MARIANA ZAYAS Admitting Unavailable CHANA, DR MARIANA Glover Primary Care Unavailable CHANA, DR MARIANA Glover Attending Unavailable CHASE, DR WIL Edmondson Consulting Unavailable CHANA, DR MARIANA Glover Consulting Unavailable Mariana Zayas Unavailable MD Mariana Zayas Attending Provider [phone] Lima Villatoro Unavailable SESAR Villatoro Attending Provider Lima Villatoro Admitting Unavailable Lima Villatoro Attending Unavailable Mariana Zayas Primary Care Unavailable Mariana Zayas Attending Unavailable Mariana Zayas Admitting Unavailable Lukasz Quispe Unavailable Allergies Allergy Classification Reported Allergen(s) Allergy Type Date of Onset Reaction(s) Facility (3 sources) Codeine Drug Allergy 03-17-20 [facility] Repository (2 sources) Codeine Drug Allergy Unknown [facility] Other (6 sources) Codeine Drug Allergy Unknown [facility] Other (8 sources) Anesthesia S/I-40A Drug allergy 09-24-20 Comment:Everardo leach had a reaction to the anesthetic her last surgery and had to have a spinal, Comment:Everardo leach had a reaction to the anesthetic her last... [facility] (6 sources) Medicinal cephalosporin and acting as antibacterial agent (FN) Drug allergy Unknown [facility] [employer] Other (2 sources) Cephalosporins (Antibiotic) Allergy to substance 03-17-20 [facility] Medications Current Medications Medication Drug Class(es) Dates [...] PO Daily March 17, 2024 12:00am nystatin 124366 unt/ml topical cream (1 source) Polyene Antifungal Start: 4 Nystatin Active 1 APPLIC TOPICAL Twice daily June 23, 2024 12:00am Orestes 3-Fmy-Kjh-Fish Oil (Fish Oil) 100-160-1,000 mg capsule (2 sources) Start: 4 Orestes 6-Qzt-Hck-Fish Oil (Fish Oil) 100-160-1,000 mg capsule Active [...] E 1000 U NIT Orally Active Vitamins A,C,T-Ufvl-Jiknom (Preservision Areds) 4,296 mcg-226 mg-90 mg capsule (2 sources) Start: 03-17-2024 take 1 capsule by mouth twice daily Vitamins A,C,I-Pvkj-Lzduep (Preservision Areds) 4,296 mcg-226 mg-90 mg capsule [...] Facility Urinalysis - AUTOMATED Appearance (U) cloudy [facility] Other Bilirubin Ql (U) Negative [email or web address] Other Color (U) dark yellow [facility] Other Glucose Ql (U) Negative [facility] Other Hemoglobin Ql (U) large [employer] Other Ketones Ql (U) Negative [facility] Other Leukocyte esterase Test strip Ql (U) moderate [facility] Other Nitrite Ql (U) Negative [facility] Other pH (U) 5.5 [pH] [facility] Other Protein Ql (U) 30 [facility] Other Specific gravity (U) [Rel density] 1.025 [facility] Other Urobilinogen (U) [Mass/Vol] 0.2 mg/dL [facility] Other Urinalysis - AUTOMATED No rt Related Content Database (RCDb) Other Urine Cultureon 07-28-2023 Urine Culture 20,000 [facility] Other Urine Culture <16 Susceptible [facility] Other Urine Culture >16/8 Resistant [facility] Other Urine Culture >16 Resistant [facility] Other Urine Culture <4 Susceptible [facility] Other Urine Culture 4 Susceptible [facility] Other Urine Culture <2 Susceptible [facility] Other Urine Culture <1 Susceptible [facility] Other Urine Culture 8 Susceptible [facility] Other Urine Culture <0.25 Susceptible [facility] Other Urine Culture <0.5 Susceptible [facility] Other Urine Culture <32 Susceptible [facility] Other Urine Culture <0.5/9.5 Susceptible [facility] Other Bacteria identified Cx Nom (U) Reason for Exam Dysuria Urine Reason for Exam: Dysuria : Urine ORGANISM: Escherichia coli (O:ESCCOL) [place] Count 20,000 Aerobic ANNA Charge ([id number]) ----- [...] RESISTANT TO ALL B-LACTAM DRUGS. PERFORMED BY: [place] [address] PATHOLOGIST EMBROIDERY OPERATOR TRAVIS RADFORD M.D. Normal [facility] Comment on above: Performed By: #### C UU #### [address] Human papilloma virus 16+18+ 31+33+35+39+45+51+52+56+58+59+66+68 DNA [Presence] in CerOrdered By: Mariana Zayas on 06-19-2023 HPV 16+18+31+33+35+39+45+5 1+52+56+58+59+66+68 DNA Probe+sig amp Ql (Cvx) Negative Negative [facility] Comment on above: This nucleic acid am plification test detects fourteen high- risk HPV types (16,18,31,33,35,39,45,51,52,56,58,59,66,68)without differentiation.Performed at: [address] [id number] Director: Jackelyn Ayala MD, Phone: [phone] at: =[address] [id number] Director: Jackelyn Ayala MD, Phone: [phone] IGP, Aptima HPV, rfx 16/18,4 5on 06-19-2023 PAP HPV Aptima Negative Normal Negative [facility] Comment on above: Result Comment: This nucleic acid amplification test detects fourteen high- risk HPV types (16,18,31,33,35,39,45,51,52,56,58,59,66,68) without differentiation. Performed at: [address] [id number] Enamel Dipper: Jackelyn Ayala MD, Phone: [phone] Performed at: =[address] [id number] Enamel Dipper: Jackelyn Ayala MD, Phone: [phone] PERFORMED BY: [address] [address] PATHOLOGIST EMBROIDERY OPERATOR TRAVIS RADFORD M.D. Performed By: #### P AP [id number] #### [facility] , Pap Image Guided Note Normal . [facility] Comment on above: Result Comment: TEST S RESULT FLAG UNITS REF RANGE LAB Clinician Provided Cytology Information No. of containers..01 ThinPrep Vial DIAGNOSIS: 01 NEGATIVE FOR INTRAEPITHELIAL LESION OR MALIGNANCY. CELLULAR CHANGES ASSOCIATED WITH ATROPHY ARE PRESENT. Specimen adequacy: 01 Satisfactory for evaluation. Endocervical component may not be distinguished in cases of atrophy. Performed by: 01 Kwan Lundberg, Supply Planner (ASCP) . 01 Note: Note 01 The [...] High,A-Abnormal,AA-Critical Abnormal Performed at: 01 [address] [facility] [address] [address] Jackelyn Ayala MD, Performed By: #### P AP [id number] #### [facility] , No Panel InformationOrdered By: Mariana Zayas on 06-19-2023 IG Pap w/Ct-Ng & HPV Rflx (Off-Site Note . [facility] Comment on above: TESTS RESULT FLAG UN ITS REF RANGE LAB Clinician Provided Cytology Information No. of containers..01 ThinPrep VialDIAGNOSIS: 01 NEGATIVE FOR INTRAEPITHELIAL LESION OR MALIGNANCY. CELLULAR CHANGES ASSOCIATED WITH ATROPHY ARE PRESENT.Specimen adequacy: 01 Satisfactory for evaluation. Endocervical component may not be distinguished in cases of atrophy.Performed by: 01 Kwan Lundberg, Supply Planner ([facility]). 01Note: Note 01 The Pap smear [...] High <-Panic Low,>-Panic High,A-Abnormal,AA-Critical Abnormal -----Performed at:[address] [address] Jackelyn Ayala MD, FREE T4on 07-02-2022 Free T4 [Mass/Vol] 1.15 ng/dL Normal 0.76-1.46 [facility] Comment on above: Performed By: #### F T4 #### [facility] [address] [place], [place] [address] Dr. Gilma Rojas LIPID PROFILEon 07-02-2022 CHOL-HDL RATIO NORM SEE BELOW Normal [facility] Comment on above: Result Comment: 3.3 - 4.4 LOW RISK 4.4 - 7.1 AVERAGE RISK 7.1 - 11.0 MODERATE RISK >11.0 HIGH RISK Performed By: #### C MP, TSH, LIPID #### [facility] [address] [place] [address] [address] Gilma Rojas Cholesterol [Mass/Vol] 191 mg/dL Normal <=200 [facility] Comment on above: Performed By: #### C MP, TSH, LIPID #### [facility] [address] [place] [address] [address] Gilma Rojas Cholesterol in HDL [Mass/Vol] 59 mg/dL Normal 40-60 [facility] Comment on above: Performed By: #### C MP, TSH, LIPID #### [facility] [address] [address] [address] Gilma Rojas Cholesterol in LDL [Mass/Vol] 112.4 mg/dL Normal [facility] Comment on above: Performed By: #### C MP, TSH, LIPID #### [facility] [address] [place] [address] Dr. Gilma Rojas Cholesterol.total/Chol esterol in HDL [Mass ratio] 3.2 {ratio} Normal [facility] Comment on above: Performed By: #### C MP, TSH, LIPID #### [facility] [address] [address] [address] Gilma Rojas HDL NORMAL > or = 60 mg/dl - LOW CARDIOVASCULAR RISK <40 mg/dl - HIGH CARDIOVASCULAR RISK Normal [facility] Comment on above: Performed By: #### C MP, TSH, LIPID #### [facility] [address] [address] [address] Gilma Rojas LDL CALC NORMAL SEE BELOW Normal [facility] Comment on above: Result Comment: <100 mg/dl OPTIMAL 100 - 129 mg/dl NEAR OR ABOVE OPTIMAL 130 - 159 mg/dl BORDERLINE HIGH 160 - 189 mg/dl HIGH >190 mg/dl VERY HIGH Performed By: #### C MP, TSH, LIPID #### [facility] [address] [address] [address] Gilma Rojas Triglyceride [Mass/Vol] 98 mg/dL Normal <=150 [facility] Comment on above: Performed By: #### C MP, TSH, LIPID #### [facility] [address] [address] [address] Gilma Rojas VLDL CALC 19.6 mg/dL Normal [facility] Comment on above: Performed By: #### C MP, TSH, LIPID #### [facility] [address] [place], [place] [address] Dr. Gilma Rojas MG MAMM SCREEN 3D SAVANNAH CADon 07-02-2022 MG MAMM SCREEN 3D SAVANNAH CAD Patient: GABBY VILLANUEVA Exam Date: 07/02/2022 : 1955 Gender:F Ordering : DR MARIANA ZAYAS M.D. Admission #: [id number] Family : Order #: [id number] CLICK HERE TO VIEW EXAM RADIOLOGY REPORT [...] cancer at age 78. LOCATION: [facility] BREAST COMPOSITION: Scattered areas fibroglandular density. [...] Garcia M.D. on 07/02/2022 at 12:31 Normal [facility] PROF 14(COMP METB)on 022 Albumin [Mass/Vol] 4.3 g/dL Normal 3.4-5.0 [facility] Comment on above: Performed By: #### C MP, TSH, LIPID #### [facility] [address] [place], [place] [address] Dr. Gilma Rojas Albumin/Globulin [Mass ratio] 1.4 {ratio} Normal [facility] Comment on above: Performed By: #### C MP, TSH, LIPID #### [facility] [address] [place] [address] [address] Gilma Rojas ALP [Catalytic activity/Vol] 44 U/L Critically low 46-116 [facility] Comment on above: Performed By: #### C MP, TSH, LIPID #### [facility] [address] [place] [address] [address] Gilma Rojas ALT [Catalytic activity/Vol] 36 U/L Normal 14-59 [facility] Comment on above: Performed By: #### C MP, TSH, LIPID #### [facility] [address] [place] [address] [address] Gilma Rojas Anion gap [Moles/Vol] 10.4 mmol/L Normal [facility] Comment on above: Performed By: #### C MP, TSH, LIPID #### [facility] [address] [place] [address] [address] Gilma Rojas AST [Catalytic activity/Vol] 25 U/L Normal 15-37 [facility] Comment on above: Performed By: #### C MP, TSH, LIPID #### [facility] [address] [place] [address] [address] Gilma Rojas Bilirubin [Mass/Vol] 0.6 mg/dL Normal 0.2-1.0 [facility] Comment on above: Performed By: #### C MP, TSH, LIPID #### [facility] [address] [place] [address] [address] Gilma Rojas Calcium [Mass/Vol] 9.6 mg/dL Normal 8.5-10.1 [facility] Comment on above: Performed By: #### C MP, TSH, LIPID #### [facility] [address] [place] [address] [address] Gilma Rojas Chloride [Moles/Vol] 106 mmol/L Normal 98-107 [facility] Comment on above: Performed By: #### C MP, TSH, LIPID #### [facility] [address] [place] [address] [address] Gilma Rojas CO2 [Moles/Vol] 30.1 mmol/L Normal 21.0-32.0 [facility] Comment on above: Performed By: #### C MP, TSH, LIPID #### [facility] [address] [address] [address] Gilma Rojas Creatinine [Mass/Vol] 0.78 mg/dL Normal 0.55-1.02 [facility] Comment on above: Performed By: #### C MP, TSH, LIPID #### [facility] [address] [place] [address] [address] Gilma Rojas EGFR-AF [place]ER >60 Normal >=60 [facility] Comment on above: Performed By: #### C MP, TSH, LIPID #### [facility] [address] [place] [address] [address] Gilma Rojas EGFR-NON AF [place]ER >60 Normal >=60 [facility] Comment on above: Performed By: #### C MP, TSH, LIPID #### [facility] [address] [place] [address] [address] Gilma Rojas Globulin (S) [Mass/Vol] 3.1 g/dL Normal [facility] Comment on above: Performed By: #### C MP, TSH, LIPID #### [facility] [address] [place] [address] [address] Gilma Rojas Glucose [Mass/Vol] 99 mg/dL Normal 74-106 [facility] Comment on above: Performed By: #### C MP, TSH, LIPID #### [facility] [address] [place] [address] [address] Gilma Rojas Potassium [Moles/Vol] 3.5 mmol/L Normal 3.5-5.1 [facility] Comment on above: Performed By: #### C MP, TSH, LIPID #### [facility] [address] [place] [address] [address] Gilma Rojas Protein [Mass/Vol] 7.4 g/dL Normal 6.4-8.2 [facility] Comment on above: Performed By: #### C MP, TSH, LIPID #### [facility] [address] [place] [address] [address] Gilma Rojas Sodium [Moles/Vol] 143 mmol/L Normal 136-145 [facility] Comment on above: Performed By: #### C MP, TSH, LIPID #### [facility] [address] [place] [address] [address] Gilma Rojas Urea nitrogen [Mass/Vol] 18.0 mg/dL Normal 7.0-18.0 [facility] Comment on above: Performed By: #### C MP, TSH, LIPID #### [facility] [address] [place] [address] [address] Gilma Rojas Urea nitrogen/Creatinine [Mass ratio] 23.1 mg/mg Normal [facility] Comment on above: Performed By: #### C MP, TSH, LIPID #### [facility] [address] [place] [address] [address] Gilma Rojas TSHon 07-02-2022 TSH 3.135 uIU/mL Normal 0.358-3.740 [facility] Comment on above: Performed By: #### C MP, TSH, LIPID #### [facility] [address] [place] [address] Dr. Gilma Rojas Vital Signs Date Time Vital Sign Value Performing Clinician Facility 06-23-2024 10:57-0400 Body height 153.67 cm [facility] 06-23-2024 10:57-0400 Body mass index (BMI) [Ratio] 34.9 kg/m2 [facility] 06-23-2024 10:57-0400 Body weight 82.55 kg [facility] 06-23-2024 10:57-0400 Diastolic blood pressure 74 mm[Hg] [facility] 06-23-2024 10:57-0400 Heart rate 64 /min [facility] 06-23-2024 10:57-0400 Systolic blood pressure 146 mm[Hg] [facility] 03-17-2024 11:270400 Body height 153.67 cm [facility] 03-17-2024 11:270400 Body mass index (BMI) [Ratio] 34.4 kg/m2 [facility] 03-17-2024 11:27-0400 Body temperature 98.1 [degF] [facility] 03-17-2024 11:27-0400 Body weight 81.19 kg [facility] 03-17-2024 11:27-0400 Diastolic blood pressure 73 mm[Hg] [facility] 03-17-2024 11:27-0400 Heart rate 79 /min [facility] 03-17-2024 11:27-0400 Systolic blood pressure 134 mm[Hg] [facility] 09-24-2023 09:00-0500 Body height 153.67 cm Mariana Zayas Other [facility] [employer] Other 09-24-2023 09:00-0500 Body mass index (BMI) [Ratio] 33.61 kg/m2 Mariana Zayas Other [facility] Other 09-24-2023 09:00-0500 Body weight 79.38 kg Mariana Zayas Other [facility] Other 09-24-2023 09:00-0500 Diastolic blood pressure 80 mm[Hg] Mariana Zayas Other [facility] Other 09-24-2023 09:00-0500 Systolic blood pressure 126 mm[Hg] Mariana Zayas Other [facility] Other 08-13-2023 09:30-0400 Body height 153.67 cm Lukasz Quispe Other [facility] Other 08-13-2023 09:30-0400 Body mass index (BMI) [Ratio] 33.42 kg/m2 Lukasz Quispe Other [facility] Other 08-13-2023 09:30-0400 Body weight 78.93 kg Lukasz Quispe Other [facility] Other 08-13-2023 09:30-0400 SaO2% (BldA) [Mass fraction] 96 % Lukasz Quispe Other [facility] Other 07-28-2023 09:25-0400 Body height 153.67 cm Lima Villatoro Other [facility] Other 07-28-2023 09:25-0400 Body mass index (BMI) [Ratio] 32.84 kg/m2 Lima Shauna Other [facility] Other 07-28-2023 09:25-0400 Body temperature 98.3 [degF] Lima Shauna Other [facility] Other 07-28-2023 09:25-0400 Body weight 77.57 kg Lima Shauna Other [facility] Other 07-28-2023 09:25-0400 Diastolic blood pressure 82 mm[Hg] Lima Shauna Other [facility] Other 07-28-2023 09:25-0400 Respiratory rate 16 /min Lima Shauna Other [facility] Other 07-28-2023 09:25-0400 SaO2% (BldA) [Mass fraction] 98 % Lima Shauna Other [facility] Other 07-28-2023 09:25-0400 Systolic blood pressure 144 mm[Hg] Lima Shauna Other [facility] Other 06-19-2023 09:30-0400 Body height 153.67 cm Mariana Zayas Other [facility] Other 06-19-2023 09:30-0400 Body mass index (BMI) [Ratio] 32.8 kg/m2 Mariana Zayas Other [facility] Other 06-19-2023 09:30-0400 Body weight 77.47 kg Mariana Zayas Other [facility] Other 06-19-2023 09:30-0400 Diastolic blood pressure 77 mm[Hg] Mariana Zayas Other [facility] Other 06-19-2023 09:30-0400 Respiratory rate 12 /min Mariana Zayas Other [facility] Other 06-19-2023 09:30-0400 Systolic blood pressure 160 mm[Hg] Mariana Zayas Other [facility] Other 12-25-2022 15:45-0400 Body height 153.67 cm Mariana Zayas Other [facility] Other 12-25-2022 15:45-0400 Body mass index (BMI) [Ratio] 34.57 kg/m2 Mariana Zayas Other [facility] Other 12-25-2022 15:45-0400 Body weight 81.65 kg Mariana Zayas Other [facility] Other 12-25-2022 15:45-0400 Diastolic blood pressure 72 mm[Hg] Mariana Zayas Other [facility] Other 12-25-2022 15:45-0400 SaO2% (BldA) [Mass fraction] 97 % Mariana Zayas Other [facility] Other 12-25-2022 15:45-0400 Systolic blood pressure 132 mm[Hg] Mariana Zayas Other [facility] Other Encounters Encounter Date Encounter Type Care Provider Facility Start: 06-23-2024 End: 06-23-2024 ambulatory [facility] Work Phone: Start: 06-23-2024 End: 06-23-2024 Patient encounter procedure [facility] Physician [facility] Work Phone: Start: 03-17-2024 End: 03-17-2024 ambulatory [facility] Work Phone: Start: 03-17-2024 End: 03-17-2024 Patient encounter procedure [facility] Physician [facility] Work Phone: Start: 02-10-2024 Non-patient / Non-visit [facility] Physician [facility] [employer] Work Phone: Start: 09-24-2023 End: 09-24-2023 ambulatory Mariana Zayas Other [facility] Other Start: 09-24-2023 Office outpatient vi sit 15 minutes Mariana Zayas [facility] [place] Start: 08-13-2023 End: 08-13-2023 ambulatory Lukasz Quispe Other [facility] Other Start: 08-13-2023 Office outpatient vi sit 25 minutes Lukasz Quispe [facility] Start: 07-28-2023 Office outpatient vi sit 15 minutes Lima Villatoro [facility] Juli[facility] Start: 07-28-2023 End: 07-28-2023 ambulatory Limarenuka Villatoro [facility] [employer] Other Start: 07-28-2023 End: 07-28-2023 Departed Referred MD Mariana Zayas Work Phone: [facility] Work Phone: Start: 06-26-2023 End: 06-26-2023 ambulatory Mariana Zayas Other [facility] Other Start: 06-26-2023 Telephone encounter Mariana Zayas [facility] [place] Start: 06-19-2023 Patient encounter procedure Mariana Zayas [facility] [place] Start: 06-19-2023 End: 06-19-2023 ambulatory Mariana Zayas [facility] Work Phone: Start: 06-19-2023 End: 06-19-2023 Departed Referred MD Mariana Zayas Work Phone: [facility] [place] Work Phone: Start: 01-08-2023 End: 01-08-2023 ambulatory Mariana Zayas Other [facility] Other Start: 01-08-2023 Telephone encounter Marinaa Zayas [facility] [place] Start: 12-25-2022 End: 12-25-2022 ambulatory Mariana Zayas Other [facility] Other Start: 12-25-2022 Office outpatient vi sit 15 minutes Mariana Zayas [facility] [place] Start: 07-02-2022 End: 07-03-[address] MARIANA ZAYAS Facility:[facility]1 Procedures Date Procedure Procedure Detail Performing Clinician Start: 07-28-2023 Piperacillin/tazobactam Lima Villatoro Other Plan of Treatment Date Care Activity Detail Author Start: 07-28-2023 Bacteria identified in Urine by Culture [facility] Start: 06-19-[address] [facility] Comprehensive metabo lic 2000 panel - Serum or Plasma [facility] Human papilloma viru s 16+18+31+33+35+39+45+51+52+56+58 +59+66+68 DNA [Presence] in Cervix by Probe with signal amplification [facility] MG Breast - bilateral Screening [facility] US Gallbladder [facility] Immunizations Immunization Date Immunization Notes Care Provider Fa cility 07-29-2022 COVID-19 Pfizer (Pediatric) Mariana Zayas Other [facility] 07-29-2022 influenza virus vaccine, split virus (incl. purified surface antigen) Mariana Chana Other [facility] [employer] Other 07-29-2022 influenza virus vaccine, unspecified formulation [facility] 06-12-2022 Prevnar 20 Mariana Chana Other [facility] 01-19-2022 COVID-19 Vaccine Moderna - Documentation Purposes Only Mariana Zayas Other [facility] 09-13-2015 influenza virus vaccine, split virus (incl. purified surface antigen) Mariana Chana Other [facility] [employer] Other 09-13-2015 influenza virus vaccine, unspecified formulation [facility] 07-29-2013 tetanus and diphther ia toxoids, adsorbed, preservative free, for adult use (5 Lf of tetanus toxoid and 2 Lf of diphtheria toxoid) Mariana Zayas Other [facility] Payers Date Payer Category Payer Medicare [id number] 2023 Self-pay [id number] 1960 Unknown [id number] 1955 Unknown [id number] Unknown [id number] Unknown [id number] Social History Date Type Detail Facility Unknown if ever smoked [facility] Other Sex Assigned At Sex Assigned At Bir th [facility] Other Start: 1955 Sex Assigned At Female F [facility] Start: 09-24-2023 Tobacco smoking status NHIS Never smoked tobacco (finding) [facility] Clinical Notes 12-25-2022 to 09-24-2023 Note Date [...] problem in groin area - requests refill. [facility] Other [id number] Evaluation note* Encounter Date Diagnosis Assessment Notes [...] negative findings were considered in medical decision-making. [facility] Other 10-15-2023 Evaluation note* Encounter Date Diagnosis [...] no improvement in 2 to 3 days [facility] Other 09-13-2023 Evaluation note* Encounter Date Diagnosis Assessment Notes Treatment Notes Treatment Clinical Notes Jun, Situational anxiety (ICD-10 - F41.8) [facility] Other 09-06-2023 Evaluation note* Encounter Date Diagnosis [...] her satisfaction and patient sent home stable [facility] Other 03-28-2023 Evaluation note* Encounter Date Diagnosis Assessment Notes Treatment Notes Treatment Clinical Notes Dec, Erythrasma (ICD-10 - L08.1) [facility] Other 03-14-2023 Evaluation note* Encounter Date Diagnosis [...] she is doing well. >15 min discussion [facility] Other Evaluation noteNo assessment information available [facility] [place] [facility] Work Phone: Evaluation note* Diagnosis Onset Date Resolution Status Essential (primary) hypertension acute Hypothyroidism acute Mixed hyperlipidemia acute RUQ abdominal pain acute Screening mammogram for breast cancer acute Vitamin D deficiency acute [facility] Work Phone: History general Narrative - [...] C SECTION X2 Surgical History TUBAL LIGATION [employer] Other History general Narrative - Reported* Type [...] TUBAL LIGATION Hospitalization History SEE SURGICAL HX [employer] Other Summary Purpose Family History Relationship Condition [...] Referral Reason [facility] [place] Diagnosis 1 Symptomatic varicose veins, right (I83.891) Referral Organization [facility] Referring Provider First Name Mariana Referring Provider Last Name Chana Referring Provider Specialty Family [facility] cine Referred Organization [facility] Referred Address [address] [place], [place],[address] Referred Provider Specialty Vascular and Interventional Radiology Referral Priority Routine Additional Source Comments INFORMATION SOURCE (unrecogn ized section and content) DATE CREATED AUTHOR 07/14/2022 [facility] DATE CREATED AUTHOR AUTHOR'S ORGANIZ ATION 07/31/2023 [facility] REASON FOR VISIT (unrecogniz ed [...] BE BASED ON THE PRIMARY CLINICAL RECORDS. [facility] provides no warranty or guarantee of the accuracy or completeness of information in this document.
== END 2024-07-06 07:40 | disposition home or self-care (01) ==
LOC: MAMMO 07:40
PROVIDERS: PCP Family Medicine; Visit Provider Family Medicine
DX: Z12.31 Encounter for screening mammogram for malignant neoplasm of breast (principal)
CPT/HCPCS: 77063; 77067

== ENCOUNTER 2024-12-20 18:18 | Emergency (ER) | payer MEDICARE, SELFPAY ==
--- OUTSIDE RECORDS SUMMARY | 2024-12-20 18:26 | XMS_ITS | CCD ---
Author Organization [facility] Care Team Providers Care Auditing Manager Name Role Phone DR MARIANA ZAYAS Admitting Unavailable CHANA, DR MARIANA Glover Primary Care Unavailable CHANA, DR MARIANA Glover Attending Unavailable CHASE, DR WIL Edmondson Consulting Unavailable CHANA, DR MARIANA Glover Consulting Unavailable Mariana Zayas Unavailable MD Mariana Zayas Attending Provider Lima Villatoro Unavailable SESAR Villatoro Attending Provider [phone] Lukasz Quispe Unavailable Mariana Zayas Primary Care Unavailable Asaad, Imad Admitting Unavailable Asaad, Imad Attending Unavailable Mariana Zayas Primary Care Unavailable Asaad, Imad Admitting Unavailable Asaad, Imad Attending Unavailable Mariana Zayas MD Primary Care Provider Wayne Givens MD Attending Provider [phone] Allergies Allergy Classification Reported Allergen(s) Allergy Type Date of Onset Reaction(s) Facility (5 sources) Codeine Drug Allergy 03-17-20 24 [facility] Repository (2 sources) Codeine Drug Allergy Unknown [facility] Other (6 sources) Codeine Drug Allergy Unknown [facility] Other (10 sources) Anesthesia S/I-40A Drug allergy 09-24-20 23 Comment:Everardo leach had a reaction to the anesthetic her last surgery and had to have a spinal, Comment:Everardo leach had a reaction to the anesthetic her last... [facility] Comment on above: Reaction: Comment:Jarrod thee had a reaction to the anesthetic her last surgery and had to have a spinal (6 sources) Medicinal cephalosporin and acting as antibacterial agent (FN) Drug allergy Unknown [facility] Other (4 sources) Cephalosporins (Antibiotic) Allergy to substance 03-17-20 [facility] Medications Current Medications Medication Drug Class(es) Dates Sig (Normalized) Sig (Original) amLODIPine 10 mg oral tablet (13 sources) Dihydropyridine Calcium Channel Tammy Start: 09-11-2024 take 1 tablet by mouth once daily Amlodipine 10 mg tablet Active 0 .ROUTE .COMPLEX 90 September 11, 2024 7:48am Take 1 tablet by mouth once daily Start: 03-17-2024 End: 09-11-2024 take 2 tablets by mouth once daily at bedtime Amlodipine 10 mg tablet Discontinued 10 MG PO Daily March 16, 2024 11:00pm September 11, 2024 7:48am [employer] tablets at HS; Note: Source Status: Continue; Provider: Chana Peña ( ) amLODIPine Besyl ate 10 MG 2 tablets at HS Active take 1 tablet by charlotte th once daily amLODIPine Besylate 10 MG 1 tablet Orally Once a day for 90 days Active amLODIPine Besyl ate Active amoxicillin 875 mg / clavulanate 125 mg oral tablet (3 sources) Penicillin-class Antibacterial Start: 01-08-2023 take 1 tablet by mouth every twelve hours Amoxicillin-Pot Clavulanate 875-125 MG 1 tablet Orally every 12 hrs for 7 Dec, Active ascorbic acid 1000 mg oral tablet (5 sources) Vitamin C Start: 03-17-2024 take 1 tablet by mouth once daily Ascorbic Acid (Vitamin C) 1,000 mg tablet Active 1 TAB PO Daily March 16, 2024 11:00pm FreeTextSi tablet Orally Once a day; Note: Source Status: Taking; Provider: Chana Peña ( ) Start: 03-17-2024 take 1 tablet by charlotte th once daily Ascorbic Acid (Vitamin C) Active [...] aspirin 81 mg delayed release oral tablet (4 sources) Platelet Aggregation Inhibitor, Nonsteroidal Anti-inflammatory Drug Start: take 1 tablet by mouth once daily Aspirin 81 mg tablet,delayed release (DR/EC) Active 1 TAB PO Daily March 16, 2024 11:00pm FreeText[employer] tablet Orally Once a day; Note: Source Status: Taking; Provider: Chana Peña ( ) calcium carbonate 1500 mg oral tablet (12 sources) Start: take 1 tablet by mouth twice daily at mealtime Calcium Carbonate 600 mg calcium (1,500 mg) tablet Active 1200 MG PO Twice daily March 16, 2024 11:00pm FreeTextSi tablet with meals Orally Twice a day; Note: Source Status: Taking; Provider: Chana Peña ( ) take 1 tablet by mouth every twe lve hours Calcium 600 MG 1 tablet with meals Orally Twice a day Active take 1 tablet by mouth every twe lve hours Calcium 600 MG 1 tablet with meals Orally Twice a day Active cholecalciferol 0.05 mg oral capsule (4 sources) Vitamin D Start: 03-17-2024 take 1 capsule by mouth once daily Cholecalciferol (Vitamin D3) 50 mcg (2,000 unit) capsule Active 1 CAP PO Daily March 16, 2024 11:00pm FreeTextSi capsule Orally Once a day; Note: Source Status: Taking; Provider: Chana Peña ( ) erythromycin 0.02 mg/mg topical gel (6 sources) Macrolide, Macrolide Antimicrobial Start: 01-08-2023 Erythromycin 2 % 1 application Externally Twice a day for 14 days Dec, Active famotidine 10 mg oral tablet (12 sources) Histamine-2 Receptor Antagonist Start: 03-17-2024 take 1 tablet by mouth once daily Famotidine 10 mg tablet Active 10 MG PO Daily March 16, 2024 11:00pm Famotidine Activ e Fish Oils (8 sources) take 1 capsule by mouth once daily Fish Oil 1000 MG 1 capsule Orally Once a day Active folic acid 0.8 mg oral tablet (12 sources) Start: 03-17-2024 take 1 tablet by mouth once daily Folic Acid 800 mcg tablet Active 1 TAB PO Daily March 16, 2024 11:00pm FreeTextSi tablet Orally Once a day; Note: Source Status: Taking; Provider: Chana Peña ( ) take 1 tablet by charlotte th every twenty-four hours Folic Acid 800 MCG 1 tablet Orally Once a day Active take 1 tablet by charlotte th every twenty-four hours Folic Acid 800 MCG 1 tablet Orally Once a day Active hydroCHLOROthiazide 25 mg oral tablet (16 sources) Thiazide Diuretic Start: 12-02-2023 take 1 tablet by mouth once daily Hydrochlorothiazide 25 mg tablet Active 0 .ROUTE .COMPLEX December 02, 2023 12:07pm Take 1 tablet by mouth once daily Start: 11-28-2023 End: 12-02-2023 take 1 tablet by mouth once daily Hydrochlorothiazide 25 mg tablet Discontinued 25 MG PO Daily November 28, 2023 12:00am December 02, 2023 12:07pm take 1 tablet by charlotte th once daily hydroCHLOROthiazide 25 MG Take 1 tablet by mouth once daily Active hydroCHLOROthiaz amina Active levothyroxine sodium 0.075 mg oral tablet (20 sources) l-Thyroxine Start: 05-11-2024 End: 06-23-2024 take 1 tablet by mouth once daily in the morning Levothyroxine 75 mcg tablet Active 0 .ROUTE .COMPLEX June 23, 2024 10:22am TAKE 1 TABLET BY MOUTH ONCE DAILY IN THE MORNING ON AN EMPTY STOMACH Start: 02-10-2024 End: 05-11-2024 take 1 tablet by mouth once daily in the morning Levothyroxine 75 mcg tablet Discontinued 0 .ROUTE .COMPLEX February 10, 2024 11:44am May 11, 2024 1:21pm TAKE 1 TABLET BY MOUTH ONCE DAILY [...] EMPTY STOMACH Start: 02-10-2024 End: 02-10-2024 take 1 tablet by mouth once daily Levothyroxine 75 mcg tablet Discontinued 75 MCG PO Daily February 09, 2024 11:00pm February 10, 2024 11:44am take 1 tablet by charlotte th once [...] 90 Active lisinopril 40 mg oral tablet (15 sources) Angiotensin Converting Enzyme Inhibitor Start: 03-17-2024 End: 06-23-2024 take 1 tablet by mouth once daily Lisinopril 40 mg tablet Active 40 MG PO Daily June 23, 2024 10:23am FreeTextSig: Take 1 tablet by mouth once daily; Note: Source Status: Continue; Provider: Chana Peña ( ) take 1 tablet by mouth once khadra y Lisinopril 40 MG Take 1 tablet by mouth once daily Active Magnesium (1 source) Magnesium Active Multivitamin With Minerals (One Daily Complete) tablet (4 sources) Start: 03-17-2024 take 1 tablet by mouth once daily, then take 1 tablet by mouth once daily Multivitamin With Minerals (One Daily Complete) tablet Active 1 TAB PO Daily March 16, 2024 11:00pm Start: 03-17-2024 take 1 tablet by charlotte th once daily, then take 1 tablet by mouth once daily Multivitamin With Minerals (One Daily Complete) tablet Active 1 TAB PO Daily March 17, 2024 12:00am [place] 7-Edf-Ghe-Fish Oil (Fi sh Oil) 100-160-1,000 mg capsule (4 sources) Start: 03-17-2024 [place] 3-Dha-Ep a-Fish Oil (Fish Oil) 100-160-1,000 mg capsule Active CAP PO March 16, 2024 11:00pm Start: 03-17-2024 [place] 3-Dha-Ep a-Fish Oil (Fish Oil) 100-160-1,000 mg capsule Active CAP PO March 17, 2024 12:00am One Daily For Women 50+ Adv - (8 sources) One Daily For Wo men 50+ Adv - Orally Active Potassium (8 sources) Potassium 1 tab Oral Active rosuvastatin calcium 20 mg oral tablet (9 sources) HMG-CoA Reductase Inhibitor Start: take 1 tablet by mouth once daily Rosuvastatin 20 mg tablet Active 0 .ROUTE .COMPLEX 90 October 12, 2024 2:36pm Take 1 tablet by mouth once daily for 90 days Start: 03-17-2024 End: 10-12-2024 take 1 tablet by mouth once daily Rosuvastatin 20 mg tablet Discontinued 1 TAB PO Daily March 16, 2024 11:00pm October 12, 2024 2:36pm FreeTextSig: Take 1 tablet by mouth once daily; Note: Source Status: Start; Refills: 3; Qty: 90 Tablet; Provider: Chana Peña ( ) take 1 tablet by charlotte th every twenty-four hours Rosuvastatin Calcium 20 MG 1 tablet Orally Once a day for 90 days Active Turmeric extract (12 sources) Start: 03-17-2024 Turmeric 400 m g capsule Active MG PO March 16, 2024 11:00pm Start: 03-17-2024 Turmeric Activ e MG PO March 17, 2024 12:00am take 1 tablet by charlotte th twice daily Turmeric 500 MG 1 tab [...] Active vitamin e 450 mg oral capsule (5 sources) Start: 03-17-2024 Vitamin E (Dl, Acetate) 450 mg (1,000 unit) capsule Active MG PO March 16, 2024 11:00pm FreeTextSig: Orally; Note: Source Status: Taking; Provider: Chana Peña ( ) Vitamin E 1000 U NIT Orally Active Vitamin E 1000 UNIT (7 sources) Vitamin E 1000 U NIT Orally Active Vitamins A,C,I-Akqp-Abicqw (Preservision Areds) 4,296 mcg-226 mg-90 mg capsule (4 sources) Start: 03-17-2024 take 1 capsule by mouth twice daily Vitamins A,C,L-Gvtz-Xxlpus (Preservision Areds) 4,296 mcg-226 mg-90 mg capsule Active 1 CAP PO Twice daily March 16, 2024 11:00pm Start: 03-17-2024 take 1 capsule by mo uth twice daily Vitamins A,C,F-Fxme-Vwmjnq (Preservision Areds) 4,296 mcg-226 mg-90 mg capsule Active 1 CAP PO Twice daily March 17, 2024 12:00am Zinc (1 source) take 1 tablet by mouth once daily Zinc 50 MG 1 tablet Orally Once a day Active zinc gluconate 50 mg oral tablet (11 sources) Start: 03-17-2024 take 1 tablet by mouth once daily Zinc Gluconate 50 mg tablet Active 1 TAB PO Daily March 16, 2024 11:00pm FreeTextSi tablet Orally Once a day; Note: Source Status: Taking; Provider: Chana Peña ( ) take 1 tablet by charlotte th every twenty-four hours Zinc 50 MG 1 tablet Orally Once a day Active Completed/Discontinued Medications Medication Drug Class(es) Dates Sig (Normalized) Sig (Original) ALPRAZolam 0.25 mg oral tablet (10 sources) Benzodiazepine Start: 03-17-2024 End: 03-17-2024 take 1 tablet by mouth twice daily Alprazolam 0.25 mg tablet Discontinued 1 TAB PO Twice daily March 16, 2024 11:00pm March 17, 2024 10:57am FreeTextSi tablet Orally Twice a day; Note: Source Status: Taking; Refills: 0; Qty: 60 Tablet; Provider: Chana Glover Start: 06-27-2023 take 1 tablet by charlotte th every twelve hours ALPRAZolam 0.25 MG 1 tablet Orally Twice a day for 30 days 14 Sep, 2023 Active Start: 06-19-2023 take 1 tablet by charlotte th every twelve hours ALPRAZolam 0.25 MG 1 tablet Orally Twice a day Jun, Active azithromycin 250 mg oral tablet (4 sources) Macrolide Antimicrobial Start: 03-17-2024 End: 09-22-2024 Azithromycin 250 mg tablet Discontinued 0 PO .COMPLEX March 16, 2024 11:00pm September 22, 2024 11:14am For 250 mg dose pack: take 500 mg today (day 1), then 250 mg for 4 days (days 2-5) PO Start: 03-17-2024 Azithromycin A ctive 0 PO .COMPLEX March 17, 2024 12:00am For 250 mg dose pack: take 500 mg today (day 1), then 250 mg for 4 days (days 2-5) PO betamethasone 0.5 mg/ml / clotrimazole 10 mg/ml topical cream (20 sources) Azole Antifungal, Corticosteroid Start: 09-01-2024 End: 09-22-2024 Clotrimazole-Betamethasone 1-0.05 % cream Discontinued 0 .ROUTE .COMPLEX September 01, 2024 2:22pm September 22, 2024 11:14am APPLY CREAM TOPICALLY TWICE DAILY FOR 7 DAYS Start: 04-06-2024 End: 06-23-2024 Clotrimazole-Betamethasone 1 -0.05 % cream Discontinued 0 .ROUTE .COMPLEX May 07, 2024 10:39am June 23, 2024 10:29am APPLY CREAM TOPICALLY TWICE DAILY FOR 7 DAYS Start: 03-17-2024 End: 04-06-2024 Clotrimazole-Betamethasone 1 -0.05 % cream Discontinued 1 APPLIC TOPICAL Twice daily March 16, 2024 11:00pm April 06, 2024 11:52am FreeTextSi application Externally Twice a day; Note: Source Status: Refill; Refills: 1; Qty: 45 Gram; Provider: Chana Glover Start: 12-25-2022 Clotrimazole-B etamethasone 1-0.05 % 1 application Externally Twice a day for 7 days Dec, Active carvedilol 6.25 mg oral tablet (12 sources) alpha-Adrenergic Tammy, beta-Adrenergic Tammy Start: 03-17-2024 End: 06-23-2024 take 1 tablet by mouth twice daily Carvedilol 6.25 mg tablet Discontinued 6.25 MG PO Twice daily 180 March 17, 2024 10:56am June 23, 2024 10:23am Start: 09-24-2023 take 1 tablet by charlotte th every twelve hours Carvedilol 6.25 MG 1 tablet with food Orally Twice a day for 30 day(s) Sep, Active diclofenac potassium 25 mg oral tablet (4 sources) Nonsteroidal Anti-inflammatory Drug Start: 03-17-2024 End: 09-22-2024 take 1 tablet by mouth twice daily Diclofenac Potassium 25 mg tablet Discontinued 25 MG PO Twice daily March 16, 2024 11:00pm September 22, 2024 11:15am doxycycline hyclate 50 mg oral capsule (2 sources) Tetracycline-class Drug Start: 09-01-2024 End: 09-22-2024 take 1 capsule by mouth twice daily Doxycycline Hyclate 50 mg capsule Discontinued 50 MG PO Twice daily September 01, 2024 12:00am September 22, 2024 11:16am esomeprazole 20 mg delayed release oral capsule (4 sources) Proton Pump Inhibitor Start: 03-17-2024 End: 09-22-2024 take 1 capsule by mouth once daily Esomeprazole Magnesium 20 mg capsule,delayed release(DR/EC) Discontinued 20 MG PO Daily March 16, 2024 11:00pm September 22, 2024 11:16am ferrous sulfate 325 mg oral tablet (12 sources) Start: 03-17-2024 End: 12-08-2024 take 1 tablet by mouth once daily Ferrous Sulfate 325 mg (65 mg iron) tablet Discontinued 325 MG PO Daily March 16, 2024 11:00pm December 08, 2024 10:50am FreeTextSi tablet Orally Once a day; Note: Source Status: Taking; Provider: Chana Peña ( ) take 1 tablet by charlotte th every twenty-four hours Iron 325 (65 Fe) MG 1 tablet Orally Once a day Active nitrofurantoin, macrocrystals 25 mg / nitrofurantoin, monohydrate 75 mg oral capsule (4 sources) Nitrofuran Antibacterial Start: 07-28-2023 take 1 capsule by mouth every twelve hours Macrobid 100 MG 1 cap(s) Orally bid for 5 day(s) Jul, Not-Taking/PRN nystatin 668651 unt/ml topical cream (3 sources) Polyene Antifungal Start: 06-23-2024 End: 09-01-2024 Nystatin 100,000 unit/gram cream Discontinued 1 APPLIC TOPICAL Twice daily June 22, 2024 11:00pm September 01, 2024 2:22pm phenazopyridine hydrochloride 200 mg oral tablet (4 sources) Start: 07-28-2023 take 1 tablet by mouth every eight hours Pyridium 200 MG 1 tablet after meals Orally Three times a day for 2 day(s) Jul, Not-Taking/PRN Problems Problem Classification Problem Date Documented Da te Episodic/Chronic Abdominal pain (13 sources) Epigastric discomfort; Translations: [Epigastric pain] 06-23-2024 Episodic Administrative/social admission (1 source) Other specified counseling Episodic Anxiety disorders (8 sources) Anxiety; Translations: [Other specified anxiety disorders] Chronic Disorders of lipid metabolism (13 sources) Hyperlipidemia, unspecified; Translations: [Mixed hyperlipidemia] Onset: 07-03-2022 Chronic Diverticulosis and diverticulitis (8 sources) Diverticular disease of colon; Translations: [Diverticulosis of intestine, part unspecified, without perforation or abscess without bleeding] Chronic Essential hypertension (13 sources) Essential hypertension; Translations: [Essential (primary) hypertension] Chronic Genitourinary symptoms and ill-defined conditions (2 sources) Dysuria Episodic Mycoses (1 source) Candidiasis of skin; Translations: [Candidiasis of skin and nail] 09-01-2024 Episodic Nutritional deficiencies (5 sources) Vitamin D deficiency; Translations: [Vitamin D deficiency, unspecified] 06-23-2024 Chronic Other connective tissue disease (1 source) Pain in right leg Episodic Other gastrointestinal disorders (8 sources) Abnormal feces; Translations: [Other fecal abnormalities] Episodic Other liver diseases (3 sources) Steatosis of liver; Translations: [Fatty (change of) liver, not elsewhere classified] 06-29-2024 Chronic Other liver diseases (2 sources) Fatty (change of) liver, not elsewhere classified; Translations: [Other chronic nonalcoholic liver disease] Onset: 10-08-2024 09-22-2024 Chronic Other liver diseases (8 sources) Large liver; Translations: [Hepatomegaly, not elsewhere classified] Episodic Other nervous system disorders (2 sources) Chronic pain; Translations: [Other chronic pain] Chronic Other nervous system disorders (1 source) Other chronic pain Chronic Other nervous system disorders (6 sources) Paresthesia of left upper limb; Translations: [Paresthesia of skin] Episodic Other nervous system disorders (1 source) Paresthesia of skin Episodic Other nutritional; endocrine; and metabolic disorders (2 sources) Metabolic syndrome X; Translations: [Metabolic syndrome] 09-22-2024 Chronic Other screening for suspected conditions (not mental disorders or infectious disease) (10 sources) Encounter for screening mammogram for malignant neoplasm of breast; Translations: [Patient encounter status] Onset: 07-02-2022 Episodic Other upper respiratory infections (4 sources) Acute maxillary sinusitis; Translations: [Acute maxillary sinusitis, unspecified] Onset: 10-08-2024 03-29-2024 Episodic Residual codes; unclassified (1 source) Family history of malignant neoplasm of other organs or systems; Translations: [FAM HX MALIG NEOPLASM OTH ORGN/SYS] Onset: 07-03-2022 Episodic Skin and subcutaneous tissue infections (3 sources) Erythrasma Episodic Spondylosis; intervertebral disc disorders; other back problems (1 source) Radiculopathy, cervical region Episodic Thyroid disorders (13 sources) Hypothyroidism, unspecified; Translations: [Hypothyroidism] Onset: 07-03-2022 Chronic Urinary tract infections (2 sources) Acute cystitis with hematuria Episodic Varicose veins of lower extremity (18 sources) Pain due to varicose veins of lower extremity; Translations: [Varicose veins of right lower extremity with pain] Episodic Results Test Name Value Interpretation Reference Range Facility NATALYA Antinuclear Antibodieson 10-08-2024 Antinuclear Abs, IFA Negative Normal . [facility] Comment on above: Result Comment: Nega tive <1:80 Borderline 1:80 Positive >1:80 ICAP nomenclature: AC-0 For more information about Hep-2 cell patterns use ANApatterns.org, the official website for the International Consensus on Antinuclear Antibody (NATALYA) Patterns (ICAP). Performed at: [facility] [id number] Microelectronics Engineer: Juan Portillo PhD, Phone: [phone] Performed By: #### H BCAB, ELF, HAABT, L-K MICRO, HCBIGM, MITOM2, SMAB, HAAB, ALPHA PHEN, CERULOP, IGG, NATALYA, HCV RX PCR, HEMOCHROM, HBSAG, HBSAB #### [facility] , #### GEOFF #### [facility] [address] Actin smooth muscle IgG Ab [ Units/volume] in SerumOrdered By: Imad Asaad on 10-08-2024 Actin smooth muscle IgG Qn (S) Actin smooth muscle IgG Ab [Units/volume] in Serum 0-19 [facility] Comment on above: Negative 0 - 19 Weak positive 20 - 30 Moderate to strong positive >30 Actin Antibodies are found in 52-85% of patients with autoimmune hepatitis or chronic active hepatitis and in 22% of patients with primary biliary cirrhosis. Qzhdk-[id number] Phenotyp meng 10-08-2024 Alpha 1 Anti-Trypsin 127 mg/dL Normal 101-187 [facility] Comment on above: Performed By: #### H BCAB, ELF, HAABT, L-K MICRO, HCBIGM, MITOM2, SMAB, HAAB, ALPHA PHEN, CERULOP, IGG, NATALYA, HCV RX PCR, HEMOCHROM, HBSAG, HBSAB #### [facility] , #### GEOFF #### [address] Phenotype (P1) MM Normal . [facility] Comment on above: Result Comment: MM Phenotype is considered to be normal , producing normal serum levels of ivmuj-0-vinyophe inhibitor and not associated with clinical disease. Associated A1A total serum levels in other phenotypes and their incidence in the general population are shown in the table below. Phenotype Population % function A-1-AT Conc.* Incidence % compared to MM (Typical Range) MM 86.5% 100% (96 - 189) MS 8.0% 86% (83 - 161) MZ 3.9% 61% (60 - 111) FM 0.4% 100% (93 - 191) SZ 0.3% 41% (42 - 75) SS 0.1% 64% (62 - 119) ZZ 0.05% 19% (16 - 38) FS 0.05% 70% (70 - 128) FZ Unknown 46% (44 - 88) FF Unknown Unknown *A-1-AT concentration in the homozygous MM phenotype is taken as the reference normal. Percent deficiency in each phenotype is reported relative to this reference. Ranges used to confirm phenotype. Performed at: - [facility] [id number] Microelectronics Engineer: Juan Portillo PhD, Phone: [phone] Performed at: - [facility] [id number] Microelectronics Engineer: Warner Mckinney MD, Phone: [phone] Performed By: #### H BCAB, ELF, HAABT, L-K MICRO, HCBIGM, MITOM2, SMAB, HAAB, ALPHA PHEN, CERULOP, IGG, NATALYA, HCV RX PCR, HEMOCHROM, HBSAG, HBSAB #### [facility] , #### GEOFF #### [address] Blood or tissue HFE gene mut ations identification by molecular genetics methodOrdered By: Wayne Givens on 10-08-2024 HFE gene targeted mutation analysis [facility] Nom (Bld/Tiss) Blood or tissue HFE gene mutations identification by molecular genetics method . [facility] Comment on above: Result:c.845G>A (p.C [id number]) - Not Detectedc.187C>G (p.Fph15Isj) - Not Detectedc.193A>T (p.Xub05Sty) - Not DetectedNot associated with increased risk to develop clinicalsymptoms of Hereditary Hemochromatosis. In symptomaticindividuals, other causes of iron overload should beevaluated. See Additional Information and Comments.Additional Clinical Information:Hereditary hemochromatosis (HFE related) is an autosomalrecessive iron storage disorder. Patients may have agenetic diagnosis of hereditary hemochromatosis and nevershow clinical symptoms. Clinical symptoms typically appearbetween 40 to 60 years in males and after menopause infemales. Signs and symptoms may include organ damage,primarily in the liver, risk for hepatocellularcarcinoma, diabetes, and heart disease due to ironaccumulation. Life expectancy may be decreased inindividuals who develop cirrhosis. Treatment forclinically symptomatic individuals may includetherapeutic phlebotomy. Liver transplant may be used totreat end stage liver failure. For preventive care,monitoring for iron overload is recommended for patientswho are homozygous for c.845G>A (p.Bkx896Vkq) and have yetto experience clinical symptoms.Comments:The most common HFE variants associated with hereditaryhemochromatosis are c.845G>A (p.Hpc839Qwr), c.187C>G(p.Qgk04Kyz), c.193A>T (p.Vhp61Meg). While patientshomozygous for c.845G>A (p.Eud459Uxm) are the most likelyto present clinical symptoms, less than 10% developclinically significant iron overload with tissue and organdamage.Genetic counseling is recommended to discuss the potentialclinical implications of positive results, as well asrecommendations for testing family members.Genetic Coordinators are available for health careproviders to discuss results at [phone]).Test Details:Three variants analyzed:c.845G>A (p.Uxx614Fgp), commonly referred to as C282Yc.187C>G (p.Ifk41Jap), commonly referred to as H63Dc.193A>T (p.Jbi28Qvl), commonly referred to as I63SXoyrzae/Limitations:DNA Analysis of the HFE gene (NM_[id number]) was performedby PCR amplification followed by restriction enzymedigestion analyses. Results must be combined with clinicalinformation for the most accurate interpretation. Molecular-based testing is highly accurate, but as in any laboratorytest, diagnostic errors may occur. False positive or falsenegative results may occur for reasons that include geneticvariants, blood transfusions, bone marrow transplantation,somatic or tissue-specific mosaicism, mislabeled samples,or erroneous representation of family relationships.This test was developed and its performancecharacteristics determined by [facility]. It has not beencleared or approved by the Food and Drug Administration.References:Roberto Carlos BR, Bharath PC, Laura KV, Shane LW, Chyna ;[employer].Diagnosis and management of hemochromatosis: 2011 practiceguideline by the [employer] Association for the Study ofLiver Diseases. Hepatology. 2010;54(1):328-43. doi:10.1002/hep.12206. PMID: 22596826; PMCID: [id number].Krystina G, Edilma P, Jani BASS, Eldon H, Sheri O,Tariq S, Octaviano I, Casimiro Menjivar, Franklyn S. QN best practiceguidelines for the molecular genetic diagnosis ofhereditary hemochromatosis (HH). Eur J Hum Fide. 2016Apr;24(4):479-95. doi: 10.1038/ejhg.2015.128. Epub 2014. PMID: 56110906; PMCID: [id number]. Ceruloplasminon 10-08-2024 Ceruloplasmin 21.4 mg/dL Normal 19.0-39.0 [facility] Comment on above: Result Comment: Perf ormed at: CB - [facility] [address] [id number] Microelectronics Engineer: Juan Portillo PhD, Phone: [phone] PERFORMED BY: [place] [address] PATHOLOGIST SWITCHMAN SUPERVISOR TERI ELLIS M.D. Performed By: #### H BCAB, ELF, HAABT, L-K MICRO, HCBIGM, MITOM2, SMAB, HAAB, ALPHA PHEN, CERULOP, IGG, NATALYA, HCV RX PCR, HEMOCHROM, HBSAG, HBSAB #### [facility] , #### GEOFF #### [address] Enhanced Liver Fibrosis Test on 10-08-2024 Enhanced Liver Fibrosis Score 8.48 Normal <9.80 [facility] Comment on above: Result Comment: ELF( TM) Score Interpretation: Risk cut-offs to assess the likelihood of progression to cirrhosis and liver-related clinical events within 3.9 years following baseline ELF score (IQR: 14.0-22.4 months)*: Lower risk < 9.80 Mid risk 9.80 - 11.29 Higher risk >11.29 Note: The ELF(TM) Score is a unitless numerical value. *Rakesh SA, Dimitrios VW, Okrashawn T, et al. Selonsertib for patients with bridging fibrosis or compensated cirrhosis due to VERONICA: Results from randomized phase III STELLAR trials. J Hepatol. 2020 Apr;73(1):26-39. Performed at: [facility] [address] [id number] Microelectronics Engineer: Warner Mckinney MD, Phone: [phone] PERFORMED BY: [place] [address] PATHOLOGIST SWITCHMAN SUPERVISOR TERI ELLIS M.D. Performed By: #### H BCAB, ELF, HAABT, L-K MICRO, HCBIGM, MITOM2, SMAB, HAAB, ALPHA PHEN, CERULOP, IGG, NATALYA, HCV RX PCR, HEMOCHROM, HBSAG, HBSAB #### [facility] , #### GEOFF #### [facility] [address] [place], [place] [id number] [facility] Ferritinon 10-08-2024 Ferritin [Mass/Vol] 349.8 ng/mL High 11.0-306.8 [facility] Comment on above: Result Comment: PERF ORMED BY: [place] [address] PATHOLOGIST SWITCHMAN SUPERVISOR TERI ELLIS M.D. Performed By: #### H BCAB, ELF, HAABT, L-K MICRO, HCBIGM, MITOM2, SMAB, HAAB, ALPHA PHEN, CERULOP, IGG, NATALYA, HCV RX PCR, HEMOCHROM, HBSAG, HBSAB #### [facility] , #### GEOFF #### [facility] [address] [place] [address] Ferritin [Mass/volume] in Se rum or PlasmaOrdered By: Wayne Givens on 10-08-2024 Ferritin [Mass/Vol] Ferritin [Mass/volum e] in Serum or Plasma High 11.0-306.8 [facility] Hep C Ab wRfx to Qnt PCRon 1 12-09-2023 Hepatitis C Virus Antibody Non-Reactive Normal Non Reactive [facility] Comment on above: Performed By: #### H BCAB, ELF, HAABT, L-K MICRO, HCBIGM, MITOM2, SMAB, HAAB, ALPHA PHEN, CERULOP, IGG, NATALYA, HCV RX PCR, HEMOCHROM, HBSAG, HBSAB #### [facility] , #### GEOFF #### [facility] [address] Interpretation Hepatitis C Comment Normal . [facility] Comment on above: Result Comment: Not infected with HCV unless early or acute infection is suspected (which may be delayed in an immunocompromised individual), or other evidence exists to indicate HCV infection. Performed By: #### H BCAB, ELF, HAABT, L-K MICRO, HCBIGM, MITOM2, SMAB, HAAB, ALPHA PHEN, CERULOP, IGG, NATALYA, HCV RX PCR, HEMOCHROM, HBSAG, HBSAB #### [facility] , #### GEOFF #### [address] Hepatitis A Antibody IgMon 1 12-09-2023 Hepatitis A Antibody IgM Negative Normal Negative [facility] Comment on above: Result Comment: A ne gative anti-HAV IgM result suggests no recent or current HAV infection. Performed By: #### H BCAB, ELF, HAABT, L-K MICRO, HCBIGM, MITOM2, SMAB, HAAB, ALPHA PHEN, CERULOP, IGG, NATALYA, HCV RX PCR, HEMOCHROM, HBSAG, HBSAB #### [facility] , #### GEOFF #### [address] Hepatitis A Antibody Totalon 10-08-2024 Hepatitis A Antibody Total Positive Critically abnormal Negative [facility] Comment on above: Result Comment: Comm ent: The HAV total antibody assay detects both IgG and IgM but does not differentiate between them. A negative result suggests susceptibility to infection. A positive result could be due to vaccination, previously resolved infection or active infection. Testing for HAV IgM should be performed if active HAV infection is suspected. [facility] offers profiles that will automatically reflex positive HAV total antibody results to IgM (e.g., panel #[id number] HAV Antibody w/ Rfx). Performed By: #### H BCAB, ELF, HAABT, L-K MICRO, HCBIGM, MITOM2, SMAB, HAAB, ALPHA PHEN, CERULOP, IGG, NATALYA, HCV RX PCR, HEMOCHROM, HBSAG, HBSAB #### [facility] , #### GEOFF #### [address] Hepatitis A virus Ab [Presen ce] in Serum by ImmunoassayOrdered By: Wayne Givens on 10-08-2024 HAV Ab IA Ql (S) Hepatitis A virus Ab [Presence] in Serum by Immunoassay Abnormal Negative [facility] Comment on above: Comment: The HAV tot al antibody assay detects both IgG andIgM but does not differentiate between them. A negativeresult suggests susceptibility to infection. A positiveresult could be due to vaccination, previously resolvedinfection or active infection. Testing for HAV IgM shouldbe performed if active HAV infection is suspected. [facility] that will automatically reflex positive HAVtotal antibody results to IgM (e.g., panel #[id number] HAVAntibody w/ Rfx). Hepatitis A virus IgM antibo dy assayOrdered By: Wayne Givens on 10-08-2024 Hepatitis A IgM Antibody Negative Negative [facility] Comment on above: A negative anti-HAV IgM result suggests no recent orcurrent HAV infection. Hepatitis B Core Antibodyon 10-08-2024 Hepatitis B Core Antibody Negative Normal Negative [facility] Comment on above: Performed By: #### H BCAB, ELF, HAABT, L-K MICRO, HCBIGM, MITOM2, SMAB, HAAB, ALPHA PHEN, CERULOP, IGG, NATALYA, HCV RX PCR, HEMOCHROM, HBSAG, HBSAB #### [facility] , #### GEOFF #### [facility] [address] [place] [address] [place] Hepatitis B Core Antibody Ig Mon 12-26-2024 Hepatitis B Core Antibody IgM Negative Normal Negative [facility] Comment on above: Result Comment: Perf ormed at: - [facility] [address] [id number] Microelectronics Engineer: Juan Portillo PhD, Phone: [phone] Performed By: #### H BCAB, ELF, HAABT, L-K MICRO, HCBIGM, MITOM2, SMAB, HAAB, ALPHA PHEN, CERULOP, IGG, NATALYA, HCV RX PCR, HEMOCHROM, HBSAG, HBSAB #### [facility] , #### GEOFF #### [place] [address] [place] Hepatitis B Surface Antibody on 10-08-2024 Hepatitis B Surface Antibody Non-Reactive Normal . [facility] Comment on above: Result Comment: Non Reactive: Not immune to HBV infection. Equivocal: Unable to determine if anti-HBs is present at levels consistent with immunity. Reactive: Anti-HBs concentration detected at greater than 10 mIU/mL. Individual is considered to be immune to infection with HBV. Performed By: #### H BCAB, ELF, HAABT, L-K MICRO, HCBIGM, MITOM2, SMAB, HAAB, ALPHA PHEN, CERULOP, IGG, NATALYA, HCV RX PCR, HEMOCHROM, HBSAG, HBSAB #### [facility] , #### GEOFF #### [place] [address] [place] Hepatitis B Surface Antigeno n 10-08-2024 HBsAg Screen Negative Normal Negative [facility] Comment on above: Result Comment: PERF ORMED BY: [place] [address] PATHOLOGIST SWITCHMAN SUPERVISOR TERI ELLIS M.D. Performed By: #### H BCAB, ELF, HAABT, L-K MICRO, HCBIGM, MITOM2, SMAB, HAAB, ALPHA PHEN, CERULOP, IGG, NATALYA, HCV RX PCR, HEMOCHROM, HBSAG, HBSAB #### [facility] , #### GEOFF #### [address] [place] [address] [facility] Hepatitis B virus core IgM a ntibody assayOrdered By: Wayne Givens on 10-08-2024 Hepatitis B Core IgM Antibody Negative Negative [facility] Comment on above: Performed at: [facility] - [facility] carson [address] [id number] Director: Juan Portillo PhD, Phone: [phone] Hepatitis B virus core antib evaristo assayOrdered By: Wayne Givens on 10-08-2024 Hepatitis B Core Total Antibody Negative Negative [facility] Hepatitis C virus IgG Ab [Pr esence] in Serum or Plasma by ImmunoassayOrdered By: Wayne Givens on 10-08-2024 HCV IgG IA Ql Hepatitis C virus Ig G Ab [Presence] in Serum or Plasma by Immunoassay Non Reactive [facility] Hereditary Hemochromatosis,D VERNONon 10-08-2024 Hereditary Hemochromatosis Comment Normal . [facility] Comment on above: Result Comment: Resu lt: c.845G>A (p.Agq727Udi) - Not Detected c.187C>G (p.Wgw45Lws) - Not Detected c.193A>T (p.Vxm93Uoz) - Not Detected Not associated with increased risk to develop clinical symptoms of Hereditary Hemochromatosis. In symptomatic individuals, other causes of iron overload should be evaluated. See Additional Information and Comments. Additional Clinical Information: Hereditary hemochromatosis (HFE related) is an autosomal recessive iron storage disorder. Patients may have a genetic diagnosis of hereditary hemochromatosis and never show clinical symptoms. Clinical symptoms typically appear between 40 to 60 years in males and after menopause in females. Signs and symptoms may include organ damage, primarily in the liver, risk for hepatocellular carcinoma, diabetes, and heart disease due to iron accumulation. Life expectancy may be decreased in individuals who develop cirrhosis. Treatment for clinically symptomatic individuals may include therapeutic phlebotomy. Liver transplant may be used to treat end stage liver failure. For preventive care, monitoring for iron overload is recommended for patients who are homozygous for c.845G>A (p.Ijk167Fqi) and have yet to experience clinical symptoms. Comments: The most common HFE variants associated with hereditary hemochromatosis are c.845G>A (p.Zcz887Msk), c.187C>G (p.Xfq85Def), c.193A>T (p.Gan60Qfo). While patients homozygous for c.845G>A (p.Dqn617Evx) are the most likely to present clinical symptoms, less than 10% develop clinically significant iron overload with tissue and organ damage. Genetic counseling is recommended to discuss the potential clinical implications of positive results, as well as recommendations for testing family members. Genetic Coordinators are available for health care providers to discuss results at [phone] ([phone]). Test Details: Three variants analyzed: c.845G>A (p.Jri891Pqf), commonly referred to as C282Y c.187C>G (p.Akv26Ilz), commonly referred to as H63D c.193A>T (p.Otq05Hap), commonly referred to as S65C Methods/Limitations: DNA Analysis of the HFE gene (NM_[id number]) was performed by PCR amplification followed by restriction enzyme digestion analyses. Results must be combined with clinical information for the most accurate interpretation. Molecular- based testing is highly accurate, but as in any laboratory test, diagnostic errors may occur. False positive or false negative results may occur for reasons that include genetic variants, blood transfusions, bone marrow transplantation, somatic or tissue-specific mosaicism, mislabeled samples, or erroneous representation of family relationships. This test was developed and its performance characteristics determined by [employer]. It has not been cleared or approved by the Food and Drug Administration. References: Roberto Carlos BR, Bharath PC, Laura KV, Shane LW, Chyna ; [place] [employer] Study [employer] Liver Diseases. Diagnosis and management of hemochromatosis: 2011 practice guideline by the [place] [employer] the Study of Liver Diseases. Hepatology. 2011 Apr;54(1):328-43. doi: 10.1002/hep.88880. PMID: 27774200; PMCID: [id number]. Krystina G, Edilma P, Jani BASS, Eldon H, Sheri O, Tariq S, Octaviano I, Casimiro Menjivar, Franklyn Henderson. EMQN best practice guidelines for the molecular genetic diagnosis of hereditary hemochromatosis (HH). Eur J Hum Fide. 2016 Jan;24(4):479-95. doi: 10.1038/ejhg.2015.128. Epub 2014Apr 20. PMID: 20115110; PMCID: [id number]. Performed By: #### H BCAB, ELF, HAABT, L-K MICRO, HCBIGM, MITOM2, SMAB, HAAB, ALPHA PHEN, CERULOP, IGG, NATALYA, HCV RX PCR, HEMOCHROM, HBSAG, HBSAB #### [facility] , #### GEOFF #### [facility] [address] Reviewed by: Comment Normal . [facility] Comment on above: Result Comment: Tech nical Component performed at [facility] Professional Component performed by: [employer] Selena Moffett, Ph.D., [facility] Director, Molecular Genetics [address] [place] [id number] Performed at: - [facility] [address] [place], [place] [id number] Microelectronics Engineer: Alexandria Bob [facility], Phone: [phone] Performed By: #### H BCAB, ELF, HAABT, L-K MICRO, HCBIGM, MITOM2, SMAB, HAAB, ALPHA PHEN, CERULOP, IGG, NATALYA, HCV RX PCR, HEMOCHROM, HBSAG, HBSAB #### [facility] , #### GEOFF #### [address] Immunoglobulin Efrain 4 Immunoglobulin G 800 mg/dL Normal [id number] [facility] Comment on above: Result Comment: Perf ormed at: - [facility] [id number] Microelectronics Engineer: Juan Portillo PhD, Phone: [phone] Performed By: #### H BCAB, ELF, HAABT, L-K MICRO, HCBIGM, MITOM2, SMAB, HAAB, ALPHA PHEN, CERULOP, IGG, NATALYA, HCV RX PCR, HEMOCHROM, HBSAG, HBSAB #### [facility] , #### GEOFF #### [facility] [address] [place] [address] Liver-Kidney Microsomal Abon 10-08-2024 Liver-Kidney Microsomal Ab 1.4 Normal 0.0-20.0 [facility] Comment on above: Result Comment: Nega tive 0.0 - 20.0 Equivocal 20.1 - 24.9 Positive >24.9 LKM type 1 antibodies are detected in patients with autoimmune hepatitis type 2 and in up to 8% of patients with chronic HCV infection. Performed at: [address] [id number] Microelectronics Engineer: Juan Portillo PhD, Phone: [phone] Performed By: #### H BCAB, ELF, HAABT, L-K MICRO, HCBIGM, MITOM2, SMAB, HAAB, ALPHA PHEN, CERULOP, IGG, NATALYA, HCV RX PCR, HEMOCHROM, HBSAG, HBSAB #### [facility] , #### EGOFF #### [address] Mitochondrial (M2) Antibodyo n 10-08-2024 Mitochondrial (M2) Antibody <20.0 Normal 0.0-20.0 [facility] Comment on above: Result Comment: Nega tive 0.0 - 20.0 Equivocal 20.1 - 24.9 Positive >24.9 Mitochondrial (M2) Antibodies are found in 90-96% of patients with primary biliary cirrhosis. Performed By: #### H BCAB, ELF, HAABT, L-K MICRO, HCBIGM, MITOM2, SMAB, HAAB, ALPHA PHEN, CERULOP, IGG, NATALYA, HCV RX PCR, HEMOCHROM, HBSAG, HBSAB #### [facility] , #### GEOFF #### [address] No Panel InformationOrdered By: Wayne Givens on 10-08-2024 Hemochromatosis Note Comment . [facility] Comment on above: Technical Component performed at [facility] RTPProfessional Component performed by:[facility] Elvin Moffett, Ph.D., FACMGDirector, Molecular Hwgqwf[address] [place], [place] [address]sborSaint [facility] University [facility] [address]Pytctnrjo at: - [facility] [id number] [facility], [place], [place] [id number] Director: Alexandria Bob [facility], Phone: [phone] Hepatitis C Interpretation Comment . [facility] Comment on above: Not infected with HC V unless early or acute infection issuspected (which may be delayed in an immunocompromisedindividual), or other evidence exists to indicate HCVinfection. Serum hepatitis B virus surf chiki antibody detectionOrdered By: Imad Asaad on 10-08-2024 HBV surface Ab Ql (S) Hepatitis B virus surface Ab [Presence] in Serum . [facility] Comment on above: Non Reactive: Not im mune to HBV infection. Equivocal: Unable to determine if anti-HBs is present at levels consistent with immunity. Reactive: Anti-HBs concentration detected at greater than 10 mIU/mL. Individual is considered to be immune to infection with HBV. Serum homogeneous pattern an tinuclear antibody (NATALYA) titerOrdered By: Imad Asaad on 10-08-2024 Homogenous nuclear Ab pattern (S) [Titer] Serum homogeneous pattern antinuclear antibody (NATALYA) titer [facility] Serum mitochondria M2 IgG an tibody assay (units/volume)Ordered By: Imad Asaad on 10-08-2024 Mitochondria M2 IgG Qn (S) Serum mitochondria M2 IgG antibody assay (units/volume) 0.0-20.0 [facility] Comment on above: Negative 0.0 - 20.0 Equivocal 20.1 - 24.9 Positive >24.9Mitochondrial (M2) Antibodies are found in 90-96% ofpatients with primary biliary cirrhosis. Serum nuclear antibody titer Ordered By: Imad Asaad on 10-08-2024 Nuclear Ab (S) [Titer] Serum nuclear ant ibody titer . [facility] Comment on above: Negative <1:80 Rosalba navarrete 1:80 Positive >1:80ICAP nomenclature: AC-0For more information about Hep-2 cell patterns useANApatterns.org, the official website for theInternational Consensus on Antinuclear Antibody (NATALYA)Patterns (ICAP).Performed at: [facility] [address] [id number] Director: Juan Portillo PhD, Phone: [phone] Serum or plasma IgG measurem ent (mass/volume)Ordered By: Wayne Givens on 10-08-2024 IgG [Mass/Vol] IgG [Mass/volume] in Serum or Plasma [phone] [facility] Comment on above: Performed at: [facility] [address] [id number] Director: Juan Portillo PhD, Phone: [phone] Serum or plasma alpha 1 anti trypsin measurement (mass/volume)Ordered By: Wayne Givens on 10-08-2024 Alpha 1 antitrypsin [Mass/Vol] Serum cnuxr-9-rdwjmcoixve measurement [phone] [facility] Serum or plasma alpha 1 anti trypsin phenotyping identification by immunofixationOrdered By: Wayne Givens on 10-08-2024 Alpha 1 antitrypsin phenotyping Immunofixation Nom Serum or plasma alpha 1 antitrypsin phenotyping identification by immunofixation . [facility] Comment on above: MM Phenotype is co nsidered to be normal , producingnormal serum levels of yngvt-4-okgvbknh inhibitor andnot associated with clinical disease. Associated J1Nfvtai serum levels in other phenotypes and theirincidence in the general population are shown in thetable below.Phenotype Population % function A-1-AT Conc.* Incidence % compared to MM (Typical Range) MM 86.5% 100% (96 - 189) MS 8.0% 86% (83 - 161) MZ 3.9% 61% (60 - 111) FM 0.4% 100% (93 - 191) SZ 0.3% 41% (42 - 75) SS 0.1% 64% (62 - 119) ZZ 0.05% 19% (16 - 38) FS 0.05% 70% (70 - 128) FZ Unknown 46% (44 - 88) FF Unknown Unknown*A-1-AT concentration in the homozygous MM phenotype is taken as the reference normal. Percent deficiency in each phenotype is reported relative to this reference. Ranges used to confirm phenotype.Performed at: [employer] [address] [id number] Director: Juan Portillo PhD, Phone: [phone] at: [facility] LabRobert [place]ille [address] [place], [place] [id number] Director: Warner Mckinney MD, Phone: [phone] Serum or plasma ceruloplasmi n measurement (mass/volume)Ordered By: Wayne Givens on 10-08-2024 Ceruloplasmin [Mass/Vol] Serum or plasma ceruloplasmin measurement (mass/volume) 19.0-39.0 [facility] Comment on above: Performed at: - [facility] [address] [id number] Director: Juan Portillo PhD, Phone: [phone] Serum or plasma hepatitis B virus surface antigen detection by immunoassayOrdered By: Wayne Givens on 10-08-2024 HBV surface Ag IA Ql Hepatitis B virus s urface Ag [Presence] in Serum or Plasma by Immunoassay Negative [facility] Serum or plasma lipoprotein a measurement (moles/volume)Ordered By: Wayne Givens on 10-08-2024 Lipoprotein a [Moles/Vol] Serum or plasma lipoprotein a measurement (moles/volume) 0.0-20.0 [facility] Comment on above: Negative 0.0 - 20.0 Equivocal 20.1 - 24.9 Positive >24.9LKM type 1 antibodies are detected in patients withautoimmune hepatitis type 2 and in up to 8% ofpatients with chronic HCV infection.Performed at: - [facility] [address] [id number] Director: Juan Portillo PhD, Phone: [phone] Smooth Muscle Antibodyon Smooth Muscle Antibody 4 Normal 0-19 Th e [facility] Comment on above: Result Comment: Nega tive 0 - 19 Weak positive 20 - 30 Moderate to strong positive >30 Actin Antibodies are found in 52-85% of patients with autoimmune hepatitis or chronic active hepatitis and in 22% of patients with primary biliary cirrhosis. Performed By: #### H BCAB, ELF, HAABT, L-K MICRO, HCBIGM, MITOM2, SMAB, HAAB, ALPHA PHEN, CERULOP, IGG, NATALYA, HCV RX PCR, HEMOCHROM, HBSAG, HBSAB #### [facility] , #### GEOFF #### [facility] [address] Basophils Auto (Bld) [#/Vol] on 06-29-2024 Basophils (Bld) [#/Vol] Automated basophil count 0.0-0.1 [facility] Basophils/100 WBC Auto (Bld) on 06-29-2024 Basophils/100 WBC (Bld) Automated basophil % 0.2-2.0 [facility] Cholesterol in LDL Calc [Mas s/Vol]on 06-29-2024 Cholesterol in LDL [Mass/Vol] Cholesterol in LDL [Mass/volume] in Serum or Plasma by calculation [facility] Comment on above: <100 mg/dl [id number] 0-129 mg/dl NEAR OR ABOVE [id number] mg/dl BORDERLINE [id number] mg/dl HIGH>190 mg/dl VERY HIGH Cholesterol in VLDL Calc [Ma ss/Vol]on 06-29-2024 Cholesterol in VLDL [Mass/Vol] Cholesterol in VLDL [Mass/volume] in Serum or Plasma by calculation [facility] Eosinophils/100 WBC Auto (Bl d)on 06-29-2024 Eosinophils/100 WBC (Bld) Automated eosinophil % 0.9-7.0 [facility] Erythrocyte distribution wid th Auto (RBC) [Ratio]on 06-29-2024 Erythrocyte distribution width (RBC) [Ratio] Erythrocyte distribution width [Ratio] by Automated count 11.0-15.0 [facility] Estimated glomerular filtrat ion rate (GFR) non- Americanon 06-29-2024 GFR/1.73 sq M.predicted among non-blacks MDRD (S/P/Bld) [Vol rate/Area] Estimated glomerular filtration rate (GFR) non- >=60 [facility] Globulin Calc (S) [Mass/Vol] on 06-29-2024 Globulin (S) [Mass/Vol] Serum globulin measurement by calculation (mass/volume) [facility] Hematocrit Auto (Bld) [Volum e fraction]on 06-29-2024 Hematocrit (Bld) [Volume fraction] Hematocrit [Volume Fraction] of Blood by Automated count 36.0-48.0 [facility] Hemoglobin [Mass/volume] in Bloodon 06-29-2024 Hemoglobin (Bld) [Mass/Vol] Hemoglobin [Mass/volume] in Blood 12.0-16.0 [facility] Laboratory - Chemistry and C hemistry - challengeon 06-29-2024 Albumin [Mass/Vol] 4.2 g/dL 3.4-5.[address] [facility] ALP [Catalytic activity/Vol] 50 U/L 46-116 [facility] ALT [Catalytic activity/Vol] 51 U/L 14-59 [facility] AST [Catalytic activity/Vol] 31 U/L 15-37 [facility] Bilirubin [Mass/Vol] 0.7 mg/dL 0.2-1.0 [facility] Calcium [Mass/Vol] 9.6 mg/dL 8.5-10.[address] [facility] Chloride [Moles/Vol] 104 mmol/L 98-107 [facility] Cholesterol [Mass/Vol] 183 mg/dL <=200 [facility] Cholesterol in HDL [Mass/Vol] 61 mg/dL High 40-60 [facility] Comment on above: > or =60 mg/dl - LOW CARDIOVASCULAR RISK<40 mg/dl - HIGH CARDIOVASCULAR RISK CO2 [Moles/Vol] 31.0 mmol/L 21.0-32.0 [facility] Creatinine [Mass/Vol] 0.75 mg/dL 0.55-1.02 [facility] Free T4 [Mass/Vol] 1.23 ng/dL 0.76-1.[address] [facility] GFR/1.73 sq M.predicted MDRD (S/P/Bld) [Vol rate/Area] mL/min/{1.73_m2} >=60 [facility] Glucose [Mass/Vol] 98 mg/dL 74-[address] [facility] Potassium [Moles/Vol] 3.6 mmol/L 3.5-5.1 [facility] Protein [Mass/Vol] 7.4 g/dL 6.4-8.[address] [facility] Sodium [Moles/Vol] 143 mmol/L 136-[address] [facility] Triglyceride [Mass/Vol] 185 mg/dL High <=150 [facility] TSH Qn 2.509 m[IU]/L 0.358-3.74 0 [facility] Urea nitrogen [Mass/Vol] 15.0 mg/dL 7.0-18.0 [facility] Urea nitrogen/Creatinine [Mass ratio] 20.0 mg/mg [facility] Laboratory - Hematology and Cell countson 06-29-2024 Immature granulocytes/100 WBC (Bld) 0.3 % 0.0-0.5 [facility] Leukocytes [#/volume] correc nazanin for nucleated erythrocytes in Blood by Automated counon 06-29-2024 WBC corrected for nucl RBC Auto (Bld) [#/Vol] Leukocytes [#/volume] corrected for nucleated erythrocytes in Blood by Automated coun 4.0-11.0 [facility] Lymphocytes Auto (Bld) [#/Vo l]on 06-29-2024 Lymphocytes (Bld) [#/Vol] Lymphocytes [#/volume] in Blood by Automated count 1.2-3.8 [facility] Lymphocytes/100 WBC Auto (Bl d)on 06-29-2024 Lymphocytes/100 WBC (Bld) Lymphocytes/100 leukocytes in Blood by Automated count Low 20.5-60.0 [facility] MCH Auto (RBC) [Entitic mass ]on 06-29-2024 MCH (RBC) [Entitic mass] MCH [Entitic mass] by Automated count 26.7-34.0 [facility] MCHC Auto (RBC) [Mass/Vol]on 06-29-2024 MCHC (RBC) [Mass/Vol] MCHC [Mass/volume] by Automated count 29.9-35.2 [facility] MCV Auto (RBC) [Entitic vol] on 06-29-2024 MCV (RBC) [Entitic vol] MCV [Entitic volume] by Automated count 81.0-99.0 [facility] Monocytes Auto (Bld) [#/Vol] on 06-29-2024 Monocytes (Bld) [#/Vol] Automated blood monocyte count 0.3-0.8 [facility] Monocytes/100 WBC Auto (Bld) on 06-29-2024 Monocytes/100 WBC (Bld) Automated monocyte % 1.7-12.0 [facility] Neutrophils Auto (Bld) [#/Vo l]on 06-29-2024 Neutrophils (Bld) [#/Vol] Neutrophils [#/volume] in Blood by Automated count 1.4-6.5 [facility] Neutrophils/100 WBC Auto (Bl d)on 06-29-2024 Neutrophils/100 WBC (Bld) Automated neutrophil % 43.0-75.0 [facility] No Panel Informationon 06-29 25-Hydroxy Vitamin D Total 61.2 ng/mL [facility] Comment on above: <20 ng/mL Vit D defi cient20-<30 ng/mL Vit D glsdmumvftkx73-341 ng/mL Vit D sufficient>100 ng/mL Potential Toxicity Eosinophils # (Auto) 0.1 10 3/uL 0.0-0.7 [facility] Immature Granulocyte # (Auto) 0.02 10 3/uL 0.00-0.03 [facility] Platelet mean volume Auto (B ld) [Entitic vol]on 06-29-2024 Platelet mean volume (Bld) [Entitic vol] Platelet mean volume [Entitic volume] in Blood by Automated count 9.5-13.5 [facility] Platelets Auto (Bld) [#/Vol] on 06-29-2024 Platelets (Bld) [#/Vol] Platelets [#/volume] in Blood by Automated count 150-450 [facility] RBC Auto (Bld) [#/Vol]on RBC (Bld) [#/Vol] Erythrocytes [#/volu me] in Blood by Automated count 4.20-5.40 [facility] Serum or plasma albumin/glob ulin mass ratioon 06-29-2024 Albumin/Globulin [Mass ratio] Serum or plasma albumin/globulin mass ratio [facility] Serum or plasma anion gap de terminationon 06-29-2024 Anion gap [Moles/Vol] Serum or plasma an ion gap determination [facility] Serum or plasma total choles terol/high density lipoprotein (HDL) cholesterol mass rachelle 06-29-2024 Cholesterol.total/Chol esterol in HDL [Mass ratio] Serum or plasma total cholesterol/high density lipoprotein (HDL) cholesterol mass rat [facility] Comment on above: 3.3 - 4.4 LOW RISK4. 4 - 7.1 AVERAGE RISK7.1 - 11.0 MODERATE RISK>11.0 HIGH RISK Urinalysis - AUTOMATEDon Appearance (U) cloudy [employer] [facility] Other Bilirubin Ql (U) Negative [employer] Other Color (U) dark yellow [employer] Other Glucose Ql (U) Negative [employer] [facility] Other Hemoglobin Ql (U) large [employer] Other Ketones Ql (U) Negative [employer] [facility] Other Leukocyte esterase Test strip Ql (U) moderate [employer] Other Nitrite Ql (U) Negative [facility] Other pH (U) 5.5 [pH] [employer] Other Protein Ql (U) 30 [facility] Other Specific gravity (U) [Rel density] 1.025 [employer] Other Urobilinogen (U) [Mass/Vol] 0.2 mg/dL [employer] Other Urinalysis - AUTOMATED No rt [employer] Other Urine Cultureon 07-28-2023 Urine Culture 20,000 [employer] Other Urine Culture <16 Susceptible [facility] Other Urine Culture >16/8 Resistant [employer] Other Urine Culture >16 Resistant [employer] Other Urine Culture <4 Susceptible [facility] [employer] [facility] Other Urine Culture 4 Susceptible [facility] [employer] [facility] Other Urine Culture <2 Susceptible [facility] Other Urine Culture <1 Susceptible [facility] [facility] Other Urine Culture 8 Susceptible [facility] [employer] [facility] Other Urine Culture <0.25 Susceptible [facility] Other Urine Culture <0.5 Susceptible [facility] Other Urine Culture <32 Susceptible [facility] Other Urine Culture <0.5/9.5 Susceptible [facility] [employer] [facility] Other Human papilloma virus 16+18+ 31+33+35+39+45+51+52+56+58+59+66+68 DNA [Presence] in CerOrdered By: Mariana Zayas on 06-19-2023 HPV 16+18+31+33+35+39+45+5 1+52+56+58+59+66+68 DNA Probe+sig amp Ql (Cvx) Negative Negative [facility] Comment on above: This nucleic acid am plification test detects fourteen high- risk HPV types (16,18,31,33,35,39,45,51,52,56,58,59,66,68)without differentiation.Performed at: [address] [id number] Director: Jackelyn Ayala MD, Phone: [phone] at: =[address] [id number] Director: Jackelyn Ayala MD, Phone: [phone] No Panel InformationOrdered By: Mariana Zayas on 06-19-2023 IG Pap w/Ct-Ng & HPV Rflx (Off-Site Note . [facility] Comment on above: TESTS RESULT FLAG UN ITS REF RANGE LAB Clinician Provided Cytology Information No. of containers..01 ThinPrep VialDIAGNOSIS: 01 NEGATIVE FOR INTRAEPITHELIAL LESION OR MALIGNANCY. CELLULAR CHANGES ASSOCIATED WITH ATROPHY ARE PRESENT.Specimen adequacy: 01 Satisfactory for evaluation. Endocervical component may not be distinguished in cases of atrophy.Performed by: 01 Kwan Lundberg, [employer]ator ([facility]). 01Note: Note 01 The Pap smear [...] High <-Panic Low,>-Panic High,A-Abnormal,AA-Critical Abnormal -----Performed at:[address] [id number] Jackelyn Ayala MD, FREE T4on 07-02-2022 Free T4 [Mass/Vol] 1.15 ng/dL Normal 0.76-1.46 [facility] Comment on above: Performed By: #### F T4 #### [facility] [address] [place] [address] Dr. Gilma Rojas LIPID PROFILEon 07-02-2022 CHOL-HDL RATIO NORM SEE BELOW Normal [facility] Comment on above: Result Comment: 3.3 - 4.4 LOW RISK 4.4 - 7.1 AVERAGE RISK 7.1 - 11.0 MODERATE RISK >11.0 HIGH RISK Performed By: #### C MP, TSH, LIPID #### [facility] [address] [address] [address] Gilma Rojas Cholesterol [Mass/Vol] 191 mg/dL Normal <=200 [facility] Comment on above: Performed By: #### C MP, TSH, LIPID #### [facility] [address] [address] [address] Gilma Rojas Cholesterol in HDL [Mass/Vol] 59 mg/dL Normal 40-60 [facility] Comment on above: Performed By: #### C MP, TSH, LIPID #### [facility] [address] [address] [address] Gilma Rojas Cholesterol in LDL [Mass/Vol] 112.4 mg/dL Normal [facility] Comment on above: Performed By: #### C MP, TSH, LIPID #### [facility] [address] [address] [address] Gilma Rojas Cholesterol.total/Chol esterol in HDL [Mass ratio] 3.2 {ratio} Normal [facility] Comment on above: Performed By: #### C MP, TSH, LIPID #### [facility] [address] [address] [address] Gilma Rojas HDL NORMAL > or = 60 mg/dl - LO W CARDIOVASCULAR RISK <40 mg/dl - HIGH CARDIOVASCULAR RISK Normal [facility] Comment on above: Performed By: #### C MP, TSH, LIPID #### [facility] [address] [address] [address] Gilma Rojas LDL CALC NORMAL SEE BELOW Normal [facility] Comment on above: Result Comment: <100 mg/dl OPTIMAL 100 - 129 mg/dl NEAR OR ABOVE OPTIMAL 130 - 159 mg/dl BORDERLINE HIGH 160 - 189 mg/dl HIGH >190 mg/dl VERY HIGH Performed By: #### C MP, TSH, LIPID #### [facility] [address] [address] [address] Gilma Rojas Triglyceride [Mass/Vol] 98 mg/dL Normal <=150 [facility] Comment on above: Performed By: #### C MP, TSH, LIPID #### [facility] [address] [place], [place] [address] Dr. Gilma Rojas VLDL CALC 19.6 mg/dL Normal [facility] Comment on above: Performed By: #### C MP, TSH, LIPID #### [facility] [address] [place], [place] [address] Dr. Gilma Rojas MG MAMM SCREEN 3D SAVANNAH CADon 07-02-2022 MG MAMM SCREEN 3D SAVANNAH CAD Patient: GABBY VILLANUEVA Exam Date: 07/02/2022 : 1955 Gender:F Ordering : DR MARIANA ZAYAS M.D. Admission #: [id number] Family : Order #: [id number] CLICK HERE TO VIEW EXAM RADIOLOGY REPORT PROCEDURE: MAMMOGRAM SCREENING 3D BILATERAL CAD COMPARISON: MG MAMM SCREEN 3D SAVNANAH CAD, 06/26/2021. MG MAMM SCREEN SAVANNAH W CAD, 06/23/2020. INDICATIONS: Screening mammography Calculator Name NCI Breast Cancer Risk Assessment Tool 5 Year Breast Cancer Risk 1.50% Lifetime Breast Cancer Risk 5.20% Personal Breast Cancer No Personal Ovarian Cancer No Treatments None Family Cancers Mother with skin cancer at age 79. LOCATION: [facility] BREAST COMPOSITION: Scattered areas fibroglandular density. [...] M.D. on 07/02/2022 at 12:31 Normal [facility] PROF 14(COMP METB)on 022 Albumin [Mass/Vol] 4.3 g/dL Normal 3.4-5.0 [facility] Comment on above: Performed By: #### C MP, TSH, LIPID #### [facility] [address] [place], [place] [address] Dr. Gilma Rojas Albumin/Globulin [Mass ratio] 1.4 {ratio} Normal [facility] Comment on above: Performed By: #### C MP, TSH, LIPID #### [facility] [address] [address] [address] Gilma Rojas ALP [Catalytic activity/Vol] 44 U/L Critically low 46-116 [facility] Comment on above: Performed By: #### C MP, TSH, LIPID #### [facility] [address] [address] [address] Gilma Rojas ALT [Catalytic activity/Vol] 36 U/L Normal 14-59 [facility] Comment on above: Performed By: #### C MP, TSH, LIPID #### [facility] [address] [place] [address] Dr. Gilma Rojas Anion gap [Moles/Vol] 10.4 mmol/L Normal [facility] Comment on above: Performed By: #### C MP, TSH, LIPID #### [facility] [address] [place] [address] Dr. Gilma Rojas AST [Catalytic activity/Vol] 25 U/L Normal 15-37 [facility] Comment on above: Performed By: #### C MP, TSH, LIPID #### [facility] [address] [place] [address] Dr. Gilma Rojas Bilirubin [Mass/Vol] 0.6 mg/dL Normal 0.2-1.0 [facility] Comment on above: Performed By: #### C MP, TSH, LIPID #### [facility] [address] [place] [address] Dr. Gilma Rojas Calcium [Mass/Vol] 9.6 mg/dL Normal 8.5-10.1 [facility] Comment on above: Performed By: #### C MP, TSH, LIPID #### [facility] [address] [place] [address] Dr. Gilma Rojas Chloride [Moles/Vol] 106 mmol/L Normal 98-107 [facility] Comment on above: Performed By: #### C MP, TSH, LIPID #### [facility] [address] [place] [address] Dr. Gilma Rojas CO2 [Moles/Vol] 30.1 mmol/L Normal 21.0-32.0 [facility] Comment on above: Performed By: #### C MP, TSH, LIPID #### [facility] [address] [address] [address] Gilma Rojas Creatinine [Mass/Vol] 0.78 mg/dL Normal 0.55-1.02 [facility] Comment on above: Performed By: #### C MP, TSH, LIPID #### [facility] [address] [address] [address] Gilma Rojas EGFR-AF RWANDAN >60 Normal >=60 [facility] Comment on above: Performed By: #### C MP, TSH, LIPID #### [facility] [address] [address] [address] Gilma Rojas EGFR-NON AF RWANDAN >60 Normal >=60 [facility] Comment on above: Performed By: #### C MP, TSH, LIPID #### [facility] [address] [address] [address] Gilma Rojas Globulin (S) [Mass/Vol] 3.1 g/dL Normal [facility] Comment on above: Performed By: #### C MP, TSH, LIPID #### [facility] [address] [address] [address] Gilma Rojas Glucose [Mass/Vol] 99 mg/dL Normal 74-106 [facility] Comment on above: Performed By: #### C MP, TSH, LIPID #### [facility] [address] [address] [address] Gilma Rojas Potassium [Moles/Vol] 3.5 mmol/L Normal 3.5-5.1 [facility] Comment on above: Performed By: #### C MP, TSH, LIPID #### [facility] [address] [address] [address] Gilma Rojas Protein [Mass/Vol] 7.4 g/dL Normal 6.4-8.2 [facility] Comment on above: Performed By: #### C MP, TSH, LIPID #### [facility] [address] [address] [address] Gilma Rojas Sodium [Moles/Vol] 143 mmol/L Normal 136-145 [facility] Comment on above: Performed By: #### C MP, TSH, LIPID #### [facility] [address] [place] [address] Dr. Gilma Rojas Urea nitrogen [Mass/Vol] 18.0 mg/dL Normal 7.0-18.0 [facility] Comment on above: Performed By: #### C MP, TSH, LIPID #### [facility] [address] [address] [address] Gilma Rojas Urea nitrogen/Creatinine [Mass ratio] 23.1 mg/mg Normal [facility] Comment on above: Performed By: #### C MP, TSH, LIPID #### [facility] [address] [place] [address] Dr. Gilma Rojas TSHon 07-02-2022 TSH 3.135 uIU/mL Normal 0.358-3.74 0 [facility] Comment on above: Performed By: #### C MP, TSH, LIPID #### [facility] [address] [address] [address] Gilma Rojas Vital Signs Date Time Vital Sign Value Performing Clinician Facility 12-08-2024 10:47-0500 Body height 154.94 cm Mariana Zayas MD Work Phone: [facility] 12-08-2024 10:47-0500 Body mass index (BMI) [Ratio] 34.7 kg/m2 Mariana Zayas MD Work Phone: [facility] 12-08-2024 10:47-0500 Body weight 83.46 kg Mariana Zayas MD Work Phone: [facility] 12-08-2024 10:47-0500 Diastolic blood pressure 74 mm[Hg] Mariana Zayas MD Work Phone: [facility] 12-08-2024 10:47-0500 Heart rate 75 /min Mariana Zayas MD Work Phone: [facility] 12-08-2024 10:47-0500 Systolic blood pressure 158 mm[Hg] Mariana Zayas MD Work Phone: [facility] 09-22-2024 11:11-0500 Body height 154.94 cm Mariana Zayas MD Work Phone: [facility] 09-22-2024 11:11-0500 Body mass index (BMI) [Ratio] 34.2 kg/m2 Mariana Zayas MD Work Phone: [facility] 09-22-2024 11:11-0500 Body weight 82.1 kg Mariana Zayas MD Work Phone: [facility] 09-01-2024 14:04-0500 Body height 153.67 cm [facility] 09-01-2024 14:04-0500 Body mass index (BMI) [Ratio] 35.3 kg/m2 [facility] 09-01-2024 14:04-0500 Body weight 83.46 kg [facility] 09-01-2024 14:04-0500 Diastolic blood pressure 73 mm[Hg] [facility] 09-01-2024 14:04-0500 Heart rate 76 /min [facility] 09-01-2024 14:04-0500 Systolic blood pressure 125 mm[Hg] [facility] 06-23-2024 10:57-0400 Body height 153.67 cm [facility] 06-23-2024 10:57-0400 Body mass index (BMI) [Ratio] 34.9 kg/m2 [facility] 06-23-2024 10:57-0400 Body weight 82.55 kg [facility] 06-23-2024 10:57-0400 Diastolic blood pressure 74 mm[Hg] [facility] 06-23-2024 10:57-0400 Heart rate 64 /min [facility] 06-23-2024 10:57-0400 Systolic blood pressure 146 mm[Hg] [facility] 03-17-2024 11:27-0400 Body height 153.67 cm [facility] 03-17-2024 11:27-0400 Body mass index (BMI) [Ratio] 34.4 kg/m2 [facility] 03-17-2024 11:27-0400 Body temperature 98.1 [degF] [facility] 03-17-2024 11:27-0400 Body weight 81.19 kg [facility] 03-17-2024 11:27-0400 Diastolic blood pressure 73 mm[Hg] [facility] 03-17-2024 11:27-0400 Heart rate 79 /min [facility] 03-17-2024 11:27-0400 Systolic blood pressure 134 mm[Hg] [facility] 09-24-2023 09:00-0500 Body height 153.67 cm Mariana Zayas Other [facility] [employer] Other 09-24-2023 09:00-0500 Body mass index (BMI) [Ratio] 33.61 kg/m2 Mariana Zayas Other [facility] [employer] Other 09-24-2023 09:00-0500 Body weight 79.38 kg Mariana Zayas Other [facility] [employer] Other 09-24-2023 09:00-0500 Diastolic blood pressure 80 mm[Hg] Mariana Zayas Other [facility] [employer] Other 09-24-2023 09:00-0500 Systolic blood pressure 126 mm[Hg] Mariana Zayas Other [facility] [employer] Other 08-13-2023 09:30-0400 Body height 153.67 cm Lukasz Quispe Other [employer] Other 08-13-2023 09:30-0400 Body mass index (BMI) [Ratio] 33.42 kg/m2 Lukasz Quispe Other [facility] [employer] Other 08-13-2023 09:30-0400 Body weight 78.93 kg Lukasz Quispe Other [employer] Other 08-13-2023 09:30-0400 SaO2% (BldA) [Mass fraction] 96 % Lukasz Quispe Other [employer] Other 07-28-2023 09:25-0400 Body height 153.67 cm Lima Shauna Other [employer] Other 07-28-2023 09:25-0400 Body mass index (BMI) [Ratio] 32.84 kg/m2 Lima Shauna Other [employer] Other 07-28-2023 09:25-0400 Body temperature 98.3 [degF] Lima Shauna Other [employer] Other 07-28-2023 09:25-0400 Body weight 77.57 kg Lima Sanchezmond Other [employer] Other 07-28-2023 09:25-0400 Diastolic blood pressure 82 mm[Hg] Lima Shauna Other [employer] Other 07-28-2023 09:25-0400 Respiratory rate 16 /min Lima Shauna Other [employer] Other 07-28-2023 09:25-0400 SaO2% (BldA) [Mass fraction] 98 % Lima Shauna Other [employer] Other 07-28-2023 09:25-0400 Systolic blood pressure 144 mm[Hg] Lima Shauna Other [employer] Other 06-19-2023 09:30-0400 Body height 153.67 cm Mariana Zayas Other [employer] Other 06-19-2023 09:30-0400 Body mass index (BMI) [Ratio] 32.8 kg/m2 Mariana Zayas Other [employer] Other 06-19-2023 09:30-0400 Body weight 77.47 kg Mariana Zayas Other [employer] Other 06-19-2023 09:30-0400 Diastolic blood pressure 77 mm[Hg] Mariana Zayas Other [employer] Other 06-19-2023 09:30-0400 Respiratory rate 12 /min Mariana Zayas Other [employer] Other 06-19-2023 09:30-0400 Systolic blood pressure 160 mm[Hg] Mariana Zayas Other [employer] Other 12-25-2022 15:45-0400 Body height 153.67 cm Mariana Zayas Other [employer] Other 12-25-2022 15:45-0400 Body mass index (BMI) [Ratio] 34.57 kg/m2 Mariana Zayas Other [employer] Other 12-25-2022 15:45-0400 Body weight 81.65 kg Mariana Zayas Other [employer] Other 12-25-2022 15:45-0400 Diastolic blood pressure 72 mm[Hg] Mariana Zayas Other [employer] Other 12-25-2022 15:45-0400 SaO2% (BldA) [Mass fraction] 97 % Mariana Zayas Other [employer] Other 12-25-2022 [id number] Systolic blood pressure 132 mm[Hg] Mariana Zayas Other [facility] [employer] Other Encounters Encounter Date Encounter Type Care Provider Facility Start: 12-08-2024 End: 12-08-2024 ambulatory Mariana Zayas MD Work Phone: [facility] Work Phone: Start: 12-08-2024 End: 12-08-2024 Patient encounter procedure Mariana Zayas MD Work Phone: [facility] Physician [facility] Work Phone: Start: 10-08-2024 End: 10-08-2024 Patient encounter procedure Mariana Zayas MD Work Phone: [facility] [place] Work Phone: Start: 10-08-2024 End: 10-08-2024 ambulatory Mariana Zayas Facility:[facility] Start: 10-08-2024 Non-patient / Non-visit Mariana Zayas MD Work Phone: [facility] Physician [facility] Work Phone: Start: 09-22-2024 End: 09-22-2024 Patient encounter procedure Mariana Zayas MD Work Phone: [facility] Physician [facility] Work Phone: Start: 09-01-2024 End: 09-01-2024 ambulatory [facility] Work Phone: Start: 09-01-2024 End: 09-01-2024 Patient encounter procedure [facility] Physician [facility] Work Phone: Start: 07-01-2024 Patient encounter procedure [facility] Start: 06-29-2024 Non-patient / Non-visit [facility] Physician [facility] [employer] Work Phone: Start: 06-23-2024 End: 06-23-2024 ambulatory [facility] Work Phone: Start: 06-23-2024 End: 06-23-2024 Patient encounter procedure [facility] Physician [facility] Work Phone: Start: 03-17-2024 End: 03-17-2024 ambulatory [facility] Work Phone: Start: 03-17-2024 End: 03-17-2024 Patient encounter procedure [facility] Physician [facility] Work Phone: Start: 02-10-2024 Non-patient / Non-visit [facility] Physician [facility] Work Phone: Start: 09-24-2023 End: 09-24-2023 ambulatory Mariana Zayas Other [employer] Other Start: 09-24-2023 Office outpatient vi sit 15 minutes Mariana Zayas [facility] Start: 08-13-2023 End: 08-13-2023 ambulatory Lukasz Quispe Other [employer] Other Start: 08-13-2023 Office outpatient vi sit 25 minutes Lukasz Quispe [facility] Start: 07-28-2023 Office outpatient vi sit 15 minutes Lima Villatoro [facility] Jul[facility] Start: 07-28-2023 End: 07-28-2023 ambulatory Lima Villatoro Other [employer] Other Start: 07-28-2023 End: 07-28-2023 Departed Referred MD Mariana Zyaas Work Phone: [facility] [place] Work Phone: Start: 06-26-2023 End: 06-26-2023 ambulatory Mariana Zayas Other [employer] Other Start: 06-26-2023 Telephone encounter Mariana Zayas [facility] Start: 06-19-2023 Patient encounter procedure Mariana Zayas [facility] Start: 06-19-2023 End: 06-19-2023 ambulatory MD Mariana Zayas Work Phone: [facility] Work Phone: Start: 06-19-2023 End: 06-19-2023 Departed Referred MD Mariana Zayas Work Phone: [facility] [place] Work Phone: Start: 01-08-2023 End: 01-08-2023 ambulatory Mariana Zayas Other [employer] Other Start: 01-08-2023 Telephone encounter Mariana Zayas [facility] Start: 12-25-2022 End: 12-25-2022 ambulatory Mariana Zayas Other [employer] Other Start: 12-25-2022 Office outpatient vi sit 15 minutes Mariana Zayas [facility] Start: 07-02-2022 End: 07-03-[address] MARIANA ZAYAS Facility:[facility] Procedures Date Procedure Procedure Detail Performing Clinician Start: 07-28-2023 Piperacillin/tazobactam Lima Villatoro Other Plan of Treatment Date Care Activity Detail Author Start: 07-28-2023 Bacteria identified in Urine by Culture [facility] Start: 06-19-2023 [facility] Comprehensive metabo lic 2000 panel - Serum or Plasma [facility] Human papilloma viru s 16+18+31+33+35+39+45+51+52+56+58 +59+66+68 DNA [Presence] in Cervix by Probe with signal amplification [facility] MG Breast - bilateral Screening [facility] Gallbladder [facility] Liver [facility] Immunizations Immunization Date Immunization Notes Care Provider Fa cility 07-29-2022 COVID-19 Pfizer (Pediatric) Mariana Zayas Other [facility] 07-29-2022 influenza virus vaccine, split virus (incl. purified surface antigen) Mariana Chana Other [facility] [employer] Other 07-29-2022 influenza virus vaccine, unspecified formulation [facility] 06-12-2022 Prevnar 20 Mariana Zayas Other [facility] 01-19-2022 COVID-19 Vaccine Moderna - Documentation Purposes Only Mariana Chana Other [facility] 09-13-2015 influenza virus vaccine, split virus (incl. purified surface antigen) Mariana Zayas Other Merged With [facility] [employer] Other 09-13-2015 influenza virus vaccine, unspecified formulation [facility] 07-29-2013 tetanus and diphther ia toxoids, adsorbed, preservative free, for adult use (5 Lf of tetanus toxoid and 2 Lf of diphtheria toxoid) Mariana Chana Other [facility] Payers Date Payer Category Payer Unknown [id number] 1955 Unknown [id number] Medicare [id number] Self-pay Self Pay [id number] Social History Date Type Detail Facility Unknown if ever smoked Merged With [facility] [employer] Other Sex Assigned At Sex Assigned At Bir th Merged With [facility] [employer] Other Start: 1955 Sex Assigned At Female [facility] Start: 09-24-2023 End: 09-24-2023 Tobacco smoking status NHIS Never smoked tobacco (finding) [facility] Start: 09-01-2024 End: 12-08-2024 Sex Female (finding) [facility] Functional Status Date Assessment Result Facility 10-08-2024 Fibrosis score Enhanced Liver Fibrosis Score Fibrosis score [facility] Comment on above: ELF(TM) Score Interp retation:Risk cut-offs to assess the likelihood of progressionto cirrhosis and liver-related clinical events within3.9 years following baseline ELF score (IQR: 14.0-22.4months)*: Lower risk < 9.80 Mid risk 9.80 - 11.29 Higher risk >11.29Note: The ELF(TM) Score is a unitless numerical value.*Rakesh SA, Dimitrios VW, Tonja T, et al. Selonsertibfor patients with bridging fibrosis or compensatedcirrhosis due to VERONICA: Results from randomized phaseIII STELLAR trials. J Hepatol. 2020 Apr;73(1):26-39.Performed at: [address] [id number] Director: Warner Mckinney MD, Phone: [phone] Clinical Notes 12-25-2022 to 09-22-2024 Note Date & Type Note Facility 09-22-2024 Evaluation note Authored September 22, 2024 12:52pm 68-year-old female referred to the liver clinic for evaluation of fatty liver Ultrasound on 06/29/2024 showed echogenic liver with suspected nodular contour Will get laboratory work up for infectious, autoimmune and metabolic etiologies of liver diseases. Patient has obesity, HTN and HLD which are risk factors associated with MASLD. Patient does not have secondary causes of hepatic fat accumulation such as significant alcohol consumption, viral hepatitis, steatogenic medications (e.g., tamoxifen, amiodarone, methotrexate), or lipodystrophy. Pt was counseled about weight loss(10%) mediterranean diet and exercise ( >45 minutes X5 per week). Will arrange for fibroscan and check [facility] Work Phone: [phone]) 177-593009-10-2024 Evaluation note* Diagnosis Onset Date Resolution Status Admit Date Essential (primary) hypertension acute June 23, 2024 10:41am Hypothyroidism acute June 23, 2024 10:41am Medicare annual wellness vis it, subsequent acute June 23, 2024 10:41am Mixed hyperlipidemia acute Jun 10:41am RUQ abdominal pain acute 2023 10:41am Screening mammogram for karla st cancer acute June 23, 2024 10:41am Vitamin D deficiency acute Jun 10:41am [facility] Work Phone: [phone]) [phone] Evaluation note* Encounter Date Diagnosis Assessment Notes Treatment Notes Treatment Clinical Notes Sep, Essential (primary) hypertension (ICD-10 - I10) add carvediolol - home bps [id number] Call if symptoms of hypotension occur. Sep, Symptomatic varicose veins, right (ICD-10 - I83.891) Pt previously saw Dr. Cantor and would like to see an office closer to her home. Sep, Erythrasma (ICD-10 - L08.1) chronic problem in groin area - requests refill. [facility] Other 10-31-2023 Evaluation note* Encounter Date Diagnosis Assessment Notes [...] negative findings were considered in medical decision-making. [email or web address] Other 10-15-2023 Evaluation note* Encounter Date Diagnosis [...] no improvement in 2 to 3 days [email or web address] Other 09-13-2023 Evaluation note* Encounter Date Diagnosis Assessment Notes Treatment Notes Treatment Clinical Notes Jun, Situational anxiety (ICD-10 - F41.8) [email or web address] Other 09-06-2023 Evaluation note* Encounter Date Diagnosis [...] her satisfaction and patient sent home stable [facility] Other 03-28-2023 Evaluation note* Encounter Date Diagnosis Assessment Notes Treatment Notes Treatment Clinical Notes Dec, Erythrasma (ICD-10 - L08.1) [facility] Other 03-14-2023 Evaluation note* Encounter Date Diagnosis [...] she is doing well. >15 min discussion [facility] Other Evaluation noteNo assessment information available [facility] Work Phone: Evaluation note* Diagnosis Onset Date Resolution Status Essential (primary) hypertension acute Hypothyroidism acute Mixed hyperlipidemia acute RUQ abdominal pain acute Screening mammogram for breast cancer acute Vitamin D deficiency acute [facility] Work Phone: History general Narrative - Reported* [...] C SECTION X2 Surgical History TUBAL LIGATION [email or web address] Other History general Narrative - Reported* Type [...] TUBAL LIGATION Hospitalization History SEE SURGICAL HX [email or web address] Other Summary Purpose Family History Relationship Condition [...] Date/ Time Advance Directives No June 3:08pm Advance Directive Response Recorded Date/ Time Advance Directives No June 2:08pm Chief Complaint and Reason for Visit Chief Complaint Z12.4 Chief Complaint Amb Documentation Sore throat, ear pain Chief Complaint wellness Reason for Visit Essential (primary) hypertension Hypothyroidism Mixed hyperlipidemia RUQ abdominal pain Screening mammogram for breast cancer Vitamin D deficiency Chief Complaint Admit Date wellness June 23, 2024 10:41am Rash on Stomach September 01, 2024 2:01pm Reason for Visit Admit Date Essential (primary) hypertension Septemb er 2023 10:41am Hypothyroidism June 23, 2024 10:41am Medicare annual wellness visit, subseque nt June 23, 2024 10:41am Mixed hyperlipidemia June 23 10:41am RUQ abdominal pain June 23, 2024 10:41am Screening mammogram for breast cancer Se ptember 2023 10:41am Vitamin D deficiency June 23 10:41am Chief Complaint Admit Date Referred by Dr Tiara Zayas: fatty liver Dece mber 2023 11:07am fatty liver October 08, 2024 10:40am K76.0 October 08, 2024 10:45am follow up Fibro December 08, 2024 10:44am Reason for Visit Admit Date Metabolic syndrome September 22, 2024 11:07am Steatosis of liver September 22, 2024 11:07am Reason for Referral Reason [facility] Diagnosis 1 Symptomatic varicose veins, right (I83.891) Referral Organization [facility] linmiguel Referring Provider First Name Mariana Referring Provider Last Name Chana Referring Provider Specialty [facility] Referred Organization [facility] Referred Address [address], [place],[address] Referred Provider Specialty Vascular and Interventional Radiology Referral Priority Routine Additional Source Comments INFORMATION SOURCE (unrecogn ized section and content) DATE CREATED AUTHOR 07/14/2022 [facility] DATE CREATED AUTHOR AUTHOR'S ORGANIZ ATION 10/28/2024 [facility] REASON FOR VISIT (unrecogniz ed section and [...] 2024 End: March 17, 2024 Team Status: Active Member Role Status Dates Mariana Zayas MD Primary Care Provide r, Attending Provider Active Start: June 29, 2024 Team Status: Inactive Member Role Status Dates Mariana Zayas MD Primary Care Provide r, Attending Provider Active Start: September 01, 2024 End: September 01, 2024 Team Status: Inactive Member Role Status Dates Mariana Zayas MD Primary Care Provider Active Start: September 22, 2024 End: September 22, 2024 Wayne Givens MD Attending Provider Active Start: September 22, 2024 End: September 22, 2024 Team Status: Active Member Role Status Dates Mariana Zayas MD Primary Care Provider Active Start: October 08, 2024 Wayne Givens MD Other Provider Active Start: Sep Candelario Gaines MD Attending Provider Active S tart: October 08, 2024 Team Status: Inactive Member Role Status Dates Mariana Zayas MD Primary Care Provider Active Start: October 08, 2024 End: October 08, 2024 Wayne Givens MD Attending Provider Active Start: October 08, 2024 End: October 08, 2024 Team Status: Inactive Member Role Status Wilfredo Zayas MD Primary Care Provider Active Start: December 08, 2024 End: December 08, 2024 Wayne Givens MD Attending Provider Active Start: December 08, 2024 End: December 08, 2024 Goals (unrecognized section and content) Goals [...] BE BASED ON THE PRIMARY CLINICAL RECORDS. [facility] provides no warranty or guarantee of the accuracy or completeness of information in this document.
[2024-12-20 18:57] VITALS: BP 157/70; PULSE 93; TEMP 37.4; O2SAT 95; BMI 35.1
[2024-12-20 19:43] LABS: Influenza Virus A Antigen Negative; Influenza Virus B Antigen Negative; Internal Control Within Normal Limits; SARS-CoV-2 Ag NEGATIVE (NEGATIVE)
--- NOTE | 2024-12-20 20:16 | ED.URI1 ---
Documented by User: CHAD Mullen 12/20/24 20:19 HPI - URI/Sore Throat General Chief Complaint: Upper Respiratory Infection Stated Complaint: HEADACHE, COUGH Time Seen by Provider: 12/20/24 20:08 Source: patient and family Limitations: no limitations History of Present Illness HPI Narrative: Patient is a 69-year-old female with a history of hypertension who presents to the emergency department for 3-day history of upper respiratory symptoms. She reports cough, congestion, sore throat. She reports some rib pain from coughing but has not had any hemoptysis or significant shortness of breath. She has had no objective fevers, vomiting or diarrhea. No sick contacts in the home. She has been using [id number] medications without improvement. Related Data Previous Rx's ?Medication ?Instructions ?Recorded albuterol sulfate 90 mcg/actuation 2 inh inhalation Q4H PRN shortness 12/20/24 aerosol inhaler of breath or wheezing #8.5 grams azithromycin 250 mg tablet See Rx Instructions PO .COMPLEX #6 12/20/24 (Zithromax Z-Mani) tabs benzonatate 200 mg capsule 200 mg PO TID PRN cough #15 caps 12/20/24 methylprednisolone 4 mg tablets in See Rx Instructions .Route 12/20/24 a dose pack (Medrol (Mani)) .COMPLEX #21 ea ondansetron 4 mg disintegrating 4 mg PO Q4H PRN nausea and 12/20/24 tablet vomiting 3 days #6 tabs Allergies Allergy/AdvReac Type Severity Reaction Status Date / Time cephalexin (From Keflex) AdvReac Mild fingers Verified 12/20/24 18:57 peeling Review of Systems ROS Constitutional Denies: fever or chills Ears, nose, mouth, and throat Reports: throat pain and nasal congestion Cardiovascular Denies: chest pain Respiratory Reports: cough; Denies: shortness of breath Gastrointestinal Denies: abdominal pain, nausea, vomiting or diarrhea Musculoskeletal Denies: back pain Integumentary/Breast Denies: rash Neurological Denies: numbness in extremities or weakness in extremities Hematologic/Lymphatic Denies: easy bruising or easy bleeding PFSH PFSH Social History Little interest or pleasure in doing things: not at all Feeling down, depressed, or hopeless: not at all Exam Narrative Exam Narrative: Gen.: Awake, alert, in no distress Head: Normocephalic, atraumatic ENT: Moist mucous membranes, bilateral TMs clear Respiratory: No respiratory distress, lungs clear bilaterally, dry cough noted. No wheezing or rhonchi Cardio: Regular rate and rhythm Extremities: Moves extremities equally Psych: Normal mood and affect Neuro: No focal neuro deficit Skin: Warm, dry, intact Constitutional Vital Signs, click to edit/add: Last Vital Signs Temp 99.4 F 12/20/24 18:57 Pulse 93 H 12/20/24 18:57 Resp 20 12/20/24 20:38 BP 157/70 H 12/20/24 18:57 Pulse Ox 95 12/20/24 18:57 O2 Del Method Room Air 12/20/24 18:57 Course Vital Signs Vital signs: Vital Signs Temperature 99.4 F 12/20/24 18:57 Pulse Rate 93 H 12/20/24 18:57 Respiratory Rate 16 12/20/24 18:57 Blood Pressure 157/70 H 12/20/24 18:57 Pulse Oximetry 95 12/20/24 18:57 Oxygen Delivery Method Room Air 12/20/24 18:57 Temperature 99.4 F 12/20/24 18:57 Pulse Rate 93 H 12/20/24 18:57 Respiratory Rate 20 12/20/24 20:38 Blood Pressure 157/70 H 12/20/24 18:57 Pulse Oximetry 95 12/20/24 18:57 Oxygen Delivery Method Room Air 12/20/24 18:57 MDM - URI/Sore Throat MDM Narrative Medical decision making narrative: COVID and flu testing is negative and chest x-ray with no evidence of acute cardiopulmonary changes. Patient treated for upper respiratory infection based on her age, Z-Mani, Medrol Dosepak, Tessalon pearls and albuterol inhaler given for home. Follow-up with PCP and return to the emergency department if symptoms change or worsen. Patient is hemodynamically stable with no hypoxia or complaints of chest pain in the ER. SUPERVISED APC VISIT, PHYSICIAN ATTESTATION: Based on the medical record the care appears appropriate. ? Medical Records Attestation: I reviewed the patient's medical records. Lab Data Attestation: I reviewed the patient's lab results. Labs: Lab Results 03/09/25 Range/Units 19:00 Influenza Type A Ag Negative Influenza Type B Ag Negative SARS-CoV-2 Ag (CV2AG) Negative (NEGATIVE) Imaging Data Chest x-ray: Attestation: I have reviewed the pertinent imaging results. Discharge Plan Discharge Chief Complaint: Upper Respiratory Infection Clinical Impression: Upper respiratory infection Patient Disposition: Home, Self-Care Time of Disposition Decision: 20:14 Condition: Good Prescriptions / Home Meds: New ondansetron 4 mg tablet,disintegrating 4 mg PO Q4H PRN (Reason: nausea and vomiting) 3 Days Qty: 6 0RF azithromycin [Zithromax Z-Mani] 250 mg tablet See Rx Instructions .ROUTE .COMPLEX Qty: 6 0RF Rx Instructions: For 250 mg dose pack: take 500 mg today (day 1), then 250 mg for 4 days (days 2-5) methylprednisolone [Medrol (Mani)] 4 mg tablets,dose pack See Rx Instructions .ROUTE .COMPLEX Qty: 21 0RF Rx Instructions: Taper as directed albuterol sulfate 90 mcg/actuation HFA aerosol inhaler 2 inh inhalation Q4H PRN (Reason: shortness of breath or wheezing) Qty: 8.5 0RF benzonatate 200 mg capsule 200 mg PO TID PRN (Reason: cough) Qty: 15 0RF Print Language: Mohawk Instructions: Upper Respiratory Infection (ED) Referrals: Mariana Mayfield MD [Primary Care Provider] - 1 week Discharge Date/Time: 12/20/24 20:40 Documented by User: Sherif Escobar MD 12/21/24 01:03 HPI - URI/Sore Throat General Chief Complaint: Upper Respiratory Infection Stated Complaint: HEADACHE, COUGH Time Seen by Provider: 12/20/24 20:08 Related Data Previous Rx's ?Medication ?Instructions ?Recorded albuterol sulfate 90 mcg/actuation 2 inh inhalation Q4H PRN shortness 12/20/24 aerosol inhaler of breath or wheezing #8.5 grams azithromycin 250 mg tablet See Rx Instructions PO .COMPLEX #6 12/20/24 (Zithromax Z-Mani) tabs benzonatate 200 mg capsule 200 mg PO TID PRN cough #15 caps 12/20/24 methylprednisolone 4 mg tablets in See Rx Instructions .Route 12/20/24 a dose pack (Medrol (Mani)) .COMPLEX #21 ea ondansetron 4 mg disintegrating 4 mg PO Q4H PRN nausea and 12/20/24 tablet vomiting 3 days #6 tabs Allergies Allergy/AdvReac Type Severity Reaction Status Date / Time cephalexin (From Keflex) AdvReac Mild fingers Verified 12/20/24 18:57 peeling PFSH PFS Social History Little interest or pleasure in doing things: not at all Feeling down, depressed, or hopeless: not at all Exam Constitutional Vital Signs, click to edit/add: Last Vital Signs Temp 99.4 F 12/20/24 18:57 Pulse 93 H 12/20/24 18:57 Resp 20 12/20/24 20:38 BP 157/70 H 12/20/24 18:57 Pulse Ox 95 12/20/24 18:57 O2 Del Method Room Air 12/20/24 18:57 Course Vital Signs Vital signs: Vital Signs Temperature 99.4 F 12/20/24 18:57 Pulse Rate 93 H 12/20/24 18:57 Respiratory Rate 16 12/20/24 18:57 Blood Pressure 157/70 H 12/20/24 18:57 Pulse Oximetry 95 12/20/24 18:57 Oxygen Delivery Method Room Air 12/20/24 18:57 Temperature 99.4 F 12/20/24 18:57 Pulse Rate 93 H 12/20/24 18:57 Respiratory Rate 20 12/20/24 20:38 Blood Pressure 157/70 H 12/20/24 18:57 Pulse Oximetry 95 12/20/24 18:57 Oxygen Delivery Method Room Air 12/20/24 18:57 MDM - URI/Sore Throat MDM Narrative Medical decision making narrative: COVID and flu testing is negative and chest x-ray with no evidence of acute cardiopulmonary changes. Patient treated for upper respiratory infection based on her age, Z-Mani, Medrol Dosepak, Tessalon pearls and albuterol inhaler given for home. Follow-up with PCP and return to the emergency department if symptoms change or worsen. Patient is hemodynamically stable with no hypoxia or complaints of chest pain in the ER. SUPERVISED APC VISIT, PHYSICIAN ATTESTATION: Based on the medical record the care appears appropriate. I, Dr Escobar, have reviewed the above progress note and course of action in the ER; agree with the above. I have personally gone over history and physical, and discussed disposition and treatment plan with the PA. Lab Data Labs: Lab Results 12/20/24 Range/Units 19:00 Influenza Type A Ag Negative Influenza Type B Ag Negative SARS-CoV-2 Ag (CV2AG) Negative (NEGATIVE) Discharge Plan Discharge Chief Complaint: Upper Respiratory Infection Clinical Impression: Upper respiratory infection Patient Disposition: Home, Self-Care Time of Disposition Decision: 20:14 Condition: Good Prescriptions / Home Meds: New ondansetron 4 mg tablet,disintegrating 4 mg PO Q4H PRN (Reason: nausea and vomiting) 3 Days Qty: 6 0RF azithromycin [Zithromax Z-Mani] 250 mg tablet See Rx Instructions .ROUTE .COMPLEX Qty: 6 0RF Rx Instructions: For 250 mg dose pack: take 500 mg today (day 1), then 250 mg for 4 days (days 2-5) methylprednisolone [Medrol (Mani)] 4 mg tablets,dose pack See Rx Instructions .ROUTE .COMPLEX Qty: 21 0RF Rx Instructions: Taper as directed albuterol sulfate 90 mcg/actuation HFA aerosol inhaler 2 inh inhalation Q4H PRN (Reason: shortness of breath or wheezing) Qty: 8.5 0RF benzonatate 200 mg capsule 200 mg PO TID PRN (Reason: cough) Qty: 15 0RF Print Language: Mohawk Instructions: Upper Respiratory Infection (ED) Referrals: Mariana Mayfield MD [Primary Care Provider] - 1 week Discharge Date/Time: 12/20/24 20:40
[2024-12-20] MEDS: AZITHROMYCIN 250 MG TABLET 500 MG PO (20:37)
[2024-12-20] MEDS: PREDNISONE 20 MG TABLET 60 MG PO (20:37)
== END 2024-12-20 20:40 | disposition home or self-care (01) ==
PROVIDERS: Emergency Medicine; Emergency Provider Emergency Medicine; PCP Family Medicine
DX: J06.9 Acute upper respiratory infection, unspecified (principal); I10 Essential (primary) hypertension
CPT/HCPCS: 71046; 87804; 87811; 99285; J7512

== ENCOUNTER 2025-07-12 11:06 | Outpatient (OUT) | payer MEDICARE, SELFPAY ==
--- OUTSIDE RECORDS SUMMARY | 2025-07-08 10:12 | XMS_ITS ---
Author Name Auto Generated Organization OHIP Care Team Providers Care Stock And Station Agent Name Role Phone JR. HANSON GEORGE C Attending Unavaila RACHID Gonzalez Attending Unavailable RACHID SAUL Attending Unavailable Mariana Mayfield Primary Care Unavailable Brittaney, Lukasz S Admitting Unavailable Lukasz Quispe S Attending Unavailable Mariana Mayfield Primary Care Unavailable Brittaney, Lukasz S Admitting Unavailable Brittaney, Lukasz S Attending Unavailable Mariana Mayfield Primary Care Unavailable Asaad, Imad Admitting Unavailable Asaad, Imad Attending Unavailable Mariana Mayfield Primary Care Unavailable Asaad, Imad Admitting Unavailable Asaad, Imad Attending Unavailable PROBLEMS DATE TYPE CONDITION / CODE ATTENDING STATUS [facility] 04/12/2025 Unknown Radiculopathy, c ervical region / M54.12(ICD-10) Ferny Quispeif S Active [facility] 10/08/2024 Unknown Fatty (change of ) liver, not elsewhere classified / K76.0(ICD-10) Asaad, Imad Active [facility] 10/08/2024 Unknown Acute maxillary sinusitis, unspecified / J01.00(ICD-10) [facility], [facility] Active [facility] PROCEDURES No Procedure Records Found RESULTS XR CERV SPINE AP/LAT/FLX/EXT Observed: 04/12/2025 8:42 AM Status: COMPLETED Source: [facility] [place] [address] MRI Report Signed Patient: Gabby Reyes MR#: [id number] : 1955 Acct:[id number] Age/Sex: 69 / F ADM Date: 04/12/25 Loc: MR Room: Type: [facility] Attending Dr: Lukasz Quispe MD Copies to: Lukasz Quispe MD Ordering Provider: Lukasz Quispe MD Date of Service: 04/12/25 MR/MR cervical spine wo con: M54.12 - Radiculopathy, cervical region ([id number]) XR/XR cerv spine AP/LAT/FLX/EXT: M54.12 - Radiculopathy, cervical region MRI CERVICAL SPINE PERFORMED WITHOUT CONTRAST AND 4 VIEWS OF THE CERVICAL SPINE INDICATION: 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 Intervertebral space narrowing and endplate osteophytosis C5-C6. No evidence of pathologic instability on flexion-extension imaging. No prevertebral soft tissue swelling. Lung apices are clear. MR CERVICAL SPINE WITHOUT CONTRAST: Craniocervical junction is maintained. Straightening and mild reversal normal cervical lordosis. There is cervical vertebral heights and alignment, bone marrow signal is otherwise normal. Mild intervertebral space narrowing C5-6. No prevertebral or paracentral soft tissue swelling. C2-C3: Mild left facet arthropathy. No significant disease, central canal or neural foraminal narrowing identified. C3-C4:: Minimal left facet arthropathy. No central disc disease central canal or neural foraminal narrowing identified. Mild left neural foraminal narrowing identified. C5-6: Minimal broad-based disc bulge with uncovertebral spurring. Minimal left facet about. Central canal patent. Foramina grossly patent. C6-C7: Central disc osteophyte complex and minimal uncovertebral spurring. Central canal neural foramen are patent. C7-T1: Minimal facet arthropathy. Otherwise no significant disease is canal neural foraminal narrowing identified MR/MR cervical spine wo con IMPRESSION: Overall mild degenerative changes notably C5-C7. No high-grade canal or foraminal narrowing. No pathologic instability on flexion-extension imaging. Impression dictated by: Arturo Cardona M.D. 04/12/2025 9:06 AM Dictation Location: [place] [address] Transcribed By: [facility] 04/12/25905 Dictated By: Arturo Cardona MD 04/12/25841 Signed By: <Electronically signed by Arturo Cardona MD in OV> 04/12/25905 FERRITIN Collected: 4 10:53 AM Status: F Source: [facility] TYPE CODE TESTS RESULT OUT OF RANGE REFERENCE UNITS LAB GEOFF Ferritin 349.8 High 11.0-306.8 ng/mL Result Comment: PERFORMED BY : [place] [address] PATHOLOGIST FOOD COOKING MACHINE OPERATOR TERI ELLIS M.D. Performed By: #### HBCAB, EL F, HAABT, L-K MICRO, HCBIGM, MITOM2, SMAB, HAAB, ALPHA PHEN, CERULOP, IGG, NATALYA, HCV RX PCR, HEMOCHROM, HBSAG, HBSAB #### [facility] , #### GEOFF #### [address] CERULOPLASMIN Collected: 4 10:53 AM Status: F Source: [facility] TYPE CODE TESTS RESULT OUT OF RANGE REFERENCE UNITS LAB CERULOP Ceruloplasmin 21.4 19.0-39.0 mg/dL Result Comment: Performed at : - [facility] [address] [id number] Lead Based Paint Technician: Juan Portillo PhD, Phone: [phone] PERFORMED BY: [place] [address] PATHOLOGIST FOOD COOKING MACHINE OPERATOR TERI ELLIS M.D. Performed By: #### HBCAB, EL F, HAABT, L-K MICRO, HCBIGM, MITOM2, SMAB, HAAB, ALPHA PHEN, CERULOP, IGG, NATALYA, HCV RX PCR, HEMOCHROM, HBSAG, HBSAB #### [facility] , #### GEOFF #### [address] HEPATITIS A ANTIBODY IGM Collected: 10/08/2024 10:53 AM Status: F Source: [facility] TYPE CODE TESTS RESULT OUT OF RANGE REFERENCE UNITS LAB HAAB Hepatitis A Antibody IgM Negative Negative Result Comment: A negative a nti-HAV IgM result suggests no recent or current HAV infection. Performed By: #### HBCAB, EL F, HAABT, L-K MICRO, HCBIGM, MITOM2, SMAB, HAAB, ALPHA PHEN, CERULOP, IGG, NATALYA, HCV RX PCR, HEMOCHROM, HBSAG, HBSAB #### [facility] , #### GEOFF #### [address] HEPATITIS B CORE ANTIBODY IGM Collected : 10/08/2024 10:53 AM Status: F Source: [facility] TYPE CODE TESTS RESULT OUT OF RANGE REFERENCE UNITS LAB HCBIGM Hepatitis B Core Antibody IgM Negative Negative Result Comment: Performed at : [facility] [id number] Lead Based Paint Technician: Juan Portillo PhD, Phone: [phone] Performed By: #### HBCAB, EL F, HAABT, L-K MICRO, HCBIGM, MITOM2, SMAB, HAAB, ALPHA PHEN, CERULOP, IGG, NATALYA, HCV RX PCR, HEMOCHROM, HBSAG, HBSAB #### [facility] , #### GEOFF #### [address] HEP C AB WRFX TO QNT PCR Collected: 10/08/2024 10:53 AM Status: F Source: [facility] TYPE CODE TESTS RESULT OUT OF RANGE REFERENCE UNITS LAB HCV AB. Hepatitis C Virus Antibody Non Reactive Non Reactive LAB RFXHEPCINTERP Interpretation Hepatitis C Comment . Result Comment: Not infected with HCV unless early or acute infection is suspected (which may be delayed in an immunocompromised individual), or other evidence exists to indicate HCV infection. Performed By: #### HBCAB, EL F, HAABT, L-K MICRO, HCBIGM, MITOM2, SMAB, HAAB, ALPHA PHEN, CERULOP, IGG, NATALYA, HCV RX PCR, HEMOCHROM, HBSAG, HBSAB #### [facility] , #### GEOFF #### [address] HEPATITIS A ANTIBODY TOTAL Collected: 12/09/2023 10:53 AM Status: F Source: [facility] TYPE CODE TESTS RESULT OUT OF RANGE REFERENCE UNITS LAB HAABT Hepatitis A Antibody Total Positive Abnormal Alert Negative Result Comment: Comment: The HAV total antibody assay detects both IgG and IgM but does not differentiate between them. A negative result suggests susceptibility to infection. A positive result could be due to vaccination, previously resolved infection or active infection. Testing for HAV IgM should be performed if active HAV infection is suspected. [facility] offers profiles that will automatically reflex positive HAV total antibody results to IgM (e.g., panel #[id number] HAV Antibody w/ Rfx). Performed By: #### HBCAB, EL F, HAABT, L-K MICRO, HCBIGM, MITOM2, SMAB, HAAB, ALPHA PHEN, CERULOP, IGG, NATALYA, HCV RX PCR, HEMOCHROM, HBSAG, HBSAB #### [facility] , #### GEOFF #### [place] [id number] [facility] HEPATITIS B SURFACE ANTIBODY Collected: 10/08/2024 10:53 AM Status: F Source: [facility] TYPE CODE TESTS RESULT OUT OF RANGE REFERENCE UNITS LAB HBSAB Hepatitis B Surface Antibody Non Reactive . Result Comment: Non Reactive : Not immune to HBV infection. Equivocal: Unable to determine if anti-HBs is present at levels consistent with immunity. Reactive: Anti-HBs concentration detected at greater than 10 mIU/mL. Individual is considered to be immune to infection with HBV. Performed By: #### HBCAB, EL F, HAABT, L-K MICRO, HCBIGM, MITOM2, SMAB, HAAB, ALPHA PHEN, CERULOP, IGG, NATALYA, HCV RX PCR, HEMOCHROM, HBSAG, HBSAB #### [facility] , #### GEOFF #### [address] HEPATITIS B CORE ANTIBODY Collected: 10/08/2024 10:53 AM Status: F Source: [facility] TYPE CODE TESTS RESULT OUT OF RANGE REFERENCE UNITS LAB HBCAB Hepatitis B Core Antibody Negative Negative Performed By: #### HBCAB, EL F, HAABT, L-K MICRO, HCBIGM, MITOM2, SMAB, HAAB, ALPHA PHEN, CERULOP, IGG, NATALYA, HCV RX PCR, HEMOCHROM, HBSAG, HBSAB #### [facility] , #### GEOFF #### [address] HEPATITIS B SURFACE ANTIGEN Collected: 10/08/2024 10:53 AM Status: F Source: [facility] TYPE CODE TESTS RESULT OUT OF RANGE REFERENCE UNITS LAB HBSAG SCR HBsAg Screen Negative Negative Result Comment: PERFORMED BY : [place] [address] PATHOLOGIST FOOD COOKING MACHINE OPERATOR TERI ELLIS M.D. Performed By: #### HBCAB, EL F, HAABT, L-K MICRO, HCBIGM, MITOM2, SMAB, HAAB, ALPHA PHEN, CERULOP, IGG, NATALYA, HCV RX PCR, HEMOCHROM, HBSAG, HBSAB #### [facility] , #### GEOFF #### [address] MITOCHONDRIAL (M2) ANTIBODY Collected: 10/08/2024 10: 53 AM Status: F Source: [facility] TYPE CODE TESTS RESULT OUT OF RANGE REFERENCE UNITS LAB MITOM2 Mitochondrial (M2) Antibody <20.0 0.0-20.0 Result Comment: Negative 0. 0 - 20.0 Equivocal 20.1 - 24.9 Positive >24.9 Mitochondrial (M2) Antibodies are found in 90-96% of patients with primary biliary cirrhosis. Performed By: #### HBCAB, EL F, HAABT, L-K MICRO, HCBIGM, MITOM2, SMAB, HAAB, ALPHA PHEN, CERULOP, IGG, NATALYA, HCV RX PCR, HEMOCHROM, HBSAG, HBSAB #### [facility] , #### GEOFF #### [facility] [address] [id number] PHENOTYPE Collected : 10/08/2024 10:53 AM Status: F Source: [facility] TYPE CODE TESTS RESULT OUT OF RANGE REFERENCE UNITS LAB A1AT Alpha 1 Anti-Trypsin 127 101-187 mg/dL LAB A1 PHENO Phenotype (P1) MM . Result Comment: MM Phenoty pe is considered to be normal , producing normal serum levels of uicrw-3-zzvjtbsl inhibitor and not associated with clinical disease. [...] Ranges used to confirm phenotype. Performed at: [facility] [id number] Lead Based Paint Technician: Juan Portillo PhD, Phone: [phone] Performed at: [facility] [id number] Lead Based Paint Technician: Warner Mckinney MD, Phone: [phone] Performed By: #### HBCAB, EL F, HAABT, L-K MICRO, HCBIGM, MITOM2, SMAB, HAAB, ALPHA PHEN, CERULOP, IGG, NATALYA, HCV RX PCR, HEMOCHROM, HBSAG, HBSAB #### [facility] , #### GEOFF #### [address] IMMUNOGLOBULIN G Collected: 10/08/2024 10:53 AM Stat us: F Source: [facility] TYPE CODE TESTS RESULT OUT OF RANGE REFERENCE UNITS LAB IGG Immunoglobulin G 573 312-6468 mg/dL Result Comment: Performed at : [facility] [id number] Lead Based Paint Technician: Juan Portillo PhD, Phone: [phone] Performed By: #### HBCAB, EL F, HAABT, L-K MICRO, HCBIGM, MITOM2, SMAB, HAAB, ALPHA PHEN, CERULOP, IGG, NATALYA, HCV RX PCR, HEMOCHROM, HBSAG, HBSAB #### [facility] , #### GEOFF #### [address] NATALYA ANTINUCLEAR ANTIBODIES Collected: 10/08/2024 10:5 3 AM Status: F Source: [facility] TYPE CODE TESTS RESULT OUT OF RANGE REFERENCE UNITS LAB ANAIFAX Antinuclear Abs, IFA Negative . Result Comment: Negative <1: 80 Borderline 1:80 Positive >1:80 ICAP nomenclature: AC-0 For more information about Hep-2 cell patterns use ANApatterns.org, the official website for the International Consensus on Antinuclear Antibody (NATALYA) Patterns (ICAP). Performed at: [facility] [id number] Lead Based Paint Technician: Juan Portillo PhD, Phone: [phone] Performed By: #### HBCAB, EL F, HAABT, L-K MICRO, HCBIGM, MITOM2, SMAB, HAAB, ALPHA PHEN, CERULOP, IGG, NATALYA, HCV RX PCR, HEMOCHROM, HBSAG, HBSAB #### [facility] , #### GEOFF #### [address] [place] [address] [place] SMOOTH MUSCLE ANTIBODY Collected: 10/08 10:53 AM Status: F Source: [facility] TYPE CODE TESTS RESULT OUT OF RANGE REFERENCE UNITS LAB SMAB Smooth Muscle Antibody 4 0-19 Result Comment: Negative 0 - 19 Weak positive 20 - 30 Moderate to strong positive >30 Actin Antibodies are found in 52-85% of patients with autoimmune hepatitis or chronic active hepatitis and in 22% of patients with primary biliary cirrhosis. Performed By: #### HBCAB, EL F, HAABT, L-K MICRO, HCBIGM, MITOM2, SMAB, HAAB, ALPHA PHEN, CERULOP, IGG, NATALYA, HCV RX PCR, HEMOCHROM, HBSAG, HBSAB #### [facility] , #### GEOFF #### [address] LIVER-KIDNEY MICROSOMAL AB Collected: 10/08/2024 10:5 3 AM Status: F Source: [facility] TYPE CODE TESTS RESULT OUT OF RANGE REFERENCE UNITS LAB L-K MICRO Liver-Kidney Microsomal Ab 1.4 0.0-20.0 Result Comment: Negative 0.0 - 20.0 Equivocal 20.1 - 24.9 Positive >24.9 LKM type 1 antibodies are detected in patients with autoimmune hepatitis type 2 and in up to 8% of patients with chronic HCV infection. Performed at: [facility] [id number] Lead Based Paint Technician: Juan Portillo PhD, Phone: [phone] Performed By: #### HBCAB, EL F, HAABT, L-K MICRO, HCBIGM, MITOM2, SMAB, HAAB, ALPHA PHEN, CERULOP, IGG, NATALYA, HCV RX PCR, HEMOCHROM, HBSAG, HBSAB #### [facility] , #### GEOFF #### [address] HEREDITARY HEMOCHROMATOSIS,DNA Collected: 10/08/2024 10:53 AM Status: F Source: [facility] TYPE CODE TESTS RESULT OUT OF RANGE REFERENCE UNITS LAB HERHEMOCH Hereditary Hemochromatosis Comment . Result Comment: Result: c.845G>A (p.Kzp315Tzh) - Not Detected c.187C>G (p.Gea61Hbi) - Not Detected c.193A>T (p.Btt04Wat) - Not Detected Not associated with increased [...] for patients who are homozygous for c.845G>A (p.Qlc995Rfg) and have yet to experience clinical symptoms. Comments: The most common HFE variants associated with hereditary hemochromatosis are c.845G>A (p.Vkv811Opx), c.187C>G (p.Ecu90Prq), c.193A>T (p.Epx04Frx). While patients homozygous for c.845G>A (p.Klz642Tbm) are the most likely to present clinical symptoms, less than 10% develop clinically significant iron overload with tissue and organ damage. Genetic counseling is recommended to discuss the potential clinical implications of positive results, as well as recommendations for testing family members. Genetic Coordinators are available for health care providers to discuss results at [phone]). Test Details: Three variants analyzed: c.845G>A (p.Yah916Jct), commonly referred to as C282Y c.187C>G (p.Spy08Xyi), commonly referred to as H63D c.193A>T (p.Aaa66Dui), commonly referred to as S65C Methods/Limitations: DNA [...] developed and its performance characteristics determined by [employer]. It has not been cleared or approved by the Food and Drug Administration. References: Roberto Carlos BR, Bharath PC, Laura KV, Shane LW, Chyna ; [place] [employer] for the [employer] Liver Diseases. Diagnosis and management of hemochromatosis: 2011 practice guideline by the [place] [employer] the [employer] of Liver Diseases. Hepatology. 2011 Apr;54(1):328-43. doi: 10.1002/hep.77100. PMID: 16731331; PMCID: KDM0181785. Krystina G, Edilma P, Jani BASS, Eldon H, Sheri O, Tariq S, Octaviano I, Casimiro M, Franklyn S. [facility] best practice guidelines for the molecular genetic diagnosis of hereditary hemochromatosis (HH). Eur J Hum Fide. 2016 Jan;24(4):479-95. doi: 10.1038/ejhg.2015.128. Epub 2014Apr 20. PMID: 70445278; PMCID: XAF5385982. LAB HEMOCHROMREV Reviewed by: Comment . Result Comment: Technical Co mponent performed at [facility] Professional Component performed by: CEL-SCI Selena Moffett, Ph.D., [facility] Director, Molecular Genetics [address] [place] [id number] Performed at: [facility] [address] [place], [place] [id number] Lead Based Paint Technician: Alexandria Bob [facility], Phone: [phone] Performed By: #### HBCAB, EL F, HAABT, L-K MICRO, HCBIGM, MITOM2, SMAB, HAAB, ALPHA PHEN, CERULOP, IGG, NATALYA, HCV RX PCR, HEMOCHROM, HBSAG, HBSAB #### [facility] , #### GEOFF #### [address] [address] [place] ENHANCED LIVER FIBROSIS TEST Collected: 10/08/2024 10:53 AM Status: F Source: [facility] TYPE CODE TESTS RESULT OUT OF RANGE REFERENCE UNITS LAB RES ELF TEST Enhanced Liver Fibrosis Score 8.48 <9.80 Result Comment: ELF(TM) Scor e Interpretation: Risk cut-offs to assess the likelihood of progression to cirrhosis and liver-related clinical events within 3.9 years following baseline ELF score (IQR: 14.0-22.4 months)*: Lower risk < 9.80 Mid risk 9.80 - 11.29 Higher risk >11.29 Note: The ELF(TM) Score is a unitless numerical value. *Rakesh SA, Dimitrios VW, Tonja T, et al. Selonsertib for patients with bridging fibrosis or compensated cirrhosis due to VERONICA: Results from randomized phase III STELLAR trials. J Hepatol. 2020 Apr;73(1):26-39. Performed at: [facility] [id number] Lead Based Paint Technician: Warner Mckinney MD, Phone: [phone] PERFORMED BY: [place] [address] PATHOLOGIST FOOD COOKING MACHINE OPERATOR TERI ELLIS M.D. Performed By: #### HBCAB, EL F, HAABT, L-K MICRO, HCBIGM, MITOM2, SMAB, HAAB, ALPHA PHEN, CERULOP, IGG, NATALYA, HCV RX PCR, HEMOCHROM, HBSAG, HBSAB #### [facility] , #### GEOFF #### [facility] [address] ALLERGIES No Allergies Records Found ENCOUNTERS ADMIT/DISCHARGE ACCOUNT NUMBER ADMITTING ENCOUNTER CLASS LOCATION SOURCE 07/08/2025/07/08/20 [id number] Ambulatory Building:[facility] 06/03/2025/06/03/20 [id number] Ambulatory Building:[facility] 05/25/2025/05/25/20 [id number] Ambulatory Building:[facility] 05/12/2025/05/12/20 [id number] [facility] 04/12/2025/04/12/20 [id number] [facility] 10/08/2024/10/08/20 24 [id number] Asaad, Imad [facility] 10/08/2024/10/08/20 24 [id number] [facility]ad[facility] PAYERS ENCOUNTER GUARANTOR PAYER SUBSCRIBER SOURCE 07/08/2025 GABBY GUERINOB: [address] [address]Nit: (HP) Primary Insurance[facility]: [id number] ve Date:4866-13-28Klb n Name:O GABBY GUERINOB: [id number] [address] [address] [facility] EPIC 06/03/2025 GABBY CHAVEZMEÑOOB: [address] [address]Iqe: (HP) Primary Insurance:[facility] Number: [id number] ve Date:1232-89-87Mfw n Name:HMO GABBY GUERINOB: [id number] [address] [address] [facility] EPIC 05/25/2025 GABBYMANDEEP CHAVEZMEÑOOB: [address] [address]Rzf: (HP) Primary Insurance:PARAMOUN T HMOPolicy Number: [id number] ve Date:2985-92-55Rzw n Name:HMO GABBY GUERINOB: [id number] [place] [id number] [facility] EPIC
--- OUTSIDE RECORDS SUMMARY | 2025-07-08 10:30 | XMS_ITS | Encounter Summary ---
Author Organization [facility] Address [address] [facility] [place] [address] Care Team Providers Care Wildlife Control Operator Name Role Phone Mariana Mayfield MD Primary Care Provider [phone] Reason for Visit * Reason Comments Post-op Encounter Details Date Type Department Care Team (Late st Contact Info) Description 07/08/2025 10:30 AM EDT Office Visit [facility] [address] [place] [phone] Terrance Matthews NP [address] [place], [place] [phone] Status post carpal tunnel release (Primary Dx) Social History Tobacco Use Types Packs/Day Years Used Date Smoking Tobacco: Never Alcohol Use Standard Drinks/Week Comments Never 0 (1 standard drink = 0.6 oz pur e alcohol) Comments Unknown Sex and Gender Information Value Date Recorded Sex Assigned at Not on file Legal Sex Female 6:55 PM EDT Gender Identity Female 05/17/2025 2:10 PM EDT Sexual Orientation Not on file documented as of this encounter Progress Notes * Terrance Matthews NP - 07/08/2025 10:30 AM EDT Images from the original note were not included. HISTORY OF PRESENT ILLNESS: POST OP PT Gabby Reyes is an 69 y.o. @ female. 1ST PO S/P LT CTR 06/24/25 (2 WKS) @ [facility]. WEARING SPLINT. STATES WRIST IS FEELING PRETTY GOOD. NO PAIN MEDS. CONTINUES TO HAVE TINGLING IN THUMB, IF, MF AND RF - STATES THIS HAS IMPROVED SOME. DOES NOT WAKE AT HS. STITCHES INTACT, REMOVED TODAY. INCISION HEALING WELL. REVIEW OF SYSTEMS: General: Denies fever, fatigue or weight loss Lungs: Denies SOB Cardio: Denies chest pain GI: Denies indigestion or abdominal pain Neuro: Denies numbness or tingling, denies new onset paralysis Musculoskeletal: ( see note) PHYSICAL EXAM: Left Hand Exam Left hand exam is normal. Tenderness The patient is experiencing tenderness in the palmar area (EXPECTED POST OPERATIVE SORENESS AT INICISION.). Range of Motion The patient has normal left wrist ROM. Muscle Strength The patient has normal left wrist strength (MOTORS HAND AND WRIST WITHIN LIMITS OF SURGERY). Other Erythema: absent Scars: present (WELL HEALING, SUTURES PRESENT, REMOVED) Left hand sensation: dullness in finger tips. Pulse: present Comments: The operative upper extremity was neurovascularly unchanged. Patient was able to motor fingers and thumb to operative upper extremity in all anatomic planes with 5 out of 5 strength. Radialand ulnar pulses were present and equal bilaterally postoperatively. Sensation to light touch was intact to all dermatomes to operative upper extremity postoperatively. Capillary refill was less than2 seconds postoperatively to operative upper extremity nailbeds. Compartments were soft to operative upper extremity postoperatively. Physical Exam Results Procedures No orders of the defined types were placed in this encounter. ASSESSMENT: ICD-10-CM 1. Status post carpal tunnel release Z98.890 PLAN: Assessment & Plan 2 weeks s/p Carpal tunnel release: Plan: I reviewed Post Op care and instructions with the patient.No forceful gripping for 4 weeks from the date of surgery. Work on rom of fingers. use for light activities such as eating, keyboarding, writing and phone. Questions answered in laymen terms at the be dside. The diagnosis, home exercise plan and any ongoing restrictions/ recommendations reviewed. Ifunable to be reached in office, I recommend evaluation at nearest Emergency Room if any symptoms worsened or new symptoms develop for requiring urgent evaluation. documented in this encounter Plan of Treatment Upcoming Encounters Date Type Department Care Team (Late st Contact Info) Description 07/19/2025 10:00 AM EDT Office Visit [facility] [address] [place] [address] Terrance Matthews NP [address] [place], [place] [phone] documented as of this encounter Visit Diagnoses Diagnosis Status post carpal tunnel release- Primary Other postprocedural status documented in this encounter Care Teams Wildlife Control Operator Relationship Specialty Start Date End Date Mariana Mayfield MD [address] [facility] [place] [phone] PCP - General Family Medicine 05/25/25 documented as of this encounter
--- OUTSIDE RECORDS SUMMARY | 2025-07-12 11:09 | XMS_ITS | Encounter Summary ---
Author Organization [facility] Address [address] [facility] [place] [address] Care Team Providers Care Plate Embosser Name Role Phone Mariana Mayfield MD Primary Care Provider [phone] Encounter Details Date Type Department Care Team (Latest Contact Info) Description 07/07/2025 Travel Social History Tobacco Use Types Packs/Day Years [...] on file documented as of this encounter Plan of Treatment Upcoming Encounters Date Type Department Care Team (Late st Contact Info) Description 07/19/2025 10:00 AM EDT Office Visit [facility] [address] [place] [phone] Terrance Matthews NP [address] [place], [place] [phone] documented as of this encounter Visit Diagnoses Not on filedocumented in this encounter Care Teams Plate Embosser Relationship Specialty Start Date End Date Mariana Mayfield MD [address] [facility] [place] [phone] PCP - General Family Medicine 05/25/25 documented as of this encounter
--- OUTSIDE RECORDS SUMMARY | 2025-07-12 11:09 | XMS_ITS | Encounter Summary ---
Author Organization [facility] Address [address] [place] [address] Care Team Providers Care Line Up Examiner Name Role Phone Mariana Mayfield MD Primary Care Provider [phone] Encounter Details Date Type Department Care Team (Late st Contact Info) Description 07/08/2025 Bamboo flowsheet [facility] [address] [facility] [place] [address] Terrance Matthews, NIKIA [address] [place], [place] [phone] Social History Tobacco Use Types Packs/Day Years [...] Description 07/19/2025 10:00 AM EDT Office Visit [facility] [address] [place] [address] Terrance Matthews, NIKIA [address] [place] [address] documented as of this encounter Visit Diagnoses Not on filedocumented in this encounter Care Teams Line Up Examiner Relationship Specialty Start Date End Date Mariana Mayfield MD [address] [place] [address] PCP - General Family Medicine 05/25/25 documented as of this encounter
--- OUTSIDE RECORDS SUMMARY | 2025-07-12 11:09 | XMS_ITS | Encounter Summary ---
Author Organization [facility] Address [address] [facility] [place] [address] Care Team Providers Care Metallurgical Engineering Technician Name Role Phone Mariana Mayfield MD Primary Care Provider [phone] Encounter Details Date Type Department Care Team (Latest Contact Info) Description 07/08/2025 Travel Social History Tobacco Use Types Packs/Day [...] Visit [facility] [address] [place] [phone] Terrance Matthews NP [address] [place], [place] [phone] documented as of this encounter Visit Diagnoses Not on filedocumented in this encounter Care Teams Metallurgical Engineering Technician Relationship Specialty Start Date End Date Mariana Mayfield MD [address] [facility] [place] [phone] PCP - General Family Medicine 05/25/25 documented as of this encounter
--- OUTSIDE RECORDS SUMMARY | 2025-07-12 11:09 | XMS_ITS | Encounter Summary ---
Author Organization [facility] Address [address] [facility] [place] [address] Care Team Providers Care Machinist Helper Name Role Phone Mariana Mayfield MD Primary Care Provider [phone] Mariana Mayfield MD Primary Care Provider [phone] Encounter Details Date Type Department Care Team (Late st Contact Info) Description 05/17/2025 Orders Only [facility] [address] [facility] [address] [place] [phone] Unallocated, Noms MD Sebastian [address] [facility] [address] Social History Tobacco Use Types Packs/Day Years [...] AM EDT Office Visit [facility] [address] [place] [phone] Terrance Matthews, INDUSTRIAL YARD BRAKE COUPLER [address] [place] [address] documented as of this encounter Procedures Procedure Name Priority Date/Time Associated Diagnosis Comments EMG AND NERVE CONDUCTION STUDY Routine 05/17/2025 2:05 PM EDT documented in this encounter Results * EMG AND NERVE CONDUCTION STUDY (05/17/2025 2:05 PM EDT) us Noms Provider Unallocated MD NEUROLOGY ORDERABLE S Final Result documented in this encounter Visit Diagnoses Not on filedocumented in this encounter Care Teams Machinist Helper Relationship Specialty Start Date End Date Mariana Mayfield MD PCP - General Family Medicine 04/17/23 05/24/25 Mariana Mayfield MD [address] [place] [phone] PCP - General Family Medicine 05/25/25 documented as of this encounter
--- NOTE | 2025-07-12 11:16 | MM_ITS ---
Patient Name: FIGUEROA VILLANUEVA MR#: [id number] : 1955 Exam Date: 07/12/2025 Ordering Doctor: DR MIKAELA ZAYAS M.D. RADIOLOGY REPORT PROCEDURE: MM TOMOSYNTHESIS SCREENING BI COMPARISON: MM TOMOSYNTHESIS SCREENING BI, 07/06/2024. MM TOMOSYNTHESIS SCREENING BI, 07/03/2023. MG MAMM SCREEN 3D SAVANNAH CAD, 07/02/2022. MG MAMM SAVANNAH SCRN W CAD DIG, 09/23/2013. INDICATIONS: Screening Calculator Name NCI Breast Cancer Risk Assessment Tool 5 Year Breast Cancer Risk 1.50% Lifetime Breast Cancer Risk 4.50% Personal Breast Cancer No Personal Ovarian Cancer No Treatments None Family Cancers Mother with skin cancer at age 79. LOCATION: [facility] BREAST COMPOSITION: There are scattered areas of fibroglandular density. FINDINGS: DIAGNOSTIC CATEGORY 1--NEGATIVE. RIGHT BREAST: No significant suspicious finding. LEFT BREAST: No significant suspicious finding. RECOMMENDATIONS: ROUTINE MAMMOGRAM AND CLINICAL EVALUATION IN 12 MONTHS. Dictated by: Vimal Harvey DO on 07/12/2025 at 15:26 Approved by: Vimal Harvey DO on 07/12/2025 at 15:26
== END 2025-07-12 11:07 | disposition home or self-care (01) ==
LOC: MAMMO 11:07
PROVIDERS: PCP Family Medicine; Visit Provider Family Medicine
DX: Z12.31 Encounter for screening mammogram for malignant neoplasm of breast (principal); Z80.8 Family history of malignant neoplasm of other organs or systems
CPT/HCPCS: 77063; 77067

== ENCOUNTER 2025-07-30 07:36 | Outpatient (OUT) | payer MEDICARE, SELFPAY ==
--- OUTSIDE RECORDS SUMMARY | 2025-07-19 10:00 | XMS_ITS | Encounter Summary ---
Author Organization [facility] Address [address] [facility] [place] [address] Care Team Providers Care Fisher Clam Name Role Phone Mariana Mayfield MD Primary Care Provider [phone] Reason for Visit * Reason Comments Post-op Pain Encounter Details Date Type Department Care Team (Late st Contact Info) Description 07/19/2025 10:00 AM EDT Office Visit [facility] [address] [place] [phone] Terrance Matthews NP [address] [place], [place] [phone] Status post carpal tunnel release (Primary Dx) [...] Progress Notes * Terrance Matthews NP - 07/19/2025 10:00 AM EDT Images from the original note were not included. HISTORY OF PRESENT ILLNESS: POST OP PT Gabby Reyes is an 69 y.o. @ female. EST PT S/P LT CTR 06/24/25 (3WKS 4DAYS) - DOING WELL- NOTES SOME TENDERNESS OVER INCISION- NOTES IMPROVEMENT WITH NUMBNESS- SOME WEAKNESS REVIEW OF SYSTEMS: General: Denies fever, fatigue or weight loss Lungs: Denies SOB Cardio: Denies chest pain GI: Denies indigestion or abdominal pain Neuro: Denies numbness or tingling, denies new onset paralysis Musculoskeletal: ( see note) PHYSICAL EXAM: Left Hand Exam Left hand exam is normal. Tenderness The patient is experiencing no tenderness. Range of Motion The patient has normal left wrist ROM. Muscle Strength The patient has normal left wrist strength. Gyro Compass Tester: 5/5 Other Erythema: absent Scars: present (Well healed) Left hand sensation: trace numbness in tips of fingers. Pulse: present Comments: The operative upper extremity [...] tunnel release Z98.890 PLAN: Assessment & Plan Patient is doing well with decreased pain an improved overall symptoms in left hand. She is still having some numbness in the tips of her fingers. I recommend she rub her incision to break up any adhesions and desensitize the nerve. She will call with any worsening symptoms. Questions answered in laymen terms at the bedside. The diagnosis, home exercise plan and any ongoing restrictions/ recommendations reviewed. If unable to be reached in office, I recommend evaluation at nearest Emergency Room if any symptoms worsened or new symptoms develop for requiring urgent evaluation. documented in this encounter Plan of Treatment Not on file documented as of this encounter Visit Diagnoses Diagnosis Status post carpal tunnel release- Primary Other postprocedural status documented in this encounter Care Teams Fisher Clam Relationship Specialty Start Date End Date Mariana Mayfield MD [address] [place] [phone] PCP - General Family Medicine 05/25/25 documented as of this encounter
--- OUTSIDE RECORDS SUMMARY | 2025-07-30 07:40 | XMS_ITS | Encounter Summary ---
Author Organization [facility] Address [address] [place] [address] Care Team Providers Care Grades 1 Thru 6 Home Teacher Name Role Phone Mariana Mayfield MD Primary Care Provider [phone] Encounter Details Date Type Department Care Team (Latest Contact Info) Description 07/19/2025 Travel Social History Tobacco Use Types Packs/Day [...] as of this encounter Plan of Treatment Not on file documented as of this encounter Visit Diagnoses Not on filedocumented in this encounter Care Teams Grades 1 Thru 6 Home Teacher Relationship Specialty Start Date End Date Mariana Mayfield MD [address] [place] [phone] PCP - General Family Medicine 05/25/25 documented as of this encounter
--- OUTSIDE RECORDS SUMMARY | 2025-07-30 07:40 | XMS_ITS | Encounter Summary ---
Author Organization [facility] Address [address] [facility] [place] [address] Care Team Providers Care Aircraft Engine Assembler Name Role Phone Mariana Mayfield MD Primary Care Provider [phone] Encounter Details Date Type Department Care Team (Late st Contact Info) Description 07/19/2025 Bamboo flowsheet [facility] [address] [facility] [place] [place] [phone] Terrance Matthews OPERATIONS MANAGER [address] [place], [place] [phone] Social History Tobacco Use Types Packs/Day Years [...] on filedocumented in this encounter Care Teams Aircraft Engine Assembler Relationship Specialty Start Date End Date Mariana Mayfield MD [address] [facility] [place] [phone] PCP - General Family Medicine 05/25/25 documented as of this encounter
--- OUTSIDE RECORDS SUMMARY | 2025-07-30 07:41 | XMS_ITS | Clinical Summary ---
Author Organization [facility] Address [address] [place] [address] Care Team Providers Care Studio Operations Engineer In Charge Name Role Phone Mariana Mayfield MD Primary Care Provider [phone] Allergies Active Allergy Reactions Criticality Noted Date Comments Propofol 04/15/2023 Codeine 04/15/2023 Medications Garlic 1000 MG capsule Take by mouth Active famotidine (Pepcid) 20 MG tablet Take by mouth Active Calcium Carbonate (CALCIUM 600 PO) Take by mouth Active aspirin 81 MG EC tablet Take 81 mg by mouth Daily Active lisinopril 40 MG tablet Take 40 mg by mouth Daily Active hydroCHLOROthiaz amina (HYDRODiuril) 25 MG tablet Take 25 mg by mouth Daily Active amLODIPine (Norvasc) 10 MG tablet Take by mouth Daily Active levothyroxine (Tirosint) 75 MCG capsule Take by mouth in the morning. Take before meals. Active zinc 50 MG tablet Take by mouth Active alpha tocopherol (Vitamin E) 400 units capsule Take 400 Units by mouth Daily Active Ascorbic Acid (vitamin C) 1000 MG tablet Take 1,000 mg by mouth Daily Active Potassium 99 MG tablet Take by mouth Active Multiple Vitamin (MULTIVITAMIN ADULT PO) Take by mouth Active [place] 3-6-9 capsule Take 600 mg by mouth Active carvedilol (Coreg) 6.25 MG tablet Twice daily 06/23/2024 Active Multiple Vitamins-Mineral s (PRESERVISION AREDS PO) Take by mouth Active Probiotic Product (PROBIOTIC ADVANCED PO) Take by mouth Active cyanocobalamin (Vitamin B-12) 500 MCG tablet Take 500 mcg by mouth Daily Active rosuvastatin (Crestor) 20 MG tablet .COMPLEX 10/12/2024 Active Magnesium 250 MG capsule Take by mouth Active Active Problems Problem Noted Date Diagnosed Date Carpal tunnel syndrome of left wrist 05/26/2025 Cervical radiculopathy 05/26/2025 Hypothyroidism 05/26/2025 Metabolic syndrome 05/26/2025 Mixed hyperlipidemia 05/26/2025 Primary hypertension 05/26/2025 Sinusitis, acute maxillary 05/26/2025 Steatosis of liver 05/26/2025 Vitamin D deficiency 05/26/2025 Encounters Date Type Department Care Team Description 07/19/2025 10:00 AM EDT Office Visit [facility] [place] [address] Terrance Matthews, TIN STACKER Status post carpal tunnel release (Primary Dx) 07/19/2025 Bamboo flowsheet [facility] [address] [place] [address] Terrance Matthews NP 07/19/2025 Travel 07/08/2025 10:30 AM EDT Office Visit [facility] [address] [place] [address] Terrance Matthews, NIKAI Status post carpal tunnel release (Primary Dx) 07/08/2025 Bamboo flowsheet [facility] [address] [place] [address] Terrance Matthews NP 07/08/2025 Travel 07/07/2025 Travel 06/23/2025 Refill [facility] [address] [address] Terrance Matthews, NIKIA Carpal tunnel syndrome of left wrist (Primary Dx) 06/03/2025 1:00 PM EDT Office Visit [facility] [address] [place] [phone] Terrance Matthews, NIKIA Preop examination (Primary Dx) 06/03/2025 Telephone [facility] [address] [place] [address] Ashley Desai MA Asprin 06/03/2025 Bamboo flowsheet [facility] [address] [place] [address] Terrance Matthews NP 06/03/2025 Travel 06/02/2025 Travel 05/25/2025 11:00 AM EDT Office Visit [facility] [address] [facility] [place] [phone] Jr. Anibal Batista, Carpal tunnel syndrome of left wrist (Primary Dx); Paresthesias in left hand 05/25/2025 Bamboo flowsheet [facility] [address] [place] [phone] Jr. Anibal Batista DO 05/25/2025 Travel 05/24/2025 Travel 05/17/[address] [facility] [address] [place] [address] Unallocated, Ro Cortes MD from Last 3 Months Family History Medical History Relation Name Comments Diabetes Father Hypertension Father Stroke Father Heart disease Mother Hypertension Mother Relation Name Status Comments Father Mother Social History Tobacco Use Types Packs/Day Years Used Date Smoking Tobacco: Never Tobacco Cessation:Counseling Given: Not Answered Alcohol Use Standard Drinks/Week Comments Never 0 (1 standard drink = 0.6 oz pur e alcohol) Comments Unknown Sex and Gender Information Value Date Recorded Sex Assigned at Not on file Legal Sex Female 6:55 PM EDT Gender Identity Female 05/17/2025 2:10 PM EDT Sexual Orientation Not on file Last Filed Vital Signs Vital Sign Reading Time Taken Comments Blood Pressure - - Pulse - - Temperature - - Respiratory Rate - - Oxygen Saturation - - Inhaled Oxygen Concentration - - Weight 84.8 kg (187 lb) 06/03/2025 12:56 PM EDT Height 154.9 cm (5' 1 ) 06/03/2025 12:56 PM EDT Body Mass Index 35.33 06/03/2025 12:56 PM EDT Plan of Treatment Health Maintenance Due Date Last Done Comments CT Colonography 1955 Colonoscopy 1955 Colorectal Cancer Screening 1955 FIT-DNA 1955 FIT 1955 FOBT 1955 Sigmoidoscopy 1955 Mammogram 1994 Influenza Vaccine (#1) 2025 4, 09/12/2023, 07/29/2022, Additional history exists Pneumococcal Vaccine: 65+ Years Completed 02/05/2023, 06/12/2022, 06/28/2020 Procedures Procedure Name Priority Date/Time Associated Diagnosis Comments EMG AND NERVE CONDUCTION STUDY Routine 05/17/2025 2:05 PM EDT from Last 3 Months Results * EMG AND NERVE CONDUCTION STUDY (05/17/2025 2:05 PM EDT) us Noms Provider Unallocated NEUROLOGY ORDERABLE S Final Result from Last 3 Months Insurance [facility] Address: [address] [address] Care Teams Studio Operations Engineer In Charge Relationship Specialty Start Date End Date Mariana Mayfield MD [address] [place] [phone] PCP - General Family Medicine 05/25/25
--- OUTSIDE RECORDS SUMMARY | 2025-07-30 07:41 | XMS_ITS | Encounter Summary ---
Author Organization [facility] Address [address] [place] [address] Care Team Providers Care Shipping And Receiving Coordinator Name Role Phone Mariana Mayfield MD Primary Care Provider [phone] Mariana Mayfield MD Primary Care Provider [phone] Encounter Details Date Type Department Care Team (Late st Contact Info) Description 05/17/2025 Orders Only [facility] [address] [place] [address] Unallocated, Noms ProviderMD [address] [place] [address] Social History Tobacco Use Types Packs/Day Years [...] on file documented as of this encounter Procedures Procedure Name Priority Date/Time Associated Diagnosis Comments EMG AND NERVE CONDUCTION STUDY Routine 05/17/2025 2:05 PM EDT documented in this encounter Results * EMG AND NERVE CONDUCTION STUDY (05/17/2025 2:05 PM EDT) us Noms Provider Unallocated MD NEUROLOGY ORDERABLE S Final Result documented in this encounter Visit Diagnoses Not on filedocumented in this encounter Care Teams Shipping And Receiving Coordinator Relationship Specialty Start Date End Date Mariana Mayfield MD PCP - General Family Medicine 04/17/23 05/24/25 Mariana Mayfield MD [address] [place] [phone] PCP - General Family Medicine 05/25/25 documented as of this encounter
--- OUTSIDE RECORDS SUMMARY | 2025-07-30 07:42 | XMS_ITS | CCD ---
Author Organization [facility] Care Team Providers Care Agriculture Scientist Name Role Phone DR MIKAELA ZAYAS Admitting Unavailable CHANA, DR MIKAELA Glover Primary Care Unavailable DR MIKAELA ZAYAS Attending Unavailable CHASE, DR BANDAR Edmondson Consulting Unavailable CHANA, DR MIKAELA Glover Consulting Unavailable Mikaela Zayas Unavailable MD Mikaela Zayas Attending Provider Lima Villatoro Unavailable SESAR Villatoro Attending Provider Lukasz Quispe Unavailable Mikaela Zayas MD Primary Care Provider Wayne Givens MD Attending Provider Mikaela Zayas MD Primary Care Provider Wayne Givens MD Attending Provider Mikaela Zayas MD Primary Care Provider Lukasz Quispe MD Attending Provider Mikaela Zayas Primary Care Unavailable Lukasz Quispe Attending Unavailable Lukasz Quispe Admitting Unavailable Mikaela Zayas Primary Care Unavailable Asaad, Imad Attending Unavailable Asaad, Imad Admitting Unavailable Mikaela Zayas Primary Care Unavailable Lukasz Quispe Attending Unavailable Lukasz Quispe Admitting Unavailable Asaad, Imad Attending Unavailable Asaad, Imad Admitting Unavailable Mikaela Zayas Primary Care Unavailable Lukasz Quispe MD Other Provider Daryl Dillard MD Attending Provider Mikaela Zayas MD Primary Care Provider JR. BATISTA GEORGE C Attending Unavaila RACHID Gonzalez Attending Unavailable RACHID SAUL Attending Unavailable RACHID SAUL Attending Unavailable Mikaela Zayas MD Primary Care Provider Lukasz Quispe MD Attending Provider Mikaela Zayas MD Attending Provider Allergies Allergy Classification Reported Allergen(s) Allergy Type Date of Onset Reaction(s) Facility (12 sources) Codeine Drug Allergy 03-17-20 24 [facility] Repository (15 sources) Codeine Drug Allergy 04-15-20 23 Unknown [employer] Other (6 sources) Codeine Drug Allergy Unknown [employer] Other (17 sources) Anesthesia S/I-40A Drug allergy 09-24-20 23 Comment:Everardo leach had a reaction to the anesthetic her last surgery and had to have a spinal, Comment:Everardo leach had a reaction to the anesthetic her last... [facility] Comment on above: Reaction: Comment:Jarrod kingston had a reaction to the anesthetic her last surgery and had to have a spinal (6 sources) Medicinal cephalosporin and acting as antibacterial agent (FN) Drug allergy Unknown [employer] Other (11 sources) Cephalosporins (Antibiotic) Allergy to substance 03-17-20 24 [facility] (13 sources) Propofol Drug Allergy 04-15-20 [facility] Medications Current Medications Medication Drug Class(es) Dates Sig (Normalized) Sig (Original) acetaminophen 325 mg / HYDROcodone bitartrate 5 mg oral tablet (1 source) Opioid Agonist Start: 06-23-2025 End: 06-26-2025 take 1 tablet by mouth every six hours for pain HYDROcodone-acet aminophen ([place]) 5-325 MG tablet Indications: Carpal tunnel syndrome of left wrist Take 1 tablet by mouth every 6 (six) hours if needed for severe pain for up to 3 days 12 tablet 06/23/2025 06/26/2025 Active amLODIPine 5 mg oral tablet (20 sources) Dihydropyridine Calcium Channel Tammy Start: 07-21-2025 take 1 tablet by mouth once daily Amlodipine 5 mg tablet Active 0 .ROUTE .COMPLEX 90 July 21, 2025 9:45am Take 1 tablet by mouth once daily Complies with drug therapy Start: 09-11-2024 End: 07-21-2025 take 1 tablet by mouth once daily Amlodipine 10 mg tablet Discontinued 0 .ROUTE .COMPLEX 90 March 15, 2025 3:06pm July 21, 2025 9:45am Take 1 tablet by mouth once daily Start: 03-17-2024 End: 09-11-2024 take 2 tablets by mouth once daily at bedtime Amlodipine 10 mg tablet Discontinued 10 MG PO Daily March 17, 2024 12:00am September 11, 2024 8:48am [employer] tablets at HS; Note: Source Status: Continue; Provider: Chana Peña ( ) amLODIPine (Norv asc) 10 MG tablet Take by mouth Daily Active amLODIPine (Norv asc) 5 MG tablet Take by mouth Daily. Active amLODIPine Besyl ate 10 MG 2 tablets at HS Active amLODIPine Besyl ate Active amoxicillin 875 mg / clavulanate 125 mg oral tablet (3 sources) Penicillin-class Antibacterial Start: 01-08-2023 take 1 tablet by mouth every twelve hours Amoxicillin-Pot Clavulanate 875-125 MG 1 tablet Orally every 12 hrs for Dec, Active ascorbic acid 1000 mg oral tablet (20 sources) Vitamin C Start: 03-17-2024 take 1 tablet by mouth once daily Ascorbic Acid (Vitamin C) 1,000 mg tablet Active 1 TAB PO Daily March 17, 2024 12:00am [employer] tablet Orally Once a day; Note: Source Status: Taking; Provider: Chana Peña ( ) Complies with drug therapy Start: 03-17-2024 take 1 tablet by charlotte th once daily Ascorbic Acid (Vitamin C) Active 1 TAB PO Daily March 17, 2024 12:00am [employer] tablet Orally Once a day; Note: Source Status: Taking; Provider: Chana Peña ( ) ascorbic acid 226 mg / beta carotene 84137 unt / cuprous oxide 0.8 mg / dl-alpha tocopheryl acetate 200 unt / zinc oxide 34.8 mg oral capsule (5 sources) Vitamin C Start: 03-17-2024 take 1 capsule by mouth twice daily Vitamins A,C,H-Jhkz-Whbdea (Preservision Areds) 4,296 mcg-226 mg-90 mg capsule Active 1 CAP PO Twice daily March 17, 2024 12:00am Complies with drug therapy ascorbic acid 113 mg / copper gluconate [...] aspirin 81 mg delayed release oral tablet (20 sources) Platelet Aggregation Inhibitor, Nonsteroidal Anti-inflammatory Drug Start: 03-17-2024 take 1 tablet by mouth once daily Aspirin 81 mg tablet,delayed release (DR/EC) Active 1 TAB PO Daily March 17, 2024 12:00am [employer] tablet Orally Once a day; Note: Source Status: Taking; Provider: Chana Peña ( ) Complies with drug therapy calcium carbonate 1500 mg oral tablet (20 sources) Start: 03-17-2024 take 1 tablet by mouth twice daily at mealtime Calcium Carbonate 600 mg calcium (1,500 mg) tablet Active 1200 MG PO Twice daily March 17, 2024 12:00am [employer] tablet with meals Orally Twice a day; Note: Source Status: Taking; Provider: Chana Peña ( ) Complies with drug therapy Calcium Carbonat e (CALCIUM 600 PO) Take by mouth Active Calcium Carbonat e (CALCIUM 600 PO) Take by mouth. Active take 1 tablet by charlotte th every twelve hours Calcium 600 MG 1 tablet with meals Orall y Twice a day Active take 1 tablet by charlotte th every twelve hours Calcium 600 MG 1 tablet with meals Orall y Twice a day Active cholecalciferol 0.05 mg oral capsule (17 sources) Vitamin D Start: 03-17-2024 take 1 capsule by mouth once daily Cholecalciferol (Vitamin D3) 50 mcg (2,000 unit) capsule Active 1 CAP PO Daily March 17, 2024 12:00am [employer] capsule Orally Once a day; Note: Source Status: Taking; Provider: Chana Peña ( ) Complies with drug therapy End: 06-03-2025 take 1 capsule by mouth in the morning cholecalciferol (Vitamin D-3) 25 MCG (1000 UT) capsule Take 1,000 Units by mouth in the morning. 06/03/2025 Discontinued (Therapy completed) erythromycin 0.02 mg/mg topical gel (6 sources) Macrolide, Macrolide Antimicrobial Start: 01-08-2023 Erythromycin 2 % 1 application Externally Twice a day for 14 days Dec, Active famotidine 10 mg oral tablet (20 sources) Histamine-2 Receptor Antagonist Start: 03-17-2024 take 1 tablet by mouth once daily Famotidine 10 mg tablet Active 10 MG PO Daily March 17, 2024 12:00am Complies with drug therapy famotidine ([facility] id) 20 MG tablet Take by mouth Active Famotidine Activ e Fish Oils (8 sources) take 1 capsule by mouth once daily Fish Oil 1000 MG 1 capsule Orally Once a day Active garlic preparation 1000 mg oral capsule (13 sources) Non-Standardized Food Allergenic Extract Garlic 1000 MG capsule Take by mouth Active Garlic 1000 MG c apsule Take by mouth. Active hydroCHLOROthiazide 25 mg oral tablet (20 sources) Thiazide Diuretic Start: 12-02-2023 End: 05-24-2025 take 1 tablet by mouth once daily Hydrochlorothiazide 25 mg tablet Active 0 .ROUTE .COMPLEX May 24, 2025 9:31am Take 1 tablet by mouth once daily Complies with drug therapy Start: 11-28-2023 End: 12-02-2023 take 1 tablet by mouth once daily Hydrochlorothiazide 25 mg tablet Discontinued 25 MG PO Daily November 28, 2023 1:00am December 02, 2023 1:07pm hydroCHLOROthiaz amina Active lisinopril 40 mg oral tablet (20 sources) Angiotensin Converting Enzyme Inhibitor Start: 06-30-2025 take 1 tablet by mouth once daily Lisinopril 40 mg tablet Active 0 .ROUTE .COMPLEX June 30, 2025 8:37am Take 1 tablet by mouth once daily Complies with drug therapy Start: 03-17-2024 End: 06-30-2025 take 1 tablet by mouth once daily Lisinopril 40 mg tablet Discontinued 40 MG PO Daily June 23, 2024 11:23am June 30, 2025 8:37am FreeTextSig: Take 1 tablet by mouth once daily; Note: Source Status: Continue; Provider: Chana Peña ( ) Magnesium (13 sources) Magnesium 250 MG capsule Take by mouth Active Magnesium Active Multiple Vitamin (MULTIVITAM IN ADULT PO) (13 sources) Multiple Vitamin (MULTIVITAMIN ADULT PO) Take by mouth Active Multiple Vitamin (MULTIVITAMIN ADULT PO) Take by mouth. Active Multiple Vitamins-Minerals (PRESERVISION AREDS PO) (12 sources) Multiple Vitamin s-Minerals (PRESERVISION AREDS PO) Take by mouth Active Multivitamin With Minerals (One Daily Complete) tablet (11 sources) Start: 03-17-2024 take 1 tablet by mouth once daily, then take 1 tablet by mouth once daily Multivitamin With Minerals (One Daily Complete) tablet Active 1 TAB PO Daily March 17, 2024 12:00am Complies with drug therapy Start: 03-17-2024 take 1 tablet by charlotte th once daily, then take 1 tablet by mouth once daily Start: 03-17-2024 take 1 tablet by charlotte [...] TAB PO Daily March 17, 2024 12:00am [place] 3-6-9 capsule (13 sources) [place] 3-6-9 caps ule Take 600 mg by mouth Active [place] 3-6-9 caps ule Take by mouth. Active [place] 6-Wvl-Csi-Fish Oil (Fi sh Oil) 100-160-1,000 mg capsule (11 sources) Start: 03-17-2024 [place] 3-Dha-Ep a-Fish Oil (Fish Oil) 100-160-1,000 mg capsule Active CAP PO March 17, 2024 12:00am Complies with drug therapy Start: 03-17-2024 Start: 03-17-2024 [place] 3-Dha-Ep a-Fish Oil (Fish Oil) 100-160-1,000 mg capsule Active CAP PO March 16, 2024 11:00pm Start: 03-17-2024 [place] 3-Dha-Ep a-Fish Oil (Fish Oil) 100-160-1,000 mg capsule Active CAP PO March 17, 2024 12:00am One Daily For Women 50+ Adv - (8 sources) One Daily For Wo men 50+ Adv - Orally Active potassium 99 mg extended rel ease oral tablet (20 sources) Potassium 99 MG tablet Take by mouth Active Potassium 1 tab Oral Active potassium,chelated 95 mg oral tablet (1 source) Potassium 95 MG tablet Take by mouth. Active Probiotic Product (PROBIOTIC ADVANCED PO) (12 sources) Probiotic Produc t (PROBIOTIC ADVANCED PO) Take by mouth Active rosuvastatin calcium 20 mg oral tablet (20 sources) HMG-CoA Reductase Inhibitor Start: 10-12-20 take 1 tablet by mouth once daily Rosuvastatin 20 mg tablet Active 0 .ROUTE .COMPLEX October 12, 2024 3:36pm Take 1 tablet by mouth once daily for 90 days Complies with drug therapy Start: 03-17-2024 End: 10-12-2024 take 1 tablet by mouth once daily Rosuvastatin 20 mg tablet Discontinued 1 TAB PO Daily March 17, 2024 12:00am October 12, 2024 3:36pm FreeTextSig: Take 1 tablet by mouth once daily; Note: Source Status: Start; Refills: 3; Qty: 90 Tablet; Provider: Chana Peña ( ) take 1 tablet by charlotte th every twenty-four hours Rosuvastatin Calcium 20 MG 1 tablet Orally Once a day for 90 days Active vitamin b12 0.5 mg oral tablet (12 sources) Vitamin B12 take 1 tablet by mouth once daily cyanocobalamin (Vitamin B-12) 500 MCG tablet Take 500 mcg by mouth Daily Active Vitamin C 1000 MG (7 sources) take 1 tablet by mouth once daily Vitamin C 1000 MG 1 tablet Orally Once a day Active Vitamin D3 2000 UNIT (8 sources) take 1 capsule by mouth once daily Vitamin D3 2000 UNIT 1 capsule Orally Once a day Active vitamin e 450 mg oral capsule (20 sources) Start: 03-17-2024 Vitamin E (Dl, Acetate) 450 mg (1,000 unit) capsule Active MG PO March 17, 2024 12:00am FreeTextSig: Orally; Note: Source Status: Taking; Provider: Chana Peña ( ) Complies with drug therapy take 1 capsule by mouth once amaury ly alpha tocopherol (Vitamin E) 400 units capsule Take 400 Units by mouth Daily Active take 1 capsule by mouth in the m orning vitamin E capsule Take 1,000 Units by mouth in the morning. Active Vitamin E 1000 UNIT (7 sources) Vitamin E 1000 U NIT Orally Active Vitamins A,C,D-Yyhb-Yrkdwn (Preservision Areds) 4,296 mcg-226 mg-90 mg capsule (6 sources) Start: 03-17-2024 take 1 capsule by mouth twice daily Vitamins A,C,M-Coqx-Ioxnxw (Preservision Areds) 4,296 mcg-226 mg-90 mg capsule Active 1 CAP PO Twice daily March 16, 2024 11:00pm Start: 03-17-2024 take 1 capsule by mo [facility] twice daily Vitamins A,C,F-Lcpo-Dxabmg (Preservision Areds) 4,296 mcg-226 mg-90 mg capsule Active 1 CAP PO Twice daily March 17, 2024 12:00am Zinc (14 sources) zinc 50 MG table t Take by mouth Active zinc 50 MG table t Take by mouth. Active take 1 tablet by mouth once khadra y Zinc 50 MG 1 tablet Orally Once a day Active zinc gluconate 50 mg oral tablet (18 sources) Start: 03-17-2024 take 1 tablet by mouth once daily Zinc Gluconate 50 mg tablet Active 1 TAB PO Daily March 17, 2024 12:00am FreeText[employer] tablet Orally Once a day; Note: Source Status: Taking; Provider: Chana Peña ( ) Complies with drug therapy take 1 tablet by [facility] every twenty-four hours Zinc 50 MG 1 tablet Orally Once a day Active Completed/Discontinued Medications Medication Drug Class(es) Dates Sig (Normalized) Sig (Original) ALPRAZolam 0.25 mg oral tablet (17 sources) Benzodiazepine Start: 03-17-2024 End: 03-17-2024 take [...] Jun, Active azithromycin 250 mg oral tablet (11 sources) Macrolide Antimicrobial Start: 03-17-2024 End: 09-22-2024 Azithromycin 250 mg tablet Discontinued 0 PO .COMPLEX March 17, 2024 12:00am September 22, 2024 12:14pm For 250 mg dose pack: take 500 [...] 1-0.05 % cream Discontinued 0 .ROUTE .COMPLEX 45 September 01, 2024 3:22pm September 22, 2024 12:14pm APPLY CREAM TOPICALLY TWICE DAILY FOR 7 DAYS Start: 04-06-2024 End: 06-23-2024 Clotrimazole-Betamethasone 1 -0.05 % cream Discontinued 0 .ROUTE .COMPLEX 45 May 07, 2024 11:39am June 23, 2024 11:29am APPLY CREAM TOPICALLY TWICE DAILY FOR 7 DAYS Start: 03-17-2024 End: 04-06-2024 Clotrimazole-Betamethasone 1 -0.05 % cream Discontinued 1 APPLIC TOPICAL Twice daily March 17, 2024 12:00am April 06, 2024 12:52pm FreeText[employer] application Externally Twice a day; Note: Source Status: Refill; Refills: 1; Qty: 45 Gram; Provider: Chana Glover Start: 12-25-2022 Clotrimazole-B etamethasone 1-0.05 % 1 application Externally Twice a day for 7 days Dec, Active carvedilol 6.25 mg oral tablet (20 sources) alpha-Adrenergic Tammy, beta-Adrenergic Tammy Start: 03-17-2024 End: 06-23-2024 take 1 tablet by mouth twice daily Carvedilol 6.25 mg tablet Discontinued 6.25 MG PO Twice daily 180 March 17, 2024 11:56am June 23, 2024 11:23am Start: 09-24-2023 take 1 tablet by charlotte th every twelve hours Carvedilol 6.25 MG 1 tablet with food Orally Twice a day for 30 day(s) Sep, Active diclofenac potassium 25 mg oral tablet (11 sources) Nonsteroidal Anti-inflammatory Drug Start: 03-17-2024 End: 09-22-2024 take 1 tablet by mouth twice daily Diclofenac Potassium 25 mg tablet Discontinued 25 MG PO Twice daily March 17, 2024 12:00am September 22, 2024 12:15pm doxycycline hyclate 50 mg oral capsule (9 sources) Tetracycline-class Drug Start: 09-01-2024 End: 09-22-2024 take 1 capsule by mouth twice daily Doxycycline Hyclate 50 mg capsule Discontinued 50 MG PO Twice daily September 01, 2024 1:00am September 22, 2024 12:16pm esomeprazole 20 mg delayed release oral capsule (11 sources) Proton Pump Inhibitor Start: 03-17-2024 End: 09-22-2024 take 1 capsule by mouth once daily Esomeprazole Magnesium 20 mg capsule,delayed release(DR/EC) Discontinued 20 MG PO Daily March 17, 2024 12:00am September 22, 2024 12:16pm ferrous sulfate 325 mg oral tablet (20 sources) Start: 03-17-2024 End: 06-03-2025 take 1 tablet by mouth once daily Ferrous Sulfate 325 mg (65 mg iron) tablet Discontinued 325 MG PO Daily March 17, 2024 12:00am December 08, 2024 11:50am [employer]Text[employer] tablet Orally Once a day; Note: Source Status: Taking; Provider: Chana Peña ( ) folic acid 0.8 mg oral tablet (20 sources) Start: 03-17-2024 End: 07-21-2025 take 1 tablet by mouth once daily Folic Acid 800 mcg tablet Discontinued 1 TAB PO Daily March 17, 2024 12:00am July 21, 2025 9:30am FreeText[employer] tablet Orally Once a day; Note: Source Status: Taking; Provider: Chana Peña ( ) take 1 tablet by charlotte th every twenty-four hours Folic Acid 800 MCG 1 tablet Orally Once a day Active levothyroxine sodium 0.075 mg oral tablet (20 sources) l-Thyroxine Start: 02-10-2024 End: 06-23-2024 take 1 tablet by mouth once daily in the morning Levothyroxine 75 mcg tablet Discontinued 0 .ROUTE .COMPLEX May 11, 2024 2:21pm June 23, 2024 11:23am TAKE 1 TABLET BY MOUTH ONCE DAILY IN THE MORNING ON AN EMPTY STOMACH Start: 02-10-2024 End: 05-11-2024 take 1 tablet by mouth once daily in the morning Levothyroxine 75 mcg tablet Discontinued 0 .ROUTE .[place] [id number] February 10, 2024 12:44pm May 11, 2024 2:21pm TAKE 1 TABLET BY MOUTH ONCE DAILY IN THE MORNING ON AN EMPTY STOMACH Start: 02-10-2024 End: 05-11-2024 take 1 tablet by mouth once daily in the morning Levothyroxine 75 mcg tablet Discontinued 0 .ROUTE .[place] [id number] February 10, 2024 11:44am May 11, 2024 [...] tablet Discontinued 75 MCG PO Daily February 10, 2024 12:00am February 10, 2024 12:44pm levothyroxine (T irosint) 75 MCG capsule Take by mouth in the morning. Take before meals. Active levothyroxine (S ynthroid, Levoxyl) 50 MCG tablet Take by mouth Daily before meals. Active take 1 tablet by charlotte th [...] by mouth once daily for 90 Active nitrofurantoin, macrocrystals 25 mg / nitrofurantoin, monohydrate 75 mg oral capsule (4 sources) Nitrofuran Antibacterial Start: 07-28-2023 take 1 capsule by mouth every twelve hours Macrobid 100 MG 1 cap(s) Orally bid for 5 day(s) Jul, Not-Taking/PRN nystatin [id number] unt/ml topical cream (10 sources) Polyene Antifungal Start: 06-23-2024 End: 09-01-2024 Nystatin 100,000 unit/gram cream Discontinued 1 APPLIC TOPICAL Twice daily June 23, 2024 12:00am September 01, 2024 3:22pm phenazopyridine hydrochloride 200 mg oral tablet (4 sources) Start: 07-28-2023 take 1 tablet by mouth every eight hours Pyridium 200 MG 1 tablet after meals Orally Three times a day for 2 day(s) Jul, Not-Taking/PRN predniSONE 20 mg oral tablet (7 sources) Start: 12-28-2024 End: 07-21-2025 take 1 tablet by mouth once daily Prednisone 20 mg tablet Discontinued 20 MG PO daily December 28, 2024 12:00am July 21, 2025 9:30am Turmeric extract (20 sources) Start: 03-17-2024 End: 07-21-2025 Turmeric 400 mg capsule Discontinued MG PO March 17, 2024 12:00am July 21, 2025 9:30am Start: 03-17-2024 Turmeric 400 m g capsule Active MG PO March 17, 2024 12:00am Complies with drug therapy Start: 03-17-2024 Start: 03-17-2024 Turmeric 400 m g capsule Active MG PO March 17, 2024 12:00am Start: 03-17-2024 Turmeric 400 m g capsule Active MG PO March 16, 2024 11:00pm Start: 03-17-2024 Turmeric Activ e MG PO March 17, 2024 12:00am End: 06-03-2025 Turmeric 500 MG tablet Take by mouth. 06/03/2025 Discontinued (Therapy completed) Turmeric 500 MG tablet Take by mouth. Active take 1 tablet by charlotte th twice daily Turmeric 500 MG 1 tab Orally twice a day Active Problems Problem Classification Problem Date Documented Da te Episodic/Chronic Abdominal pain (20 sources) Epigastric discomfort; Translations: [Epigastric pain] 06-23-2024 Episodic Administrative/social admission (1 source) Other specified counseling Episodic Anxiety disorders (8 sources) Anxiety; Translations: [Other specified anxiety disorders] Chronic Chronic obstructive pulmonary disease and bronchiectasis (7 sources) Bronchitis; Translations: [Bronchitis, not specified as acute or chronic] 12-28-2024 Episodic Diabetes mellitus without complication (2 sources) Increased glucose level; Translations: [Other abnormal glucose] 07-21-2025 Episodic Disorders of lipid metabolism (20 sources) Hyperlipidemia, unspecified; Translations: [Mixed hyperlipidemia] Onset: 07-03-2022 Chronic Diverticulosis and diverticulitis (8 sources) Diverticular disease of colon; Translations: [Diverticulosis of intestine, part unspecified, without perforation or abscess without bleeding] Chronic Essential hypertension (20 sources) Essential hypertension; Translations: [Essential (primary) hypertension] Onset: 05-26-2025 Chronic Genitourinary symptoms and ill-defined conditions (2 sources) Dysuria Episodic Mycoses (8 sources) Candidiasis of skin; Translations: [Candidiasis of skin and nail] 09-01-2024 Episodic Nutritional deficiencies (20 sources) Vitamin D deficiency; Translations: [Vitamin D deficiency, unspecified] Onset: 05-26-2025 06-23-2024 Chronic Other connective tissue disease (1 source) Pain in right leg Episodic Other connective tissue disease (4 sources) Pain of left hand; Translations: [Pain in left hand] 04-21-2025 Episodic Other gastrointestinal disorders (8 sources) Abnormal feces; Translations: [Other fecal abnormalities] Episodic Other liver diseases (20 sources) Steatosis of liver; Translations: [Fatty (change of) liver, not elsewhere classified] Onset: 05-26-2025 06-29-2024 Chronic Other liver diseases (2 sources) Fatty (change of) liver, not elsewhere classified; Translations: [Other chronic nonalcoholic liver disease] Onset: 10-08-2024 09-22-2024 Chronic Other liver diseases (8 sources) Large liver; Translations: [Hepatomegaly, not elsewhere classified] Episodic Other nervous system disorders (17 sources) Chronic pain; Translations: [Other chronic pain] 03-22-2025 Chronic Other nervous system disorders (2 sources) Other chronic pain; Translations: [Other chronic pain] Chronic Other nervous system disorders (20 sources) Carpal tunnel syndrome of left wrist; Translations: [Carpal tunnel syndrome, left upper limb] Onset: 05-26-2025 Chronic Other nervous system disorders (6 sources) Paresthesia of left upper limb; Translations: [Paresthesia of skin] Episodic Other nervous system disorders (1 source) Paresthesia of skin Episodic Other nervous system disorders (9 sources) Paresthesia of hand ; Translations: [Anesthesia of skin] 04-21-2025 Episodic Other nutritional; endocrine; and metabolic disorders (20 sources) Metabolic syndrome X; Translations: [Metabolic syndrome] Onset: 05-26-2025 09-22-2024 Chronic Other nutritional; endocrine; and metabolic disorders (2 sources) Weight increased; Translations: [Abnormal weight gain] 07-21-2025 Episodic Other screening for suspected conditions (not mental disorders or infectious disease) (17 sources) Encounter for screening mammogram for malignant neoplasm of breast; Translations: [Patient encounter status] Onset: 07-02-2022 Episodic Other upper respiratory infections (20 sources) Acute maxillary sinusitis; Translations: [Acute maxillary sinusitis, unspecified] Onset: 10-08-2024 03-29-2024 Episodic Residual codes; unclassified (1 source) Family history of malignant neoplasm of other organs or systems; Translations: [FAM HX MALIG NEOPLASM OTH ORGN/SYS] Onset: 07-03-2022 Episodic Skin and subcutaneous tissue infections (3 sources) Erythrasma Episodic Spondylosis; intervertebral disc disorders; other back problems (20 sources) Radiculopathy, cervical region; Translations: [Cervical radiculopathy] Onset: 04-12-2025 Episodic Thyroid disorders (20 sources) Hypothyroidism, unspecified; Translations: [Hypothyroidism] Onset: 07-03-2022 Chronic Unclassified (1 source) G56.02 - Carpal tunnel syndrome, left upper limb Urinary tract infections (2 sources) Acute cystitis with hematuria Episodic Varicose veins of lower extremity (18 sources) Pain due to varicose veins of lower extremity; Translations: [Varicose veins of right lower extremity with pain] Episodic Results Test Name Value Interpretation Reference Range Facility Magnetic resonance imaging r eportOrdered By: Arturo Cardona on 04-12-2025 Study report [facility] [place] [address] [place] [address] MRI Report Signed Patient: Figueroa Villanueva MR#: [id number] : 1955 Acct:[id number] Age/Sex: 69 / F ADM Date: 5 Loc: MR Room: [facility] Attending Dr: Lukasz Quispe MD Copies to: Lukasz Quispe MD~ Ordering Provider: Lukasz Quispe MD Date of Service: 04/12/25 MR/MR cervical spine wo con: M54.12 - Radiculopathy, cervical region ([id number]) XR/XR cerv spine AP/LAT/FLX/EXT: M54.12 - Radiculopathy, cervicalregion MRI CERVICAL SPINE PERFORMED WITHOUT CONTRAST AND [...] Cardona M.D. 04/12/2025 9:06 AM Dictation Location: [place] [address] Transcribed By: [facility] 04/12/25905 Dictated By: Arturo Cardona MD 04/12/2542 Signed By: 04/12/25905 [facility] Work Phone: XR cerv spine AP/LAT/FLX/EXT on 04-12-2025 XR cerv spine AP/LAT/FLX/EXT [facility] [place] [address] MRI Report Signed Patient: Figueroa Villanueva MR#: [id number] : 1955 Acct:[id number] Age/Sex: 69 / F ADM Date: 04/12/25 Loc: Room: Type: [facility] Attending Dr: Lukasz Quispe MD Copies to: Lukasz Quispe MD Ordering Provider: Lukasz Quispe MD Date of Service: 04/12/25 MR/MR cervical spine wo con: M54.12 - Radiculopathy, cervical region ([id number]) XR/XR cerv spine AP/LAT/FLX/EXT: M54.12 - Radiculopathy, [...] Cardona M.D. 04/12/2025 9:06 AM Dictation Location: [place] [address] Transcribed By: [facility] 04/12/25 09 Dictated By: Arturo Cardona MD 04/12/25 0842 Signed By: 04/12/25905 Normal [facility] - Microbiology an d Antimicrobial susceptibilityon 12-20-2024 SARS-CoV-2 (COVID-19) RNA GALLO+probe Ql (Unsp spec) Negative NEGATIVE [facility] Comment on above: This test has not be en FDA cleared or approved, but has beenauthorized by the FDA under an Emergency Use Authorization(EUA) for use by authorized laboratories certified underCLIA that meet the requirements to perform moderate or highcomplexity testing. This test has been authorized only forthe detection of proteins from SARS-CoV-2, not for any otherviruses or pathogens. The emergency use of this test isauthorized for the duration of the declaration thatcircumstances exist justifying the authorization ofemergency use of in vitro diagnostic tests for detectionand/or diagnosis of Covid-19 under section 564(b)(1) of theAct, 21 U.S.C. 360bbb-3(b)(1), unless the declaration isterminated or authorization is revoked sooner. No Panel Informationon 12-20 Bedside Influenza Type A Antigen Negative [facility] Comment on above: Negative for Flu A p rotein antigen. Infection due to Flu Acannot be ruled out. Flu A antigen in the sample may bebelow the detection limit of the test. Bedside Influenza Type B Antigen Negative [facility] Comment on above: Negative for Flu B p rotein antigen. Infection due to Flu Bcannot be ruled out. Flu B antigen in the sample may bebelow the detection limit of the test. NATALYA Antinuclear Antibodieson 10-08-2024 Antinuclear Abs, IFA Negative Normal . [facility] Comment on above: Result Comment: Nega tive <1:80 Borderline 1:80 Positive >1:80 ICAP nomenclature: AC-0 For more information about Hep-2 cell patterns use ANApatterns.org, the official website for the International Consensus on Antinuclear Antibody (NATALYA) Patterns (ICAP). Performed at: - [facility] [id number] Customer Servicer: Juan Portillo PhD, Phone: [phone] Performed By: #### H BCAB, ELF, HAABT, L-K MICRO, HCBIGM, MITOM2, SMAB, HAAB, ALPHA PHEN, CERULOP, IGG, NATALYA, HCV RX PCR, HEMOCHROM, HBSAG, HBSAB #### [facility] , #### GEOFF #### [address] Actin smooth muscle IgG Ab [ Units/volume] in SerumOrdered By: Wayne Givens on 10-08-2024 Actin smooth muscle IgG Qn (S) Actin smooth muscle IgG Ab [Units/volume] in Serum 0-19 [facility] Comment on above: Negative 0 - 19 Weak positive 20 - 30 Moderate to strong positive >30 Actin Antibodies are found in 52-85% of patients with autoimmune hepatitis or chronic active hepatitis and in 22% of patients with primary biliary cirrhosis. Jceyw-5-Nrnkkjcdpgn Phenotyp meng 10-08-2024 Alpha 1 Anti-Trypsin 127 mg/dL Normal 101-187 [facility] Comment on above: Performed By: #### H BCAB, ELF, HAABT, L-K MICRO, HCBIGM, MITOM2, SMAB, HAAB, ALPHA PHEN, CERULOP, IGG, NATALYA, HCV RX PCR, HEMOCHROM, HBSAG, HBSAB #### [facility] , #### GEOFF #### [facility] [address] Phenotype (P1) MM Normal . [facility] Comment on above: Result Comment: MM Phenotype is considered to be normal , producing normal serum levels of zfgzo-1-pgotnqps inhibitor and not associated with clinical disease. [...] Ranges used to confirm phenotype. Performed at: [address] [id number] Customer Servicer: Jaun Portillo PhD, Phone: [phone] Performed at: [facility] [id number] Customer Servicer: Warner Mckineny MD, Phone: [phone] Performed By: #### H BCAB, ELF, HAABT, L-K MICRO, HCBIGM, MITOM2, SMAB, HAAB, ALPHA PHEN, CERULOP, IGG, NATALYA, HCV RX PCR, HEMOCHROM, HBSAG, HBSAB #### [facility] , #### GEOFF #### [facility] [address] Blood or tissue HFE gene mut ations identification by molecular genetics methodOrdered By: Wayne Givens on 10-08-2024 HFE gene targeted mutation analysis [employer] Nom (Bld/Tiss) Blood or tissue HFE gene mutations identification by molecular genetics method . [facility] Comment on above: Result:c.845G>A (p.C ah203Wfs) - Not Detectedc.187C>G (p.Whe30Fse) - Not Detectedc.193A>T (p.Nkd05Iky) - Not DetectedNot associated with increased risk [...] recommended for patientswho are homozygous for c.845G>A (p.Czs595Fra) and have yetto experience clinical symptoms.Comments:The most common HFE variants associated with hereditaryhemochromatosis are c.845G>A (p.Szc208Gju), c.187C>G(p.Ahy04Mbt), c.193A>T (p.Xyf60Uza). While patientshomozygous for c.845G>A (p.Iqh427Roh) are the most likelyto present clinical symptoms, less than 10% developclinically significant iron overload with tissue and organdamage.Genetic counseling is recommended to discuss the potentialclinical implications of positive results, as well asrecommendations for testing family members.Genetic Coordinators are available for health careproviders to discuss results at [phone] Details:Three variants analyzed:c.845G>A (p.Byo206Jlo), commonly referred to as C282Yc.187C>G (p.Fdi41Qnx), commonly referred to as H63Dc.193A>T (p.Ngs77Hcm), commonly referred to as Z47PYbxumag/Limitations:DNA Analysis of the HFE gene (NM_000410.4) was [...] was developed and its performancecharacteristics determined by [employer]. It has not beencleared or approved by the Food and Drug Administration.References:Roberto Carlos BR, Bharath PC, Laura KV, Shane LW, Chyna ;[employer] Association for the Study of Liver Diseases.Diagnosis and management of hemochromatosis: 2011 practiceguideline by the [employer] Association for the Study ofLiver Diseases. Hepatology. 2010;54(1):328-43. doi:10.1002/hep.14590. PMID: 87857745; PMCID: [id number].Krystina G, Edilma P, Jani DW, Eldon H, Sheri O,Tariq S, Octaviano I, Casimiro M, Franklyn S. [facility] best practiceguidelines for the molecular genetic diagnosis ofhereditary hemochromatosis (HH). Eur J Hum Fide. 2016Apr;24(4):479-95. doi: 10.1038/ejhg.2015.128. Epub 2014. PMID: 56200323; PMCID: [id number]. Ceruloplasminon 10-08-2024 Ceruloplasmin 21.4 mg/dL Normal 19.0-39.0 [facility] Comment on above: Result Comment: Perf ormed at: [facility] [id number] Customer Servicer: Juan Portillo PhD, Phone: [phone] PERFORMED BY: [place] [address] PATHOLOGIST TEACHER VISUALLY IMPAIRED TERI ELLIS M.D. Performed By: #### H BCAB, ELF, HAABT, L-K MICRO, HCBIGM, MITOM2, SMAB, HAAB, ALPHA PHEN, CERULOP, IGG, NATALYA, HCV RX PCR, HEMOCHROM, HBSAG, HBSAB #### [facility] , #### GEOFF #### [address] Enhanced Liver Fibrosis Test on 10-08-2024 Enhanced Liver Fibrosis Score 8.48 Normal <9.80 [facility] Comment on above: [...] trials. J Hepatol. 2020 Apr;73(1):26-39. Performed at: [facility] [address] [id number] Customer Servicer: Warner Mckinney MD, Phone: [phone] PERFORMED BY: [address] [address] PATHOLOGIST TEACHER VISUALLY IMPAIRED MOHAMED M EL-FAKHARANY M.D. Performed By: #### H BCAB, ELF, HAABT, L-K MICRO, HCBIGM, MITOM2, SMAB, HAAB, ALPHA PHEN, CERULOP, IGG, NATALYA, HCV RX PCR, HEMOCHROM, HBSAG, HBSAB #### [facility] , #### GEOFF #### [address] Ferritinon 10-08-2024 Ferritin [Mass/Vol] 349.8 ng/mL High 11.0-306.8 [facility] Comment on above: Result Comment: PERF ORMED BY: [place] [address] PATHOLOGIST TEACHER VISUALLY IMPAIRED TERI ELLIS M.D. Performed By: #### H BCAB, ELF, HAABT, L-K MICRO, HCBIGM, MITOM2, SMAB, HAAB, ALPHA PHEN, CERULOP, IGG, NATALYA, HCV RX PCR, HEMOCHROM, HBSAG, HBSAB #### [facility] , #### GEOFF #### [address] Ferritin [Mass/volume] in Se rum or PlasmaOrdered By: Wayne Givens on 10-08-2024 Ferritin [Mass/Vol] Ferritin [Mass/volum e] in Serum or Plasma High 11.0-306.8 [facility] Hep C Ab wRfx to Qnt PCRon 1 12-09-2023 Hepatitis C Virus Antibody Non-Reactive Normal Non Reactive [facility] Comment on above: Performed By: #### H BCAB, ELF, HAABT, L-K MICRO, HCBIGM, MITOM2, SMAB, HAAB, ALPHA PHEN, CERULOP, IGG, NATALYA, HCV RX PCR, HEMOCHROM, HBSAG, HBSAB #### [facility] , #### GEOFF #### [address] Interpretation Hepatitis C Comment Normal . [facility] Comment on above: [...] HBSAB #### [facility] , #### GEOFF #### [facility] [address] Hepatitis A Antibody IgMon 1 12-09-2023 Hepatitis A Antibody IgM Negative Normal Negative [facility] Comment on above: Result Comment: A ne gative anti-HAV IgM result suggests no recent or current HAV infection. Performed By: #### H BCAB, ELF, HAABT, L-K MICRO, HCBIGM, MITOM2, SMAB, HAAB, ALPHA PHEN, CERULOP, IGG, NATALYA, HCV RX PCR, HEMOCHROM, HBSAG, HBSAB #### [facility] , #### GEOFF #### [address] Hepatitis A Antibody Totalon 10-08-2024 Hepatitis A Antibody Total Positive Critically abnormal Negative [facility] Comment on above: Result Comment: Comm ent: The HAV total antibody assay detects both IgG and IgM but does not differentiate between them. A negative result suggests susceptibility to infection. A positive result could be due to vaccination, previously resolved infection or active infection. Testing for HAV IgM should be performed if active HAV infection is suspected. [facility] offers profiles that will automatically reflex positive HAV total antibody results to IgM (e.g., panel #[id number] HAV Antibody w/ Rfx). Performed By: #### H BCAB, ELF, HAABT, L-K MICRO, HCBIGM, MITOM2, SMAB, HAAB, ALPHA PHEN, CERULOP, IGG, NATALYA, HCV RX PCR, HEMOCHROM, HBSAG, HBSAB #### [facility] , #### GEOFF #### [address] Hepatitis A virus Ab [Presen ce] in Serum by ImmunoassayOrdered By: Wayne Givens on 10-08-2024 HAV Ab IA Ql (S) Hepatitis A virus Ab [Presence] in Serum by Immunoassay Abnormal Negative [facility] Comment on above: Comment: The HAV tot [...] HAVtotal antibody results to IgM (e.g., panel #[id number] HAVAntibody w/ Rfx). Hepatitis A virus IgM antibo dy assayOrdered By: Wayne Givens on 10-08-2024 Hepatitis A IgM Antibody Negative Negative [facility] Comment on above: A negative anti-HAV IgM result suggests no recent orcurrent HAV infection. Hepatitis B Core Antibodyon 10-08-2024 Hepatitis B Core Antibody Negative Normal Negative [facility] Comment on above: Performed By: #### H BCAB, ELF, HAABT, L-K MICRO, HCBIGM, MITOM2, SMAB, HAAB, ALPHA PHEN, CERULOP, IGG, NATALYA, HCV RX PCR, HEMOCHROM, HBSAG, HBSAB #### [facility] , #### GEOFF #### [facility] [address] [place] [address] Hepatitis B Core Antibody Ig Mon 10-08-2024 Hepatitis B Core Antibody IgM Negative Normal Negative [facility] Comment on above: Result Comment: Perf ormed at: - [facility] [address] [id number] Customer Servicer: Juan Portillo PhD, Phone: [phone] Performed By: #### H BCAB, ELF, HAABT, L-K MICRO, HCBIGM, MITOM2, SMAB, HAAB, ALPHA PHEN, CERULOP, IGG, NATALYA, HCV RX PCR, HEMOCHROM, HBSAG, HBSAB #### [facility] , #### GEOFF #### [place] [address] [place] Hepatitis B Surface Antibody on 10-08-2024 Hepatitis B Surface Antibody Non-Reactive Normal . [facility] Comment on above: [...] HBSAB #### [facility] , #### GEOFF #### [facility] [address] [place] [address] Hepatitis B Surface Antigeno n 10-08-2024 HBsAg Screen Negative Normal Negative [facility] Comment on above: Result Comment: PERF ORMED BY: [place] [address] PATHOLOGIST TEACHER VISUALLY IMPAIRED TERI ELLIS M.D. Performed By: #### H BCAB, ELF, HAABT, L-K MICRO, HCBIGM, MITOM2, SMAB, HAAB, ALPHA PHEN, CERULOP, IGG, NATALYA, HCV RX PCR, HEMOCHROM, HBSAG, HBSAB #### [facility] , #### GEOFF #### [address] Hepatitis B virus core IgM a ntibody assayOrdered By: Wayne Givens on 10-08-2024 Hepatitis B Core IgM Antibody Negative Negative [facility] Comment on above: Performed at: - [address] [id number] Director: Juan Portillo PhD, Phone: [phone] Hepatitis B virus core antib evaristo assayOrdered By: Wayne Givens on 10-08-2024 Hepatitis B Core Total Antibody Negative Negative [facility] Hepatitis C virus IgG Ab [Pr esence] in Serum or Plasma by ImmunoassayOrdered By: Wayne Givens on 10-08-2024 HCV IgG IA Ql Hepatitis C virus Ig G Ab [Presence] in Serum or Plasma by Immunoassay Non Reactive [facility] Hereditary Hemochromatosis,D Tj 10-08-2024 Hereditary Hemochromatosis Comment Normal . [facility] Comment on above: Result Comment: Resu lt: c.845G>A (p.Cfn463Yzb) - Not Detected c.187C>G (p.Qxf69Fub) - Not Detected c.193A>T (p.Gof83Jvq) - Not Detected Not associated with increased [...] for patients who are homozygous for c.845G>A (p.Eee230Ovq) and have yet to experience clinical symptoms. Comments: The most common HFE variants associated with hereditary hemochromatosis are c.845G>A (p.Bbv772Clt), c.187C>G (p.Lfv25Syb), c.193A>T (p.Wzf09Tyl). While patients homozygous for c.845G>A (p.Qgl964Qlw) are the most likely to present clinical symptoms, less than 10% develop clinically significant iron overload with tissue and organ damage. Genetic counseling is recommended to discuss the potential clinical implications of positive results, as well as recommendations for testing family members. Genetic Coordinators are available for health care providers to discuss results at [phone] Test Details: Three variants analyzed: c.845G>A (p.Omx396Vnv), commonly referred to as C282Y c.187C>G (p.Kdf26Paj), commonly referred to as H63D c.193A>T (p.Txt45Gcq), commonly referred to as S65C Methods/Limitations: DNA [...] developed and its performance characteristics determined by [employer]. It has not been cleared or approved by the Food and Drug Administration. References: Roberto Carlos BR, Bharath PC, Laura KV, Shane LW, Chyna ; [employer] Association for the Study of Liver Diseases. Diagnosis and management of hemochromatosis: 2011 practice guideline by the [employer] for the Study of Liver Diseases. Hepatology. 2010;54(1):328-43. doi: 10.1002/hep.53041. PMID: 64716705; PMCID: IUD4670183. Krystina G, Edilma P, Jani DW, Eldon H, Sheri O, Tariq S, Octaviano I, Casimiro M, Franklyn S. [facility] best practice guidelines for the molecular genetic diagnosis of hereditary hemochromatosis (HH). Eur J Hum Fide. 2016 Jan;24(4):479-95. doi: 10.1038/ejhg.2015.128. Epub 2014Apr 20. PMID: 48477869; PMCID: VJE3545935. Performed By: #### H BCAB, ELF, HAABT, L-K MICRO, HCBIGM, MITOM2, SMAB, HAAB, ALPHA PHEN, CERULOP, IGG, NATALYA, HCV RX PCR, HEMOCHROM, HBSAG, HBSAB #### [facility] , #### GEOFF #### [address] Reviewed by: Comment Normal . [facility] Comment on above: Result Comment: Tech nical Component performed at [facility] RTP Professional Component performed by: [employer] Selena Moffett Ph.D., [facility] Director, Molecular Genetics [address] [place] [address] Performed at: [facility] [address] [place], [place] [id number] Customer Servicer: Alexandria Bob [facility], Phone: [phone] Performed By: #### H BCAB, ELF, HAABT, L-K MICRO, HCBIGM, MITOM2, SMAB, HAAB, ALPHA PHEN, CERULOP, IGG, NATALYA, HCV RX PCR, HEMOCHROM, HBSAG, HBSAB #### [facility] , #### GEOFF #### [facility] [address] Immunoglobulin Efrain Immunoglobulin G 800 mg/dL Normal [phone] [facility] Comment on above: Result Comment: Perf ormed at: [address] [id number] Customer Servicer: Juan Portillo PhD, Phone: [phone] Performed By: #### H BCAB, ELF, HAABT, L-K MICRO, HCBIGM, MITOM2, SMAB, HAAB, ALPHA PHEN, CERULOP, IGG, NATALYA, HCV RX PCR, HEMOCHROM, HBSAG, HBSAB #### [facility] , #### GEOFF #### [address] [address] [facility] Liver-Kidney Microsomal Abon 10-08-2024 Liver-Kidney Microsomal Ab 1.4 Normal 0.0-20.0 [facility] Comment on above: Result Comment: Nega tive 0.0 - 20.0 Equivocal 20.1 - 24.9 Positive >24.9 LKM type 1 antibodies are detected in patients with autoimmune hepatitis type 2 and in up to 8% of patients with chronic HCV infection. Performed at: [address] [id number] Customer Servicer: Juan Portillo PhD, Phone: [phone] Performed By: #### H BCAB, ELF, HAABT, L-K MICRO, HCBIGM, MITOM2, SMAB, HAAB, ALPHA PHEN, CERULOP, IGG, NATALYA, HCV RX PCR, HEMOCHROM, HBSAG, HBSAB #### [facility] , #### GEOFF #### [facility] [address] Mitochondrial (M2) Antibodyo n 10-08-2024 Mitochondrial (M2) Antibody <20.0 Normal 0.0-20.0 [facility] Comment on above: Result Comment: Nega tive 0.0 - 20.0 Equivocal 20.1 - 24.9 Positive >24.9 Mitochondrial (M2) Antibodies are found in 90-96% of patients with primary biliary cirrhosis. Performed By: #### H BCAB, ELF, HAABT, L-K MICRO, HCBIGM, MITOM2, SMAB, HAAB, ALPHA PHEN, CERULOP, IGG, NATALYA, HCV RX PCR, HEMOCHROM, HBSAG, HBSAB #### [facility] , #### GEOFF #### [facility] [address] No Panel InformationOrdered By: Imjose Givens on 10-08-2024 Hemochromatosis Note Comment . [facility] Comment on above: Technical Component performed at [facility] RTPProfessional Component performed by:Intellio Elvin Moffett, Ph.D., FACMGDirector, Molecular [address] [place] [address]Dehvpccsf at: [facility] [employer] [facility] [id number] [place], [place] [id number] Director: Alexandria Bob [facility], Phone: [phone] Hepatitis C Interpretation Comment . [facility] Comment on above: Not infected with HC V unless early or acute infection issuspected (which may be delayed in an immunocompromisedindividual), or other evidence exists to indicate HCVinfection. Serum hepatitis B virus surf chiki antibody detectionOrdered By: Imad Asaad on 10-08-2024 HBV surface Ab Ql (S) Hepatitis B virus surface Ab [Presence] in Serum . [facility] Comment on above: Non Reactive: Not im mune to HBV infection. Equivocal: Unable to determine if anti-HBs is present at levels consistent with immunity. Reactive: Anti-HBs concentration detected at greater than 10 mIU/mL. Individual is considered to be immune to infection with HBV. Serum homogeneous pattern an tinuclear antibody (NATALYA) titerOrdered By: Wayne Givens on 10-08-2024 Homogenous nuclear Ab pattern (S) [Titer] Serum homogeneous pattern antinuclear antibody (NATALYA) titer [facility] Serum mitochondria M2 IgG an tibody assay (units/volume)Ordered By: jose Givens on 10-08-2024 Mitochondria M2 IgG Qn (S) Serum mitochondria M2 IgG antibody assay (units/volume) 0.0-20.0 [facility] Comment on above: Negative 0.0 - 20.0 Equivocal 20.1 - 24.9 Positive >24.9Mitochondrial (M2) Antibodies are found in 90-96% ofpatients with primary biliary cirrhosis. Serum nuclear antibody titer Ordered By: Wayne Givens on 10-08-2024 Nuclear Ab (S) [Titer] Serum nuclear ant ibody titer . [facility] Comment on above: Negative <1:80 Borde rline 1:80 Positive >1:80ICAP nomenclature: AC-0For more information about Hep-2 cell patterns useANApatterns.org, the official website for theInternational Consensus on Antinuclear Antibody (NATALYA)Patterns (ICAP).Performed at: [facility] [address] [id number] Director: Juan Portillo PhD, Phone: [phone] Serum or plasma IgG measurem ent (mass/volume)Ordered By: Wayne Givens on 10-08-2024 IgG [Mass/Vol] IgG [Mass/volume] in Serum or Plasma [phone] [facility] Comment on above: Performed at: [facility] [address] [id number] Director: Juan Portillo PhD, Phone: [phone] Serum or plasma alpha 1 anti trypsin measurement (mass/volume)Ordered By: Wayne Givens on 10-08-2024 Alpha 1 antitrypsin [Mass/Vol] Serum zpgrg-9-hknwftdcyaw measurement [phone] [facility] Serum or plasma alpha 1 anti trypsin phenotyping identification by immunofixationOrdered By: Wayne Givens on 10-08-2024 Alpha 1 antitrypsin phenotyping [employer] Nom Serum or plasma alpha 1 antitrypsin phenotyping identification by immunofixation . [facility] Comment on above: MM Phenotype is co nsidered to be normal , producingnormal serum levels of mhapk-3-qgsolcja inhibitor andnot associated with clinical disease. Associated Z8Esgcjt serum levels in other phenotypes and theirincidence [...] reference. Ranges used to confirm phenotype.Performed at: [facility] [address] [id number] Director: Juan Portillo PhD, Phone: [phone] at: [facility] [id number] Director: Warner Mckinney MD, Phone: [phone] Serum or plasma ceruloplasmi n measurement (mass/volume)Ordered By: Wayne Givens on 10-08-2024 Ceruloplasmin [Mass/Vol] Serum or plasma ceruloplasmin measurement (mass/volume) 19.0-39.0 [facility] Comment on above: Performed at: [address] [id number] Director: Juan Portillo PhD, Phone: [phone] Serum or plasma hepatitis B virus surface antigen detection by immunoassayOrdered By: Wayne Givens on 10-08-2024 HBV surface Ag IA Ql Hepatitis B virus s urface Ag [Presence] in Serum or Plasma by Immunoassay Negative [facility] Serum or plasma lipoprotein a measurement (moles/volume)Ordered By: Wayne Givens on 10-08-2024 Lipoprotein a [Moles/Vol] Serum or plasma lipoprotein a measurement (moles/volume) 0.0-20.0 [facility] Comment on above: Negative 0.0 - 20.0 Equivocal 20.1 - 24.9 Positive >24.9LKM type 1 antibodies are detected in patients withautoimmune hepatitis type 2 and in up to 8% ofpatients with chronic HCV infection.Performed at: - [facility] [address] [id number] Director: Juan Portillo PhD, Phone: [phone] Smooth Muscle Antibodyon Smooth Muscle Antibody 4 Normal 0-19 [facility] Comment on above: [...] #### [facility] , #### GEOFF #### [address] Basophils Auto (Bld) [#/Vol] on 06-29-2024 Basophils (Bld) [#/Vol] Automated basophil count 0.0-0.1 [facility] Basophils/100 WBC Auto (Bld) on 06-29-2024 Basophils/100 WBC (Bld) Automated basophil % 0.2-2.0 [facility] Cholesterol in LDL Calc [Mas s/Vol]on 06-29-2024 Cholesterol in LDL [Mass/Vol] Cholesterol in LDL [Mass/volume] in Serum or Plasma by calculation [facility] Comment on above: <100 mg/dl GBOAKEX31 0-129 mg/dl NEAR OR ABOVE OHBOHQZ157-508 mg/dl BORDERLINE [id number] mg/dl HIGH>190 mg/dl VERY HIGH Cholesterol in VLDL Calc [Ma ss/Vol]on 06-29-2024 Cholesterol in VLDL [Mass/Vol] Cholesterol in VLDL [Mass/volume] in Serum or Plasma by calculation [facility] Eosinophils/100 WBC Auto (Bl d)on 06-29-2024 Eosinophils/100 WBC (Bld) Automated eosinophil % 0.9-7.0 [facility] Erythrocyte distribution wid th Auto (RBC) [Ratio]on 06-29-2024 Erythrocyte distribution width (RBC) [Ratio] Erythrocyte distribution width [Ratio] by Automated count 11.0-15.0 [facility] Estimated glomerular filtrat ion rate (GFR) non- Americanon 06-29-2024 GFR/1.73 sq M.predicted among non-blacks MDRD (S/P/Bld) [Vol rate/Area] Estimated glomerular filtration rate (GFR) non- >=60 [facility] Globulin Calc (S) [Mass/Vol] on 06-29-2024 Globulin (S) [Mass/Vol] Serum globulin measurement by calculation (mass/volume) [facility] Hematocrit Auto (Bld) [Volum e fraction]on 06-29-2024 Hematocrit (Bld) [Volume fraction] Hematocrit [Volume Fraction] of Blood by Automated count 36.0-48.0 [facility] Hemoglobin [Mass/volume] in Bloodon 06-29-2024 Hemoglobin (Bld) [Mass/Vol] Hemoglobin [Mass/volume] in Blood 12.0-16.0 [facility] Laboratory - Chemistry and C hemistry - challengeon 06-29-2024 Albumin [Mass/Vol] 4.2 g/dL 3.4-5.0 [facility] ALP [Catalytic activity/Vol] 50 U/L 46-116 [facility] ALT [Catalytic activity/Vol] 51 U/L 14-59 [facility] AST [Catalytic activity/Vol] 31 U/L 15-37 [facility] Bilirubin [Mass/Vol] 0.7 mg/dL 0.2-1.0 [facility] Calcium [Mass/Vol] 9.6 mg/dL 8.5-10.1 [facility] Chloride [Moles/Vol] 104 mmol/L 98-107 [facility] Cholesterol [Mass/Vol] 183 mg/dL <=200 [facility] Cholesterol in HDL [Mass/Vol] 61 mg/dL High 40-60 [facility] Comment on above: > or =60 mg/dl - LOW CARDIOVASCULAR RISK<40 mg/dl - HIGH CARDIOVASCULAR RISK CO2 [Moles/Vol] 31.0 mmol/L 21.0-32.0 [facility] Creatinine [Mass/Vol] 0.75 mg/dL 0.55-1.02 [place] Free T4 [Mass/Vol] 1.23 ng/dL 0.76-1.46 [facility] GFR/1.73 sq M.predicted MDRD (S/P/Bld) [Vol rate/Area] mL/min/{1.73_m2} >=60 [facility] Glucose [Mass/Vol] 98 mg/dL 74-106 [facility] Potassium [Moles/Vol] 3.6 mmol/L 3.5-5.1 [place] Protein [Mass/Vol] 7.4 g/dL 6.4-8.2 [facility] Sodium [Moles/Vol] 143 mmol/L 136-145 [facility] Triglyceride [Mass/Vol] 185 mg/dL High <=150 [facility] TSH Qn 2.509 m[IU]/L 0.358-3.74 0 [facility] Urea nitrogen [Mass/Vol] 15.0 mg/dL 7.0-18.0 [facility] Urea nitrogen/Creatinine [Mass ratio] 20.0 mg/mg [facility] Laboratory - Hematology and Cell countson 06-29-2024 Immature granulocytes/100 WBC (Bld) 0.3 % 0.0-0.5 [facility] Leukocytes [#/volume] correc nazanin for nucleated erythrocytes in Blood by Automated counon 06-29-2024 WBC corrected for nucl RBC Auto (Bld) [#/Vol] Leukocytes [#/volume] corrected for nucleated erythrocytes in Blood by Automated coun 4.0-11.0 [facility] Lymphocytes Auto (Bld) [#/Vo l]on 06-29-2024 Lymphocytes (Bld) [#/Vol] Lymphocytes [#/volume] in Blood by Automated count 1.2-3.8 [facility] Lymphocytes/100 WBC Auto (Bl d)on 06-29-2024 Lymphocytes/100 WBC (Bld) Lymphocytes/100 leukocytes in Blood by Automated count Low 20.5-60.0 [facility] MCH Auto (RBC) [Entitic mass ]on 06-29-2024 MCH (RBC) [Entitic mass] MCH [Entitic mass] by Automated count 26.7-34.0 [facility] MCHC Auto (RBC) [Mass/Vol]on 06-29-2024 MCHC (RBC) [Mass/Vol] MCHC [Mass/volume] by Automated count 29.9-35.2 [facility] MCV Auto (RBC) [Entitic vol] on 06-29-2024 MCV (RBC) [Entitic vol] MCV [Entitic volume] by Automated count 81.0-99.0 [facility] Monocytes Auto (Bld) [#/Vol] on 06-29-2024 Monocytes (Bld) [#/Vol] Automated blood monocyte count 0.3-0.8 [facility] Monocytes/100 WBC Auto (Bld) on 06-29-2024 Monocytes/100 WBC (Bld) Automated monocyte % 1.7-12.0 [facility] Neutrophils Auto (Bld) [#/Vo l]on 06-29-2024 Neutrophils (Bld) [#/Vol] Neutrophils [#/volume] in Blood by Automated count 1.4-6.5 [facility] Neutrophils/100 WBC Auto (Bl d)on 06-29-2024 Neutrophils/100 WBC (Bld) Automated neutrophil % 43.0-75.0 [facility] No Panel Informationon 06-29 25-Hydroxy Vitamin D Total 61.2 ng/mL [facility] Comment on above: <20 ng/mL Vit D defi cient20-<30 ng/mL Vit D [id number] ng/mL Vit D sufficient>100 ng/mL Potential Toxicity Eosinophils # (Auto) 0.1 10 3/uL 0.0-0.7 [place] Immature Granulocyte # (Auto) 0.02 10 3/uL 0.00-0.03 [facility] Platelet mean volume Auto (B ld) [Entitic vol]on 06-29-2024 Platelet mean volume (Bld) [Entitic vol] Platelet mean volume [Entitic volume] in Blood by Automated count 9.5-13.5 [facility] Platelets Auto (Bld) [#/Vol] on 06-29-2024 Platelets (Bld) [#/Vol] Platelets [#/volume] in Blood by Automated count 150-450 [facility] RBC Auto (Bld) [#/Vol]on RBC (Bld) [#/Vol] Erythrocytes [#/volu me] in Blood by Automated count 4.20-5.40 [facility] Serum or plasma albumin/glob ulin mass ratioon 06-29-2024 Albumin/Globulin [Mass ratio] Serum or plasma albumin/globulin mass ratio [facility] Serum or plasma anion gap de terminationon 06-29-2024 Anion gap [Moles/Vol] Serum or plasma an ion gap determination [facility] Serum or plasma total choles terol/high density lipoprotein (HDL) cholesterol mass rachelle 06-29-2024 Cholesterol.total/Chol esterol in HDL [Mass ratio] Serum or plasma total cholesterol/high density lipoprotein (HDL) cholesterol mass rat [facility] Comment on above: 3.3 - 4.4 LOW RISK4. 4 - 7.1 AVERAGE RISK7.1 - 11.0 MODERATE RISK>11.0 HIGH RISK Urinalysis - AUTOMATEDon Appearance (U) cloudy [employer] Other Bilirubin Ql (U) Negative [employer] Other Color (U) dark yellow [employer] Other Glucose Ql (U) Negative [employer] Other Hemoglobin Ql (U) large [employer] Other Ketones Ql (U) Negative [employer] Other Leukocyte esterase Test strip Ql (U) moderate [employer] Other Nitrite Ql (U) Negative [employer] Other pH (U) 5.5 [pH] [employer] Other Protein Ql (U) 30 [employer] Other Specific gravity (U) [Rel density] 1.025 [employer] Other Urobilinogen (U) [Mass/Vol] 0.2 mg/dL [employer] Other Urinalysis - AUTOMATED No rt [employer] Other Urine Cultureon 07-28-2023 Urine Culture 20,000 [employer] Other Urine Culture <16 Susceptible [employer] Other Urine Culture >16/8 Resistant [employer] Other Urine Culture >16 Resistant [employer] Other Urine Culture <4 Susceptible [employer] Other Urine Culture 4 Susceptible [employer] Other Urine Culture <2 Susceptible [employer] Other Urine Culture <1 Susceptible [employer] Other Urine Culture 8 Susceptible [employer] Other Urine Culture <0.25 Susceptible [employer] Other Urine Culture <0.5 Susceptible [employer] Other Urine Culture <32 Susceptible [employer] Other Urine Culture <0.5/9.5 Susceptible [employer] Other Human papilloma virus 16+18+ 31+33+35+39+45+51+52+56+58+59+66+68 DNA [Presence] in CerOrdered By: Mikaela Zayas on 06-19-2023 HPV 16+18+31+33+35+39+45+5 1+52+56+58+59+66+68 DNA Probe+sig amp Ql (Cvx) Negative Negative [facility] Comment on above: This nucleic acid am plification test detects fourteen high- risk HPV types (16,18,31,33,35,39,45,51,52,56,58,59,66,68)without differentiation.Performed at: - [facility] [id number] Director: Jackelyn Ayala MD, Phone: [phone] at: = - [facility] [id number] Director: Jackelyn Ayala MD, Phone: [phone] No Panel InformationOrdered By: Mikaela Zayas on 06-19-2023 IG Pap w/Ct-Ng & HPV Rflx (Off-Site Note . [facility] Comment on above: TESTS RESULT FLAG UN ITS REF RANGE LAB Clinician Provided Cytology Information No. of containers..01 ThinPrep VialDIAGNOSIS: 01 NEGATIVE FOR INTRAEPITHELIAL LESION OR MALIGNANCY. CELLULAR CHANGES ASSOCIATED WITH ATROPHY ARE PRESENT.Specimen adequacy: 01 Satisfactory for evaluation. Endocervical component may not be distinguished in cases of atrophy.Performed by: Marvin Lundberg, Coal Grader (ASCP). 01Note: Note 01 The Pap smear [...] High <-Panic Low,>-Panic High,A-Abnormal,AA-Critical Abnormal -----Performed at:[address] [id number] Jackelyn Ayala MD, FREE T4on 07-02-2022 Free T4 [Mass/Vol] 1.15 ng/dL Normal 0.76-1.46 [facility] Comment on above: Performed By: #### F T4 #### [facility] [address] [place] [address] Dr. Gilma Rojas LIPID PROFILEon 07-02-2022 CHOL-HDL RATIO NORM SEE BELOW Normal [facility] Comment on above: Result Comment: 3.3 - 4.4 LOW RISK 4.4 - 7.1 AVERAGE RISK 7.1 - 11.0 MODERATE RISK >11.0 HIGH RISK Performed By: #### C MP, TSH, LIPID #### [facility] [address] [place] [address] Dr. Gilma Rojas Cholesterol [Mass/Vol] 191 mg/dL Normal <=[address] [facility] Comment on above: Performed By: #### C MP, TSH, LIPID #### [facility] [address] [address] [address] Gilma Rojas Cholesterol in HDL [Mass/Vol] 59 mg/dL Normal 40-60 [facility] Comment on above: Performed By: #### C MP, TSH, LIPID #### [facility] [address] [address] [address] Gilma Rojas Cholesterol in LDL [Mass/Vol] 112.4 mg/dL Normal [facility] Comment on above: Performed By: #### C MP, TSH, LIPID #### [facility] [address] [address] [address] Gilma Rojas Cholesterol.total/Chol esterol in HDL [Mass ratio] 3.2 {ratio} Normal [facility] Comment on above: Performed By: #### C MP, TSH, LIPID #### [facility] [address] [address] [address] Gilma Rojas HDL NORMAL > or = 60 mg/dl - LO W CARDIOVASCULAR RISK <40 mg/dl - HIGH CARDIOVASCULAR RISK Normal [facility] Comment on above: Performed By: #### C MP, TSH, LIPID #### [facility] [address] [address] [address] Gilma Rojas LDL CALC NORMAL SEE BELOW Normal [facility] Comment on above: Result Comment: <100 mg/dl OPTIMAL 100 - 129 mg/dl NEAR OR ABOVE OPTIMAL 130 - 159 mg/dl BORDERLINE HIGH 160 - 189 mg/dl HIGH >190 mg/dl VERY HIGH Performed By: #### C MP, TSH, LIPID #### [facility] [address] [address] [address] Gilma Rojas Triglyceride [Mass/Vol] 98 mg/dL Normal <=150 [facility] Comment on above: Performed By: #### C MP, TSH, LIPID #### [facility] [address] [address] [address] Gilma Rojas VLDL CALC 19.6 mg/dL Normal [facility] Comment on above: Performed By: #### C MP, TSH, LIPID #### [facility] [address] [address] [address] Gilma Rojas MG MAMM SCREEN 3D SAVANNAH CADon 07-02-2022 MG MAMM SCREEN 3D SAVANNAH CAD Patient: FIGUEROA VILLANUEVA Exam Date: 07/02/2022 : 1955 Gender:F Ordering : DR MIKAELA ZAYAS M.D. Admission #: [id number] Family : Order #: [id number] CLICK HERE TO VIEW EXAM RADIOLOGY REPORT [...] skin cancer at age 78. LOCATION: [facility] BREAST COMPOSITION: Scattered areas fibroglandular density. [...] PALPABLE LUMP SHOULD BE BIOPSIED. Dictated by: Bandar Garcia M.D. on 07/02/2022 at 12:26 Approved by: Bandar Garcia M.D. on 07/02/2022 at 12:31 Normal [facility] PROF 14(COMP METB)on 022 Albumin [Mass/Vol] 4.3 g/dL Normal 3.4-5.0 [facility] Comment on above: Performed By: #### C MP, TSH, LIPID #### [facility] [address] [address] [address] Gilma Rojas Albumin/Globulin [Mass ratio] 1.4 {ratio} Normal [facility] Comment on above: Performed By: #### C MP, TSH, LIPID #### [facility] [address] [address] [address] Gilma Rojas ALP [Catalytic activity/Vol] 44 U/L Critically low 46-116 [facility] Comment on above: Performed By: #### C MP, TSH, LIPID #### [facility] [address] [address] [address] Gilma Rojas ALT [Catalytic activity/Vol] 36 U/L Normal 14-59 [facility] Comment on above: Performed By: #### C MP, TSH, LIPID #### [facility] [address] [address] [address] Gilma Rojas Anion gap [Moles/Vol] 10.4 mmol/L Normal [facility] Comment on above: Performed By: #### C MP, TSH, LIPID #### [facility] [address] [place] [address] Dr. Gilma Rojas AST [Catalytic activity/Vol] 25 U/L Normal 15-37 [facility] Comment on above: Performed By: #### C MP, TSH, LIPID #### [facility] [address] [place] [address] Dr. Gilma Rojas Bilirubin [Mass/Vol] 0.6 mg/dL Normal 0.2-1.0 [facility] Comment on above: Performed By: #### C MP, TSH, LIPID #### [facility] [address] [place] [address] Dr. Gilma Rojas Calcium [Mass/Vol] 9.6 mg/dL Normal 8.5-10.1 [facility] Comment on above: Performed By: #### C MP, TSH, LIPID #### [facility] [address] [place] [address] Dr. Gilma Rojas Chloride [Moles/Vol] 106 mmol/L Normal 98-107 [facility] Comment on above: Performed By: #### C MP, TSH, LIPID #### [facility] [address] [place] [address] Dr. Gilma Rojas CO2 [Moles/Vol] 30.1 mmol/L Normal 21.0-32.0 [facility] Comment on above: Performed By: #### C MP, TSH, LIPID #### [facility] [address] [place] [address] Dr. Gilma Rojas Creatinine [Mass/Vol] 0.78 mg/dL Normal 0.55-1.02 [facility] Comment on above: Performed By: #### C MP, TSH, LIPID #### [facility] [address] [address] [address] Gilma Rojas EGFR-AF SOMALI >60 Normal >=60 [facility] Comment on above: Performed By: #### C MP, TSH, LIPID #### [facility] [address] [address] [address] Gilma Rojas EGFR-NON AF SOMALI >60 Normal >=60 [facility] Comment on above: Performed By: #### C MP, TSH, LIPID #### [facility] [address] [address] [address] Gilma Rojas Globulin (S) [Mass/Vol] 3.1 g/dL Normal [facility] Comment on above: Performed By: #### C MP, TSH, LIPID #### [facility] [address] [address] [address] Gilma Rojas Glucose [Mass/Vol] 99 mg/dL Normal 74-106 [facility] Comment on above: Performed By: #### C MP, TSH, LIPID #### [facility] [address] [place] [address] Dr. Gilma Rojas Potassium [Moles/Vol] 3.5 mmol/L Normal 3.5-5.1 [facility] Comment on above: Performed By: #### C MP, TSH, LIPID #### [facility] [address] [place] [address] Dr. Gilma Rojas Protein [Mass/Vol] 7.4 g/dL Normal 6.4-8.2 [facility] Comment on above: Performed By: #### C MP, TSH, LIPID #### [facility] [address] [place] [address] Dr. Gilma Rojas Sodium [Moles/Vol] 143 mmol/L Normal 136-145 [facility] Comment on above: Performed By: #### C MP, TSH, LIPID #### [facility] [address] [place] [address] Dr. Gilma Rojas Urea nitrogen [Mass/Vol] 18.0 mg/dL Normal 7.0-18.0 [facility] Comment on above: Performed By: #### C MP, TSH, LIPID #### [facility] [address] [place] [address] Dr. Gilma Rojas Urea nitrogen/Creatinine [Mass ratio] 23.1 mg/mg Normal [facility] Comment on above: Performed By: #### C MP, TSH, LIPID #### [facility] [address] [place], [place] [address] Dr. Gilma Rojas TSHon 07-02-2022 TSH 3.135 uIU/mL Normal 0.358-3.74 0 [facility] Comment on above: Performed By: #### C MP, TSH, LIPID #### [facility] [address] [id number] Gilma Rojas Vital Signs Date Time Vital Sign Value Performing Clinician Facility 07-21-2025 09:23-0400 Body height 154.94 cm Mikaela Zayas MD Work Phone: [facility] 07-21-2025 09:23-0400 Body mass index (BMI) [Ratio] 35.5 kg/m2 Mikaela Zayas MD Work Phone: [facility] 07-21-2025 09:23-0400 Body weight 85.27 kg Mikaela Zayas MD Work Phone: [facility] 07-21-2025 09:23-0400 Diastolic blood pressure 73 mm[Hg] Mikaela Zayas MD Work Phone: [facility] 07-21-2025 09:23-0400 Heart rate 72 /min Mikaela Zayas MD Work Phone: [facility] 07-21-2025 09:23-0400 Respiratory rate 14 /min Mikaela Zayas MD Work Phone: [facility] 07-21-2025 09:23-0400 SaO2% (BldA) [Mass fraction] 96 % Mikaela Zayas MD Work Phone: [facility] 07-21-2025 09:23-0400 Systolic blood pressure 125 mm[Hg] Mikaela Zayas MD Work Phone: [facility] 06-03-2025 12:56-0400 Body height 154.9 cm Rachid Saul NP Work Phone: [facility] 06-03-2025 12:56-0400 Body mass index (BMI) [Ratio] 35.33 kg/m2 Rachid Saul CUT OFF [employer] Work Phone: [facility] 06-03-2025 12:56-0400 Body weight 84.82 kg Rachid Saul C[employer] Work Phone: [facility] 05-25-2025 11:23-0400 Body height 154.9 cm Jr. Stepanic DO Work Phone: [facility] 05-25-2025 11:23-0400 Body mass index (BMI) [Ratio] 35.14 kg/m2 Jr. Stepanic DO Work Phone: [facility] 05-25-2025 11:23-0400 Body weight 84.37 kg Jr. Stepanic DO Work Phone: [facility] 05-17-2025 09:31-0400 Body height 154.94 cm Mikaela Zayas MD Work Phone: [facility] 05-17-2025 09:31-0400 Diastolic blood pressure 80 mm[Hg] Mikaela Zayas MD Work Phone: [facility] 05-17-2025 09:31-0400 Heart rate 76 /min Mikaela Zayas MD Work Phone: [facility] 05-17-2025 09:31-0400 SaO2% (BldA) [Mass fraction] 96 % Mikaela Zayas MD Work Phone: [facility] 05-17-2025 09:31-0400 Systolic blood pressure 130 mm[Hg] Mikaela Zayas MD Work Phone: [facility] 04-21-2025 13:23-0400 Diastolic blood pressure 82 mm[Hg] Mikaela Zayas MD Work Phone: [facility] 04-21-2025 13:23-0400 Heart rate 73 /min Mikaela Zayas MD Work Phone: [facility] 04-21-2025 13:23-0400 SaO2% (BldA) [Mass fraction] 97 % Mikaela Zayas MD Work Phone: [facility] 04-21-2025 13:23-0400 Systolic blood pressure 150 mm[Hg] Mikaela Zayas MD Work Phone: [facility] 03-22-2025 09:34-0400 Diastolic blood pressure 82 mm[Hg] [facility] 03-22-2025 09:34-0400 Heart rate 72 /min [facility] 03-22-2025 09:34-0400 SaO2% (BldA) [Mass fraction] 97 % [facility] 03-22-2025 09:34-0400 Systolic blood pressure 142 mm[Hg] [facility] 12-28-2024 09:07-0400 Body height 154.94 cm Mikaela Zayas MD Work Phone: [facility] 12-28-2024 08:48-0400 Body height 154.94 cm [facility] 12-28-2024 08:48-0400 Body mass index (BMI) [Ratio] 34.2 kg/m2 Mikaela Zayas MD Work Phone: [facility] 12-28-2024 08:48-0400 Body temperature 98.3 [degF] Mikaela Zayas MD Work Phone: [facility] 12-28-2024 08:48-0400 Body weight 82.1 kg Mikaela Zayas MD Work Phone: [facility] 12-28-2024 08:48-0400 Diastolic blood pressure 70 mm[Hg] Mikaela Zayas MD Work Phone: [facility] 12-28-2024 08:48-0400 Heart rate 69 /min Mikaela Zayas MD Work Phone: [facility] 12-28-2024 08:48-0400 SaO2% (BldA) [Mass fraction] 97 % Mikaela Zayas MD Work Phone: [facility] 12-28-2024 08:48-0400 Systolic blood pressure 118 mm[Hg] Mikaela Zayas MD Work Phone: [facility] 12-08-2024 10:47-0500 Body height 154.94 cm Mikaela Zayas MD Work Phone: [facility] 12-08-2024 10:47-0500 Body mass index (BMI) [Ratio] 34.7 kg/m2 Mikaela Zayas MD Work Phone: [facility] 12-08-2024 10:47-0500 Body weight 83.46 kg Mikaela Zayas MD Work Phone: [facility] 12-08-2024 10:47-0500 Diastolic blood pressure 74 mm[Hg] Mikaela Zayas MD Work Phone: [facility] 12-08-2024 10:47-0500 Heart rate 75 /min Mikaela Zayas MD Work Phone: [facility] 12-08-2024 10:47-0500 Systolic blood pressure 158 mm[Hg] Mikaela Zayas MD Work Phone: [facility] 09-22-2024 11:11-0500 Body height 154.94 cm Mikaela Zayas MD Work Phone: [facility] 09-22-2024 11:11-0500 Body mass index (BMI) [Ratio] 34.2 kg/m2 Mikaela Zayas MD Work Phone: [facility] 09-22-2024 11:11-0500 Body weight 82.1 kg Mikaela Zayas MD Work Phone: [facility] 09-01-2024 14:04-0500 Body height 153.67 cm [facility] 09-01-2024 14:04-0500 Body mass index (BMI) [Ratio] 35.3 kg/m2 [facility] 09-01-2024 14:04-0500 Body weight 83.46 kg [facility] 09-01-2024 14:04-0500 Diastolic blood pressure 73 mm[Hg] [facility] 09-01-2024 14:04-0500 Heart rate 76 /min [facility] 09-01-2024 14:04-0500 Systolic blood pressure 125 mm[Hg] [facility] 06-23-2024 10:57-0400 Body height 153.67 cm [facility] 06-23-2024 10:57-0400 Body mass index (BMI) [Ratio] 34.9 kg/m2 [facility] 06-23-2024 10:57-0400 Body weight 82.55 kg [facility] 06-23-2024 10:57-0400 Diastolic blood pressure 74 mm[Hg] [facility] 06-23-2024 10:57-0400 Heart rate 64 /min [facility] 06-23-2024 10:57-0400 Systolic blood pressure 146 mm[Hg] [facility] 03-17-2024 11:27-0400 Body height 153.67 cm [facility] 03-17-2024 11:27-0400 Body mass index (BMI) [Ratio] 34.4 kg/m2 [facility] 03-17-2024 11:27-0400 Body temperature 98.1 [degF] [facility] 03-17-2024 11:27-0400 Body weight 81.19 kg [facility] 03-17-2024 11:27-0400 Diastolic blood pressure 73 mm[Hg] [facility] 03-17-2024 11:27-0400 Heart rate 79 /min [facility] 03-17-2024 11:27-0400 Systolic blood pressure 134 mm[Hg] [facility] 09-24-2023 09:00-0500 Body height 153.67 cm Mikaela Zayas Other [employer] [facility] [employer] Other 09-24-2023 09:00-0500 Body mass index (BMI) [Ratio] 33.61 kg/m2 Mikaela Zayas Other [employer] Other 09-24-2023 09:00-0500 Body weight 79.38 kg Mikaela Zayas Other [employer] [facility] [employer] Other 09-24-2023 09:00-0500 Diastolic blood pressure 80 mm[Hg] Mikaela Chana Other [employer] Other 09-24-2023 09:00-0500 Systolic blood pressure 126 mm[Hg] Mikaela Chana Other [employer] Other 08-13-2023 09:30-0400 Body height 153.67 cm Lukasz Quispe Other [employer] Other 08-13-2023 09:30-0400 Body mass index (BMI) [Ratio] 33.42 kg/m2 Lukasz Quispe Other [employer] Other 08-13-2023 09:30-0400 Body weight 78.93 kg Lukasz Quispe Other [employer] Other 08-13-2023 09:30-0400 SaO2% (BldA) [Mass fraction] 96 % Lukasz Quispe Other [employer] Other 07-28-2023 09:25-0400 Body height 153.67 cm Lima Shauna Other [employer] Other 07-28-2023 09:25-0400 Body mass index (BMI) [Ratio] 32.84 kg/m2 Lima Shauna Other [employer] Other 07-28-2023 09:25-0400 Body temperature 98.3 [degF] Lima Shauna Other [employer] Other 07-28-2023 09:25-0400 Body weight 77.57 kg Lima Villatoro Other [employer] Other 07-28-2023 09:25-0400 Diastolic blood pressure 82 mm[Hg] Lima Shauna Other [employer] Other 07-28-2023 09:25-0400 Respiratory rate 16 /min Lima Shauna Other [employer] Other 07-28-2023 09:25-0400 SaO2% (BldA) [Mass fraction] 98 % Lima Shauna Other [employer] Other 07-28-2023 09:25-0400 Systolic blood pressure 144 mm[Hg] Lima Shauna Other [employer] Other 06-19-2023 09:30-0400 Body height 153.67 cm Mikaela Zayas Other [employer] Other 06-19-2023 09:30-0400 Body mass index (BMI) [Ratio] 32.8 kg/m2 Mikaela Zayas Other [employer] Other 06-19-2023 09:30-0400 Body weight 77.47 kg Mikaela Zayas Other [employer] Other 06-19-2023 09:30-0400 Diastolic blood pressure 77 mm[Hg] Mikaela Zayas Other [employer] Other 06-19-2023 09:30-0400 Respiratory rate 12 /min Mikaela Zayas Other [employer] Other 06-19-2023 09:30-0400 Systolic blood pressure 160 mm[Hg] Mikaela Zayas Other [employer] Other 12-25-2022 15:45-0400 Body height 153.67 cm Mikaela Zayas Other [employer] Other 12-25-2022 15:45-0400 Body mass index (BMI) [Ratio] 34.57 kg/m2 Mikaela Zayas Other [employer] Other 12-25-2022 15:45-0400 Body weight 81.65 kg Mikaela Zayas Other [employer] Other 12-25-2022 15:45-0400 Diastolic blood pressure 72 mm[Hg] Mikaela Zayas Other [employer] Other 12-25-2022 15:45-0400 SaO2% (BldA) [Mass fraction] 97 % Mikaela Zayas Other [employer] Other 12-25-2022 15:45-0400 Systolic blood pressure 132 mm[Hg] Mikaela Zayas Other [employer] Other Encounters Encounter Date Encounter Type Care Provider Facility Start: 07-21-2025 End: 07-21-2025 ambulatory Mikaela Zayas MD Work Phone: [facility] Work Phone: Start: 07-21-2025 End: 07-21-2025 Patient encounter procedure Mikaeal Zayas MD -[facility] Work Phone: Start: 07-19-2025 End: 07-19-2025 Bamboo flowsheet Rachid Saul CUT OFF [employer] Work Phone: [facility] Start: 07-19-2025 End: 07-19-2025 Bamboo flowsheet Rachid Saul [employer] Work Phone: [facility] Start: 07-19-2025 End: 07-19-2025 Postop follow up visit related to original px Rachid Saul [employer] Work Phone: [facility] Comment on above: Status post carpal t unnel release (Primary Dx) Start: 07-19-2025 End: 07-19-2025 ambulatory RACHID SAUL Not Available Start: 07-08-2025 End: 07-08-2025 Bamboo flowsheet Rachid Saul C[employer] OFF [employer] Work Phone: [facility] Start: 07-08-2025 End: 07-08-2025 Bamboo flowsheet Rachid Saul CUT OFF [employer] Work Phone: [facility] Start: 07-08-2025 End: 07-08-2025 Postop follow up visit related to original px Rachid Saul C[employer] Work Phone: [facility] Comment on above: Status post carpal t unnel release (Primary Dx) Start: 07-08-2025 End: 07-08-2025 ambulatory RACHID SAUL Not Available Start: 06-23-2025 End: 06-23-2025 Refill Rachid Saul C[employer] Work Phone: [facility] Comment on above: Carpal tunnel syndro me of left wrist (Primary Dx) Start: 06-03-2025 End: 06-03-2025 Bamboo flowstamela Saul CUT OFF [employer] Work Phone: [facility] Start: 06-03-2025 End: 06-03-2025 Bamboo flowstamela Saul CUT OFF [employer] Work Phone: [facility] Start: 06-03-2025 End: 06-03-2025 Patient encounter procedure Rachid Saul C[employer] OFF [employer] Work Phone: [facility] Comment on above: Preop examination (P rimary Dx) Start: 06-03-2025 End: 06-03-2025 Preprocedural examination done Rachid Saul CUT OFF [employer] Work Phone: [facility] Work Phone: Start: 06-03-2025 End: 06-03-2025 ambulatory RACHID T SAUL Not Available Start: 05-25-2025 End: 05-25-2025 Bamboo flowsheet Jr. Miah Castano Stepanic DO Work Phone: [facility] Start: 05-25-2025 End: 05-25-2025 Bamboo flowsheet JrRitika Castano Stepanic DO Work Phone: [facility] Start: 05-25-2025 End: 05-25-2025 Office outpatient visit 25 minutes Ritika Castano Stepanic DO Work Phone: [facility] Comment on above: Carpal tunnel syndro me of left wrist (Primary Dx); Paresthesias in left hand Start: 05-25-2025 End: 05-25-2025 ambulatory MIAH IBANEZ Not Available Start: 05-17-2025 End: 05-17-2025 ambulatory Mikaela Zayas MD Work Phone: [facility] Work Phone: Start: 05-17-2025 End: 05-17-2025 Patient encounter procedure Lukasz Quispe MD -[facility] Work Phone: Start: 05-12-2025 End: 05-12-2025 Patient encounter procedure Lukasz Quispe MD -[facility] Work Phone: Start: 05-12-2025 End: 05-12-2025 ambulatory Mikaela Zayas MD Work Phone: [facility] Work Phone: Start: 05-12-2025 Non-patient / Non-visit Neymar Riley MD -[facility] Work Phone: Start: 04-21-2025 End: 04-21-2025 ambulatory Mikaela Zayas MD Work Phone: [facility] Work Phone: Start: 04-21-2025 End: 04-21-2025 Patient encounter procedure Lukasz Quispe MD -[facility] Work Phone: Start: 04-12-2025 End: 04-12-2025 Patient encounter procedure Lukasz Quispe MD -[facility] [place] Work Phone: Start: 04-12-2025 End: 04-12-2025 ambulatory Mikaela Zayas MD Work Phone: [facility] Work Phone: Start: 03-22-2025 End: 03-22-2025 ambulatory [facility] Work Phone: Start: 03-22-2025 End: 03-22-2025 Patient encounter procedure [facility] Work Phone: Start: 12-28-2024 End: 12-28-2024 ambulatory Mikaela Zayas MD Work Phone: [facility] Work Phone: Start: 12-28-2024 End: 12-28-2024 Patient encounter procedure Mikaela Zayas MD Work Phone: [facility] Work Phone: Start: 12-21-2024 Non-patient / Non-visit Mikaela Zayas MD Work Phone: [facility] Work Phone: Start: 12-20-2024 Non-patient / Non-visit Mikaela Zayas MD Work Phone: [facility] Work Phone: Start: 12-08-2024 End: 12-08-2024 ambulatory Mikaeal Zayas MD Work Phone: [facility] Work Phone: Start: 12-08-2024 End: 12-08-2024 Patient encounter procedure Mikaela Zayas MD Work Phone: [facility] Work Phone: Start: 10-08-2024 End: 10-08-2024 Patient encounter procedure Mikaela Zayas MD Work Phone: [facility] [place] Work Phone: Start: 10-08-2024 End: 10-08-2024 ambulatory Imad Asaad Facility:[facility] Start: 10-08-2024 Non-patient / Non-visit Mikaela Zayas MD Work Phone: [facility] Work Phone: Start: 09-22-2024 End: 09-22-2024 Patient encounter procedure Mikaela Zayas MD Work Phone: [facility] Work Phone: Start: 09-01-2024 End: 09-01-2024 ambulatory [facility] Work Phone: Start: 09-01-2024 End: 09-01-2024 Patient encounter procedure [facility] Work Phone: Start: 07-01-2024 [facility] Start: 06-29-2024 Non-patient / Non-visit [facility] Work Phone: Start: 06-23-2024 End: 06-23-2024 ambulatory [facility] Work Phone: Start: 06-23-2024 End: 06-23-2024 Patient encounter procedure [facility] Work Phone: Start: 03-17-2024 End: 03-17-2024 ambulatory [facility] Work Phone: Start: 03-17-2024 End: 03-17-2024 Patient encounter procedure [facility] Work Phone: Start: 02-10-2024 Non-patient / Non-visit [facility] Work Phone: Start: 09-24-2023 End: 09-24-2023 ambulatory Mikaela Mendieta [employer] Other Start: 09-24-2023 Office outpatient vi sit 15 minutes Mikaela Zayas [facility] Start: 08-13-2023 End: 08-13-2023 ambulatory Lukasz Brittaney Other [employer] Other Start: 08-13-2023 Office outpatient vi sit 25 minutes Lukasz Brittaney [facility] Start: 07-28-2023 Office outpatient vi sit 15 minutes Lima Shauna [facility] Start: 07-28-2023 End: 07-28-2023 ambulatory Lima Shauna Other [employer] Other Start: 07-28-2023 End: 07-28-2023 Departed Referred MD Mikaela Zayas Work Phone: [facility] [place] Work Phone: Start: 06-26-2023 End: 06-26-2023 ambulatory Mikaela Zayas Other [employer] Other Start: 06-26-2023 Telephone encounter Mikaela Zayas [facility] Start: 06-19-2023 Patient encounter procedure Mikaela Zayas [facility] Start: 06-19-2023 End: 06-19-2023 ambulatory MD Mikaela Zayas Work Phone: [facility] Work Phone: Start: 06-19-2023 End: 06-19-2023 Departed Referred MD Mikaela Zayas Work Phone: [facility] [place] Work Phone: Start: 01-08-2023 End: 01-08-2023 ambulatory Mikaela Zayas Other [employer] Other Start: 01-08-2023 Telephone encounter Mikaela Zayas [facility] Start: 12-25-2022 End: 12-25-2022 ambulatory Mikaela Zayas Other [facility] [employer] Other Start: 12-25-2022 Office outpatient vi sit 15 minutes Mikaela SIMENTAL [facility] Start: 07-02-2022 End: 07-03-[address] MIKAELA ZAYAS Facility:[facility]1 Procedures Date Procedure Procedure Detail Performing Clinician Start: 04-12-2025 MRI of cervical spin e without contrast Mikaela Zayas MD Work Phone: Start: 04-12-2025 X-ray of cervical spine Mikaela Zayas MD Work Phone: Start: 07-28-2023 Piperacillin/tazobactam Lima Villatoro Other History of decompres irina of median nerve Status post carpal tunnel release Rachid Saul CUT OFF [employer] Work Phone: History of decompres irina of median nerve Status post carpal tunnel release Rachid Saul CUT OFF [employer] Work Phone: Plan of Treatment Date Care Activity Detail Author Start: 07-19-2025 End: 07-19-2025 Patient encounter procedure [facility] Comment on above: Arrived Start: 07-08-2025 End: 07-08-2025 Patient encounter procedure [facility] Comment on above: Arrived Start: 06-14-2025 Influenza vaccination Influenz a Vaccine (#1) [facility] Start: 06-03-2025 End: 06-03-2025 Patient encounter procedure [facility] Comment on above: Arrived Start: 05-25-2025 End: 05-25-2025 Patient encounter procedure 05/25/2025 11:00 AM EDT Office Visit [facility] [address] [place] [address] Jr. Miah Batista, [address] [address] Arrived [facility] Comment on above: Arrived Start: 05-17-2025 Patient referral [facility] Work Phone: Start: 07-28-2023 Bacteria identified in Urine by Culture [facility] Start: 06-19-2023 [facility] Start: 1994 Screening for malign ant neoplasm of breast Mammogram [facility] Start: 1954 Screening for malign ant neoplasm of colon [facility] metabo lic 1999 panel - Serum or Plasma [facility] Comprehensive metabo lic 1999 panel - Serum or Plasma [facility] Electromyography [facility] Human papilloma viru s 16+18+31+33+35+39+45+51+52 +56+58+59+66+68 DNA [Presence] in Cervix by Probe with signal amplification [facility] MG Breast - bilatera l Screening [facility] MR Cervical spine WO contrast [facility] Patient referral [facility] Work Phone: Gallbladder [facility] XR Cervical spine Vi ews W flexion and W extension [place] Immunizations Immunization Date Immunization Notes Care Provider Fa cility 07-12-2024 COVID-19 (PFIZER) 12Y and older Mikaela Zayas MD Work Phone: [facility] 07-12-2024 influenza, high dose seasonal, preservative-free Mikaela Zayas MD Work Phone: [facility] 07-12-2024 influenza virus vaccine, unspecified formulation Jr. Lynne RIVERA Work Phone: [facility] 09-12-2023 COVID-19 (MODERNA) 12Y and older Mikaela Zayas MD Work Phone: [facility] 09-12-2023 Influenza vaccine, quadrivalent, adjuvanted Mikaela Zayas MD Work Phone: [facility] 02-05-2023 Pneumococcal Conjuga te Vaccine, 20 valent Mikaela Zayas MD Work Phone: [facility] 02-05-2023 tetanus toxoid, redu calixto diphtheria toxoid, and acellular pertussis vaccine, adsorbed Mikaela Zayas MD Work Phone: [facility] 07-29-2022 COVID-19 mRNA Bivale nt Booster (Pfizer) Mikaela Zayas MD Work Phone: [facility] 07-29-2022 COVID-19 Pfizer (Pediatric) Mikaela Zayas Other [facility] 07-29-2022 Influenza vaccine, quadrivalent, adjuvanted Mikaela Zayas MD Work Phone: [facility] 07-29-2022 influenza virus vaccine, split virus (incl. purified surface antigen) Mikaela Zayas Other [employer] Other 07-29-2022 influenza virus vaccine, unspecified formulation [facility] 06-12-2022 Prevnar 20 Mikaela Zayas Other [facility] 01-19-2022 COVID-19 Vaccine Moderna - Documentation Purposes Only Mikaela Zayas Other [facility] 08-27-2021 COVID-19 mRNA-1273 (Moderna) Mikaela Zayas MD Work Phone: [facility] 07-19-2021 Fluzone QIV High-Dos e 65YR+ Mikaela Zayas MD Work Phone: [facility] 04-18-2021 zoster vaccine recombinant Mikaela Zayas MD Work Phone: [facility] 12-27-2020 COVID-19 mRNA-1273 (Moderna) Mikaela Zayas MD Work Phone: [facility] 12-01-2020 COVID-19 mRNA-1273 (Moderna) Mkiaela Zayas MD Work Phone: [facility] 10-23-2020 zoster vaccine recombinant Mikaela Zayas MD Work Phone: [facility] 06-28-2020 Fluzone QIV High-Dos e 65YR+ Mikaela Zayas MD Work Phone: [facility] 06-28-2020 pneumococcal polysaccharide vaccine, 23 valent Mikaela Zayas MD Work Phone: [facility] 09-13-2015 influenza virus vaccine, split virus (incl. purified surface antigen) Mikaela Zayas Other [employer] Other 09-13-2015 influenza virus vaccine, unspecified formulation [facility] 09-13-2015 influenza, seasonal, injectable, preservative free Mikaela Zayas MD Work Phone: [facility] 07-29-2013 tetanus and diphther ia toxoids, adsorbed, preservative free, for adult use (5 Lf of tetanus toxoid and 2 Lf of diphtheria toxoid) Mikaela Zayas Other [facility] Payers Date Payer Category Payer [facility] Care O (unspecified) [employer] [id number] 2022 Medicare [id number] 1959 Unknown [id number] 1955 Unknown [id number] 1954 Unknown [id number] 1954 Unknown [id number] 1954 Unknown [id number] 1954 Unknown [id number] Self-pay Self Pay [id number] Social History Date Type Detail Facility Unknown if ever smoked [facility] [employer] Other Start: 04-17-2023 End: 07-08-2025 Sex Assigned At [facility] [employer] Other Start: 1955 Sex Assigned At Female F [facility] Start: 04-15-2023 End: 09-24-2023 Tobacco smoking status NHIS Never smoked tobacco (finding) [facility] Start: 09-01-2024 End: 03-22-2025 Sex Female (finding) [facility] Start: 04-17-2023 End: 07-08-2025 Alcoholic beverage intake Lifetime non-drinker (finding) [facility] Start: 04-17-2023 End: 07-08-2025 History of Social function [facility] Start: 1955 Sex assigned at Not on file N [facility] Start: 05-17-2025 Gender identity Identifies as female gender (finding) [facility] Functional Status Date Assessment Result Facility 10-08-2024 Fibrosis score Enhanced Liver Fibrosis Score Fibrosis score [facility] Comment on above: ELF(TM) Score Interp retation:Risk cut-offs to assess the likelihood of progressionto cirrhosis and liver-related clinical events within3.9 years following baseline ELF score (IQR: 14.0-22.4months)*: Lower risk < 9.80 Mid risk 9.80 - 11.29 Higher risk >11.29Note: The ELF(TM) Score is a unitless numerical value.*Rakesh SA, Dimitrios HILL, Tonja T, et al. Selonsertibfor patients with bridging fibrosis or compensatedcirrhosis due to VERONICA: Results from randomized phaseIII STELLAR trials. J Hepatol. 2020 Apr;73(1):26-39.Performed at: [address] [id number] Director: Warner Mckinney MD, Phone: [phone] Clinical Notes 12-25-2022 to 07-19-2025 Rachid Janet NIKIA Saul - 07/19/2025 10:00 AM EDTGdileep Saul NP - 07/08/2025 10:30 AM EDTTelephone Encounter - Rachid Saul NP - 06/23/2025 4:13 PM EDLaverne Saul NP - 06/03/2025 1:00 PM EDT Note Date & Type Note Facility 07-19-2025 History of Presester t illness Narrative Images from the original note were not included. HISTORY OF PRESENT ILLNESS: POST OP PT Figueroa Villanueva is an 69 y.o. @ female. EST [...] The patient has normal left wrist strength. Medical Terminologist: 5/5 Other Erythema: absent Scars: present (Well healed) Left hand sensation: trace numbness in tips of fingers. Pulse: present Comments: The operative upper extremity was neurovascularly unchanged. Patient was able to motor fingers and thumb to operative upper extremity in all anatomic planes with 5 out of 5 strength. Radial and ulnar pulses were present and equal bilaterally postoperatively. Sensation to light touch was intact to all dermatomes to operative upper extremity postoperatively. Capillary refill was less than 2 seconds postoperatively to operative upper extremity nailbeds. [...] requiring urgent evaluation. documented in this encounter [facility] 07-08-2025 History of Presen t illness Narrative Images from the original note were not included. HISTORY OF PRESENT ILLNESS: POST OP PT Figueroa Villanueva is an 69 y.o. @ female. 1ST [...] planes with 5 out of 5 strength. Radial and ulnar pulses were present and equal bilaterally postoperatively. Sensation to light touch was intact to all dermatomes to operative upper extremity postoperatively. Capillary refill was less than 2 seconds postoperatively to operative upper extremity nailbeds. Compartments were soft to operative upper extremity postoperatively. Physical Exam Results Procedures No orders of the defined types were placed in this encounter. ASSESSMENT: ICD-10-CM 1. Status post carpal tunnel release Z98.890 PLAN: Assessment & Plan 2 weeks s/p Carpal tunnel release: Plan: I reviewed Post Op care and instructions with the patient. No forceful gripping for 4 weeks from the [...] requiring urgent evaluation. documented in this encounter [facility] 06-23-2025 Telephone encount er Note Post op pain rx. PDMP reviewed [facility] 06-23-2025 Miscellaneous Notes Formattin g of this note might be different from the original. Post op pain rx. PDMP reviewed documented in this encounter [facility] 06-03-2025 History of Presen t illness Narrative Images from the original note were not included. GENERAL HISTORY AND PHYSICAL: NAME: Figueroa Villanueva : 1955 HISTORY OF PRESENT ILLNESS: Figueroa Villanueva is an 69 y.o. @ female. Here for surgery instructions left carpal tunnel release June 24 @ [facility]. PAST MEDICAL HISTORY: Past Medical History: Diagnosis Date Acute superficial venous thrombosis of lower extremity, right Fatty liver 09/2024 Hypertension PAST SURGICAL HISTORY: Past Surgical History: Procedure Laterality Date BLADDER SUSPENSION 05/2021 SECTION, CLASSIC 10/1975, 10/1977 DORSAL COMPARTMENT RELEASE Right 08/10/2021 1ST COMP ; DR BATISTA KNEE ARTHROSCOPY W/ MENISCECTOMY Right 01/2006 DR BATISTA TONSILLECTOMY TUBAL LIGATION 02/1980 SOCIAL HISTORY: Social History Occupational History Not on file Tobacco Use Smoking status: Never Smokeless tobacco: Not on file Substance and Sexual Activity Alcohol use: Never Drug use: Never Sexual activity: Not on file ALLERGIES: Allergies Allergen Reactions Anesthesia S-I-40 [Propofol] Codeine MEDICATIONS: Current Outpatient Medications Medication Instructions alpha tocopherol (VITAMIN E) 400 Units, Daily amLODIPine (Norvasc) 10 MG tablet Daily aspirin 81 mg, Daily Calcium Carbonate (CALCIUM 600 PO) Take by mouth carvedilol (Coreg) 6.25 MG tablet Twice daily cyanocobalamin (VITAMIN B-12) 500 mcg, Daily famotidine (Pepcid) 20 MG tablet Take by mouth Garlic 1000 MG capsule Take by mouth hydroCHLOROthiazide (HYDRODIURIL) 25 mg, Daily levothyroxine (Tirosint) 75 MCG capsule Daily before breakfast lisinopril 40 mg, Daily Magnesium 250 MG capsule Take by mouth Multiple Vitamin (MULTIVITAMIN ADULT PO) Take by mouth Multiple Vitamins-Minerals (PRESERVISION AREDS PO) Take by mouth [place] 3-6-9 capsule 600 mg Potassium 99 MG tablet Take by mouth Probiotic Product (PROBIOTIC ADVANCED PO) Take by mouth rosuvastatin (Crestor) 20 MG tablet .COMPLEX vitamin C 1,000 mg, Daily zinc 50 MG tablet Take by mouth REVIEW OF SYSTEMS: Review of Systems Constitutional: Negative for fatigue, fever and unexpected weight change. Eyes: Negative for redness and visual disturbance. Gastrointestinal: Negative for abdominal pain. Denies Indigestion Musculoskeletal: See note: Skin: Negative for color change and rash. Neurological: Negative for light-headedness and numbness. Vitals: Body mass index is 35.33 kg/m . PHYSICAL EXAM: Physical Exam Constitutional: General: She is not in acute distress. Appearance: Normal appearance. HENT: Head: Normocephalic and atraumatic. Right Ear: External ear normal. Left Ear: External ear normal. Nose: Nose normal. No rhinorrhea. Mouth/Throat: Mouth: Mucous membranes are moist. Pharynx: No posterior oropharyngeal erythema. Eyes: Extraocular Movements: Extraocular movements intact. Conjunctiva/sclera: Conjunctivae normal. Cardiovascular: Rate and Rhythm: Normal rate and regular rhythm. Pulses: Normal pulses. Heart sounds: No murmur heard. Pulmonary: Effort: Pulmonary effort is normal. No respiratory distress. Breath sounds: Normal breath sounds. No wheezing or rhonchi. Abdominal: Palpations: Abdomen is soft. Tenderness: There is no abdominal tenderness. Musculoskeletal: Cervical back: Normal range of motion and neck supple. Lymphadenopathy: Cervical: No cervical adenopathy. Skin: General: Skin is warm and dry. Findings: No erythema or rash. Neurological: General: No focal deficit present. Mental Status: She is alert and oriented to person, place, and time. Psychiatric: Mood and Affect: Mood normal. Behavior: Behavior normal. No orders of the defined types were placed in this encounter. ASSESSMENT: ICD-10-CM 1. Preop examination Z01.818 PLAN: This patient presents for preadmission testing for upcoming surgery. Complete history with medical, surgery, and current allergy and medication list obtained. Consent for surgery signed and witnessed after verbal consent to perform surgery received. All questions answered and proposed surgery scheduled. SURGERY INSTRUCTIONS May NO PRE LABS NEEDED PRE CERT SENT Follow up in about 5 weeks (around 07/08/2025) for Post-Op July 08 @ 2:30 in [place] with Rachid Saul. documented in this encounter [facility] 05-25-2025 History of Presen t illness Narrative Images from the original note were not included. HISTORY OF PRESENT ILLNESS: EST PT Figueroa Villanueva is an 69 y.o. @ female. (EST PT, NEW PROBLEM) DR QUISPE REFERRAL. LT HAND N/T SINCE 01/2025. STATES IN 2021, ENTIRE ARM WOULD GO NUMB. NUMBNESS HAS RESOLVED IN ARM, NOW JUST IN HAND. [place] [facility] [place] [facility] [place] HX PHYSICAL THERAPY FOR NECK CHIROPRACTOR DENIES PAIN, HAS CONSTANT TINGLING. NO PAIN MEDS. N/T IN THUMB, LT IF, MF AND RF. DROPPED SOMETHING ONCE, CAREFUL ON HOW SHE PICKS THINGS UP. HAS ACCIDENTALLY CUT FINGER BEFORE. DOES NOT WAKE AT HS. DENIES SWELLING. GOOD ROM. RT HANDED. ANESTHESIA ALLERGY ALLERGIES: Allergies Allergen Reactions Anesthesia S-I-40 [Propofol] Codeine HOME MEDICATIONS: Current Outpatient Medications Medication Instructions alpha tocopherol (VITAMIN E) 400 Units, Daily amLODIPine (Norvasc) 10 MG tablet Daily aspirin 81 mg, Daily Calcium Carbonate (CALCIUM 600 PO) Take by mouth carvedilol (Coreg) 6.25 MG tablet Twice daily cholecalciferol (VITAMIN D-3) 1,000 Units, Daily cyanocobalamin (VITAMIN B-12) 500 mcg, Daily famotidine (Pepcid) 20 MG tablet Take by mouth Ferrous Sulfate (iron) 325 (65 Fe) MG tablet Take by mouth. folic acid (Folvite) 800 MCG tablet Daily Garlic 1000 MG capsule Take by mouth hydroCHLOROthiazide (HYDRODIURIL) 25 mg, Daily levothyroxine (Tirosint) 75 MCG capsule Daily before breakfast lisinopril 40 mg, Daily Magnesium 250 MG capsule Take by mouth Multiple Vitamin (MULTIVITAMIN ADULT PO) Take by mouth Multiple Vitamins-Minerals (PRESERVISION AREDS PO) Take by mouth [place] 3-6-9 capsule 600 mg Potassium 99 MG tablet Take by mouth Probiotic Product (PROBIOTIC ADVANCED PO) Take by mouth rosuvastatin (Crestor) 20 MG tablet .COMPLEX Turmeric 500 MG tablet Take by mouth. vitamin C 1,000 mg, Daily zinc 50 MG tablet Take by mouth PHYSICAL EXAM: Hand/Wrist Musculoskeletal Exam Inspection Left Erythema: none Ecchymosis: none Edema: none Deformity: mild Inspection additional comments: MILD THENAR ATROPHY Palpation Left Left hand palpation is normal. Wrist tenderness to palpation: carpal canal Palpation additional comments: DENIES PAIN TO PALPATION OF HAND/ WRIST JOINT Range of Motion Left Hand Left hand range of motion is normal. Range of motion additional comments: ABLE TO MAKE FULL FIST Strength Left Hand Left hand strength is normal. Strength additional comments: 5/5 EQUAL BUSINESS ADMINISTRATOR STRENGTH Neurovascular Left Radial pulse: normal and 2+ Capillary refill: <3 sec Ulnar nerve sensory distribution: normal Median nerve sensory distribution: decreased Superficial radial nerve sensory distribution: normal Special Tests Left Phalen's: positive Tinel's - carpal tunnel: positive General Constitutional: appears stated age Labored breathing: no Neurological: alert and oriented x3 Skin: intact Lymphadenopathy: none Vitals: Body mass index is 35.14 kg/m . Tobacco Use: Unknown (05/25/2025) Patient History Smoking Tobacco Use: Never Smokeless Tobacco Use: Unknown Passive Exposure: Not on file Alcohol Use: Not on file IMAGING: Procedures No orders of the defined types were placed in this encounter. ASSESSMENT: ICD-10-CM 1. Carpal tunnel syndrome of left wrist G56.02 2. Paresthesias in left hand R20.2 PLAN: We have discussed her symptoms, physical exam, and EMG. Her EMG shows severe carpal tunnel syndrome on the left. We recommended a open release of the transverse carpal ligament left wrist and hand we'll see her back on the day of surgery. We have discussed both surgical and nonsurgical treatment options with the patient and the risks and benefits associated with both. The patient is requesting surgical intervention because the patient's symptoms were affecting the patient's activities of daily living and ability to sleep. The patient's symptoms were unresponsive to outpatient treatment options. After lengthy discussions involving but not limited to both surgical and nonsurgical treatment options the patient has requested surgical intervention and we will see them back on the day of surgery. The patient understands the risks of said treatment. Questions answered in laymen terms at the bedside. The diagnosis, home exercise plan and any ongoing restrictions/ recommendations reviewed. If unable to be reached in office, I recommend evaluation at nearest Emergency Room if any symptoms worsened or new symptoms develop for requiring urgent evaluation. documented in this encounter [facility] 05-17-2025 Evaluation note Diagnosis Onset Date Resolution Carpal tunnel syndrome of left wrist acute May 17, 2025 9:08am Other chronic pain acute May 17, 2025 9:08am Elevated glucose acute July 21, 2025 9:11am Fatty liver acute July 21, 2025 9:11am Hypertension acute July 21, 2025 9:11am Hypothyroidism acute July 9:11am Metabolic syndrome acute Octobe r 2024 9:11am Mixed hyperlipidemia acute Octo 2024 9:11am Weight gain acute July 21, 2025 9:11am [facility] Work Phone: 1(192) 925-626606-09-2025 Evaluation note* Diagnosis Onset Date Resolution Status Admit Date Cervical radiculopathy acute 2024 9:18am Neck pain acute March 22, 2025 9:18am Other chronic pain acute March 222024 9:18am [facility] Work Phone: 1(684) 218-155906-09-2025 Evaluation note* Diagnosis Onset Date Resolution Status Admit Date Cervical radiculopathy acute Ju ne 2024 9:18am Neck pain acute March 22, 2025 9:18am Other chronic pain acute March 222024 9:18am Cervical radiculopathy acute Ju ly 2024 12:51pm Numbness and tingling of lef t hand acute April 21, 2025 1 2:51pm Other chronic pain acute April 212024 12:51pm [facility] Work Phone: 1([phone]) 587-830006-09-2025 Evaluation note* Diagnosis Onset Date Resolution Status Admit Date Cervical radiculopathy acute Ju ne 2024 9:18am Neck pain acute March 22, 2025 9:18am Other chronic pain acute March 222024 9:18am Cervical radiculopathy acute Ju ly 2024 12:51pm Numbness and tingling of lef t hand acute April 21, 2025 1 2:51pm Other chronic pain acute April 212024 12:51pm Carpal tunnel syndrome of le ft wrist acute May 17, 2025 9:08am Other chronic pain acute May 17, 2025 9:08am [facility] Work Phone: 1([phone]) 182-489803-17-2025 Evaluation note* Diagnosis Onset Date Resolution Status Admit Date Bronchitis acute December 28 8:46am Cervical radiculopathy acute [facility] 2024 9:18am Neck pain acute March 22, 2025 9:18am Other chronic pain acute March 222024 9:18am [facility] Work Phone: 1([phone]) 303-897302-25-2025 Evaluation note* Author Wayne [facility] Authored December 08, 2024 12:31pm 69-year-old female referred to the liver clinic for evaluation of fatty liver Ultrasound on 06/29/2024 showed echogenic liver with suspected nodular contour Laboratory work up for infectious, autoimmune and metabolic etiologies of liver diseases were unremarkable. FibroScan on 10/08/2024 showed LSM 7.1 consistent with no significant fibrosis and CAP 307 consistent with steatosis grade S3. Enhanced liver fibrosis on 10/08/2024 is 8.48 Patient has obesity, HTN and HLD which are risk factors associated with MASLD. Patient does not have secondary causes of hepatic fat accumulation such as significant alcohol consumption, viral hepatitis, steatogenic medications (e.g., tamoxifen, amiodarone, methotrexate), or lipodystrophy. Pt was counseled about weight loss(10%) mediterranean diet and exercise ( >45 minutes X5 per week). [facility] Work Phone: 1(149) 682-291112-10-2024 Evaluation note* Author Wayne [facility] Authored September 22, 2024 12:52pm 68-year-old female [...] week). Will arrange for fibroscan and check [facility] Work Phone: 1([phone]) 645-588909-10-2024 Evaluation note* Diagnosis Onset Date Resolution Status Admit Date Essential (primary) hypertension acute June 23, 2024 10:41am Hypothyroidism acute June 23, 2024 10:41am Medicare annual wellness vis it, subsequent acute June 23, 2024 10:41am Mixed hyperlipidemia acute Jun 10:41am RUQ abdominal pain acute 2023 10:41am Screening mammogram for karla st cancer acute June 23, 2024 10:41am Vitamin D deficiency acute Jun 10:41am [facility] Work Phone: [phone] 778-206612-12-2023 Evaluation note* Encounter Date Diagnosis Assessment Notes [...] problem in groin area - requests refill. [employer] [facility] Other 10-31-2023 Evaluation note* Encounter Date Diagnosis [...] reviewed progress notes from her referring provider Mikaela Zayas. I also independently reviewed recent imaging [...] negative findings were considered in medical decision-making. [employer] Other 10-15-2023 Evaluation note* Encounter Date Diagnosis [...] no improvement in 2 to 3 days [employer] Other 09-13-2023 Evaluation note* Encounter Date Diagnosis Assessment Notes Treatment Notes Treatment Clinical Notes Jun, Situational anxiety (ICD-10 - F41.8) [employer] [facility] Other 09-06-2023 Evaluation note* Encounter Date Diagnosis [...] her satisfaction and patient sent home stable [employer] Other 03-28-2023 Evaluation note* Encounter Date Diagnosis Assessment Notes Treatment Notes Treatment Clinical Notes Dec, Erythrasma (ICD-10 - L08.1) [employer] [facility] Other 03-14-2023 Evaluation note* Encounter Date Diagnosis [...] counseling (ICD-10 - Z71.89) Discussed at length. Figueroa has a good support system and appears that she is doing well. >15 min discussion [employer] Other Evaluation noteNo assessment information available [facility] Work Phone: Evaluation note* Diagnosis Onset Date Resolution Status Essential (primary) hypertension acute Hypothyroidism acute Mixed hyperlipidemia acute RUQ abdominal pain acute Screening mammogram for breast cancer acute Vitamin D deficiency acute [facility] Work Phone: Evaluation note* Diagnosis Carpal tunnel syndrome of left wrist- Primary Paresthesias in left hand Disturbance of skin sensation documented in this encounter [facility] HealthcareEvaluation note* Diagnosis Preop examination- Primary Unspecified pre-operative examination documented in this encounter [facility] HealthcareEvaluation note* Diagnosis Carpal tunnel syndrome of left wrist- Primary documented in this encounter [facility] HealthcareEvaluation note* Diagnosis Status post carpal tunnel release- Primary Other postprocedural status documented in this encounter [facility] HealthcareEvaluation note* Diagnosis Status post carpal tunnel release- Primary Other postprocedural status documented in this encounter [facility] HealthcareHistory general Narrative - Reported* Type Description Date [...] C SECTION X2 Surgical History TUBAL LIGATION [employer] Other History general Narrative - Reported* Type [...] TUBAL LIGATION Hospitalization History SEE SURGICAL HX [employer] [facility] Other Hospital Discharge instructionsAmbulatory Orders* Referral to Orthopedics Time Frame: 05/17/25, Location: None Selected [facility] Work Phone: Reason for referral (narrative)No reason for referral [facility] Work Phone: Summary Purpose Family History Relationship Condition Age [...] Unknown Heart disease Unknown son Hypertension Unknown Relationship Condition Age at Onset Recorded Date/T tori brother Hypertension Unknown daughter Hypertension Unknown father Diabetes mellitus Unknown Hypertension Unknown History of stroke Unknown Unknown mother Hypertension Unknown Heart disease Unknown son Hypertension Unknown Cerebrovascular accident (CVA) Unknown mother Heart disease Unknown Advance Directives Advance Directive Response Recorded [...] Visit Admit Date Essential (primary) hypertension Septemb 2023 10:41am Hypothyroidism June 23, 2024 10:41am [...] Steatosis of liver September 22, 2024 11:07am Chief Complaint Admit Date fatty liver October 08, 2024 10:40am K76.0 October 08, 2024 10:45am follow up Fibro December 08, 2024 10:44am Amb Documentation December 21, 2024 11: 20am TBH; URI f/u December 28, 2024 8:4 6am Chief Complaint Admit Date TBH; URI f/u December 28, 2024 8:4 6am Left arm numbness March 22, 2025 9:18a m Reason for Visit Admit Date Bronchitis December 28, 2024 8:4 6am Cervical radiculopathy March 22, 2025 9: 18am Neck pain March 22, 2025 9:18a m Other chronic pain March 22, 2025 9:18a m Chief Complaint Admit Date Left arm numbness March 22, 2025 9:18a m M54.12 April 12, 2025 6:40 am Reason for Visit Admit Date Cervical radiculopathy March 22, 2025 9: 18am Neck pain March 22, 2025 9:18a m Other chronic pain March 22, 2025 9:18a m Chief Complaint Admit Date Left arm numbness March 22, 2025 9:18a m M54.12 April 12, 2025 6:40 am review imaging April 21, 2025 12:51 pm Reason for Visit Admit Date Cervical radiculopathy March 22, 2025 9: 18am Neck pain March 22, 2025 9:18a m Other chronic pain March 22, 2025 9:18a m Cervical radiculopathy April 21, 2025 12 :51pm Numbness and tingling of left hand April 21, 2025 12:51pm Other chronic pain April 21, 2025 12:51 pm Chief Complaint Admit Date Left arm numbness March 22, 2025 9:18a m M54.12 April 12, 2025 6:40 am review imaging April 21, 2025 12:51 pm R20.0 R20.0 May 12, 2025 8:01 am Chief Complaint Admit Date Left arm numbness March 22, 2025 9:18a m M54.12 April 12, 2025 6:40 am review imaging April 21, 2025 12:51 pm R20.0 R20.0 May 12, 2025 8:01 am review EMG May 17, 2025 9:0 8am Reason for Visit Admit Date Cervical radiculopathy March 22, 2025 9: 18am Neck pain March 22, 2025 9:18a m Other chronic pain March 22, 2025 9:18a m Cervical radiculopathy April 21, 2025 12 :51pm Numbness and tingling of left hand April 21, 2025 12:51pm Other chronic pain April 21, 2025 12:51 pm Carpal tunnel syndrome of left wrist Aug ust 2024 9:08am Other chronic pain May 17, 2025 9:0 8am Chief Complaint Admit Date R20.0 R20.0 May 12, 2025 8:01 am review EMG May 17, 2025 9:0 8am Wellness July 21, 2025 9: 11am Reason for Visit Admit Date Carpal tunnel syndrome of left wrist Aug ust 2024 9:08am Other chronic pain May 17, 2025 9:0 8am Elevated glucose July 21, 2025 9: 11am Fatty liver July 21, 2025 9: 11am Hypertension July 21, 2025 9: 11am Hypothyroidism July 21, 2025 9: 11am Metabolic syndrome July 21, 2025 9: 11am Mixed hyperlipidemia July 21, 2025 9 :11am Weight gain July 21, 2025 9: 11am Reason for Referral Reason [facility] [place] Diagnosis 1 Symptomatic varicose veins, right (I83.891) Referral Organization [facility] giovanna Referring Provider First Name Mikaela Referring Provider Last Name Chana Referring Provider Specialty [facility] Referred Organization [facility] Referred Address [address], [place],[address] Referred Provider Specialty Vascular and Interventional Radiology Referral Priority Routine Additional Source Comments INFORMATION SOURCE (unrecogn ized section and content) DATE CREATED AUTHOR 07/14/2022 [facility] DATE CREATED AUTHOR AUTHOR'S ORGANIZ ATION 05/15/2025 [facility] DATE CREATED AUTHOR AUTHOR'S ORGANIZ ATION 07/21/2025 [facility] dical Specialists EPIC REASON FOR VISIT (unrecogniz ed section and content) Reason Comments Pain Specialty Diagnoses / Procedures Referred By Bijan elach Referred To Contact Orthopaedic Surgery Diagnoses Carpal tunnel syndrome, left upper limb Procedures MD [employer] [facility] [address] [place] [address] Jr. Miah Batista, DO [address] [place] [address] Phone: tel: fax: Referral ID Status Reason Start Date Expiration Date Visits Re quested Visits Authorized [id number] Closed 05/17/2025 11/13/2025 1 1 Reason Comments Pre-op Visit Reason Comments Post-op Reason Comments Post-op Pain Care Teams (unrecognized sec tion and content) Team Status: Active Member Role Status Dates Mikaela Zyaas MD Primary Care Provider Active Team Status: Active Member Role Status Dates Mikaela Zayas MD Primary Care Provider Active Start: May 12, 2025 Lukasz Quispe MD Other Provider Active Start: May 12, 2025 Daryl Dillard MD Attending Provider Active Start: May 12, 2025 Team Status: Inactive Member Role Status Dates Mikaela Zayas MD Primary Care Provider Active Start: May 17, 2025 End: May 17, 2025 Lukasz Quispe MD Attending Provider Active Sta rt: May 17, 2025 End: May 17, 2025 Team Status: Inactive Member Role Status Wilfredo Zayas MD Primary Care Provider Active Start: July 21, 2025 End: July 21, 2025 Mikaela Zayas MD Attending Provider Active St art: July 21, 2025 End: July 21, 2025 Team Status: Active Member Role Status Wilfredo Zayas MD Primary Care Provider Active Team Status: Inactive Member Role Status Wilfredo Zayas MD Primary Care Provide r, Attending Provider Active Start: December 28, 2024 End: December 28, 2024 Team Status: Inactive Member Role Status Wilfredo Zayas MD Primary Care Provider Active Start: March 22, 2025 End: March 22, 2025 Lukasz Quispe MD Attending Provider Active Sta rt: March 22, 2025 End: March 22, 2025 Team Status: Active Member Role Status Wilfredo Zayas MD Primary Care Provider Active Start: October 08, 2024 Wayne Givens MD Other Provider Active Start: Sep Candelario Gaiens MD Attending Provider Active S tart: October 08, 2024 Team Status: Inactive Member Role Status Wilfredo Zayas MD Primary Care Provider Active Start: October 08, 2024 End: October 08, 2024 Wayne Givens MD Attending Provider Active Start: October 08, 2024 End: October 08, 2024 Team Status: Inactive Member Role Status Dates Mikaela Zayas MD Primary Care Provider Active Start: December 08, 2024 End: December 08, 2024 Wayne Givens MD Attending Provider Active Start: December 08, 2024 End: December 08, 2024 Team Status: Active Member Role Status Dates Mikaela Zayas MD Primary Care Provider Active Start: December 20, 2024 Sherif Luna DO Attending Provider Active S tart: December 20, 2024 Team Status: Active Member Role Status Dates Mikaela Zayas MD Primary Care Provider Active Start: December 21, 2024 Merry Flores CMA Attending Provider Active Start: December 21, 2024 Team Status: Inactive Member Role Status Dates Mikaela Zayas MD Primary Care Provide r, Attending Provider Active Start: June 23, 2024 End: June 23, 2024 Team Status: Inactive Member Role Status Dates SESAR Elizabeth Attending Provider Active Team Status: Inactive Member Role Status Dates Mikaela Zayas MD Attending Provider Active Team Status: Active Member Role Status Dates Mikaela Zayas MD Primary Care Provider Active Start: February 10, 2024 VIVEK Anna Attending Provider Active Start : February 10, 2024 Team Status: Inactive Member Role Status Dates Mikaela Zayas MD Primary Care Provide r, Attending Provider Active Start: March 17, 2024 End: March 17, 2024 Team Status: Active Member Role Status Dates Mikaela Zayas MD Primary Care Provide r, Attending Provider Active Start: June 29, 2024 Team Status: Inactive Member Role Status Dates Mikaela Zayas MD Primary Care Provide r, Attending Provider Active Start: September 01, 2024 End: September 01, 2024 Team Status: Inactive Member Role Status Dates Mikaela Zayas MD Primary Care Provider Active Start: September 22, 2024 End: September 22, 2024 Wayne Givens MD Attending Provider Active Start: September 22, 2024 End: September 22, 2024 Team Status: Inactive Member Role Status Dates Mikaela Zayas MD Primary Care Provider Active Start: April 12, 2025 End: April 12, 2025 Lukasz Quispe MD Attending Provider Active Sta rt: April 12, 2025 End: April 12, 2025 Team Status: Inactive Member Role Status Dates Mikaela Zayas MD Primary Care Provider Active Start: April 21, 2025 End: April 21, 2025 uLkasz Quispe MD Attending Provider Active Sta rt: April 21, 2025 End: April 21, 2025 Team Status: Inactive Member Role Status Dates Mikaela Zayas MD Primary Care Provider Active Start: May 12, 2025 End: May 12, 2025 Lukasz Quispe MD Attending Provider Active Sta rt: May 12, 2025 End: May 12, 2025 Team Status: Active Member Role Status Dates Mikaela Zayas MD Primary Care Provider Active Start: May 12, 2025 Lukasz Quispe MD Other Provider Active Start: May 12, 2025 Daryl Dillard MD Attending Provider Active Start: May 12, 2025 Team Status: Inactive Member Role Status Dates Mikaela Zayas MD Primary Care Provider Active Start: May 17, 2025 End: May 17, 2025 Lukasz Quispe MD Attending Provider Active Sta rt: May 17, 2025 End: May 17, 2025 Agriculture Scientist Relationship Specialty Start Date End Date Mikaela Zayas MD [address] [place] [phone] PCP - General Family Medicine 05/25/25 Agriculture Scientist Relationship Specialty Start Date End Date Mikaela Zayas MD [address] [place] [phone] PCP - General Family Medicine 05/25/25 Agriculture Scientist Relationship Specialty Start Date End Date Mikaela Zayas MD [address] [place] [phone] PCP - General Family Medicine 05/25/25 Agriculture Scientist Relationship Specialty Start Date End Date Mikaela Zayas MD [address] [place] [phone] PCP - General Family Medicine 05/25/25 Agriculture Scientist Relationship Specialty Start Date End Date Mikaela Zayas MD [address] [facility] [place] [phone] PCP - General Family Medicine 05/25/25 Agriculture Scientist Relationship Specialty Start Date End Date Mikaela Zayas MD [address] [facility] [place] [address] PCP - General Family Medicine 05/25/25 Team Status: Inactive Member Role Status Dates Mikaela Zayas MD Primary Care Provider Active Start: July 21, 2025 End: July 21, 2025 Mikaela Zayas MD Attending Provider Active St art: July 21, 2025 End: July 21, 2025 Goals (unrecognized section and content) Goals may [...] BE BASED ON THE PRIMARY CLINICAL RECORDS. [employer] provides no warranty or guarantee of the accuracy or completeness of information in this document.
[2025-07-30 08:51] LABS: Hematocrit 41.6 % (36.0-48.0); Hemoglobin 13.7 g/dL (12.0-16.0); Immature Granulocytes Abs Auto 0.02 10^3/uL (0.00-0.03); Immature Granulocytes Pct Auto 0.3 % (0.0-0.5); Lymphocytes Absolute Auto 1.5 10^3/uL (1.2-3.8); Mean Corpuscular HGB Conc 32.9 g/dL (29.9-35.2); Mean Corpuscular Hemoglobin 29.5 pg (26.7-34.0); Mean Corpuscular Volume 89.7 fL (81.0-99.0); Platelet Count 249 10^3/uL (150-450); Red Blood Count 4.64 10^6/uL (4.20-5.40); White Blood Count 7.4 10^3/uL (4.0-11.0)
[2025-07-30 09:20] LABS: Alanine Aminotransferase 55 U/L (14-59); Alkaline Phosphatase 56 U/L (46-116); Anion Gap 11.4; Aspartate Amino Transferase 28 U/L (15-37); Blood Urea Nitrogen 19.0 mg/dL (7.0-18.0); Calcium 9.2 mg/dL (8.5-10.1); Carbon Dioxide 29.2 mmol/L (21.0-32.0); Chloride 108 mmol/L (98-107); Estimated GFR (African America >60 (>=60 mL/min/1.73m^2); Estimated GFR (Non-African Ame >60 (>=60 mL/min/1.73m^2); Glucose 119 mg/dL (74-106); Potassium 3.6 mmol/L (3.5-5.1); Sodium 145 mmol/L (136-145); Total Protein 7.4 g/dL (6.4-8.2)
[2025-07-30 09:21] LABS: Albumin Globulin Ratio 1.2; Albumin Level 4.0 g/dL (3.4-5.0); Cholesterol 142 mg/dL (<=200); Globulin 3.4 g/dL; HDL Cholesterol 47 mg/dL (40-60); Thyroid Stimulating Hormone 3.566 uIU/mL (0.358-3.740); Triglycerides 161 mg/dL (<=150); VLDL CHOLESTEROL 32.2 mg/dL
== END 2025-07-30 07:37 | disposition home or self-care (01) ==
LOC: LAB 07:38
PROVIDERS: PCP Family Medicine; Visit Provider Family Medicine
DX: E88.810 Metabolic syndrome (principal); K76.0 Fatty (change of) liver, not elsewhere classified; I10 Essential (primary) hypertension; E03.9 Hypothyroidism, unspecified; E78.2 Mixed hyperlipidemia; R63.5 Abnormal weight gain
CPT/HCPCS: 36415; 80053; 80061; 82043; 82570; 83036; 84439; 84443; 85025